=== PATIENT | female | born 1945 | race American Indian/Alaskan Native ===

== ENCOUNTER 2017-01-02 08:51 | Outpatient (CLI) | payer MEDICARE ==
[2017-01-02 09:24] LABS: Blood Urea Nitrogen 14 mg/dL (7-17)
[2017-01-02] MEDS ORDERED: NACL ONE (11:49)
--- NOTE | 2017-01-02 15:59 | Cat Scan Report ---
CT abdomen and pelvis without contrast: Hematuria. Transverse images are obtained from lower chest to the ischium with coronal and sagittal 2-D reformatted images. Comparison made to the prior examination in August 2015. There are bilateral mammary cyst in the implants. The visualized lungs are unremarkable. Surgical clips are noted in the right upper quadrant. The gallbladder however is present and unremarkable as are the other abdominal organs. In the superior right kidney there is a hypodensity consistent with cyst measuring 17 mm. In the central lower pole there is a 9 mm calculus. In the superior right kidney there is a 3.3 cm hypodensity in in the lower pole is a 4.6 cm hypodensity. In the central kidney is 11 mm calculus. These findings are all unchanged from prior examination. No hydronephrosis noted. In the left kidney adjacent to the calculus however there is a 2 mm calculus which is new. Imaging of the urinary bladder is unremarkable. There is heavy calcification throughout the abdominal aortic wall. Bilateral iliac artery stents are present which were not seen on prior exam. L5-S1 fusion with interspace cage. Impression: 1. Interval development of tiny left calculus with stable bilateral single large calculi. 2. Stable bilateral renal cysts. 3. Interval placement of bilateral iliac artery stents.
== END 2017-01-02 08:52 | disposition home or self-care (01) ==
LOC: CT 08:51
PROVIDERS: ATTEND Urology
DX: N20.0 Calculus of kidney (principal); N28.1 Cyst of kidney, acquired; I70.0 Atherosclerosis of aorta; N60.01 Solitary cyst of right breast; N60.02 Solitary cyst of left breast; Z98.82 Breast implant status
CPT/HCPCS: 36415; 74178; 82565; 84520; Q9967

== ENCOUNTER 2017-05-09 06:53 | Day surgery (SDC) | payer MEDICARE ==
[2017-05-09] MEDS ORDERED: NACL 0.9% 1000 ML 1,000 ML IV SCH (08:00)
[2017-05-09] MEDS ORDERED: PEPCID PO NR (08:00)
[2017-05-09] MEDS ORDERED: NACL BACTERIOSTATIC INFILTRATI ONE (08:11)
--- NOTE | 2017-05-09 08:39 | Anesthesia Consultation ---
Anesthesia Consult and Med Hx Date of service: 05/09/17 - Airway Anesthetic Teeth Evaluation: Dentures ROM Head & Neck: Adequate Mental/Hyoid Distance: Adequate Mallampati Class: Class III Intubation Access Assessment: Probably Good - Pulmonary Exam CTA: Yes - Cardiac Exam Cardiac Exam: RRR - Pre-Operative Health Status ASA Pre-Surgery Classification: ASA4 Proposed Anesthetic Plan: General - Pulmonary Hx Smoking: No Hx Asthma: Yes (INHALERS / NEBULZER PRN) COPD: Yes Hx Pneumonia: Yes (FIRST OF MAR 2017) Hx Sleep Apnea: No (XIOMY PRE SCREEN LOW RISK.) - Cardiovascular System Hx Hypertension: Yes (2006) Hx Valvular Heart Disease: Yes (HX LEAKING VALVE- "STABLE") Hx Peripheral Vascular Disease: Yes (FEM-POP BYPASS WITH STENTS) - Central Nervous System Hx Seizures: No CVA: No - Gastrointestinal Hx Ulcer: Yes (removed in 03/25/1979) Hx Gastroesophageal Reflux Disease: Yes - Endocrine Hx Renal Disease: Yes (CKD) Hx End Stage Renal Disease: No Hx Non-Insulin Dependent Diabetes: No Hx Thyroid Disease: No Hx Hypothyroidism: Yes (ON MEDS) - Hematic Hx Anemia: Yes - Other Systems Hx Cancer: Yes (left Breast Cancer, Chemo and Radiation 2012) - Additional Comments Anesthesia Medical History Comments: h/o DVT,PE IN 2013. stopped anticoag 1 week ago. HLD, migraines, neuropathy, lupus- last does of prednisone 10 days ago. left arm precautions
[2017-05-09 08:40] LABS: Basophils % (Auto) 0.6 % (0.0-1.8); Eosinophils # (Auto) 0.2 K/mm3 (0.0-0.4); Eosinophils % (Auto) 3.3 % (0.0-4.3); Hematocrit 28.6 % (30.3-42.9); Hemoglobin 9.4 gm/dl (10.1-14.3); Lymphocytes # (Auto) 1.1 K/mm3 (1.2-5.4); Lymphocytes % (Auto) 18.8 % (13.4-35.0); Mean Corpuscular HGB Conc 33 % (30-34); Mean Corpuscular Hemoglobin 29 pg (28-32); Mean Corpuscular Volume 87 fl (79-97); Monocytes # (Auto) 0.6 K/mm3 (0.0-0.8); Monocytes % (Auto) 9.6 % (0.0-7.3); Platelet Count 142 K/mm3 (140-440); Red Cell Distribution Width 15.4 % (13.2-15.2)
[2017-05-09] MEDS ORDERED: DILAUDID IV PRN (08:45)
[2017-05-09] MEDS ORDERED: PERCOCET 5/325 PO PRN (08:45)
--- NOTE | 2017-05-09 08:45 | Anesthesia Day of Surgery ---
Anesthesia Day of Surgery - Day of Surgery Patient Examined: Yes Patient H&P Reviewed: Yes (medical clearance appreciated- mild/mod risk) Patient is NPO: Yes
[2017-05-09 08:53] LABS: INR 1.03 (0.87-1.13); Partial Thromboplastin Time 24.7 Sec. (24.2-36.6)
[2017-05-09 08:57] LABS: BUN/Creatinine Ratio 16; Blood Urea Nitrogen 14 mg/dL (7-17); Calcium 9.5 mg/dL (8.4-10.2); Hemolysis Index 21
[2017-05-09] MEDS ORDERED: FLAGYL 500 MG/100 ML 500 MG/100 ML BAG IV NR (09:00)
[2017-05-09] MEDS ORDERED: DIPRIVAN 10 MG/ML IV ONE (09:01)
--- NOTE | 2017-05-09 10:04 | Short Stay Summary ---
Short Stay Documentation Date of service: 05/09/17 - History H&P: obtained from office - Allergies and Medications Current Medications: Allergies chocolate flavor Allergy (Severe, Verified 07/01/13 17:15) Rash corn [[place]] Allergy (Severe, Verified 07/01/13 17:15) Rash egg Allergy (Severe, Verified 07/01/13 17:15) Rash Penicillins Allergy (Severe, Verified 07/01/13 17:15) SWELLING,HIVES shellfish derived Allergy (Severe, Verified 07/01/13 17:15) Rash wheat Allergy (Severe, Verified 07/01/13 17:15) Rash BUTTER BEANS Allergy (Severe, Uncoded 07/01/13 17:15) Rash CHEESE Allergy (Severe, Uncoded 07/01/13 17:15) Rash POND BEANS Allergy (Severe, Uncoded 07/01/13 17:15) Rash Home Medications Medication Instructions Recorded Confirmed Last Taken Type Atorvastatin [Lipitor] 80 mg PO QHS 07/01/13 04/22/17 05/08/17 History Hydroxychloroquine [Plaquenil] 200 mg PO BID 07/01/13 04/22/17 05/08/17 History Lisinopril [Zestril TAB] 10 mg PO DAILY 07/01/13 04/22/17 05/08/17 History Loratadine [Claritin] 10 mg PO DAILY 07/01/13 04/22/17 05/08/17 History Pantoprazole [Protonix TAB] 40 mg PO DAILY tablet 04/10/16 04/22/17 05/08/17 Rx ALBUTEROL Inhaler [Proair] 2 puff IH QID PRN 04/22/17 05/09/17 2 Weeks Ago History ~04/25/17 ALBUTEROL NEB's [Proventil] 2.5 mg IH TID PRN 04/22/17 05/09/17 2 Weeks Ago History ~04/25/17 Apixaban [Eliquis] 5 mg PO BID 04/22/17 05/09/17 05/02/17 History Gabapentin [Neurontin] 300 mg PO TID 04/22/17 04/22/17 05/08/17 History Hydroxyzine HCl [hydrOXYzine] 50 mg PO QHS 04/22/17 04/22/17 05/08/17 History Levothyroxine Sodium [Tirosint] 100 mcg PO QAM 04/22/17 04/22/17 05/08/17 History predniSONE [Deltasone] 5 mg PO PRN PRN 04/22/17 05/09/17 05/07/17 History traMADol [Ultram] 50 mg PO Q6HR PRN 04/22/17 05/09/17 1 Month Ago History ~04/08/17 Active Medications Famotidine (Pepcid) 20 mg PO PREOP NR Stop: 05/09/17 12:00 Last Admin: 05/09/17 08:57 Dose: 20 mg Hydromorphone HCl (Dilaudid) 0.5 mg IV Q10MIN PRN PRN Reason: Pain , Severe (7-10) Stop: 05/09/17 13:00 Sodium Chloride (Nacl 0.9% 1000 Ml) 1,000 mls @ 75 mls/hr IV DIRECT ADELE Last Admin: 05/09/17 08:15 Dose: 75 mls/hr Metronidazole (Flagyl 500 Mg/100 Ml) 500 mg in 100 mls @ 200 mls/hr IV PREOP NR Stop: 05/09/17 12:00 Oxycodone/Acetaminophen (Percocet 5/325) 1 tab PO ONCE PRN PRN Reason: Pain, Moderate (4-6) Stop: 05/09/17 11:00 - Brief post op/procedure progress note Date of procedure: 05/09/17 Pre-op diagnosis: left renal stone Post-op diagnosis: same Procedure: eswl left Anesthesia: GETA Surgeon: ZARA JUÁREZ Estimated blood loss: none Pathology: none Condition: stable - Hospital course Hospital course: norco & post op info on chart - Disposition Condition at discharge: Stable Disposition: [id number]/[place]-[id number] HOME UNDER HOME HL Short Stay Discharge Plan Follow up with: BRITTANY MATTSON MD [Primary Care Provider] - 7 Days
[2017-05-09] MEDS ORDERED: ZOFRAN ONE (10:06)
[2017-05-09] MEDS ORDERED: XYLOCAINE MPF 2% ONE (10:06)
--- NOTE | 2017-05-09 11:05 | Operative Report ---
PREOPERATIVE DIAGNOSIS: Left renal stone. POSTOPERATIVE DIAGNOSES: Left renal stone. PROCEDURE: Left extracorporal shock wave lithotripsy. SURGEON: Maged Garcia MD. ANESTHESIA: General. ESTIMATED BLOOD LOSS: Minimal. FLUIDS: Crystalloid. COMPLICATIONS: None. INDICATIONS: This patient is a 71-year-old female seen by Dr. Alvarez in the office, who was found to have a 12-mm left renal stone. She also has a right-sided stone as well. She presents today for left extracorporal shock wave lithotripsy. DESCRIPTION OF PROCEDURE: The patient was taken to the operative suite, placed in a supine position. After adequate general anesthesia, her left stone was localized in 2 planes using fluoroscopy. Extracorporal shock wave lithotripsy was administered with a maximum kV of 5 and 2500 shocks. There was some fragmentation that could be appreciated. The patient tolerated the procedure well. She may require a staged procedure. She was taken to recovery room in stable condition. She will go home on [place] and strain her urine for fragments. JOB# [id number] MICHAEL/NTS
--- NOTE | 2017-05-09 13:32 | Post Anesthesia Evaluation ---
- Post Anesthesia Evaluation Patient Participated: Yes Airway Patent: Yes Stable Respiratory Function: Yes Nausea/Vomiting: No Temp > 96.8F: Yes Pain Manageable: Yes Adequeate Hydration: Yes Anesthesia Complications: No Block Receding Appropriately: Not Applicable Patient on Ventilator: No
[2017-05-09 16:19] VITALS: BP 136/71
== END 2017-05-09 12:05 | disposition home health service (06) ==
LOC: OR 06:53
PROVIDERS: ATTEND Urology
DX: N20.0 Calculus of kidney (principal); I73.9 Peripheral vascular disease, unspecified; I12.9 Hypertensive chronic kidney disease with stage 1 through stage 4 chronic kidney disease, or unspecified chronic kidney disease; N18.3 Chronic kidney disease, stage 3 (moderate); J44.9 Chronic obstructive pulmonary disease, unspecified; K21.9 Gastro-esophageal reflux disease without esophagitis; E78.5 Hyperlipidemia, unspecified; G43.909 Migraine, unspecified, not intractable, without status migrainosus; G62.9 Polyneuropathy, unspecified; M32.9 Systemic lupus erythematosus, unspecified; Z88.0 Allergy status to penicillin; Z85.3 Personal history of malignant neoplasm of breast; Z92.21 Personal history of antineoplastic chemotherapy; Z92.3 Personal history of irradiation; Z86.711 Personal history of pulmonary embolism; Z86.718 Personal history of other venous thrombosis and embolism; Z79.01 Long term (current) use of anticoagulants; Z91.012 Allergy to eggs; Z91.013 Allergy to seafood; Z91.018 Allergy to other foods
CPT/HCPCS: 36415; 50590; 80048; 85025; 85610; 85730; J2405; J2704; J7030

== ENCOUNTER 2017-05-31 10:02 | Outpatient (CLI) | payer MEDICARE ==
--- NOTE | 2017-05-31 11:11 | XRay Report ---
ABDOMEN RADIOGRAPHS INDICATION: Calculus of kidney. COMPARISON: 06/20/2013 abdomen radiographs and 01/02/2017 CT findings. FINDINGS: Frontal abdominal radiographs demonstrate bilateral iliac stents, new since 2013. Stable lumbosacral fusion hardware and few scattered surgical clips overlying the mid abdomen. At least 2 right renal calculi also suspected at the upper and lower poles, the larger approximately 1 cm. Multiple left renal calculi, in aggregate estimated at 2.2 x 0.7 cm. A 0.7 cm right upper quadrant calcific density projecting just below the 10th rib represents calcified granuloma. Possible osteopenia. CONCLUSION: Bilateral iliac stents and other stable postsurgical changes in this patient with bilateral nephrolithiasis, as described. Thank you for the opportunity to participate in this patient's care.
== END 2017-05-31 10:03 | disposition home or self-care (01) ==
LOC: XRAY 10:02
PROVIDERS: ATTEND Urology
DX: N20.0 Calculus of kidney (principal); M43.27 Fusion of spine, lumbosacral region
CPT/HCPCS: 74018

== ENCOUNTER 2017-07-04 07:42 | Day surgery (SDC) | payer MEDICARE ==
[2017-07-04] MEDS ORDERED: DILAUDID IV PRN (11:01)
[2017-07-04] MEDS ORDERED: ZOFRAN IV PRN (11:01)
[2017-07-04] MEDS ORDERED: NARCAN 0.4 MG/1 ML IV PRN (11:01)
--- NOTE | 2017-07-04 11:01 | Anesthesia Day of Surgery ---
Anesthesia Day of Surgery - Day of Surgery Patient Examined: Yes Patient H&P Reviewed: Yes Patient is NPO: Yes
--- NOTE | 2017-07-04 11:01 | Anesthesia Consultation ---
Anesthesia Consult and Med Hx Date of service: 07/04/17 - Airway Anesthetic Teeth Evaluation: Edentulous ROM Head & Neck: Adequate Mental/Hyoid Distance: Adequate Mallampati Class: Class III Intubation Access Assessment: Good - Pulmonary Exam CTA: Yes - Pre-Operative Health Status ASA Pre-Surgery Classification: ASA3 Proposed Anesthetic Plan: General - Pulmonary Hx Smoking: No Hx Asthma: Yes (INHALERS / NEBULZER PRN) COPD: Yes Hx Pneumonia: Yes (FIRST OF MAR 2017- RESOLVED) Hx Sleep Apnea: No (XIOMY PRE SCREEN LOW RISK.) - Cardiovascular System Hx Hypertension: Yes (2006) Hx Heart Attack/AMI: No Hx Valvular Heart Disease: Yes (HX LEAKING VALVE- "STABLE") Hx Peripheral Vascular Disease: Yes (FEM-POP BYPASS WITH STENTS) - Central Nervous System Hx Back Pain: Yes - Gastrointestinal Hx Ulcer: Yes (removed in 03/25/1979 ( PARTIAL GASTECTOMY)) Hx Gastroesophageal Reflux Disease: Yes - Endocrine Hx Renal Disease: Yes (CKD) Hx Non-Insulin Dependent Diabetes: No Hx Thyroid Disease: No Hx Hypothyroidism: Yes (ON MEDS) - Hematic Hx Anemia: Yes - Other Systems Hx Cancer: Yes (left Breast Cancer, Chemo and Radiation 2012)
[2017-07-04 11:34] LABS: INR 1.04 (0.87-1.13)
[2017-07-04 11:35] LABS: Partial Thromboplastin Time 28.1 Sec. (24.2-36.6)
[2017-07-04] MEDS ORDERED: NACL 0.9% 1000 ML 1,000 ML IV SCH (12:00)
[2017-07-04] MEDS ORDERED: ZOFRAN IV NR (12:00)
[2017-07-04] MEDS ORDERED: DIPRIVAN 10 MG/ML IV ONE (12:25)
[2017-07-04] MEDS ORDERED: SUBLIMAZE ONE (12:26)
[2017-07-04] MEDS ORDERED: LEVAQUIN 500MG/100ML 500 MG/100 ML BAG IV ONE (12:57)
[2017-07-04] MEDS: DILAUDID IV PRN ×2 (13:53→14:15)
[2017-07-04] MEDS ORDERED: XYLOCAINE MPF 2% ONE (14:30)
[2017-07-04] MEDS ORDERED: NORCO 7.5/325 ONE (14:47)
--- NOTE | 2017-07-04 14:48 | Short Stay Summary ---
Short Stay Documentation Date of service: 07/04/17 - Allergies and Medications Current Medications: Allergies chocolate flavor Allergy (Severe, Verified 07/01/13 17:15) Rash corn [[place]] Allergy (Severe, Verified 07/01/13 17:15) Rash egg Allergy (Severe, Verified 07/01/13 17:15) Rash Penicillins Allergy (Severe, Verified 07/01/13 17:15) SWELLING,HIVES shellfish derived Allergy (Severe, Verified 07/01/13 17:15) Rash wheat Allergy (Severe, Verified 07/01/13 17:15) Rash BUTTER BEANS Allergy (Severe, Uncoded 07/01/13 17:15) Rash CHEESE Allergy (Severe, Uncoded 07/01/13 17:15) Rash POND BEANS Allergy (Severe, Uncoded 07/01/13 17:15) Rash Home Medications Medication Instructions Recorded Confirmed Last Taken Type Atorvastatin [Lipitor] 80 mg PO QHS 07/01/13 07/04/17 07/03/17 History Hydroxychloroquine [Plaquenil] 200 mg PO BID 07/01/13 07/04/17 07/03/17 History Lisinopril [Zestril TAB] 10 mg PO DAILY 07/01/13 07/04/17 07/04/17 History Loratadine [Claritin] 10 mg PO DAILY 07/01/13 07/04/17 07/03/17 History Pantoprazole [Protonix TAB] 40 mg PO DAILY tablet 04/10/16 07/04/17 07/03/17 Rx ALBUTEROL Inhaler [Proair] 2 puff IH QID PRN 04/22/17 06/26/17 2 Weeks Ago History ~04/25/17 ALBUTEROL NEB's [Proventil] 2.5 mg IH TID PRN 04/22/17 06/26/17 2 Weeks Ago History ~04/25/17 Apixaban [Eliquis] 5 mg PO BID 04/22/17 07/04/17 06/26/17 History Gabapentin [Neurontin] 300 mg PO TID 04/22/17 07/04/17 07/03/17 History Hydroxyzine HCl [hydrOXYzine] 50 mg PO QHS 04/22/17 07/04/17 07/03/17 History Levothyroxine Sodium [Tirosint] 100 mcg PO QAM 04/22/17 07/04/17 07/03/17 History predniSONE [Deltasone] 5 mg PO PRN PRN 04/22/17 07/04/17 07/03/17 History traMADol [Ultram] 50 mg PO Q6HR PRN 04/22/17 07/04/17 07/03/17 History Active Medications Hydromorphone HCl (Dilaudid) 0.25 mg IV Q10MIN PRN PRN Reason: Pain, Moderate (4-6) Hydromorphone HCl (Dilaudid) 0.5 mg IV Q10MIN PRN PRN Reason: Pain , Severe (7-10) Stop: 07/04/17 23:59 Last Admin: 07/04/17 14:15 Dose: 0.5 mg Sodium Chloride (Nacl 0.9% 1000 Ml) 1,000 mls @ 75 mls/hr IV DIRECT ADELE Last Admin: 07/04/17 11:31 Dose: 75 mls/hr Naloxone HCl (Narcan 0.4 Mg/1 Ml) 0.1 mg IV Q2MIN PRN PRN Reason: Res Rate </= 8 or 02 SAT < 92% Ondansetron HCl (Zofran) 4 mg IV PREOP NR Stop: 07/04/17 23:59 Last Admin: 07/04/17 11:31 Dose: 4 mg Ondansetron HCl (Zofran) 4 mg IV ONCE PRN PRN Reason: Nausea And Vomiting - Brief post op/procedure progress note Date of procedure: 07/04/17 Pre-op diagnosis: right renal eswl Post-op diagnosis: same Procedure: right renal eswl Anesthesia: GETA Findings: 2 stone tx lp good vis Surgeon: DEJON MCINTOSH Estimated blood loss: none Condition: stable - Hospital course Hospital course: or pacu home Short Stay Discharge Plan Activity: advance as tolerated Diet: advance as tolerated Follow up with: DEJON MCINTOSH MD [Staff Physician] - 7 Days
[2017-07-04] MEDS ORDERED: NORCO 7.5/325 PO PRN (14:50)
[2017-07-04 17:29] VITALS: BP 158/83
--- NOTE | 2017-08-07 21:13 | Operative Report ---
PREOPERATIVE DIAGNOSES: Right renal stone x 2 each 11-12 mm and the left renal stone x 1 12 mm. POSTOPERATIVE DIAGNOSIS: Right renal stone. PROCEDURE: Right renal ESWL. ANESTHESIA: General. FINDINGS: Two stones treated in the lower pole with good visualization. SURGEON: Nasir Alvarez M.D. ESTIMATED BLOOD LOSS: Minimal. CONDITION: Stable. CLINICAL INDICATION: The patient was counseled RCBA, antibiotics, SCDs. DESCRIPTION OF PROCEDURE: The patient was transferred to OR suite in supine position, anesthesia, in supine position, prepped and draped in standard fashion. Biplanar fluoroscopy was used to target the right stone with an F2. We targeted the more central stone that was more likely to cause the problem. A total of 2500 shocks were delivered with intermittent repositioning done as necessary, maximum of 5.0 kilovolts. At the end of procedure, there was decreased density of the stone. The patient was awakened and transferred to PACU in good and stable condition. JOB# [id number] ATS/NTS
== END 2017-07-04 15:55 | disposition home or self-care (01) ==
LOC: OR 07:42
PROVIDERS: ATTEND Urology
DX: N20.0 Calculus of kidney (principal); J44.9 Chronic obstructive pulmonary disease, unspecified; K21.9 Gastro-esophageal reflux disease without esophagitis; I12.9 Hypertensive chronic kidney disease with stage 1 through stage 4 chronic kidney disease, or unspecified chronic kidney disease; N18.3 Chronic kidney disease, stage 3 (moderate); E03.9 Hypothyroidism, unspecified; I73.9 Peripheral vascular disease, unspecified; Z85.3 Personal history of malignant neoplasm of breast; Z92.21 Personal history of antineoplastic chemotherapy; Z92.3 Personal history of irradiation; Z88.0 Allergy status to penicillin; Z91.012 Allergy to eggs; Z91.018 Allergy to other foods; Z79.899 Other long term (current) drug therapy; N32.81 Overactive bladder
CPT/HCPCS: 36415; 50590; 85610; 85730; J1170; J1956; J2405; J2704; J3010; J7030

== ENCOUNTER 2017-07-18 11:38 | Outpatient (CLI) | payer MEDICARE ==
--- NOTE | 2017-07-18 23:56 | XRay Report ---
FINAL REPORT EXAM: XR ABDOMEN 1V AP HISTORY: Calculus of the kidney TECHNIQUE: Two frontal views of the abdomen and pelvis were obtained. PRIORS: None FINDINGS: Surgical clips are noted scattered throughout the abdomen. 9 millimeter calculus projects over the superior/midpole of the right kidney. Aortoiliac stent grafts and postsurgical changes overlie the sacrum. Multilevel degenerative changes. Nonobstructive bowel gas pattern. Catheter projects over the mid/distal superior vena cava. Mild enlarged of the cardiac silhouette. No subdiaphragmatic free air. IMPRESSION: Nonobstructive bowel gas pattern. 9 mm calculus projects over the right kidney. Postsurgical changes as above. No pneumoperitoneum.
== END 2017-07-18 11:39 | disposition home or self-care (01) ==
LOC: XRAY 11:38
PROVIDERS: ATTEND Urology
DX: N20.0 Calculus of kidney (principal); I51.7 Cardiomegaly; M47.899 Other spondylosis, site unspecified
CPT/HCPCS: 74018

== ENCOUNTER 2017-08-30 10:44 | Outpatient (CLI) | payer MEDICARE ==
--- NOTE | 2017-08-31 09:17 | Mammography Report ---
BONE DEXA:08/30/17 10:00:00 CLINICAL: Postmenopausal and history of breast cancer. COMPARISON: 08/27/14 and 12/06/10 TECHNIQUE: Two site bone DEXA performed on an Hologic scanner. FINDINGS: The average BMD of the lumbar spine L1-L4 is 0.953g/cm squared with a T-score =-0.7 and a Z score of +0.8. This compares to 0.75 g/cm squared on the last exam and represents a +21.5% change in BMD from the previous exam and a +7.6% change from baseline. The average BMD of the left hip is 0.806g/cm squared with a T-score =-1.1 and a Z score of -0.2.This compares to 0.869g/cm squared on the last exam and represents a -7.3% change in BMD from the previous exam and a -1.0% change from baseline. IMPRESSION: WHO classification: Normal with average fracture risk based on lumbar spine measurements. A marked improvement in spine BMD compared to previous exams. WHO classification: Osteopenia with increased fracture risk based on left hip measurements. % A moderate decline in left hip BMD compared to the previous exam. The FRAX 10 year fracture probability for a major osteoporotic fracture is 4.6%. The FRAX 10 year fracture probability for hip fracture is 0.7%. Note: FRAX version 3.01. Fracture probability calculated for an untreated patient. Fracture probability may be lower if the patient has received treatment. RECOMMENDATION: Clinical correlation and routine screening. DEFINITIONS: BMD = Bone Mineral Density T-score = BMD related to mean peak bone mass of young adult (mean expressed in Standard Deviation) Z-score = Age matched BMD expressed in SD World Health Organization (WHO) Diagnostic Criteria Normal T-score > -1 SD Osteopenia T-score between -1 and -2.4 SD Osteoporosis T-score -2.5 SD or below NOTE: BMD is not the only risk factor for fracture; also consider factors such as the patient's age, risk of falling, previous osteoporotic fracture, family history of osteoporotic fractures, current smoker, and low body weight. All treatment decisions require clinical judgment and consideration of individual patient factors, including patient preferences, comorbidities, previous drug use and wrist factors not captured in the FRAX model (e.g. frailty, falls, vitamin D deficiency, increased bone turnover, interval significant decline in BMD). Z-scores are not calculated if >80 years of age.
== END 2017-08-30 10:45 | disposition home or self-care (01) ==
LOC: MAMMO 10:44
DX: Z13.820 Encounter for screening for osteoporosis (principal); C50.919 Malignant neoplasm of unspecified site of unspecified female breast; F17.210 Nicotine dependence, cigarettes, uncomplicated; E78.00 Pure hypercholesterolemia, unspecified; I10 Essential (primary) hypertension; J44.9 Chronic obstructive pulmonary disease, unspecified; G47.30 Sleep apnea, unspecified; K21.9 Gastro-esophageal reflux disease without esophagitis; Z78.0 Asymptomatic menopausal state
CPT/HCPCS: 77080

== ENCOUNTER 2017-09-12 06:35 | Outpatient (CLI) | payer MEDICARE ==
--- NOTE | 2017-09-12 12:21 | Ultrasound Report ---
ULTRASOUND RENAL BILATERAL HISTORY: Calculus of kidney. TECHNIQUE: transabdominal ultrasound with color Doppler interrogation. FINDINGS: The right kidney measures 10 cm in length. There are 2 cysts near the superior pole of the right kidney measuring 1.2 cm and 1.6 cm. There is an approximate 1 cm calculus near the superior pole of the right kidney. No associated hydronephrosis. No obvious renal mass. The left kidney measures 11.5 cm in length. A 4.3 cm cyst is noted in the superior left kidney. A 3.9 cm cyst is noted in the inferior left kidney. There also appears to be an approximate 1 cm calculus near mid pole of left kidney. No associated hydronephrosis. No obvious mass. The renal parenchyma is slightly echogenic bilaterally consistent with nonspecific renal parenchymal disease. Images through the bladder are unremarkable. IMPRESSION: Nonspecific renal parenchymal disease. Bilateral renal cysts. Bilateral renal stones measuring up to 1 cm. No hydronephrosis.
== END 2017-09-12 06:36 | disposition home or self-care (01) ==
LOC: US 06:35
PROVIDERS: ATTEND Urology
DX: N20.0 Calculus of kidney (principal); N28.1 Cyst of kidney, acquired; I10 Essential (primary) hypertension; E78.00 Pure hypercholesterolemia, unspecified; J44.9 Chronic obstructive pulmonary disease, unspecified; G47.30 Sleep apnea, unspecified; K21.9 Gastro-esophageal reflux disease without esophagitis; D64.9 Anemia, unspecified; Z82.49 Family history of ischemic heart disease and other diseases of the circulatory system
CPT/HCPCS: 76770

== ENCOUNTER 2017-10-31 09:56 | Outpatient (CLI) | payer MEDICARE ==
--- NOTE | 2017-10-31 10:48 | XRay Report ---
AP ABDOMEN: HISTORY: Calculus of kidney. The abdominal gas pattern is unremarkable. No masses or organomegaly is identified and there is no gross evidence of free air or fluid. An approximate 1.3 cm stone overlies the mid right kidney. There are 2 smaller stones overlying the inferior pole of the right kidney measuring approximately 5 mm. Bilateral common iliac vein stents are noted. IMPRESSION: Right nephrolithiasis.
== END 2017-10-31 09:57 | disposition home or self-care (01) ==
LOC: XRAY 09:56
PROVIDERS: ATTEND Urology
DX: N20.0 Calculus of kidney (principal); I73.9 Peripheral vascular disease, unspecified; E78.00 Pure hypercholesterolemia, unspecified; J44.9 Chronic obstructive pulmonary disease, unspecified; K21.9 Gastro-esophageal reflux disease without esophagitis; I10 Essential (primary) hypertension; E03.9 Hypothyroidism, unspecified; M19.90 Unspecified osteoarthritis, unspecified site; Z86.711 Personal history of pulmonary embolism; Z91.018 Allergy to other foods; Z88.0 Allergy status to penicillin; Z91.012 Allergy to eggs; Z91.013 Allergy to seafood
CPT/HCPCS: 74018

== ENCOUNTER 2017-12-24 09:45 | Outpatient (CLI) | payer MEDICARE ==
[2017-12-24] MEDS ORDERED: XYLOCAINE TOPICAL 4% TP ONE ×2 (10:16→14:19)
[2017-12-24] MEDS ORDERED: AD OINTMENT TP ONE (10:22)
[2017-12-24] MEDS ORDERED: AD OINTMENT TP PRN (14:19)
== END 2017-12-24 09:46 | disposition home or self-care (01) ==
LOC: WOUND 09:45
PROVIDERS: ATTEND Surgery
DX: S81.802D Unspecified open wound, left lower leg, subsequent encounter (principal); I89.0 Lymphedema, not elsewhere classified; I10 Essential (primary) hypertension; Z85.3 Personal history of malignant neoplasm of breast; X58.XXXD Exposure to other specified factors, subsequent encounter
CPT/HCPCS: 99205; A6250; G0463

== ENCOUNTER 2017-12-31 07:56 | Outpatient (CLI) | payer MEDICARE ==
[2017-12-31] MEDS ORDERED: XYLOCAINE TOPICAL 4% TP ONE ×2 (08:16→08:19)
== END 2017-12-31 07:57 | disposition home or self-care (01) ==
LOC: WOUND 07:56
PROVIDERS: ATTEND Surgery
DX: S81.802D Unspecified open wound, left lower leg, subsequent encounter (principal); I89.0 Lymphedema, not elsewhere classified; I10 Essential (primary) hypertension; Z85.3 Personal history of malignant neoplasm of breast; X58.XXXD Exposure to other specified factors, subsequent encounter
CPT/HCPCS: 97597; G0463; 99214

== ENCOUNTER 2018-05-14 08:00 | Outpatient (CLI) | payer MEDICARE ==
[2018-05-14] MEDS ORDERED: SILVER NITRATE TP ONE (08:13)
[2018-05-14] MEDS ORDERED: XYLOCAINE TOPICAL 4% TP ONE (08:13)
[2018-05-14] MEDS ORDERED: AD OINTMENT TP SCH (10:00)
== END 2018-05-14 08:01 | disposition home or self-care (01) ==
LOC: WOUND 08:00
PROVIDERS: ATTEND Surgery
DX: I70.248 Atherosclerosis of native arteries of left leg with ulceration of other part of lower leg (principal); I70.238 Atherosclerosis of native arteries of right leg with ulceration of other part of lower leg; L97.822 Non-pressure chronic ulcer of other part of left lower leg with fat layer exposed; L97.812 Non-pressure chronic ulcer of other part of right lower leg with fat layer exposed; I89.0 Lymphedema, not elsewhere classified; L84 Corns and callosities; I10 Essential (primary) hypertension; Z85.3 Personal history of malignant neoplasm of breast; M32.9 Systemic lupus erythematosus, unspecified
CPT/HCPCS: 11042; 11045; G0463; 99215; A6250

== ENCOUNTER 2018-05-21 07:58 | Outpatient (CLI) | payer MEDICARE ==
[2018-05-21] MEDS ORDERED: XYLOCAINE TOPICAL 4% TP ONE (08:01)
[2018-05-21] MEDS ORDERED: AD OINTMENT TP PRN (08:13)
== END 2018-05-21 07:59 | disposition home or self-care (01) ==
LOC: WOUND 07:58
PROVIDERS: ATTEND Surgery
DX: I70.248 Atherosclerosis of native arteries of left leg with ulceration of other part of lower leg (principal); I70.238 Atherosclerosis of native arteries of right leg with ulceration of other part of lower leg; L97.822 Non-pressure chronic ulcer of other part of left lower leg with fat layer exposed; L97.812 Non-pressure chronic ulcer of other part of right lower leg with fat layer exposed; I89.0 Lymphedema, not elsewhere classified; L84 Corns and callosities; I10 Essential (primary) hypertension; M32.9 Systemic lupus erythematosus, unspecified; Z85.3 Personal history of malignant neoplasm of breast
CPT/HCPCS: A6250

== ENCOUNTER 2018-05-28 07:57 | Outpatient (CLI) | payer MEDICARE ==
[2018-05-28] MEDS ORDERED: AD OINTMENT TP SCH (09:00)
[2018-05-28] MEDS ORDERED: XYLOCAINE TOPICAL 4% TP ONE (09:00)
== END 2018-05-28 07:58 | disposition home or self-care (01) ==
LOC: WOUND 07:57
PROVIDERS: ATTEND Surgery
DX: I70.238 Atherosclerosis of native arteries of right leg with ulceration of other part of lower leg (principal); L97.818 Non-pressure chronic ulcer of other part of right lower leg with other specified severity; I89.0 Lymphedema, not elsewhere classified; I10 Essential (primary) hypertension; M32.9 Systemic lupus erythematosus, unspecified; Z85.3 Personal history of malignant neoplasm of breast
CPT/HCPCS: 99214; A6250; G0463

== ENCOUNTER 2018-08-15 06:25 | Outpatient (CLI) | payer MEDICARE ==
--- NOTE | 2018-08-15 07:36 | XRay Report ---
AP ABDOMEN: HISTORY: Calculus of kidney. The renal shadows are partially obscured by bowel gas. There appear to be at least 2 stones overlying the superior and inferior pole of the right kidney measuring up to 1 cm. Slightly larger but solitary calcification overlies the inferior left kidney bilateral common iliac stents and surgical changes of L5-S1 are noted. The bowel gas pattern is unremarkable. IMPRESSION: Nephrolithiasis as described.
--- NOTE | 2018-08-15 11:26 | Ultrasound Report ---
ULTRASOUND RENAL BILATERAL HISTORY: Calculus of kidney, renal cysts. TECHNIQUE: transabdominal ultrasound with color Doppler interrogation. FINDINGS: The right kidney measures 8.9 x 4.3 x 4.7cm. Right renal cortex: 1.4cm. The left kidney measures 11.1 x 5.6 x 5.8cm. Left renal cortex: 1.6cm. Scans of the kidneys show normal renal contours. 1 cm cyst in the right kidney and 2 cysts in the left kidney at measuring 4.0 cm and 4.1 cm appear stable in size and characteristics. Scattered renal stones in the left kidney appear unchanged. The calcification at the inferior pole of the right kidney is not clearly identified on today's exam. No obvious right nephrolithiasis. No evidence for hydronephrosis or perinephric fluid. The bladder is empty. IMPRESSION: Bilateral renal cysts. Stable. Left nephrolithiasis. No obvious right nephrolithiasis on today's exam.
== END 2018-08-15 06:26 | disposition home or self-care (01) ==
LOC: US 06:25
PROVIDERS: ATTEND Urology
DX: N20.0 Calculus of kidney (principal); N28.1 Cyst of kidney, acquired; E78.00 Pure hypercholesterolemia, unspecified; I10 Essential (primary) hypertension; J44.9 Chronic obstructive pulmonary disease, unspecified; K21.9 Gastro-esophageal reflux disease without esophagitis; E03.9 Hypothyroidism, unspecified
CPT/HCPCS: 74018; 76770

== ENCOUNTER 2018-09-01 14:25 | Inpatient (IN) | payer MEDICARE ==
[2018-09-01] MEDS ORDERED: D5/0.45NS 1,000 ML IV SCH (15:00)
[2018-09-01 16:20] LABS: Basophils % (Auto) 0.5 % (0.0-1.8); Eosinophils # (Auto) 0.3 K/mm3 (0.0-0.4); Eosinophils % (Auto) 5.3 % (0.0-4.3); Hematocrit 31.8 % (30.3-42.9); Hemoglobin 10.3 gm/dl (10.1-14.3); Lymphocytes # (Auto) 1.6 K/mm3 (1.2-5.4); Lymphocytes % (Auto) 31.6 % (13.4-35.0); Mean Corpuscular HGB Conc 32 % (30-34); Mean Corpuscular Volume 87 fl (79-97); Monocytes # (Auto) 0.5 K/mm3 (0.0-0.8); Monocytes % (Auto) 9.3 % (0.0-7.3); Platelet Count 132 K/mm3 (140-440); Red Blood Count 3.66 M/mm3 (3.65-5.03); Red Cell Distribution Width 14.9 % (13.2-15.2)
[2018-09-01 16:37] LABS: INR 1.38 (0.87-1.13)
[2018-09-01 16:38] LABS: Partial Thromboplastin Time 27.5 Sec. (24.2-36.6)
[2018-09-01 16:51] LABS: Albumin 3.6 g/dL (3.9-5)
[2018-09-01] MEDS: PEPCID IV SCH (16:54)
[2018-09-01] MEDS: ZOFRAN IV PRN (16:54)
[2018-09-01] MEDS ORDERED: LOVENOX SUB-Q SCH (18:00)
[2018-09-01] MEDS ORDERED: PROVENTIL IH PRN (21:07)
--- NOTE | 2018-09-01 21:19 | History and Physical Report ---
History of Present Illness Date of examination: 09/01/18 Date of admission: 09/01/18 14:56 Chief complaint: Constant Headache, Nausea and vomiting - 10 days in a pt with breast cancer s/p mastectomy. 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 These are associated with constant headache for the past 10 days as well as nausea and vomiting. Vomitus was predominantly gastric contents. No blood. Denies any melena. Denies any fever or chest pain. Had an iliac and left femoral artery stents placed about a month ago. Headache is generalized, 7/10 in severity. Denies any blood vision, photophobia or phonophobia. Has no syncopy however unable to ambulate without assistance because of weakness and dizziness. A direct admission to the hospital was therefore ordered for further evaluation and management. Initial biochemistry showed BUN of 32 and creatinine of 2.7. BUN as at 01/2018 was 15 with creatinine of 1.0. Platelet was 132. CT abdomen and pelvis that were ordered with contrast prior to lab results was therefore pending awaiting improvement in the renal function. Past History Past Medical History: cancer (breast), DVT, GERD, hypothyroidism, pulmonary embolism, renal failure Past Surgical History: mastectomy, Other (gastric surgery) Social history: denies: smoking, alcohol abuse, prescription drug abuse Family history: no significant family history Medications and Allergies Allergies Allergy/AdvReac Type Severity Reaction Status Date / Time chocolate flavor Allergy Severe Rash Verified 07/01/13 17:15 corn [[place]] Allergy Severe Rash Verified 07/01/13 17:15 egg Allergy Severe Rash Verified 07/01/13 17:15 Penicillins Allergy Severe SWELLING,[place] Verified 07/01/13 17:15 VES shellfish derived Allergy Severe Rash Verified 07/01/13 17:15 wheat Allergy Severe Rash Verified 07/01/13 17:15 BUTTER BEANS Allergy Severe Rash Uncoded 07/01/13 17:15 CHEESE Allergy Severe Rash Uncoded 07/01/13 17:15 POND BEANS Allergy Severe Rash Uncoded 04/09/14 17:15 Home Medications Medication Instructions Recorded Confirmed Last Taken Type Atorvastatin [Lipitor] 80 mg PO QHS 07/01/13 02/19/18 02/18/18 History 80mg Hydroxychloroquine [Plaquenil] 200 mg PO BID 07/01/13 02/19/18 02/18/18 History 200mg Lisinopril [Zestril TAB] 10 mg PO DAILY 07/01/13 02/19/18 02/19/18 History 10mg Loratadine [Claritin] 10 mg PO DAILY 07/01/13 02/19/18 02/18/18 History 10mg Pantoprazole [Protonix TAB] 40 mg PO DAILY tablet 04/10/16 02/19/18 02/18/18 Rx 40mg ALBUTEROL Inhaler (OR & NICU) 2 puff IH QID PRN 04/22/17 02/19/18 02/18/18 History [Proair] 2 ALBUTEROL NEB's [Proventil] 2.5 mg IH TID PRN 04/22/17 02/19/18 02/18/18 History 2.5mg Apixaban [Eliquis] 5 mg PO BID 04/22/17 02/19/18 02/18/18 History 5mg Gabapentin [Neurontin] 300 mg PO TID 04/22/17 02/19/18 02/18/18 History 300mg Hydroxyzine HCl [hydrOXYzine] 50 mg PO QHS 04/22/17 02/19/18 02/18/18 History 50mg Levothyroxine Sodium [Tirosint] 100 mcg PO QAM 04/22/17 02/19/18 02/18/18 History 100mcg predniSONE [Deltasone] 5 mg PO PRN PRN 04/22/17 02/19/18 02/18/18 History 5mg traMADol [Ultram] 50 mg PO Q6HR PRN 04/22/17 02/19/18 02/18/18 History 50mg Active Meds: Active Medications Albuterol (Proventil) 2.5 mg IH TID PRN PRN Reason: Wheezing Apixaban (Eliquis) 5 mg PO BID [facility]; Protocol Famotidine (Pepcid) 40 mg IV QDAY [facility] Last Admin: 09/01/18 16:54 Dose: 40 mg Documented by: Gabapentin (Neurontin) 300 mg PO TID [facility] Hydroxychloroquine Sulfate (Plaquenil) 200 mg PO BID [place] Dextrose/Sodium Chloride (D5/0.45ns) 1,000 mls @ 75 mls/hr IV DIRECT [facility] Last Admin: 09/01/18 16:52 Dose: 75 mls/hr Documented by: Dextrose/Sodium Chloride (D5ns) 1,000 mls @ 100 mls/hr IV DIRECT [facility] Miscellaneous Medication (Hydroxyzine Hcl [Hydroxyzine]) 50 mg PO QHS [facility] Miscellaneous Medication (Levothyroxine Sodium [Tirosint]) 100 mcg PO QAM [facility] Miscellaneous Medication (Atorvastatin [Lipitor]) 80 mg PO QHS [facility] Morphine Sulfate (Morphine) 2 mg IV Q6H PRN PRN Reason: Pain, Moderate (4-6) Ondansetron HCl (Zofran) 4 mg IV Q8H PRN PRN Reason: Nausea And Vomiting Last Admin: 09/01/18 16:54 Dose: 4 mg Documented by: Sodium Chloride (Sodium Chloride Flush Syringe 10 Ml) 10 ml IV BID [facility] Sodium Chloride (Sodium Chloride Flush Syringe 10 Ml) 10 ml IV PRN PRN PRN Reason: LINE FLUSH Tramadol HCl (Ultram) 50 mg PO Q6HR PRN PRN Reason: Pain Review of systems Constitutional: Well Nourished and Well developed. Head: NC/ AT Eyes: Denies any visual impairments. No discharge from the eyes Nose: Denies any rhinorrhea or epistaxis Throats: Denies any post nasal drainage. Ears: Denies any hearing deficits Cardiovascular system: Denies any chest pain, shortness of breath, orthopnea, paroxysmal nocturnal dyspnea, or palpitation. Respiratory system: Denies any cough, difficulty breathing, wheezing, pleuritic chest pain, Gastrointestinal system: Has nausea vomiting. No hematemesis or melena. Neurological system: Denies any headache, slurred speech, facial droop, lateralizing weakness Genitalia system: Denies any dysuria, urinary frequency or urgency, urethral discharge Skin: No rashes, hyperpigmented spots. Hematological: Denies any cervical tenderness hemorrhages or petechia. Immunological: Denies any multiple septic spots, Lymphatic: Denies any generalized lymphadenopathy. Endocrine: Denies any polyuria, polydipsia, polyphagia. No heat or cold intolerance. Musculoskeletal system: No joint pain or swelling. Psych: No visual, tactile, auditory or hallucination Exam - Physical Exam Narrative exam: Constitutional: Well-nourished well-developed. In no distress Head: Normocephalic atraumatic Eyes: Pupils are equal round and reactive to light Nose: No enlarged turbinates, no septal deviation. Mouth: Moist mucous membranes. Neck: Supple no thyromegaly. No bruit. No JVD Heart: Regular rate and rhythm, S1-S2 normal. No rubs murmurs or gallop Lungs: Clear to auscultation bilaterally. no rales or rhonchi Abdomen: Soft, nontender. Bowel sound are present. Extremities: Has edema, with hypoxic pigmentation of both lower extremities and healed weepy ulcers. Neuro: Alert oriented Oriented x3. No focal sensory or motor deficit. Skin: No rashes or hyperpigmented spots Musculoskeletal system: No joint pain or swelling Hematological: No petechia or subcutanous hemorrhages. Immunological: No multiple septic spots on the skin Lymphatic: No generalized lymphadenopathy Psychiatry: Euthymic. Calm. - Constitutional Vitals: Temp Pulse Resp BP Pulse Ox 97.9 F 79 18 97/55 96 09/01/18 19:49 09/01/18 21:01 09/01/18 19:49 09/01/18 19:49 09/01/18 19:49 Results - Labs CBC & Chem 7: 09/01/18 15:50 09/01/18 15:50 Labs: Abnormal lab results 09/01/18 09/01/18 09/01/18 Range/Units 15:50 15:50 15:50 Plt Count 132 L (140-440) K/mm3 [place] % (Auto) 9.3 H (0.0-7.3) % Eos % (Auto) 5.3 H (0.0-4.3) % PT 17.9 H (12.2-14.9) Sec. INR 1.38 H (0.87-1.13) Carbon Dioxide 20 L (22-30) mmol/L BUN 32 H (7-17) mg/dL Creatinine 2.7 H (0.7-1.2) mg/dL Albumin 3.6 L (3.9-5) g/dL Assessment and Plan - Acute renal failure BNP was 15 and creatinine was 1.0 as of 02/18/2018 Comments patient on IV hydration The markedly high BUN level may be suggestive of a GI bleed however H&H remains stable We'll obtain stool for Hemoccult - Nausea with vomiting Nothing by mouth, IV hydration, IV Zofran - Headache obtain Ct head Commence morphin - H/o Breast cancer stable s/p mastectomy and chemotx - Hypotension iv hydration - History of DVT/PE Continue Eliquis -History of asthma Continue bronchodilators - Venous stasis dermatitis both LEs elevation of feet -DVT ppx:On Eliquis Pt is full code Time spent : 40 mins in direct pt care, review of past medical records, as well as laboratory data
[2018-09-01] MEDS ORDERED: NON-FORMULARY (Atorvastatin [Lipitor] 80 MG) PO SCH (22:00)
[2018-09-01] MEDS ORDERED: NON-FORMULARY (Hydroxyzine Hcl [Hydroxyzine] 50 MG) PO SCH (22:00)
[2018-09-01] MEDS: ELIQUIS PO SCH (22:01)
[2018-09-01] MEDS: PLAQUENIL PO SCH (22:01)
[2018-09-01] MEDS: ATARAX PO SCH (22:01)
[2018-09-01] MEDS: SODIUM CHLORIDE FLUSH SYRINGE 10 ML IV SCH (22:02)
[2018-09-01] MEDS: D5NS 1,000 ML IV SCH (22:08)
--- NOTE | 2018-09-02 02:36 | XRay Report ---
PROCEDURE: XR CHEST 1V AP TECHNIQUE: Chest radiograph single view. HISTORY: asthma COMPARISONS: None . FINDINGS: Heart: Normal. Mediastinum/Vessels: Normal. Lungs/Pleural space: The lungs are expanded. There is left perihilar opacity which is most likely at tenuation of x-ray from overlying soft tissues. Infiltrate not excluded. Follow-up PA and lateral girish st x-ray with good inspiration and arms overhead suggested. There is no pleural effusion or pneumotho rax.. Bony thorax: No acute osseous abnormality. Life support devices: The Port-A-Cath is in proper position.. IMPRESSION: Heart size is normal.. There is left perihilar opacity which is most likely attenuation of x-ray from overlying soft tissues . Infiltrate not excluded. Follow-up PA and lateral chest x-ray with good inspiration and arms overhe ad suggested. There is no pleural effusion or pneumothorax.. This document is electronically signed by Bud Springer MD., September 02 2018 02:34:59 AM ET
[2018-09-02] MEDS: SYNTHROID PO SCH (05:34)
[2018-09-02 05:51] LABS: Basophils # (Auto) 0.1 K/mm3 (0.0-0.1); Basophils % (Auto) 0.9 % (0.0-1.8); Eosinophils # (Auto) 0.3 K/mm3 (0.0-0.4); Eosinophils % (Auto) 5.5 % (0.0-4.3); Hematocrit 33.3 % (30.3-42.9); Hemoglobin 10.6 gm/dl (10.1-14.3); Lymphocytes # (Auto) 1.2 K/mm3 (1.2-5.4); Lymphocytes % (Auto) 20.4 % (13.4-35.0); Mean Corpuscular HGB Conc 32 % (30-34); Mean Corpuscular Volume 89 fl (79-97); Monocytes # (Auto) 0.6 K/mm3 (0.0-0.8); Monocytes % (Auto) 10.4 % (0.0-7.3); Platelet Count 114 K/mm3 (140-440); Red Blood Count 3.75 M/mm3 (3.65-5.03); Red Cell Distribution Width 15.1 % (13.2-15.2)
[2018-09-02] MEDS: ZOFRAN IV PRN ×2 (05:57→13:19)
[2018-09-02 06:02] LABS: INR 1.32 (0.87-1.13)
--- NOTE | 2018-09-02 08:48 | Consultation ---
History of Present Illness - History of Present Illness Thank you for the consultation ! Patient was evaluated today My assessment and plan are as follows Acute kidney injury in a patient who has some risk factors for underlying chron ic kidney disease however patient mostly appeared to be prerenal upon admission there is no indication to suggest acute tubular necrosis at this point patient needs hydration follow-up on renal function Patient is currently being followed in the office Metabolic acidosis: Bicarbonate was around 20 upon arrival we'll continue to monitor gentle hydration follow-up on renal function Hypotension dizziness mostly resulting from volume depletion ongoing use of anti-hypertensive medication which should be placed on hold for now continue to monitor renal function avoid any form of BRYAN inhibitor or angiotensin receptor isra Will order workup for renal failure including renal ultrasonogram and routine laboratory studies Patient was made aware about the degree and severity of the renal failure, she was also advised to make appointment office upon discharge Renal diet plan was also discussed with patient lifestyle changes were also discussed Nausea vomiting headache, being followed by primary team history of DVT pulmonary embolism currently on anticoagulation, chronic changes of stasis in both lower extremity with prior history of DVT Had a detailed discussion with patient about the plan of care from renal standpoint. All questions were answered labs and pertinent imaging findings were explained to the patient and simple [place]. Prognosis: Guarded, to follow We'll continue to follow and make recommendation from renal standpoint Thank you for the consultation. History of presenting illness; Patient is a 72-year-old the female who has been admitted here with nausea vomiting and headache of last 10 days duration. According to the patient she has not been able to keep anything down for last several days she also has been having issues with headache measuring 7/10 in severity. Patient's current creatinine is around 2.7 during this admission and in January 2018 her creatin ine was 1.0 In the outpatient setting patient was taking lisinopril in addition to several other medications that was reviewed Patient is currently not taking any form of non-steroidal drugs patient is currently established in our clinic, and was seen yesterday blood pressure was around 104 systolic She does have known history of chronic kidney disease Patient says that she has been having headache off and on for last several days, she does have history of migraine and was also having poor appetite but did not mention that in the office. I did discuss with Dr. Valentin about evaluat She does not have any history of lupus hepatitis paraproteinemia HIV Past medical history significant for Normal renal function Breast cancer DVT Gastrins failure reflux disorder Hypothyroidism Pulmonary embolism Current allergies: Chocolate corn bag penicillin sulfa rash and others reviewed Social history: Reviewed from the chart Family history: Reviewed from the chart Review of system positive for headache nausea vomiting poor appetite and generalized weakness dizziness lightheadedness and almost passing out spells All other review of system negative Physical examination Vitals: Reviewed from this admission Gen.: No acute distress HEENT: Normocephalic/atraumatic skull oral mucosa very dry minimal pallor no icterus or uremic order Neck: Supple without any thyromegaly nodular mass or JVD Chest: Clear to auscultation anteriorly few faint basilar crackles otherwise unremarkable Heart: Regular rate and rhythm S1 and S2 heard no S3-S4 no pericardial rub Abdomen: Soft nontender no guarding rigidity rebound organomegaly no suprapubic masses, no CVA tenderness no renal bruit Back: No CVA tenderness Derm: No petechial rashes dry skin Extremity: Pulses palpable no peripheral cyanosis, 1+ edema dry skin Neurological: Alert awake follows commands Psychiatric: No agitation and aggression Labs and x-rays: Were reviewed from this admission Past History Past Medical History: cancer (breast), DVT, GERD, hypothyroidism, pulmonary embolism, renal failure Past Surgical History: mastectomy, Other (gastric surgery) Social history: denies: smoking, alcohol abuse, prescription drug abuse Family history: no significant family history Medications and Allergies Allergies Allergy/AdvReac Type Severity Reaction Status Date / Time chocolate flavor Allergy Severe Rash Verified 07/01/13 17:15 corn [[place]] Allergy Severe Rash Verified 07/01/13 17:15 egg Allergy Severe Rash Verified 07/01/13 17:15 Penicillins Allergy Severe SWELLING,[place] Verified 07/01/13 17:15 VES shellfish derived Allergy Severe Rash Verified 07/01/13 17:15 wheat Allergy Severe Rash Verified 07/01/13 17:15 BUTTER BEANS Allergy Severe Rash Uncoded 07/01/13 17:15 CHEESE Allergy Severe Rash Uncoded 07/01/13 17:15 POND BEANS Allergy Severe Rash Uncoded 07/01/13 17:15 Home Medications Medication Instructions Recorded Confirmed Last Taken Type Atorvastatin [Lipitor] 80 mg PO QHS 07/01/13 09/02/18 09/01/18 22:00 History 80mg Hydroxychloroquine [Plaquenil] 200 mg PO BID 07/01/13 09/02/18 09/01/18 22:00 History 200mg Lisinopril [Zestril TAB] 10 mg PO DAILY 07/01/13 09/02/18 09/01/18 10:00 History 10mg Loratadine [Claritin] 10 mg PO DAILY 07/01/13 09/02/18 09/01/18 10:00 History 10mg Pantoprazole [Protonix TAB] 40 mg PO DAILY tablet 04/10/16 09/02/18 09/01/18 10:00 Rx 40mg ALBUTEROL Inhaler (OR & NICU) 2 puff IH QID PRN 04/22/17 09/02/18 09/01/18 10:00 History [Proair] 2 puff ALBUTEROL NEB's [Proventil] 2.5 mg IH TID PRN 04/22/17 09/02/18 08/01/18 10:00 History 2.5mg Apixaban [Eliquis] 5 mg PO BID 04/22/17 09/02/18 09/01/18 22:00 History 5mg Gabapentin [Neurontin] 300 mg PO TID 04/22/17 09/02/18 09/01/18 10:00 History 300mg Hydroxyzine HCl [hydrOXYzine] 50 mg PO QHS 04/22/17 09/02/18 08/25/18 22:00 History 200mg Levothyroxine Sodium [Tirosint] 100 mcg PO QAM 04/22/17 09/02/18 09/01/18 10:00 History 100mcg predniSONE [Deltasone] 5 mg PO PRN PRN 04/22/17 09/02/18 09/01/18 10:00 History 5mg traMADol [Ultram] 50 mg PO DAILY PRN 04/22/17 09/02/18 09/01/18 10:00 History 50mg Active Meds: Active Medications Albuterol (Proventil) 2.5 mg IH TIDRT PRN PRN Reason: Wheezing Apixaban (Eliquis) 5 mg PO BID [facility]; Protocol Last Admin: 09/01/18 22:01 Dose: 5 mg Documented by: Atorvastatin Calcium (Lipitor) 80 mg PO QHS [facility] Last Admin: 09/01/18 22:01 Dose: 80 mg Documented by: Famotidine (Pepcid) 40 mg IV QDAY [facility] Last Admin: 09/01/18 16:54 Dose: 40 mg Documented by: Gabapentin (Neurontin) 300 mg PO TID [facility] Hydroxychloroquine Sulfate (Plaquenil) 200 mg PO BID [facility] Last Admin: 09/01/18 22:01 Dose: 200 mg Documented by: Hydroxyzine HCl (Atarax) 50 mg PO QHS [facility] Last Admin: 09/01/18 22:01 Dose: 50 mg Documented by: Dextrose/Sodium Chloride (D5/0.45ns) 1,000 mls @ 75 mls/hr IV DIRECT [facility] Last Admin: 09/01/18 16:52 Dose: 75 mls/hr Documented by: Dextrose/Sodium Chloride (D5ns) 1,000 mls @ 100 mls/hr IV DIRECT [facility] Last Admin: 09/01/18 22:08 Dose: 100 mls/hr Documented by: Levothyroxine Sodium (Synthroid) 100 mcg PO DAILY@0600 [facility] Last Admin: 09/02/18 05:34 Dose: 100 mcg Documented by: Morphine Sulfate (Morphine) 2 mg IV Q6H PRN PRN Reason: Pain, Moderate (4-6) Ondansetron HCl (Zofran) 4 mg IV Q8H PRN PRN Reason: Nausea And Vomiting Last Admin: 09/02/18 05:57 Dose: 4 mg Documented by: Sodium Chloride (Sodium Chloride Flush Syringe 10 Ml) 10 ml IV BID [facility] Last Admin: 09/01/18 22:02 Dose: 10 ml Documented by: Sodium Chloride (Sodium Chloride Flush Syringe 10 Ml) 10 ml IV PRN PRN PRN Reason: LINE FLUSH Tramadol HCl (Ultram) 50 mg PO Q6HR PRN PRN Reason: Pain Exam - Vital Signs Vital signs: Vital Signs Temp Pulse Resp BP Pulse Ox 97.8 F 75 18 106/57 98 09/01/18 15:37 09/01/18 15:37 09/01/18 15:37 09/01/18 15:37 09/01/18 15:37 Results - Lab Results 09/03/18 11:03 09/03/18 11:03 Most recent lab results Calcium 10.0 mg/dL (8.4-10.2) 09/01/18 15:50 Phosphorus 3.30 mg/dL (2.5-4.5) 09/02/18 04:57 Magnesium 1.90 mg/dL (1.7-2.3) 09/02/18 04:57
--- NOTE | 2018-09-02 09:12 | Progress Note ---
Assessment and Plan - Acute renal failure BNP was 15 and creatinine was 1.0 as of 02/18/2018 Commence patient on IV hydration AM lab result pending - Nausea with vomiting Abdomninal US IV hydration, oral feeding IV Zofran - Headache obtain Ct head Commence morphine - H/o Breast cancer stable s/p mastectomy and chemotx - Hypotension- improved iv hydration - History of DVT/PE Continue Eliquis -History of asthma Continue bronchodilators - Venous stasis dermatitis both LEs elevation of feet -DVT ppx:On Eliquis Pt is full code Time spent : 40 mins in direct pt care, review of past medical records, as well as laboratory data Subjective Date of service: 09/02/18 Principal diagnosis: Acute renal failure, BURGER nausea and vomiting, Interval history: Still nauseated but no vomiting as she is no eating anything she said Objective - Exam Narrative Exam: Constitutional:Well-nourished well-developed. In no distress Head: Normocephalic atraumatic Eyes: Pupils are equal round and reactive to light Nose: No enlarged turbinates, no septal deviation. Mouth: Moist mucous membranes. Neck: Supple no thyromegaly. No bruit. No JVD Heart: Regular rate and rhythm, S1-S2 normal. No rubs murmurs or gallop Lungs: Clear to auscultation bilaterally. no rales or rhonchi Abdomen: Soft, nontender. Bowel sound are present. Extremities: Has edema, with hypoxic pigmentation of both lower extremities and healed weepy ulcers. Neuro: Alert oriented Oriented x3. No focal sensory or motor deficit. Skin: No rashes or hyperpigmented spots Musculoskeletal system: No joint pain or swelling Hematological: No petechia or subcutanous hemorrhages. Immunological: No multiple septic spots on the skin Lymphatic: No generalized lymphadenopathy Psychiatry: Euthymic. Calm. - Constitutional Vitals: Vital Signs - 12hr 09/01/18 09/02/18 09/02/18 23:00 02:46 07:49 Temperature 98.0 F 98.8 F Pulse Rate 70 80 Pulse Rate [ 79 Apical] Respiratory 18 18 20 Rate Blood Pressure 123/61 126/56 O2 Sat by Pulse 96 91 97 Oximetry 09/02/18 07:58 Temperature Pulse Rate Pulse Rate [ 80 Apical] Respiratory 16 Rate Blood Pressure O2 Sat by Pulse 95 Oximetry - Labs CBC & Chem 7: 09/02/18 04:57 09/01/18 15:50 Labs: Abnormal lab results 09/01/18 09/01/18 09/01/18 Range/Units 15:50 15:50 15:50 Plt Count 132 L (140-440) K/mm3 [place] % (Auto) 9.3 H (0.0-7.3) % Eos % (Auto) 5.3 H (0.0-4.3) % PT 17.9 H (12.2-14.9) Sec. INR 1.38 H (0.87-1.13) Carbon Dioxide 20 L (22-30) mmol/L BUN 32 H (7-17) mg/dL Creatinine 2.7 H (0.7-1.2) mg/dL Albumin 3.6 L (3.9-5) g/dL 09/02/18 09/02/18 Range/Units 04:57 04:57 Plt Count 114 L (140-440) K/mm3 [place] % (Auto) 10.4 H (0.0-7.3) % Eos % (Auto) 5.5 H (0.0-4.3) % PT 17.2 H (12.2-14.9) Sec. INR 1.32 H (0.87-1.13) Carbon Dioxide (22-30) mmol/L BUN (7-17) mg/dL Creatinine (0.7-1.2) mg/dL Albumin (3.9-5) g/dL
[2018-09-02] MEDS ORDERED: LEVOTHYROXINE SODIUM 100 MCG PO SCH (10:00)
[2018-09-02 10:34] LABS: Calcium 9.9 mg/dL (8.4-10.2); Uric Acid 8.6 mg/dL (3.5-7.6)
--- NOTE | 2018-09-02 11:24 | Cat Scan Report ---
CT HEAD WITHOUT CONTRAST: HISTORY: Persistent headache, vomiting. TECHNIQUE: Sequential CT images without contrast. FINDINGS: Images obtained show bilateral prominence of the sulci and ventricles. There are no abnormal intra- or extra-axial blood or fluid collections. There are no focal masses or evidence of mass effect. The tamez white matter differentiation appears within normal limits. Regions of periventricular decreased attenuation are consistent with microangiopathic ischemic disease. The posterior fossa structures including the fourth ventricle, cerebellum, and brainstem appear normal. IMPRESSION: Evidence of atrophy and microangiopathic ischemic disease. No acute intracranial process noted.
[2018-09-02] MEDS: PEPCID IV SCH (11:26)
[2018-09-02] MEDS: ELIQUIS PO SCH ×2 (11:29→22:00)
[2018-09-02] MEDS: NEURONTIN PO SCH ×3 (11:29→22:00)
[2018-09-02] MEDS: PLAQUENIL PO SCH ×2 (11:29→22:00)
[2018-09-02] MEDS: SODIUM CHLORIDE FLUSH SYRINGE 10 ML IV SCH ×2 (11:30→22:00)
--- NOTE | 2018-09-02 11:40 | Cat Scan Report ---
CT ABDOMEN PELVIS WITHOUT CONTRAST: HISTORY: Abdominal pain, nausea and vomiting. COMPARISON: none. TECHNIQUE: Helical CT in 1.25mm intervals without IV contrast. Sagittal and coronal reconstructions. FINDINGS: Lung bases: Normal. Liver: Normal. Biliary system: Normal. Pancreas: Normal. Spleen: Normal. Kidneys/ureters/bladder: The kidneys are normal size and position. Bilateral simple appearing renal cysts are identified. There are 2 cysts in the right kidney measuring up to 2 cm. There are 2 cysts in the left kidney measuring up to 4.5 cm. Bilateral renal calyceal stones are identified. There are 3 stones near the inferior pole of the right kidney measuring 1 mm, 1 mm and 9 mm. There are 4 stones in the inferior left kidney measuring 3 mm, 7 mm, 10 mm and 4 mm. There is mild left hydronephrosis. A 5.8 mm calculus is identified in the distal ureter at the UVJ. There appears to be a second stone in the distal left ureter measuring 4 mm. No right ureteral stones. The bladder is decompressed. There appears to be a 5 mm calculus in the left side of the bladder is well. Adrenal glands: Normal. Aorta: Mild distal calcifications. No aneurysm. Bilateral common iliac vein stents are in place. Intestines: Within normal limits given no oral contrast was administered. Appendix: Normal. Pelvic viscera: Normal. Ascites: None. Adenopathy: None. Musculoskeletal: Intact. Mild thoracolumbar spondylosis. Disc spacer device at L5-S1. IMPRESSION: Bilateral nephrolithiasis as described above. 5.8 mm calculus at the left UVJ, mildly obstructing. There may be a second stone in the distal left ureter measuring 4 mm. 5 mm bladder stone. Simple appearing bilateral renal cysts.
[2018-09-02] MEDS: ULTRAM PO PRN (18:23)
[2018-09-02 19:04] LABS: Creatinine,Urine 83.3 mg/dL (0.1-20.0)
[2018-09-02 19:11] LABS: Bilirubin,Urine NEG (Negative); Blood,Urine LG (Negative); Color,Urine Yellow (Yellow); Hyaline Casts,Urine 1 /LPF; Mucus,Urine FEW /HPF; Protein,Urine <15 mg/dL mg/dL (Negative); Urobilinogen,Urine < 2.0 mg/dL (<2.0)
[2018-09-02] MEDS: MORPHINE IV PRN (22:00)
[2018-09-02] MEDS: ATARAX PO SCH (22:00)
[2018-09-02] MEDS: D5NS 1,000 ML IV SCH (22:00)
--- NOTE | 2018-09-03 00:19 | Consultation ---
LOCATION: Room #249. HISTORY OF PRESENT ILLNESS: This is a 72-year-old -[place] female who is now admitted to the hospital with complaints of weakness and dizziness and a near syncopal episode for further evaluation and management. Consultation is requested by Dr. Mcfarlane, the primary physician. The patient is known to me and is being followed in our office for hypertension and hyperlipidemia. The patient also has history of pulmonary embolism in the past. According to the patient, she has been doing reasonably well except about a week ago, she started experiencing abdominal pain and discomfort followed by nausea and vomiting. She has not been able to retain anything, so she was not eating or drinking properly according to the family. The patient was refusing to eat. Every time she eats she ends up vomiting. Then, she noticed extreme weakness and near syncopal episode and so went to see the primary and the patient was noted to be very dizzy and lightheaded and blood pressure was low and so the patient was then advised admission. REVIEW OF SYSTEMS: At this time, the patient denies any chest pain or unusual shortness of breath. No orthopnea or PND. She does complain of increasing edema of both lower extremities. No palpitations, claudication. Dizziness noted. Near syncope noted. RESPIRATORY: The patient denied any history of wheezing or asthma, but does complain of dyspnea with any type of exertion. GASTROINTESTINAL: She does have abdominal pain, nausea and vomiting. GENITOURINARY: Unremarkable. NEUROLOGIC: Unremarkable. PAST MEDICAL HISTORY: Includes hypertension. History of deep venous thrombosis and pulmonary embolism. History of hypothyroidism. Gastroesophageal reflux disease. Chronic renal disease. Status post mastectomy for breast cancer. FAMILY HISTORY: Unremarkable. SOCIAL HISTORY: As noted. She is a nonsmoker and nonalcoholic. ALLERGIES: SHE IS ALLERGIC TO PENICILLIN AND SHE ALSO STATES THAT SHE IS ALLERGIC TO CHEESE, BUTTER BEANS, EGGS, CHOCOLATES. MEDICATIONS: At the time of admission, the patient was on atorvastatin 80 mg at bedtime, hydroxychloroquine 200 mg p.o. b.i.d., lisinopril 10 mg daily, pantoprazole 40 mg daily, Eliquis 5 mg p.o. b.i.d., albuterol inhaler p.r.n., gabapentin 300 mg p.o. t.i.d., levothyroxine 100 mcg daily, tramadol 50 mg q.6 hours p.r.n. PHYSICAL EXAMINATION: GENERAL: This is a 72-year-old -[place] female, well built and obese and in no acute distress at the present time. The patient is conscious, alert, oriented, afebrile. VITAL SIGNS: Normal and stable. SKIN: Warm and dry. HEENT: Pupils are reactive. NECK: Supple. Both carotids well palpable without any bruit. No JVD. CHEST: Lungs are clear except for a few rales at the bases on deep breathing. No rhonchi. HEART: S1, S2 heard well. Grade 1-2/6 systolic murmur noted. No diastolic murmur, no gallop present. ABDOMEN: Soft, obese and nontender. Bowel sounds were present. EXTREMITIES: She does have chronic edema of both lower extremities at least 2 to 3+. Pedal pulses are difficult to palpate. NEUROLOGICAL: Evaluation was grossly within normal limits. RECTAL AND PELVIC: Not done at this time. EKG done showed no acute process. LABORATORY DATA: The patient's BUN was 32, creatinine 2.7 and glucose was 77. Hemoglobin 10.3 and hematocrit 31.8. ASSESSMENT AND PLAN: This is a 72-year-old female who is now seen in consultation for cardiac evaluation. The patient is known to have hypertension. She presented with complaints of feeling weak and dizzy, etc. The patient has not been eating or drinking well for the past one week. She has had nausea and vomiting at each meal. The patient continues to take her medications, which included lisinopril 10 mg in addition to her other medications. The patient's creatinine also went up to 2.7, which is abnormal for her compared to the previous creatinine levels. At this time, the patient's examination is unremarkable from a cardiac point of view. Her symptoms are most likely noncardiac in etiology. Probably secondary to dehydration from not eating and drinking well for the past one week and then continuing to take medications, which included antihypertensive medication causing her to feel dizzy, lightheaded, etc. I do agree with the present management of holding off on her blood pressure medications and hydrating the patient. The patient may need GI workup for her abdominal pain and nausea and vomiting of 1 week duration. Continue other medications. We will follow the patient along with you. I discussed all this in detail with the patient. I answered her questions. Rest of the plan as per orders. Thank you very much for this consultation. We will follow the patient along with you. JOB# [id number] MARIA DE JESUS/CAMERON
[2018-09-03] MEDS: ULTRAM PO PRN (06:17)
[2018-09-03] MEDS: SYNTHROID PO SCH (06:17)
--- NOTE | 2018-09-03 07:52 | Ultrasound Report ---
ULTRASOUND ABDOMEN COMPLETE: ULTRASOUND RENAL BILATERAL: TECHNIQUE: Transabdominal ultrasound with color Doppler interrogation. HISTORY: Renal failure, nausea and vomiting with abdominal pain. COMPARISON: CT abdomen pelvis without contrast dated 09/02/18. FINDINGS: LIVER: Normal. BILIARY SYSTEM: No evidence for cholelithiasis or biliary dilatation. A small polyp is identified in the gallbladder neck measuring 4-5 mm. The CBD measures 3 mm. PANCREAS: Normal. SPLEEN: Normal. 6.9 cm in length. KIDNEYS: The right kidney measures 9.5 cm. The left kidney measures 11.4 cm. There are a few scattered simple cysts in both kidneys as noted on the previous CT. Bilateral calyceal stones are also identified, left greater than right. Mild left hydronephrosis is again noted. Recent CT demonstrated distal left ureteral stones. No right hydronephrosis. The bladder is partially empty but unremarkable. AORTA/IVC: Normal. ASCITES: None. IMPRESSION: Bilateral renal cysts and bilateral renal stones. Mild left hydronephrosis. Small polyp in the gallbladder.
[2018-09-03] MEDS: NEURONTIN PO SCH ×2 (08:29→14:57)
[2018-09-03] MEDS: PEPCID PO SCH (09:48)
[2018-09-03] MEDS: SODIUM CHLORIDE FLUSH SYRINGE 10 ML IV SCH (09:48)
[2018-09-03] MEDS: ELIQUIS PO SCH (09:48)
[2018-09-03] MEDS: PLAQUENIL PO SCH ×2 (09:48→22:00)
--- NOTE | 2018-09-03 09:49 | Progress Note ---
Assessment and Plan - Acute renal failure BNP was 15 and creatinine was 1.0 as of 02/18/2018 Commence patient on IV hydration AM lab result pending - Nausea with vomiting Abdomninal US IV hydration, oral feeding IV Zofran - Headache obtain Ct head Commence morphine - H/o Breast cancer stable s/p mastectomy and chemotx -Hypokalemia supplement - History of DVT/PE Continue Eliquis -History of asthma Continue bronchodilators - Venous stasis dermatitis both LEs elevation of feet -DVT ppx:On Eliquis Pt is full code Time spent : 40 mins in direct pt care, review of past medical records, as well as laboratory data Subjective Date of service: 09/03/18 Principal diagnosis: Acute renal failure, BURGER nausea and vomiting, Interval history: Still nauseated but no vomiting Objective - Exam Narrative Exam: Constitutional:Well-nourished well-developed. In no distress Head: Normocephalic atraumatic Eyes: Pupils are equal round and reactive to light Nose: No enlarged turbinates, no septal deviation. Mouth: Moist mucous membranes. Neck: Supple no thyromegaly. No bruit. No JVD Heart: Regular rate and rhythm, S1-S2 normal. No rubs murmurs or gallop Lungs: Clear to auscultation bilaterally. no rales or rhonchi Abdomen: Soft, nontender. Bowel sound are present. Extremities: Has edema, with hypoxic pigmentation of both lower extremities and healed weepy ulcers. Neuro: Alert oriented Oriented x3. No focal sensory or motor deficit. Skin: No rashes or hyperpigmented spots Musculoskeletal system: No joint pain or swelling Hematological: No petechia or subcutanous hemorrhages. Immunological: No multiple septic spots on the skin Lymphatic: No generalized lymphadenopathy Psychiatry: Euthymic. Calm. - Constitutional Vitals: Vital Signs - 12hr 09/02/18 09/02/18 09/03/18 22:00 22:30 02:40 Temperature 98.0 F Pulse Rate 82 Respiratory 20 20 18 Rate Respiratory Rate [Head] Blood Pressure 120/54 Blood Pressure [Right] O2 Sat by Pulse 95 90 Oximetry 09/03/18 09/03/18 09/03/18 06:15 06:17 07:00 Temperature 98.1 F Pulse Rate 82 Respiratory 20 16 Rate Respiratory 20 Rate [Head] Blood Pressure Blood Pressure 128/57 [Right] O2 Sat by Pulse Oximetry - Labs CBC & Chem 7: 09/02/18 04:57 09/02/18 09:48 Labs: Abnormal lab results 09/02/18 09/02/18 Range/Units 09:48 18:30 Potassium 5.1 H (3.6-5.0) mmol/L Chloride 108.9 H (98-107) mmol/L Carbon Dioxide 21 L (22-30) mmol/L BUN 26 H (7-17) mg/dL Creatinine 2.3 H (0.7-1.2) mg/dL Uric Acid 8.6 H (3.5-7.6) mg/dL Total Creatine Kinase 238 H (30-135) units/L Urine Creatinine 83.3 H (0.1-20.0) mg/dL
--- NOTE | 2018-09-03 10:24 | Progress Note ---
Assessment and Plan Cont present cardiac management. Await echo. The patient has been seen in conjunction with Dr. Medeiros who agrees with the assessment and plan of care. - Patient Problems (1) Nausea and vomiting Current Visit: Yes Status: Acute (2) Abdominal pain Current Visit: Yes Status: Acute (3) Near syncope Current Visit: Yes Status: Acute (4) Acute kidney injury superimposed on CKD Current Visit: Yes Status: Acute (5) HTN (hypertension) Current Visit: Yes Status: Chronic (6) Hyperlipidemia Current Visit: Yes Status: Chronic (7) Diabetes Current Visit: Yes Status: Chronic (8) History of breast cancer Current Visit: Yes Status: Chronic (9) History of pulmonary embolism Current Visit: Yes Status: Chronic Subjective Date of service: 09/03/18 Principal diagnosis: Acute renal failure, BURGER nausea and vomiting, Interval history: pt resting in bed, no current cardiac complaints. ate some breakfast this AM and thus far no n/v. Objective Last Vital Signs Temp 98.1 F 09/03/18 07:00 Pulse 82 09/03/18 07:00 Resp 16 09/03/18 07:00 BP 128/57 09/03/18 07:00 Pulse Ox 90 09/03/18 02:40 - Physical Examination General: No Apparent Distress HEENT: Positive: PERRL, Normocephaly, Mucus Membranes Moist Neck: Positive: neck supple, trachea midline Cardiac: Positive: Reg Rate and Rhythm, S1/S2 Lungs: Positive: Decreased Breath Sounds Skin: Negative: Rash Musculoskeletal: No Pain - Labs and Meds Comprehensive Metabolic Panel 09/02/18 Range/Units 09:48 Sodium 140 (137-145) mmol/L Potassium 5.1 H (3.6-5.0) mmol/L Chloride 108.9 H (98-107) mmol/L Carbon Dioxide 21 L (22-30) mmol/L BUN 26 H (7-17) mg/dL Creatinine 2.3 H (0.7-1.2) mg/dL Glucose 97 (65-100) mg/dL Calcium 9.9 (8.4-10.2) mg/dL
[2018-09-03 11:46] LABS: Basophils % (Auto) 0.3 % (0.0-1.8); Eosinophils # (Auto) 0.3 K/mm3 (0.0-0.4); Eosinophils % (Auto) 4.7 % (0.0-4.3); Hematocrit 28.4 % (30.3-42.9); Hemoglobin 9.6 gm/dl (10.1-14.3); Lymphocytes # (Auto) 1.3 K/mm3 (1.2-5.4); Lymphocytes % (Auto) 23.8 % (13.4-35.0); Mean Corpuscular HGB Conc 34 % (30-34); Mean Corpuscular Volume 85 fl (79-97); Monocytes # (Auto) 0.3 K/mm3 (0.0-0.8); Monocytes % (Auto) 6.1 % (0.0-7.3); Platelet Count 128 K/mm3 (140-440); Red Blood Count 3.34 M/mm3 (3.65-5.03)
[2018-09-03 11:52] LABS: Calcium 9.5 mg/dL (8.4-10.2)
[2018-09-03] MEDS: D5NS 1,000 ML IV SCH ×2 (12:17→23:06)
--- NOTE | 2018-09-03 13:02 | Progress Note ---
Subjective Principal diagnosis: Acute renal failure, BURGER nausea and vomiting, Interval history: Patient was seen today for follow-up of multiple renal related issues No complaints of any chest pain pressure or shortness of breath Interdisciplinary notes that also reviewed In general patient is feeling much better She does suffer from chronic migraine for several decades She is currently being followed by her primary care physician Tolerating IV hydration appetite is improving status post cardiology evaluation Events of 24 hours vitals labs intake output medications were reviewed Past medical history: Reviewed Family history: Reviewed Social history: Reviewed Allergies: Reviewed Physical examination: Vitals: Reviewed HEENT: No pallor or icterus oral mucosa moist Neck: Supple no JVD no thyromegaly Chest: Bilateral clear to auscultation anteriorly Heart: Regular rate and rhythm S1-S2 heard no S3-S4 Abdomen: Soft nontender no voluntary guarding rigidity rebound Extremity: Dry skin less than 1+ peripheral edema Psychiatric: No evidence of agitation and aggression noted Dermatology: No petechial rashes Labs and x-rays: Reviewed from today Assessment and plan acute kidney injury: Mostly resulting from volume depletion Renal function appears to be improving Chronic migraine with nausea vomiting and poor appetite, knees to see her neurologist as well as primary care physician Avoid nonsteroidal drugs altogether Temporarily consider holding off lisinopril Borderline blood pressure in the outpatient setting around 104 systolic mild left hydronephrosis: She will need to see urology please arrange for consultation Upon discharge will need a follow-up appointment in the office Patient was adequately counseled and educated regarding all the renal related issues Laboratory studies, pertinent for discussed with patient All questions were answered and simple [place]ian We'll continue to follow and make recommendation for renal standpoint Objective - Vital Signs Vital signs: Vital Signs - 12hr 09/03/18 09/03/18 09/03/18 02:40 06:15 06:17 Temperature 98.0 F Pulse Rate 82 Respiratory 18 20 Rate Respiratory 20 Rate [Head] Blood Pressure 120/54 Blood Pressure [Right] O2 Sat by Pulse 90 Oximetry 09/03/18 09/03/18 07:00 11:00 Temperature 98.1 F Pulse Rate 82 Respiratory 16 Rate Respiratory Rate [Head] Blood Pressure Blood Pressure 128/57 [Right] O2 Sat by Pulse 96 Oximetry - Lab 09/03/18 11:03 09/03/18 11:03 Most recent lab results Calcium 9.5 mg/dL (8.4-10.2) 09/03/18 11:03 Phosphorus 3.30 mg/dL (2.5-4.5) 09/02/18 04:57 Magnesium 1.50 mg/dL (1.7-2.3) L 09/03/18 11:03 83.3 mg/dL (0.1-20.0) H 09/02/18 18:30 110 mmol/L 09/02/18 18:30 Medications & Allergies - Medications Allergies/Adverse Reactions: Allergies chocolate flavor Allergy (Severe, Verified 07/01/13 17:15) Rash corn [[place]] Allergy (Severe, Verified 07/01/13 17:15) Rash egg Allergy (Severe, Verified 07/01/13 17:15) Rash Penicillins Allergy (Severe, Verified 07/01/13 17:15) SWELLING,HIVES shellfish derived Allergy (Severe, Verified 07/01/13 17:15) Rash wheat Allergy (Severe, Verified 07/01/13 17:15) Rash BUTTER BEANS Allergy (Severe, Uncoded 07/01/13 17:15) Rash CHEESE Allergy (Severe, Uncoded 07/01/13 17:15) Rash POND BEANS Allergy (Severe, Uncoded 07/01/13 17:15) Rash Home Medications: Home Medications Medication Instructions Recorded Confirmed Last Taken Type Atorvastatin [Lipitor] 80 mg PO QHS 07/01/13 09/02/18 09/01/18 22:00 History 80mg Hydroxychloroquine [Plaquenil] 200 mg PO BID 07/01/13 09/02/18 09/01/18 22:00 History 200mg Lisinopril [Zestril TAB] 10 mg PO DAILY 07/01/13 09/02/18 09/01/18 10:00 History 10mg Loratadine [Claritin] 10 mg PO DAILY 07/01/13 09/02/18 09/01/18 10:00 History 10mg Pantoprazole [Protonix TAB] 40 mg PO DAILY tablet 04/10/16 09/02/18 09/01/18 10:00 Rx 40mg ALBUTEROL Inhaler (OR & NICU) 2 puff IH QID PRN 04/22/17 09/02/18 09/01/18 10:00 History [Proair] 2 puff ALBUTEROL NEB's [Proventil] 2.5 mg IH TID PRN 04/22/17 09/02/18 08/01/18 10:00 History 2.5mg Apixaban [Eliquis] 5 mg PO BID 04/22/17 09/02/18 09/01/18 22:00 History 5mg Gabapentin [Neurontin] 300 mg PO TID 04/22/17 09/02/18 09/01/18 10:00 History 300mg Hydroxyzine HCl [hydrOXYzine] 50 mg PO QHS 04/22/17 09/02/18 08/25/18 22:00 History 200mg Levothyroxine Sodium [Tirosint] 100 mcg PO QAM 04/22/17 09/02/18 09/01/18 10:00 History 100mcg predniSONE [Deltasone] 5 mg PO PRN PRN 04/22/17 09/02/18 09/01/18 10:00 History 5mg traMADol [Ultram] 50 mg PO DAILY PRN 04/22/17 09/02/18 09/01/18 10:00 History 50mg Active Medications: Generic Name Dose Route Start Last Admin Trade Name Freq PRN Reason Stop Dose Admin Albuterol 2.5 mg 09/01/18 21:07 Proventil IH TIDRT PRN Wheezing Apixaban 5 mg 09/01/18 22:00 09/03/18 09:48 Eliquis PO 5 mg BID ADELE Administration Protocol Atorvastatin Calcium 80 mg 09/01/18 22:00 09/02/18 22:00 Lipitor PO 80 mg QHS ADELE Administration Famotidine 40 mg 09/03/18 10:00 09/03/18 09:48 Pepcid PO 40 mg DAILY ADELE Administration Gabapentin 300 mg 09/02/18 08:00 09/03/18 08:29 Neurontin PO 300 mg TID ADELE Administration Hydroxychloroquine Sulfate 200 mg 09/01/18 22:00 09/03/18 09:48 Plaquenil PO 200 mg BID ADELE Administration Hydroxyzine HCl 50 mg 09/01/18 22:00 09/02/18 22:00 Atarax PO 50 mg QHS ADELE Administration Dextrose/Sodium Chloride 1,000 mls @ 100 mls/hr 09/01/18 22:00 09/03/18 12:17 D5ns IV 100 mls/hr DIRECT ADELE Administration Levothyroxine Sodium 100 mcg 09/02/18 06:00 09/03/18 06:17 Synthroid PO 100 mcg DAILY@0600 ADELE Administration Morphine Sulfate 2 mg 09/01/18 19:48 09/02/18 22:00 Morphine IV 2 mg Q6H PRN Administration Pain, Moderate (4-6) Ondansetron HCl 4 mg 09/01/18 14:36 09/02/18 13:19 Zofran IV 4 mg Q8H PRN Administration Nausea And Vomiting Sodium Chloride 10 ml 09/01/18 22:00 09/03/18 09:48 Sodium Chloride Flush Syringe 10 Ml IV 10 ml BID ADELE Administration Sodium Chloride 10 ml 09/01/18 14:36 Sodium Chloride Flush Syringe 10 Ml IV PRN PRN LINE FLUSH Tramadol HCl 50 mg 09/01/18 21:07 09/03/18 06:17 Ultram PO 50 mg Q6HR PRN Administration Pain
[2018-09-03] MEDS: ATARAX PO SCH (22:00)
[2018-09-03] MEDS: ZOFRAN IV PRN (23:11)
[2018-09-04] MEDS: ELIQUIS PO SCH ×3 (00:51→23:13)
[2018-09-04 07:13] LABS: Albumin 2.8 g/dL (3.9-5); Calcium 9.1 mg/dL (8.4-10.2)
[2018-09-04 07:43] LABS: Hemoglobin 10.2 gm/dl (10.1-14.3); Mean Corpuscular HGB Conc 32 % (30-34); Mean Corpuscular Volume 91 fl (79-97); Platelet Count 136 K/mm3 (140-440); Red Blood Count 3.51 M/mm3 (3.65-5.03); Red Cell Distribution Width 15.4 % (13.2-15.2)
[2018-09-04 07:47] LABS: Lymphocytes % (Auto) 28.3 % (13.4-35.0)
[2018-09-04 07:48] LABS: Basophils % (Auto) 0.4 % (0.0-1.8); Eosinophils # (Auto) 0.3 K/mm3 (0.0-0.4); Eosinophils % (Auto) 5.5 % (0.0-4.3); Lymphocytes # (Auto) 1.3 K/mm3 (1.2-5.4); Monocytes # (Auto) 0.4 K/mm3 (0.0-0.8); Monocytes % (Auto) 8.5 % (0.0-7.3)
[2018-09-04] MEDS: NEURONTIN PO SCH ×4 (08:41→23:12)
--- NOTE | 2018-09-04 08:53 | Progress Note ---
Subjective Principal diagnosis: Acute renal failure, BURGER nausea and vomiting, Interval history: Patient was seen today for follow-up of multiple renal related issues Currently pending echocardiogram and cardiology evaluation report Renal function is improving she is feeling much better Past medical history: Reviewed Family history: Reviewed Social history: Reviewed Allergies: Reviewed Physical examination: Vitals: Reviewed HEENT: No pallor or icterus oral mucosa moist Neck: Supple no JVD no thyromegaly Chest: Bilateral clear to auscultation anteriorly Heart: Regular rate and rhythm S1-S2 heard no S3-S4 Abdomen: Soft nontender no voluntary guarding rigidity rebound Extremity: Dry skin less than 1+ peripheral edema Psychiatric: No evidence of agitation and aggression noted Dermatology: No petechial rashes Labs and x-rays: Reviewed from today Assessment and plan Acute kidney injury in a patient who is 72-year-old she is currently established and being followed in our clinic, most of her renal failure appears to be resulting from, volume depletion dehydration patient was also taking BRYAN inhibitor in the outpatient setting,Renal function appears to be improving with IV hydration only at this point would like to continue to monitor and follow recommend avoiding BRYAN inhibitor for now and follow-up in the office in a week or 2. Hypertension: continue to hold BRYAN inhibitor CAT scan shows evidence of obstructive uropathy with a calculus, patient will later be seen and followed by urology ultrasonogram was also showing evidence of hydronephrosis confirmed with CAT scan She does complain of some back pain now and then She has been seen and followed by [facility] , and has had procedures done before All questions were answered and simple Kinyarwanda We'll continue to follow and make recommendation for renal standpoint Objective - Vital Signs Vital signs: Vital Signs - 12hr 09/04/18 09/04/18 02:43 08:05 Temperature 97.6 F 98.4 F Pulse Rate 80 79 Respiratory 20 20 Rate Blood Pressure 127/64 142/64 O2 Sat by Pulse 92 95 Oximetry - Lab 09/04/18 05:17 09/04/18 13:42 Most recent lab results Calcium 9.1 mg/dL (8.4-10.2) 09/04/18 05:17 Phosphorus 3.30 mg/dL (2.5-4.5) 09/02/18 04:57 Magnesium 1.50 mg/dL (1.7-2.3) L 09/03/18 11:03 83.3 mg/dL (0.1-20.0) H 09/02/18 18:30 110 mmol/L 09/02/18 18:30 Medications & Allergies - Medications Allergies/Adverse Reactions: Allergies chocolate flavor Allergy (Severe, Verified 07/01/13 17:15) Rash corn [[place]] Allergy (Severe, Verified 07/01/13 17:15) Rash egg Allergy (Severe, Verified 07/01/13 17:15) Rash Penicillins Allergy (Severe, Verified 07/01/13 17:15) SWELLING,HIVES shellfish derived Allergy (Severe, Verified 07/01/13 17:15) Rash wheat Allergy (Severe, Verified 07/01/13 17:15) Rash BUTTER BEANS Allergy (Severe, Uncoded 07/01/13 17:15) Rash CHEESE Allergy (Severe, Uncoded 07/01/13 17:15) Rash POND BEANS Allergy (Severe, Uncoded 07/01/13 17:15) Rash Home Medications: Home Medications Medication Instructions Recorded Confirmed Last Taken Type Atorvastatin [Lipitor] 80 mg PO QHS 07/01/13 09/02/18 09/01/18 22:00 History 80mg Hydroxychloroquine [Plaquenil] 200 mg PO BID 07/01/13 09/02/18 09/01/18 22:00 History 200mg Lisinopril [Zestril TAB] 10 mg PO DAILY 07/01/13 09/02/18 09/01/18 10:00 History 10mg Loratadine [Claritin] 10 mg PO DAILY 07/01/13 09/02/18 09/01/18 10:00 History 10mg Pantoprazole [Protonix TAB] 40 mg PO DAILY tablet 04/10/16 09/02/18 09/01/18 10:00 Rx 40mg ALBUTEROL Inhaler (OR & NICU) 2 puff IH QID PRN 04/22/17 09/02/18 09/01/18 10:00 History [Proair] 2 puff ALBUTEROL NEB's [Proventil] 2.5 mg IH TID PRN 04/22/17 09/02/18 08/01/18 10:00 History 2.5mg Apixaban [Eliquis] 5 mg PO BID 04/22/17 09/02/18 09/01/18 22:00 History 5mg Gabapentin [Neurontin] 300 mg PO TID 04/22/17 09/02/18 09/01/18 10:00 History 300mg Hydroxyzine HCl [hydrOXYzine] 50 mg PO QHS 04/22/17 09/02/18 08/25/18 22:00 History 200mg Levothyroxine Sodium [Tirosint] 100 mcg PO QAM 04/22/17 09/02/18 09/01/18 10:00 History 100mcg predniSONE [Deltasone] 5 mg PO PRN PRN 04/22/17 09/02/18 09/01/18 10:00 History 5mg traMADol [Ultram] 50 mg PO DAILY PRN 04/22/17 09/02/18 09/01/18 10:00 History 50mg Active Medications: Generic Name Dose Route Start Last Admin Trade Name Freq PRN Reason Stop Dose Admin Albuterol 2.5 mg 09/01/18 21:07 Proventil IH TIDRT PRN Wheezing Apixaban 5 mg 09/01/18 22:00 09/04/18 00:51 Eliquis PO 5 mg BID ADELE Administration Protocol Atorvastatin Calcium 80 mg 09/01/18 22:00 09/03/18 22:00 Lipitor PO 80 mg QHS ADELE Administration Famotidine 40 mg 09/03/18 10:00 09/03/18 09:48 Pepcid PO 40 mg DAILY ADELE Administration Gabapentin 300 mg 09/02/18 08:00 09/04/18 08:41 Neurontin PO 300 mg TID ADELE Administration Hydroxychloroquine Sulfate 200 mg 09/01/18 22:00 09/03/18 22:00 Plaquenil PO 200 mg BID ADELE Administration Hydroxyzine HCl 50 mg 09/01/18 22:00 09/03/18 22:00 Atarax PO 50 mg QHS ADELE Administration Dextrose/Sodium Chloride 1,000 mls @ 100 mls/hr 09/01/18 22:00 09/03/18 23:06 D5ns IV 100 mls/hr DIRECT ADELE Administration Levothyroxine Sodium 100 mcg 09/02/18 06:00 09/03/18 06:17 Synthroid PO 100 mcg DAILY@0600 ADELE Administration Morphine Sulfate 2 mg 09/01/18 19:48 09/02/18 22:00 Morphine IV 2 mg Q6H PRN Administration Pain, Moderate (4-6) Ondansetron HCl 4 mg 09/01/18 14:36 09/03/18 23:11 Zofran IV 4 mg Q8H PRN Administration Nausea And Vomiting Sodium Chloride 10 ml 09/01/18 22:00 09/03/18 09:48 Sodium Chloride Flush Syringe 10 Ml IV 10 ml BID ADELE Administration Sodium Chloride 10 ml 09/01/18 14:36 Sodium Chloride Flush Syringe 10 Ml IV PRN PRN LINE FLUSH Tramadol HCl 50 mg 09/01/18 21:07 09/03/18 06:17 Ultram PO 50 mg Q6HR PRN Administration Pain
--- NOTE | 2018-09-04 09:16 | Progress Note ---
Assessment and Plan - Acute renal failure BNP was 15 and creatinine was 1.0 as of 02/18/2018 continue with IV hydration -mild left ureteric hydronephrosis with ureteric alculi CT abdomen and pelvis showed left UVJ 5.8mm and 4mm distal ureteric calculi Urology consulted. Discussed with Dr. Arvizu. for stent placement today - Nausea with vomiting improving IV hydration, graded oral feeding IV Zofran - Headache CT head was unremarkable iv morphine - H/o Breast cancer stable s/p mastectomy and chemotx -Hyperkalemia Kayxalate - History of DVT/PE Continue Eliquis -History of asthma Continue bronchodilators - Venous stasis dermatitis both LEs elevation of feet -DVT ppx:On Eliquis Pt is full code Time spent : 35 mins in direct pt care, review of past medical records, as well as laboratory data Subjective Date of service: 09/04/18 Principal diagnosis: Acute renal failure, BURGER nausea and vomiting, left ureteric stone Interval history: Nauseated but no vomiting improved. Objective - Exam Narrative Exam: Constitutional: Well-nourished well-developed. In no distress Head: Normocephalic atraumatic Eyes: Pupils are equal round and reactive to light Nose: No enlarged turbinates, no septal deviation. Mouth: Moist mucous membranes. Neck: Supple no thyromegaly. No bruit. No JVD Heart: Regular rate and rhythm, S1-S2 normal. No rubs murmurs or gallop Lungs: Clear to auscultation bilaterally. no rales or rhonchi Abdomen: Soft, nontender. Bowel sound are present. Extremities: Has edema, with hypoxic pigmentation of both lower extremities and healed weepy ulcers. Neuro: Alert oriented Oriented x3. No focal sensory or motor deficit. Skin: No rashes or hyperpigmented spots Musculoskeletal system: No joint pain or swelling Hematological: No petechia or subcutanous hemorrhages. Immunological: No multiple septic spots on the skin Lymphatic: No generalized lymphadenopathy Psychiatry: Euthymic. Calm. - Constitutional Vitals: Vital Signs - 12hr 09/04/18 09/04/18 09/04/18 02:43 08:05 08:54 Temperature 97.6 F 98.4 F Pulse Rate 80 79 Respiratory 20 20 Rate Blood Pressure 127/64 142/64 O2 Sat by Pulse 92 95 96 Oximetry - Labs CBC & Chem 7: 09/04/18 05:17 09/04/18 13:42 Labs: Abnormal lab results 09/03/18 09/03/18 09/04/18 Range/Units 11:03 11:03 05:17 RBC 3.34 L 3.51 L (3.65-5.03) M/mm3 Hgb 9.6 L (10.1-14.3) gm/dl Hct 28.4 L (30.3-42.9) % RDW 15.4 H (13.2-15.2) % Plt Count 128 L 136 L (140-440) K/mm3 [place] % (Auto) 8.5 H (0.0-7.3) % Eos % (Auto) 4.7 H 5.5 H (0.0-4.3) % Potassium (3.6-5.0) mmol/L Chloride 107.9 H (98-107) mmol/L Carbon Dioxide 21 L (22-30) mmol/L BUN 20 H (7-17) mg/dL Creatinine 1.8 H (0.7-1.2) mg/dL Glucose 134 H (65-100) mg/dL Magnesium 1.50 L (1.7-2.3) mg/dL Albumin (3.9-5) g/dL 09/04/18 Range/Units 05:17 RBC (3.65-5.03) M/mm3 Hgb (10.1-14.3) gm/dl Hct (30.3-42.9) % RDW (13.2-15.2) % Plt Count (140-440) K/mm3 [place] % (Auto) (0.0-7.3) % Eos % (Auto) (0.0-4.3) % Potassium 5.4 H D (3.6-5.0) mmol/L Chloride 107.6 H (98-107) mmol/L Carbon Dioxide 18 L (22-30) mmol/L BUN (7-17) mg/dL Creatinine 1.5 H (0.7-1.2) mg/dL Glucose (65-100) mg/dL Magnesium (1.7-2.3) mg/dL Albumin 2.8 L (3.9-5) g/dL
--- NOTE | 2018-09-04 10:54 | Progress Note ---
Assessment and Plan Cont present cardiac management. Await echo. The patient has been seen in conjunction with Dr. Medeiros who agrees with the assessment and plan of care. - Patient Problems (1) Nausea and vomiting Current Visit: Yes Status: Acute (2) Abdominal pain Current Visit: Yes Status: Acute (3) Near syncope Current Visit: Yes Status: Acute (4) Acute kidney injury superimposed on CKD Current Visit: Yes Status: Acute (5) HTN (hypertension) Current Visit: Yes Status: Chronic (6) Hyperlipidemia Current Visit: Yes Status: Chronic (7) Diabetes Current Visit: Yes Status: Chronic (8) History of breast cancer Current Visit: Yes Status: Chronic (9) History of pulmonary embolism Current Visit: Yes Status: Chronic Subjective Date of service: 09/04/18 Principal diagnosis: Acute renal failure, BURGER nausea and vomiting, left ureteric stone Interval history: pt resting in bed, no current cardiac complaints. Objective Last Vital Signs Temp 98.4 F 09/04/18 08:05 Pulse 79 09/04/18 08:05 Resp 20 09/04/18 08:05 BP 142/64 09/04/18 08:05 Pulse Ox 96 09/04/18 08:54 - Physical Examination General: No Apparent Distress HEENT: Positive: PERRL, Normocephaly, Mucus Membranes Moist Neck: Positive: neck supple, trachea midline Cardiac: Positive: Reg Rate and Rhythm, S1/S2 Lungs: Positive: Decreased Breath Sounds Skin: Negative: Rash Musculoskeletal: No Pain - Labs and Meds Cardiac Enzymes 09/04/18 Range/Units 05:17 AST 37 (5-40) units/L CBC 09/03/18 09/04/18 Range/Units 11:03 05:17 WBC 5.4 4.7 (4.5-11.0) K/mm3 RBC 3.34 L 3.51 L (3.65-5.03) M/mm3 Hgb 9.6 L 10.2 (10.1-14.3) gm/dl Hct 28.4 L 32.0 (30.3-42.9) % Plt Count 128 L 136 L (140-440) K/mm3 Lymph # 1.3 1.3 (1.2-5.4) K/mm3 [place] # 0.3 0.4 (0.0-0.8) K/mm3 Eos # 0.3 0.3 (0.0-0.4) K/mm3 Baso # 0.0 0.0 (0.0-0.1) K/mm3 Comprehensive Metabolic Panel 09/03/18 09/04/18 Range/Units 11:03 05:17 Sodium 140 138 (137-145) mmol/L Potassium 4.4 5.4 H D (3.6-5.0) mmol/L Chloride 107.9 H 107.6 H (98-107) mmol/L Carbon Dioxide 21 L 18 L (22-30) mmol/L BUN 20 H 15 (7-17) mg/dL Creatinine 1.8 H 1.5 H (0.7-1.2) mg/dL Glucose 134 H 84 (65-100) mg/dL Calcium 9.5 9.1 (8.4-10.2) mg/dL AST 37 (5-40) units/L ALT 17 (7-56) units/L Alkaline Phosphatase 69 (35-129) units/L Total Protein 6.3 (6.3-8.2) g/dL Albumin 2.8 L (3.9-5) g/dL
[2018-09-04] MEDS ORDERED: KIONEX PR ONE (11:00)
--- NOTE | 2018-09-04 11:32 | Progress Note ---
Assessment and Plan informedconsemnt obtained all options sig n/v and pain for cysto stent ureteroscopy need to wait since had eaten 730 am Subjective Date of service: 09/04/18 Principal diagnosis: Acute renal failure, BURGER nausea and vomiting, left ureteric stone Objective - Constitutional Vitals: Vital Signs - 12hr 09/04/18 09/04/18 09/04/18 02:43 08:05 08:54 Temperature 97.6 F 98.4 F Pulse Rate 80 79 Respiratory 20 20 Rate Blood Pressure 127/64 142/64 O2 Sat by Pulse 92 95 96 Oximetry General appearance: Present: mild distress - Neck Neck: supple - Respiratory Respiratory effort: normal - Gastrointestinal General gastrointestinal: Present: soft, non-tender - Labs CBC & Chem 7: 09/04/18 05:17 09/04/18 05:17 Labs: Abnormal lab results 09/03/18 09/03/18 09/04/18 Range/Units 11:03 11:03 05:17 RBC 3.34 L 3.51 L (3.65-5.03) M/mm3 Hgb 9.6 L (10.1-14.3) gm/dl Hct 28.4 L (30.3-42.9) % RDW 15.4 H (13.2-15.2) % Plt Count 128 L 136 L (140-440) K/mm3 [place] % (Auto) 8.5 H (0.0-7.3) % Eos % (Auto) 4.7 H 5.5 H (0.0-4.3) % Potassium (3.6-5.0) mmol/L Chloride 107.9 H (98-107) mmol/L Carbon Dioxide 21 L (22-30) mmol/L BUN 20 H (7-17) mg/dL Creatinine 1.8 H (0.7-1.2) mg/dL Glucose 134 H (65-100) mg/dL Magnesium 1.50 L (1.7-2.3) mg/dL Albumin (3.9-5) g/dL 09/04/18 Range/Units 05:17 RBC (3.65-5.03) M/mm3 Hgb (10.1-14.3) gm/dl Hct (30.3-42.9) % RDW (13.2-15.2) % Plt Count (140-440) K/mm3 [place] % (Auto) (0.0-7.3) % Eos % (Auto) (0.0-4.3) % Potassium 5.4 H D (3.6-5.0) mmol/L Chloride 107.6 H (98-107) mmol/L Carbon Dioxide 18 L (22-30) mmol/L BUN (7-17) mg/dL Creatinine 1.5 H (0.7-1.2) mg/dL Glucose (65-100) mg/dL Magnesium (1.7-2.3) mg/dL Albumin 2.8 L (3.9-5) g/dL Medications & Allergies - Medications Allergies/Adverse Reactions: Allergies chocolate flavor Allergy (Severe, Verified 07/01/13 17:15) Rash corn [[place]] Allergy (Severe, Verified 07/01/13 17:15) Rash egg Allergy (Severe, Verified 07/01/13 17:15) Rash Penicillins Allergy (Severe, Verified 07/01/13 17:15) SWELLING,HIVES shellfish derived Allergy (Severe, Verified 07/01/13 17:15) Rash wheat Allergy (Severe, Verified 07/01/13 17:15) Rash BUTTER BEANS Allergy (Severe, Uncoded 07/01/13 17:15) Rash CHEESE Allergy (Severe, Uncoded 07/01/13 17:15) Rash POND BEANS Allergy (Severe, Uncoded 07/01/13 17:15) Rash Home Medications: Home Medications Medication Instructions Recorded Confirmed Last Taken Type Atorvastatin [Lipitor] 80 mg PO QHS 07/01/13 09/02/18 09/01/18 22:00 History 80mg Hydroxychloroquine [Plaquenil] 200 mg PO BID 07/01/13 09/02/18 09/01/18 22:00 History 200mg Lisinopril [Zestril TAB] 10 mg PO DAILY 07/01/13 09/02/18 09/01/18 10:00 History 10mg Loratadine [Claritin] 10 mg PO DAILY 07/01/13 09/02/18 09/01/18 10:00 History 10mg Pantoprazole [Protonix TAB] 40 mg PO DAILY tablet 04/10/16 09/02/18 09/01/18 10:00 Rx 40mg ALBUTEROL Inhaler (OR & NICU) 2 puff IH QID PRN 04/22/17 09/02/18 09/01/18 10:00 History [Proair] 2 puff ALBUTEROL NEB's [Proventil] 2.5 mg IH TID PRN 04/22/17 09/02/18 08/01/18 10:00 History 2.5mg Apixaban [Eliquis] 5 mg PO BID 04/22/17 09/02/18 09/01/18 22:00 History 5mg Gabapentin [Neurontin] 300 mg PO TID 04/22/17 09/02/18 09/01/18 10:00 History 300mg Hydroxyzine HCl [hydrOXYzine] 50 mg PO QHS 04/22/17 09/02/18 08/25/18 22:00 History 200mg Levothyroxine Sodium [Tirosint] 100 mcg PO QAM 04/22/17 09/02/18 09/01/18 10:00 History 100mcg predniSONE [Deltasone] 5 mg PO PRN PRN 04/22/17 09/02/18 09/01/18 10:00 History 5mg traMADol [Ultram] 50 mg PO DAILY PRN 04/22/17 09/02/18 09/01/18 10:00 History 50mg Active Medications: Generic Name Dose Route Start Last Admin Trade Name Freq PRN Reason Stop Dose Admin Albuterol 2.5 mg 09/01/18 21:07 Proventil IH TIDRT PRN Wheezing Apixaban 5 mg 09/01/18 22:00 09/04/18 00:51 Eliquis PO 5 mg BID ADELE Administration Protocol Atorvastatin Calcium 80 mg 09/01/18 22:00 09/03/18 22:00 Lipitor PO 80 mg QHS ADELE Administration Famotidine 40 mg 09/03/18 10:00 09/03/18 09:48 Pepcid PO 40 mg DAILY ADELE Administration Gabapentin 300 mg 09/02/18 08:00 09/04/18 08:41 Neurontin PO 300 mg TID ADELE Administration Hydroxychloroquine Sulfate 200 mg 09/01/18 22:00 09/03/18 22:00 Plaquenil PO 200 mg BID ADELE Administration Hydroxyzine HCl 50 mg 09/01/18 22:00 09/03/18 22:00 Atarax PO 50 mg QHS ADELE Administration Dextrose/Sodium Chloride 1,000 mls @ 100 mls/hr 09/01/18 22:00 09/03/18 23:06 D5ns IV 100 mls/hr DIRECT ADELE Administration Levothyroxine Sodium 100 mcg 09/02/18 06:00 09/03/18 06:17 Synthroid PO 100 mcg DAILY@0600 ADELE Administration Morphine Sulfate 2 mg 09/01/18 19:48 09/02/18 22:00 Morphine IV 2 mg Q6H PRN Administration Pain, Moderate (4-6) Ondansetron HCl 4 mg 09/01/18 14:36 09/03/18 23:11 Zofran IV 4 mg Q8H PRN Administration Nausea And Vomiting Sodium Chloride 10 ml 09/01/18 22:00 09/03/18 09:48 Sodium Chloride Flush Syringe 10 Ml IV 10 ml BID ADELE Administration Sodium Chloride 10 ml 09/01/18 14:36 Sodium Chloride Flush Syringe 10 Ml IV PRN PRN LINE FLUSH Tramadol HCl 50 mg 09/01/18 21:07 09/03/18 06:17 Ultram PO 50 mg Q6HR PRN Administration Pain
[2018-09-04] MEDS: SODIUM CHLORIDE FLUSH SYRINGE 10 ML IV SCH (15:06)
[2018-09-04] MEDS: PLAQUENIL PO SCH (15:06)
[2018-09-04] MEDS: PEPCID PO SCH (15:06)
--- NOTE | 2018-09-04 15:21 | Anesthesia Day of Surgery ---
Anesthesia Day of Surgery - Day of Surgery Patient Examined: Yes Patient H&P Reviewed: Yes Patient is NPO: Yes
--- NOTE | 2018-09-04 15:21 | Anesthesia Consultation ---
Anesthesia Consult and Med Hx Date of service: 09/04/18 - Airway Anesthetic Teeth Evaluation: Dentures ROM Head & Neck: Adequate Mental/Hyoid Distance: Adequate Mallampati Class: Class II Intubation Access Assessment: Good - Pulmonary Exam CTA: Yes - Cardiac Exam Cardiac Exam: RRR - Pre-Operative Health Status ASA Pre-Surgery Classification: ASA3 Proposed Anesthetic Plan: General (Hx of Breast Ca, GABRIELLE - resolved , HTN , Hypothyroidism, GERD for GA) - Pulmonary Hx Smoking: No Hx Asthma: Yes (INHALERS / NEBULZER PRN) COPD: Yes Hx Pneumonia: Yes (FIRST OF MAR 2017- RESOLVED) Hx Sleep Apnea: No (XIOMY PRE SCREEN LOW RISK.) - Cardiovascular System Hx Hypertension: Yes (2006) Hx Heart Attack/AMI: No Hx Valvular Heart Disease: Yes (HX LEAKING VALVE- "STABLE") Hx Peripheral Vascular Disease: Yes (FEM-POP BYPASS WITH STENTS) - Central Nervous System Hx Back Pain: Yes - Gastrointestinal Hx Ulcer: Yes (removed in 03/25/1979 ( PARTIAL GASTECTOMY)) Hx Gastroesophageal Reflux Disease: Yes - Endocrine Hx Renal Disease: Yes (CKD) Hx Non-Insulin Dependent Diabetes: No Hx Thyroid Disease: No Hx Hypothyroidism: Yes (ON MEDS) - Hematic Hx Anemia: Yes - Other Systems Hx Cancer: Yes (left Breast Cancer, Chemo and Radiation 2012)
[2018-09-04] MEDS ORDERED: SUBLIMAZE IV SCH ×3 (16:14→17:00)
[2018-09-04] MEDS ORDERED: LEVAQUIN 500MG/100ML 500 MG/100 ML BAG IV NR (16:16)
[2018-09-04] MEDS: NACL 0.9% 1000 ML 1,000 ML IV SCH (16:45)
--- NOTE | 2018-09-04 16:47 | Post Operative Note ---
Date of procedure: 09/04/18 Pre-op diagnosis: left ureteral stones Post-op diagnosis: same Findings: as above Procedure: cyto rpg ureteroscopy stent Anesthesia: GETA Surgeon: SAMEER SAWYER Estimated blood loss: none Pathology: list (pt) Condition: stable Disposition: PACU
[2018-09-04] MEDS ORDERED: DIPRIVAN 10 MG/ML IV ONE (17:01)
[2018-09-04] MEDS ORDERED: SUBLIMAZE ONE (17:01)
[2018-09-04] MEDS ORDERED: XYLOCAINE MPF 2% ONE (17:01)
[2018-09-04] MEDS ORDERED: OMNIPAQUE 300 MG/50 ML (CATH LAB) IV ONE (17:30)
[2018-09-04] MEDS ORDERED: ZOFRAN ONE (18:01)
--- NOTE | 2018-09-04 20:29 | Operative Report ---
PREOPERATIVE DIAGNOSES: 1. Multiple left ureteral stone. 2. Severe pain. 3. Nausea and vomiting. POSTOPERATIVE DIAGNOSES: 1. Multiple left ureteral stone. 2. Severe pain. 3. Nausea and vomiting. PROCEDURE: Cystoscopy, left ureteral balloon dilatation, retrograde, left stone extraction, ureteroscopy, J stent. SURGEON: Nathan Ro MD ANESTHESIA: General. FINDINGS: This is a woman with severe pain, nausea and vomiting. She now presents for treatment. All risks and implications discussed. DESCRIPTION OF PROCEDURE: The patient was brought to the operating room and placed on the operating table. Following induction of anesthesia, placed in lithotomy position, prepped and draped in usual sterile fashion. Cystourethroscopy showed small stones in the bladder, which were evacuated out. The retrograde showed narrowing with a filling defect in the distal ureter. Balloon dilatation was carried out after wire coiled in the kidney. Four stones were seen in the distal ureter. Each were extracted. The patient tolerated the procedure well. A double J coiled in the kidney and bladder, we left the string. The patient tolerated the procedure well. She needs followup. She was given prescriptions. We let Dr. Guzman know. She was brought to recovery. She will go home in the morning. JOB# [id number] MIGUELANGEL/CAMERON
[2018-09-04] MEDS: ZOFRAN IV PRN (23:07)
[2018-09-04] MEDS: ATARAX PO SCH (23:10)
--- NOTE | 2018-09-04 23:25 | Consultation ---
HISTORY OF PRESENT ILLNESS: The patient is a woman who has a left ureteral stone. She has had nausea and vomiting. She has a history of breast cancer and back surgery as well. She has mild left hydronephrosis with bilateral cysts, bilateral stones. She has what appears to be a 5.8 distal ureteral stone, left UVJ with a second 4 mm stone. No right ureteral stones. There is also possible bladder stone. She now presents for cystoscopy. All risks and implications discussed. PAST MEDICAL HISTORY: Breast cancer, back surgery, previous DVT. PAST SURGICAL HISTORY: Mastectomy, gastric surgery. SOCIAL HISTORY: Negative. FAMILY HISTORY: Noncontributory. MEDICATIONS: Plaquenil, Claritin, Neurontin, Synthroid, prednisone, Eliquis, Zestril, and Proventil. ALLERGIES: PENICILLIN. REVIEW OF SYSTEMS: Left flank pain, nausea, and vomiting. PHYSICAL EXAMINATION: GENERAL: She is awake. She is in mild discomfort. ABDOMEN: Soft, nondistended, mild left CVA tenderness. IMPRESSION: Left distal ureteral stones for ureteroscopy, laser stenting. All discussed. Informed consent obtained. JOB# [id number] MIGUELANGEL/CAMERON
[2018-09-05] MEDS: NEURONTIN PO SCH ×3 (08:15→22:32)
[2018-09-05] MEDS: D5NS 1,000 ML IV SCH (08:19)
--- NOTE | 2018-09-05 08:29 | Progress Note ---
Assessment and Plan - Acute renal failure - resolved BNP was 15 and creatinine was 1.0 as of 02/18/2018 but 32 and 2.7 on admission 09/01/18 continue with IV hydration -Mild left ureteric hydronephrosis with ureteric alculi CT abdomen and pelvis showed left UVJ 5.8mm and 4mm distal ureteric calculi Urology consulted. Discussed with Dr. Arvizu. for stent placement today - Nausea with vomiting improving IV hydration, graded oral feeding IV Zofran - Headache CT head was unremarkable iv morphine - H/o Breast cancer stable s/p mastectomy and chemotx -Hyperkalemia Kayxalate - History of DVT/PE Continue Eliquis -History of asthma Continue bronchodilators - Venous stasis dermatitis both LEs elevation of feet -DVT ppx:On Eliquis Pt is full code Time spent : 35 mins in direct pt care, review of past medical records, as well as laboratory data Subjective Date of service: 09/05/18 Principal diagnosis: Acute renal failure, BURGER nausea and vomiting, left ureteric stone Interval history: Nauseated but no vomiting improved. Had stent placement in left ureter for ureteric stone Objective - Exam Narrative Exam: Constitutional: Well-nourished well-developed. In no distress Head: Normocephalic atraumatic Eyes: Pupils are equal round and reactive to light Nose: No enlarged turbinates, no septal deviation. Mouth: Moist mucous membranes. Neck: Supple no thyromegaly. No bruit. No JVD Heart: Regular rate and rhythm, S1-S2 normal. No rubs murmurs or gallop Lungs: Clear to auscultation bilaterally. no rales or rhonchi Abdomen: Soft, nontender. Bowel sound are present. Extremities: Has edema, with hypoxic pigmentation of both lower extremities and healed weepy ulcers. Neuro: Alert oriented Oriented x3. No focal sensory or motor deficit. Skin: No rashes or hyperpigmented spots Musculoskeletal system: No joint pain or swelling Hematological: No petechia or subcutanous hemorrhages. Immunological: No multiple septic spots on the skin Lymphatic: No generalized lymphadenopathy Psychiatry: Euthymic. Calm. - Constitutional Vitals: Vital Signs - 12hr 09/04/18 09/05/18 09/05/18 20:37 01:51 03:00 Temperature 97.8 F 98.3 F Pulse Rate 98 H Respiratory 20 20 Rate Blood Pressure 134/64 O2 Sat by Pulse 92 Oximetry - Labs CBC & Chem 7: 09/04/18 05:17 09/04/18 13:42 Labs: Abnormal lab results 09/04/18 Range/Units 13:42 Creatinine 1.5 H (0.7-1.2) mg/dL
--- NOTE | 2018-09-05 08:41 | Progress Note ---
Subjective Principal diagnosis: Acute renal failure, BURGER nausea and vomiting, left ureteric stone Interval history: Patient was seen today for follow-up of multiple renal related issues Currently pending echocardiogram and cardiology evaluation report Renal function is improving she is feeling much better She is currently status post stent placement for hydronephrosis she is feeling much better wants to go home Past medical history: Reviewed Family history: Reviewed Social history: Reviewed Allergies: Reviewed Physical examination: Vitals: Reviewed HEENT: No pallor or icterus oral mucosa moist Neck: Supple no JVD no thyromegaly Chest: Bilateral clear to auscultation anteriorly Heart: Regular rate and rhythm S1-S2 heard no S3-S4 Abdomen: Soft nontender no voluntary guarding rigidity rebound Extremity: Dry skin less than 1+ peripheral edema Psychiatric: No evidence of agitation and aggression noted Dermatology: No petechial rashes Labs and x-rays: Reviewed from today Assessment and plan Acute renal failure in a patient with the chronic kidney disease current creatinine is around 1.5 stable Metabolic acidosis currently improved Most of her renal failure appeared to be resulting from volume depletion dehydration Left-sided hydronephrosis status post stent placement will need to follow-up with urology in outpatient setting Hypokalemia: Continue to monitor and follow avoid BRYAN inhibitor or angiotensin receptor isra Blood pressure is currently much better controlled 134/64 patient was relatively hypotensive in the office, she is being followed by the cardiology,ejection fraction 55-60% range Patient is stable from renal standpoint We'll continue to follow and make recommendation for renal standpoint Objective - Vital Signs Vital signs: Vital Signs - 12hr 09/05/18 09/05/18 01:51 03:00 Temperature 98.3 F Pulse Rate 98 H Respiratory 20 Rate Blood Pressure 134/64 O2 Sat by Pulse 92 Oximetry - Lab 09/04/18 05:17 09/04/18 13:42 Most recent lab results Calcium 9.0 mg/dL (8.4-10.2) 09/04/18 13:42 Phosphorus 3.30 mg/dL (2.5-4.5) 09/02/18 04:57 Magnesium 1.50 mg/dL (1.7-2.3) L 09/03/18 11:03 83.3 mg/dL (0.1-20.0) H 09/02/18 18:30 110 mmol/L 09/02/18 18:30 Medications & Allergies - Medications Allergies/Adverse Reactions: Allergies chocolate flavor Allergy (Severe, Verified 07/01/13 17:15) Rash corn [[place]] Allergy (Severe, Verified 07/01/13 17:15) Rash egg Allergy (Severe, Verified 07/01/13 17:15) Rash Penicillins Allergy (Severe, Verified 07/01/13 17:15) SWELLING,HIVES shellfish derived Allergy (Severe, Verified 07/01/13 17:15) Rash wheat Allergy (Severe, Verified 07/01/13 17:15) Rash milk Allergy (Verified 09/04/18 17:55) Rash peanut Allergy (Verified 09/04/18 17:54) Rash PT STATES HER MOUTH SWELLS WITH PEANUTS AND BEANS BUTTER BEANS Allergy (Severe, Uncoded 07/01/13 17:15) Rash CHEESE Allergy (Severe, Uncoded 07/01/13 17:15) Rash POND BEANS Allergy (Severe, Uncoded 07/01/13 17:15) Rash Home Medications: Home Medications Medication Instructions Recorded Confirmed Last Taken Type Atorvastatin [Lipitor] 80 mg PO QHS 07/01/13 09/02/18 09/01/18 22:00 History 80mg Hydroxychloroquine [Plaquenil] 200 mg PO BID 07/01/13 09/02/18 09/01/18 22:00 History 200mg Lisinopril [Zestril TAB] 10 mg PO DAILY 07/01/13 09/02/18 09/01/18 10:00 History 10mg Loratadine [Claritin] 10 mg PO DAILY 07/01/13 09/02/18 09/01/18 10:00 History 10mg Pantoprazole [Protonix TAB] 40 mg PO DAILY tablet 04/10/16 09/02/18 09/01/18 10:00 Rx 40mg ALBUTEROL Inhaler (OR & NICU) 2 puff IH QID PRN 04/22/17 09/02/18 09/01/18 10:00 History [Proair] 2 puff ALBUTEROL NEB's [Proventil] 2.5 mg IH TID PRN 04/22/17 09/02/18 08/01/18 10:00 History 2.5mg Apixaban [Eliquis] 5 mg PO BID 0109/02/18 09/01/18 22:00 History 5mg Gabapentin [Neurontin] 300 mg PO TID 04/22/17 09/02/18 09/01/18 10:00 History 300mg Hydroxyzine HCl [hydrOXYzine] 50 mg PO QHS 04/22/17 09/02/18 08/25/18 22:00 History 200mg Levothyroxine Sodium [Tirosint] 100 mcg PO QAM 04/22/17 09/02/18 09/01/18 10:00 History 100mcg predniSONE [Deltasone] 5 mg PO PRN PRN 04/22/17 09/02/18 09/01/18 10:00 History 5mg traMADol [Ultram] 50 mg PO DAILY PRN 04/22/17 09/02/18 09/01/18 10:00 History 50mg Active Medications: Generic Name Dose Route Start Last Admin Trade Name Freq PRN Reason Stop Dose Admin Albuterol 2.5 mg 09/01/18 21:07 Proventil IH TIDRT PRN Wheezing Apixaban 5 mg 09/01/18 22:00 09/04/18 23:13 Eliquis PO 5 mg BID ADELE Administration Protocol Atorvastatin Calcium 80 mg 09/01/18 22:00 09/04/18 23:15 Lipitor PO 80 mg QHS ADELE Administration Famotidine 40 mg 09/03/18 10:00 09/04/18 15:06 Pepcid PO Not Given DAILY ADELE Gabapentin 300 mg 09/02/18 08:00 09/05/18 08:15 Neurontin PO 300 mg TID ADELE Administration Hydroxychloroquine Sulfate 200 mg 09/01/18 22:00 09/04/18 15:06 Plaquenil PO Not Given BID ADELE Hydroxyzine HCl 50 mg 09/01/18 22:00 09/04/18 23:10 Atarax PO 50 mg QHS ADELE Administration Dextrose/Sodium Chloride 1,000 mls @ 100 mls/hr 09/01/18 22:00 09/05/18 08:19 D5ns IV 100 mls/hr DIRECT ADELE Administration Sodium Chloride 1,000 mls @ 42 mls/hr 09/04/18 17:00 09/04/18 16:45 Nacl 0.9% 1000 Ml IV 42 mls/hr DIRECT ADELE Administration Levofloxacin 250 mg 09/05/18 10:00 Levaquin PO Q24HR ADELE Levothyroxine Sodium 100 mcg 09/02/18 06:00 09/03/18 06:17 Synthroid PO 100 mcg DAILY@0600 ADELE Administration Morphine Sulfate 2 mg 09/01/18 19:48 09/02/18 22:00 Morphine IV 2 mg Q6H PRN Administration Pain, Moderate (4-6) Ondansetron HCl 4 mg 09/01/18 14:36 09/04/18 23:07 Zofran IV 4 mg Q8H PRN Administration Nausea And Vomiting Sodium Chloride 10 ml 09/01/18 22:00 09/04/18 15:06 Sodium Chloride Flush Syringe 10 Ml IV Not Given BID ADELE Sodium Chloride 10 ml 09/01/18 14:36 Sodium Chloride Flush Syringe 10 Ml IV PRN PRN LINE FLUSH Tramadol HCl 50 mg 09/01/18 21:07 09/03/18 06:17 Ultram PO 50 mg Q6HR PRN Administration Pain
[2018-09-05] MEDS: PEPCID PO SCH (09:29)
[2018-09-05] MEDS: ELIQUIS PO SCH ×2 (09:29→22:32)
[2018-09-05] MEDS: LEVAQUIN PO SCH (09:29)
[2018-09-05] MEDS: PLAQUENIL PO SCH ×2 (09:29→22:31)
[2018-09-05] MEDS: SODIUM CHLORIDE FLUSH SYRINGE 10 ML IV SCH ×2 (09:30→22:29)
--- NOTE | 2018-09-05 13:13 | Fluoroscopy Report ---
FLUORO RETROGRADE UROGRAPHY FLUORO URETER/NEPHROSTOMY DILATATION LEFT INDICATION: Left ureteral stone. COMPARISON: None similar. IMAGES/CINE CLIPS: 6+1 FINDINGS: Total of 7 submitted fluoroscopic images. Procedure performed by Dr. Ro. 5 ml Omnipaque 300 utilized. Initial furniture arranger radiographs obtained at 5:20 PM, 09/04/2018 demonstrate bilateral iliac stents, lumbosacral region fusion hardware and few upper abdominal surgical clips. Nonobstructive bowel gas pattern. Subsequently, left retrograde pyelogram, uteroscopy and balloon dilatation performed. Visualized left ureteral stones extracted with grasper. Final images demonstrate a well-positioned left double-J ureteral stent. CONCLUSION: Intraoperative fluoroscopic assistance provided, as described. Thank you for the opportunity to participate in this patient's care.
--- NOTE | 2018-09-05 13:13 | Fluoroscopy Report ---
FLUORO RETROGRADE UROGRAPHY FLUORO URETER/NEPHROSTOMY DILATATION LEFT INDICATION: Left ureteral stone. COMPARISON: None similar. IMAGES/CINE CLIPS: 6+1 FINDINGS: Total of 7 submitted fluoroscopic images. Procedure performed by Dr. Ro. 5 ml Omnipaque 300 utilized. Initial turnaround engineer radiographs obtained at 5:20 PM, 09/04/2018 demonstrate bilateral iliac stents, lumbosacral region fusion hardware and few upper abdominal surgical clips. Nonobstructive bowel gas pattern. Subsequently, left retrograde pyelogram, uteroscopy and balloon dilatation performed. Visualized left ureteral stones extracted with grasper. Final images demonstrate a well-positioned left double-J ureteral stent. CONCLUSION: Intraoperative fluoroscopic assistance provided, as described. Thank you for the opportunity to participate in this patient's care.
[2018-09-05] MEDS: NACL 0.9% 1000 ML 1,000 ML IV SCH (13:49)
--- NOTE | 2018-09-05 14:01 | Progress Note ---
Assessment and Plan S/p ureteroscopy with stent placement yesterday. Currently stable cardiac status, pt states she is feeling better. Pt may discharge from cardiology standpoint on home cardiac regimen. Recommend pt follow up in our office with Dr. Medeiros within 1-2 weeks of hospital discharge ([phone]). The patient has been seen in conjunction with Dr. Medeiros who agrees with the assessment and plan of care. - Patient Problems (1) Nausea and vomiting Current Visit: Yes Status: Acute (2) Abdominal pain Current Visit: Yes Status: Acute (3) Near syncope Current Visit: Yes Status: Acute (4) Acute kidney injury superimposed on CKD Current Visit: Yes Status: Acute (5) HTN (hypertension) Current Visit: Yes Status: Chronic (6) Hyperlipidemia Current Visit: Yes Status: Chronic (7) Diabetes Current Visit: Yes Status: Chronic (8) History of breast cancer Current Visit: Yes Status: Chronic (9) History of pulmonary embolism Current Visit: Yes Status: Chronic (10) Hydronephrosis Current Visit: Yes Status: Acute Subjective Date of service: 09/05/18 Principal diagnosis: Acute renal failure, BURGER nausea and vomiting, left ureteric stone Interval history: pt resting in bed, no current cardiac complaints. Objective Last Vital Signs Temp 98.3 F 09/05/18 01:51 Pulse 98 H 09/05/18 03:00 Resp 20 09/05/18 01:51 BP 134/64 09/05/18 01:51 Pulse Ox 98 09/05/18 08:00 - Physical Examination General: No Apparent Distress HEENT: Positive: PERRL, Normocephaly, Mucus Membranes Moist Neck: Positive: neck supple, trachea midline Cardiac: Positive: Reg Rate and Rhythm, S1/S2 Lungs: Positive: Decreased Breath Sounds Skin: Negative: Rash Musculoskeletal: No Pain - Labs and Meds Comprehensive Metabolic Panel 09/04/18 Range/Units 13:42 Sodium 140 (137-145) mmol/L Potassium 4.4 (3.6-5.0) mmol/L Chloride 105.7 (98-107) mmol/L Carbon Dioxide 24 (22-30) mmol/L BUN 12 (7-17) mg/dL Creatinine 1.5 H (0.7-1.2) mg/dL Glucose 77 (65-100) mg/dL Calcium 9.0 (8.4-10.2) mg/dL
[2018-09-05] MEDS: ATARAX PO SCH (22:31)
[2018-09-06 07:47] LABS: Albumin 2.7 g/dL (3.9-5); Calcium 9.2 mg/dL (8.4-10.2)
--- NOTE | 2018-09-06 08:44 | Progress Note ---
Assessment and Plan - Patient Problems (1) LARRY (acute kidney injury) Current Visit: Yes Status: Acute Plan to address problem: Gradually improving with hydration will continue to monitor. Status (2) Hydronephrosis Current Visit: Yes Status: Acute Plan to address problem: Resolved status post removal of kidney stone continue to monitor renal function (3) Nausea and vomiting Current Visit: Yes Status: Acute Plan to address problem: I discussed current medication for anti-emesis, may need to add appetite stimulant (4) Diabetes Current Visit: Yes Status: Chronic Qualifiers: Diabetes mellitus complication status: with kidney complications Diabetes mellitus complication detail: with chronic kidney disease Chronic kidney disease stage: stage 3 (moderate) Plan to address problem: Continue to monitor blood sugar sliding scale coverage as ordered patient with poor oral intake will continue to monitor for hypoglycemia (5) HTN (hypertension) Current Visit: Yes Status: Chronic Qualifiers: Hypertension type: essential hypertension Qualified Code(s): I10 - Essential (primary) hypertension Plan to address problem: Continue current management in blood pressure noted to be fairly stable Subjective Date of service: 09/06/18 Principal diagnosis: Acute renal failure, BURGER nausea and vomiting, left ureteric stone Interval history: Covering for will be according Patient seen and examined chart reviewed, patient's daughter in the room with patient patient complains of ongoing nausea and poor appetite stated that she has not been able to keep any food down over the last few days, denied any chest pain or shortness of breath and no fever reported by nursing staff. Has pain in the left lower abdominal quadrant. Denied diarrhea and has not had any bowel movement since admission Objective - Exam Narrative Exam: GENERAL: Patient is not in acute distress lying comfortably in bed HEENT: Patient is not pale, not jaundiced, not cyanosed. NECK: No JVD, no thyroid enlargement and no lymphadenopathy. CHEST/LUNGS: Good air exchange bilaterally, no wheeze, no rales and no rhonchi. No chest wall tenderness, percussion is normal, symmetrical chest wall. HEART/CARDIOVASCULAR: Regular rate and rhythm, S1 and S2 only, no murmur. ABDOMEN: Abdomen is soft, nondistended, no guarding, tenderness in the left lower quadrant of the abdomen, no masses palpable per abdomen, active bowel sounds. SKIN: Warm and dry, no rash. NEURO: Awake, alert, oriented x3, speech normal. Power 5/5 in all the extremities. EXTREMITIES: No pedal edema, good peripheral pulses, no finger or toe clubbing. - Constitutional Vitals: Vital Signs - 12hr 09/06/18 09/06/18 03:20 07:36 Temperature 98.4 F 99.3 F Pulse Rate 97 H 87 Respiratory 18 20 Rate Blood Pressure 129/64 114/55 O2 Sat by Pulse 96 98 Oximetry - Labs CBC & Chem 7: 09/04/18 05:17 09/06/18 06:45 Labs: Abnormal lab results 09/06/18 Range/Units 06:45 Chloride 109.4 H (98-107) mmol/L Carbon Dioxide 21 L (22-30) mmol/L Creatinine 1.5 H (0.7-1.2) mg/dL Total Protein 5.0 L D (6.3-8.2) g/dL Albumin 2.7 L (3.9-5) g/dL
[2018-09-06] MEDS: NEURONTIN PO SCH ×3 (08:58→21:00)
[2018-09-06] MEDS: ZOFRAN IV PRN ×3 (09:02→22:02)
[2018-09-06] MEDS: SODIUM CHLORIDE FLUSH SYRINGE 10 ML IV SCH ×3 (09:06→22:03)
[2018-09-06] MEDS: LEVAQUIN PO SCH (09:07)
[2018-09-06] MEDS: ELIQUIS PO SCH ×2 (09:07→22:02)
[2018-09-06] MEDS: PEPCID PO SCH (09:08)
[2018-09-06] MEDS: PLAQUENIL PO SCH ×2 (09:09→22:02)
--- NOTE | 2018-09-06 11:32 | Progress Note ---
Assessment and Plan Impression * Acute on chronic renal failure * Left-sided hydronephrosis * Hypokalemia * Hypertension Recommendations * Patient's renal function is improved. * Serum creatinine is down to baseline which is approximately 1.5 * She is status post cystoscopy with bilateral retrograde pyelogram * Blood pressure is adequately controlled. * Patient continues to have nausea and vomiting. Continue gentle hydration * Her electrolytes are acceptable Subjective Date of service: 09/06/18 Principal diagnosis: Acute renal failure, BURGER nausea and vomiting, left ureteric stone Interval history: Patient still complains of some nausea and vomiting. No diarrhea. No abdominal pain. Objective - Vital Signs Vital signs: Vital Signs - 12hr 09/06/18 09/06/18 03:20 07:36 Temperature 98.4 F 99.3 F Pulse Rate 97 H 87 Respiratory 18 20 Rate Blood Pressure 129/64 114/55 O2 Sat by Pulse 96 98 Oximetry - General Appearance General appearance: well-developed, well-nourished, appears stated age EENT: PERRL, mucous membranes moist Neck: no JVD, no thyromegaly, no carotid bruit, supple Respiratory: Present: Clear to Ascultation, Normal Exam Cardiology: regular, normal heart rate Gastrointestinal: normal, normoactive bowel sounds Integumentary: no rash, other (no edema) - Lab 09/04/18 05:17 09/06/18 06:45 Most recent lab results Calcium 9.2 mg/dL (8.4-10.2) 09/06/18 06:45 Phosphorus 3.30 mg/dL (2.5-4.5) 09/02/18 04:57 Magnesium 1.50 mg/dL (1.7-2.3) L 09/03/18 11:03 83.3 mg/dL (0.1-20.0) H 09/02/18 18:30 110 mmol/L 09/02/18 18:30 Medications & Allergies - Medications Allergies/Adverse Reactions: Allergies chocolate flavor Allergy (Severe, Verified 07/01/13 17:15) Rash corn [[place]] Allergy (Severe, Verified 07/01/13 17:15) Rash egg Allergy (Severe, Verified 07/01/13 17:15) Rash Penicillins Allergy (Severe, Verified 07/01/13 17:15) SWELLING,HIVES shellfish derived Allergy (Severe, Verified 07/01/13 17:15) Rash wheat Allergy (Severe, Verified 07/01/13 17:15) Rash milk Allergy (Verified 09/04/18 17:55) Rash peanut Allergy (Verified 09/04/18 17:54) Rash PT STATES HER MOUTH SWELLS WITH PEANUTS AND BEANS BUTTER BEANS Allergy (Severe, Uncoded 07/01/13 17:15) Rash CHEESE Allergy (Severe, Uncoded 07/01/13 17:15) Rash POND BEANS Allergy (Severe, Uncoded 07/01/13 17:15) Rash Home Medications: Home Medications Medication Instructions Recorded Confirmed Last Taken Type Atorvastatin [Lipitor] 80 mg PO QHS 07/01/13 09/02/18 09/01/18 22:00 History 80mg Hydroxychloroquine [Plaquenil] 200 mg PO BID 07/01/13 09/02/18 09/01/18 22:00 History 200mg Lisinopril [Zestril TAB] 10 mg PO DAILY 07/01/13 09/02/18 09/01/18 10:00 History 10mg Loratadine [Claritin] 10 mg PO DAILY 07/01/13 09/02/18 09/01/18 10:00 History 10mg Pantoprazole [Protonix TAB] 40 mg PO DAILY tablet 04/10/16 09/02/18 09/01/18 10:00 Rx 40mg ALBUTEROL Inhaler (OR & NICU) 2 puff IH QID PRN 04/22/17 09/02/18 09/01/18 10:00 History [Proair] 2 puff ALBUTEROL NEB's [Proventil] 2.5 mg IH TID PRN 04/22/17 09/02/18 08/01/18 10:00 History 2.5mg Apixaban [Eliquis] 5 mg PO BID 04/22/17 09/02/18 09/01/18 22:00 History 5mg Gabapentin [Neurontin] 300 mg PO TID 04/22/17 09/02/18 09/01/18 10:00 History 300mg Hydroxyzine HCl [hydrOXYzine] 50 mg PO QHS 04/22/17 09/02/18 08/25/18 22:00 History 200mg Levothyroxine Sodium [Tirosint] 100 mcg PO QAM 04/22/17 09/02/18 09/01/18 10:00 History 100mcg predniSONE [Deltasone] 5 mg PO PRN PRN 04/22/17 09/02/18 09/01/18 10:00 History 5mg traMADol [Ultram] 50 mg PO DAILY PRN 04/22/17 09/02/18 09/01/18 10:00 History 50mg Active Medications: Generic Name Dose Route Start Last Admin Trade Name Mayte PRN Reason Stop Dose Admin Albuterol 2.5 mg 09/01/18 21:07 Proventil IH TIDRT PRN Wheezing Apixaban 5 mg 09/01/18 22:00 09/06/18 09:07 Eliquis PO 5 mg BID ADELE Administration Protocol Atorvastatin Calcium 80 mg 09/01/18 22:00 09/05/18 22:32 Lipitor PO 80 mg QHS ADELE Administration Famotidine 40 mg 09/03/18 10:00 09/06/18 09:08 Pepcid PO 40 mg DAILY ADELE Administration Gabapentin 300 mg 09/02/18 08:00 09/06/18 08:58 Neurontin PO 300 mg TID ADELE Administration Hydroxychloroquine Sulfate 200 mg 09/01/18 22:00 09/06/18 09:09 Plaquenil PO 200 mg BID ADELE Administration Hydroxyzine HCl 50 mg 09/01/18 22:00 09/05/18 22:31 Atarax PO 50 mg QHS ADELE Administration Dextrose/Sodium Chloride 1,000 mls @ 100 mls/hr 09/01/18 22:00 09/05/18 08:19 D5ns IV 100 mls/hr DIRECT ADELE Administration Sodium Chloride 1,000 mls @ 42 mls/hr 09/04/18 17:00 09/05/18 13:49 Nacl 0.9% 1000 Ml IV 42 mls/hr DIRECT ADELE Administration Levofloxacin 250 mg 09/05/18 10:00 09/06/18 09:07 Levaquin PO 250 mg Q24HR ADELE Administration Levothyroxine Sodium 100 mcg 09/02/18 06:00 09/03/18 06:17 Synthroid PO 100 mcg DAILY@0600 ADELE Administration Morphine Sulfate 2 mg 09/01/18 19:48 09/02/18 22:00 Morphine IV 2 mg Q6H PRN Administration Pain, Moderate (4-6) Ondansetron HCl 4 mg 09/01/18 14:36 09/06/18 09:02 Zofran IV 4 mg Q8H PRN Administration Nausea And Vomiting Sodium Chloride 10 ml 09/01/18 22:00 09/06/18 09:06 Sodium Chloride Flush Syringe 10 Ml IV 10 ml BID ADELE Administration Sodium Chloride 10 ml 09/01/18 14:36 Sodium Chloride Flush Syringe 10 Ml IV PRN PRN LINE FLUSH Tramadol HCl 50 mg 09/01/18 21:07 09/03/18 06:17 Ultram PO 50 mg Q6HR PRN Administration Pain
[2018-09-06] MEDS: ULTRAM PO PRN (18:29)
[2018-09-06] MEDS: SYNTHROID PO SCH ×2 (20:39→20:40)
[2018-09-06] MEDS: D5NS 1,000 ML IV SCH (22:01)
[2018-09-06] MEDS: ATARAX PO SCH (22:02)
[2018-09-06] MEDS: NACL 0.9% 1000 ML 1,000 ML IV SCH (22:14)
[2018-09-07 04:02] LABS: BUN/Creatinine Ratio 10; Blood Urea Nitrogen 9 mg/dL (7-17); Hemolysis Index 4
[2018-09-07 04:22] LABS: Calcium 6.2 mg/dL (8.4-10.2)
[2018-09-07] MEDS: SYNTHROID PO SCH (05:19)
[2018-09-07] MEDS ORDERED: K-DUR PO SCH (09:00)
[2018-09-07] MEDS: ZOFRAN IV PRN ×3 (09:17→21:47)
[2018-09-07] MEDS: K-DUR PO SCH ×2 (09:42→13:07)
[2018-09-07] MEDS: NEURONTIN PO SCH ×3 (09:46→21:00)
[2018-09-07] MEDS: PEPCID PO SCH (09:46)
[2018-09-07] MEDS: LEVAQUIN PO SCH (09:46)
[2018-09-07] MEDS: PLAQUENIL PO SCH ×2 (09:46→21:46)
[2018-09-07] MEDS: ELIQUIS PO SCH ×2 (09:46→21:46)
[2018-09-07] MEDS: SODIUM CHLORIDE FLUSH SYRINGE 10 ML IV SCH ×2 (09:47→21:48)
--- NOTE | 2018-09-07 11:15 | Progress Note ---
Assessment and Plan Impression * Acute on chronic renal failure * Left-sided hydronephrosis * Hypokalemia * Hypertension * Metabolic acidosis * Hypernatremia * Hypocalcemia Recommendations * Patient's renal function is much improved. * Serum creatinine is down to baseline which is approximately 1.5 * She is status post cystoscopy with bilateral retrograde pyelogram * Blood pressure is adequately controlled. * Patient continues to have nausea and vomiting. Continue gentle hydration * Today's labs showing patient is getting acidotic and also hypernatremic. Add bicarbonate to the IV fluid and use a hypotonic agent. However big drop in serum calcium noted. Could be lab error. Repeat a BMP today Subjective Date of service: 09/07/18 Principal diagnosis: Acute renal failure, BURGER nausea and vomiting, left ureteric stone Interval history: Patient still complains of some nausea . Vomited twice yesterday. No diarrhea. No abdominal pain. Objective - Vital Signs Vital signs: Vital Signs - 12hr 09/07/18 09/07/18 02:47 07:19 Temperature 98.5 F 98.8 F Pulse Rate 72 81 Respiratory 18 20 Rate Blood Pressure 99/48 112/55 O2 Sat by Pulse 99 99 Oximetry - General Appearance General appearance: well-developed, well-nourished, appears stated age EENT: PERRL, mucous membranes moist Neck: no JVD, no thyromegaly, no carotid bruit, supple Respiratory: Present: Clear to Ascultation Cardiology: regular, normal heart rate, S1S2, no murmurs Gastrointestinal: normal, normoactive bowel sounds, tenderness (mild epigastric discomfort) Integumentary: other (1+ edema) - Lab 09/04/18 05:17 09/07/18 03:27 Most recent lab results Calcium 6.2 mg/dL (8.4-10.2) L D 09/07/18 03:27 Phosphorus 3.30 mg/dL (2.5-4.5) 09/02/18 04:57 Magnesium 1.50 mg/dL (1.7-2.3) L 09/03/18 11:03 83.3 mg/dL (0.1-20.0) H 09/02/18 18:30 110 mmol/L 09/02/18 18:30 Medications & Allergies - Medications Allergies/Adverse Reactions: Allergies chocolate flavor Allergy (Severe, Verified 07/01/13 17:15) Rash corn [[place]] Allergy (Severe, Verified 07/01/13 17:15) Rash egg Allergy (Severe, Verified 07/01/13 17:15) Rash Penicillins Allergy (Severe, Verified 07/01/13 17:15) SWELLING,HIVES shellfish derived Allergy (Severe, Verified 07/01/13 17:15) Rash wheat Allergy (Severe, Verified 07/01/13 17:15) Rash milk Allergy (Verified 09/04/18 17:55) Rash peanut Allergy (Verified 09/04/18 17:54) Rash PT STATES HER MOUTH SWELLS WITH PEANUTS AND BEANS BUTTER BEANS Allergy (Severe, Uncoded 07/01/13 17:15) Rash CHEESE Allergy (Severe, Uncoded 07/01/13 17:15) Rash POND BEANS Allergy (Severe, Uncoded 07/01/13 17:15) Rash Home Medications: Home Medications Medication Instructions Recorded Confirmed Last Taken Type Atorvastatin [Lipitor] 80 mg PO QHS 07/01/13 09/02/18 09/01/18 22:00 History 80mg Hydroxychloroquine [Plaquenil] 200 mg PO BID 07/01/13 09/02/18 09/01/18 22:00 History 200mg Lisinopril [Zestril TAB] 10 mg PO DAILY 07/01/13 09/02/18 09/01/18 10:00 History 10mg Loratadine [Claritin] 10 mg PO DAILY 07/01/13 09/02/18 09/01/18 10:00 History 10mg Pantoprazole [Protonix TAB] 40 mg PO DAILY tablet 04/10/16 09/02/18 09/01/18 10:00 Rx 40mg ALBUTEROL Inhaler (OR & NICU) 2 puff IH QID PRN 04/22/17 09/02/18 09/01/18 10:00 History [Proair] 2 puff ALBUTEROL NEB's [Proventil] 2.5 mg IH TID PRN 04/22/17 09/02/18 08/01/18 10:00 History 2.5mg Apixaban [Eliquis] 5 mg PO BID 04/22/17 09/02/18 09/01/18 22:00 History 5mg Gabapentin [Neurontin] 300 mg PO TID 04/22/17 09/02/18 09/01/18 10:00 History 300mg Hydroxyzine HCl [hydrOXYzine] 50 mg PO QHS 04/22/17 09/02/18 08/25/18 22:00 History 200mg Levothyroxine Sodium [Tirosint] 100 mcg PO QAM 04/22/17 09/02/18 09/01/18 10:00 History 100mcg predniSONE [Deltasone] 5 mg PO PRN PRN 04/22/17 09/02/18 09/01/18 10:00 History 5mg traMADol [Ultram] 50 mg PO DAILY PRN 04/22/17 09/02/18 09/01/18 10:00 History 50mg Active Medications: Generic Name Dose Route Start Last Admin Trade Name Freq PRN Reason Stop Dose Admin Albuterol 2.5 mg 09/01/18 21:07 Proventil IH TIDRT PRN Wheezing Apixaban 5 mg 09/01/18 22:00 09/07/18 09:46 Eliquis PO 5 mg BID ADELE Administration Protocol Atorvastatin Calcium 80 mg 09/01/18 22:00 09/06/18 22:01 Lipitor PO 80 mg QHS ADELE Administration Famotidine 40 mg 09/03/18 10:00 09/07/18 09:46 Pepcid PO 40 mg DAILY ADELE Administration Gabapentin 300 mg 09/02/18 08:00 09/07/18 09:46 Neurontin PO 300 mg TID ADELE Administration Hydroxychloroquine Sulfate 200 mg 09/01/18 22:00 09/07/18 09:46 Plaquenil PO 200 mg BID ADELE Administration Hydroxyzine HCl 50 mg 09/01/18 22:00 09/06/18 22:02 Atarax PO 50 mg QHS ADELE Administration Dextrose/Sodium Chloride 1,000 mls @ 100 mls/hr 09/01/18 22:00 09/06/18 22:01 D5ns IV 100 mls/hr DIRECT ADELE Administration Sodium Chloride 1,000 mls @ 42 mls/hr 09/04/18 17:00 09/06/18 22:14 Nacl 0.9% 1000 Ml IV 42 mls/hr DIRECT ADELE Administration Levofloxacin 250 mg 09/05/18 10:00 06/16/19 09:46 Levaquin PO 250 mg Q24HR ADELE Administration Levothyroxine Sodium 100 mcg 09/02/18 06:00 09/07/18 05:19 Synthroid PO 100 mcg DAILY@0600 ADELE Administration Morphine Sulfate 2 mg 09/01/18 19:48 09/02/18 22:00 Morphine IV 2 mg Q6H PRN Administration Pain, Moderate (4-6) Ondansetron HCl 4 mg 09/01/18 14:36 09/07/18 09:17 Zofran IV 4 mg Q8H PRN Administration Nausea And Vomiting Potassium Chloride 40 meq 09/07/18 08:35 09/07/18 09:42 K-Dur PO 09/07/18 12:36 40 meq Q4H ADELE Administration Sodium Chloride 10 ml 09/01/18 22:00 09/07/18 09:47 Sodium Chloride Flush Syringe 10 Ml IV 10 ml BID ADELE Administration Sodium Chloride 10 ml 09/01/18 14:36 Sodium Chloride Flush Syringe 10 Ml IV PRN PRN LINE FLUSH Tramadol HCl 50 mg 09/01/18 21:07 09/06/18 18:29 Ultram PO 50 mg Q6HR PRN Administration Pain
[2018-09-07 11:44] LABS: Bilirubin,Urine NEG (Negative); Blood,Urine LG (Negative); Color,Urine Yellow (Yellow); Mucus,Urine FEW /HPF; RBC,Urine > 182.0 /HPF (0.0-6.0)
[2018-09-07] MEDS ORDERED: SODIUM BICARBONATE IV SCH (12:00)
[2018-09-07] MEDS ORDERED: KCL IV SCH (12:00)
[2018-09-07] MEDS ORDERED: D5W IV SCH (12:00)
[2018-09-07] MEDS: ULTRAM PO PRN (13:07)
[2018-09-07 13:31] LABS: BUN/Creatinine Ratio 11; Blood Urea Nitrogen 10 mg/dL (7-17); Hemolysis Index 35
--- NOTE | 2018-09-07 14:25 | Progress Note ---
Assessment and Plan - Patient Problems (1) LARRY (acute kidney injury) Current Visit: Yes Status: Acute Plan to address problem: Gradual improvement in renal function noted which creatinine level down to 1.5 however patient is acidotic intravenous fluid is being adjusted (2) Hydronephrosis Current Visit: Yes Status: Acute Plan to address problem: Resolved status post removal of kidney stone continue to monitor renal function (3) Nausea and vomiting Current Visit: Yes Status: Acute Plan to address problem: Continue IV Zofran (4) Diabetes Current Visit: Yes Status: Chronic Qualifiers: Diabetes mellitus complication status: with kidney complications Diabetes mellitus complication detail: with chronic kidney disease Chronic kidney disease stage: stage 3 (moderate) Plan to address problem: Continue to monitor blood sugar sliding scale coverage as ordered patient with poor oral intake will continue to monitor for hypoglycemia (5) HTN (hypertension) Current Visit: Yes Status: Chronic Qualifiers: Hypertension type: essential hypertension Qualified Code(s): I10 - Essential (primary) hypertension Plan to address problem: Continue current management in blood pressure noted to be fairly stable Subjective Date of service: 09/07/18 Principal diagnosis: Acute renal failure, BURGER nausea and vomiting, left ureteric stone Interval history: Patient seen and examined and chart reviewed salesforce consultant notes reviewed. Patient complains of ongoing nausea vomiting has had 2 episodes of emesis so far today, abdomen or pain in the left lower quadrant . No diarrhea reported denies shortness of breath Objective - Exam Narrative Exam: GENERAL: Patient is not in acute distress lying comfortably in bed HEENT: Patient is not pale, not jaundiced, not cyanosed. NECK: No JVD, no thyroid enlargement and no lymphadenopathy. CHEST/LUNGS: Good air exchange bilaterally, no wheeze, no rales and no rhonchi. No chest wall tenderness, percussion is normal, symmetrical chest wall. HEART/CARDIOVASCULAR: Regular rate and rhythm, S1 and S2 only, no murmur. ABDOMEN: Abdomen is soft, nondistended, no guarding, tenderness in the left lower quadrant of the abdomen, no masses palpable per abdomen, active bowel sounds. SKIN: Warm and dry, no rash. NEURO: Awake, alert, oriented x3, speech normal. Power 5/5 in all the extremities. EXTREMITIES: No pedal edema, good peripheral pulses, no finger or toe clubbing. - Constitutional Vitals: Vital Signs - 12hr 09/07/18 09/07/18 02:47 07:19 Temperature 98.5 F 98.8 F Pulse Rate 72 81 Respiratory 18 20 Rate Blood Pressure 99/48 112/55 O2 Sat by Pulse 99 99 Oximetry - Labs CBC & Chem 7: 09/04/18 05:17 09/07/18 12:44 Labs: Abnormal lab results 09/07/18 09/07/18 09/07/18 Range/Units 03:27 09:45 12:44 Potassium 3.0 L D 2.9 L* (3.6-5.0) mmol/L Chloride 120.1 H 117.0 H (98-107) mmol/L Carbon Dioxide 16 L 16 L (22-30) mmol/L Calcium 6.2 L D 7.0 L (8.4-10.2) mg/dL Urine WBC (Auto) 36.0 H (0.0-6.0) /HPF
[2018-09-07] MEDS: KCL 10MEQ/100ML 10 MEQ/100 ML BAG IV SCH ×2 (15:25→16:28)
[2018-09-07] MEDS: ATARAX PO SCH (21:47)
[2018-09-08] MEDS: SYNTHROID PO SCH (05:17)
[2018-09-08 06:52] LABS: Calcium 9.7 mg/dL (8.4-10.2)
--- NOTE | 2018-09-08 08:12 | Discharge Summary ---
Providers - Providers Date of Admission: 09/01/18 14:56 Date of discharge: 09/08/18 Attending physician: BRITTANY MATTSON 09/01/18 21:43 Consult to Physician [CONS] Routine Comment: JAMEEL Consulting Provider: ILA MYERS Physician Instructions: LUCIA GARRISON WAS NOTIFIED Reason For Exam: acute renal failure 09/02/18 14:35 Physical Therapy Evaluation and Treat [CONS] Routine Comment: Reason For Exam: Weakness 09/04/18 09:02 Consult to Physician [CONS] Routine Comment: called office/deisi Consulting Provider: SAMEER SAWYER Physician Instructions: Reason For Exam: left ureteric stone and ARF with mild left hydro Primary care physician: BRITTANY MATTSON Hospitalization Reason for admission: ARF form ATN, nausea and vomiting, left ureteric stone with hydro Pertinent studies: CT abdomen and pelvis without contrast showed left ureteric stone and left mild hydronephrosis, Abdominal ultrasound bilateral renal stone and cycts CT head for headache with N/v was unremarkable Procedures: none Disposition: DC-01 TO HOME OR SELFCARE Time spent for discharge: 40 mins - Discharge Diagnoses (1) Left ureteral calculus Status: Acute (2) LARRY (acute kidney injury) Status: Acute (3) Abdominal pain Status: Acute (4) Hydronephrosis Status: Acute (5) Nausea and vomiting Status: Acute Core Measure Documentation - Palliative Care Palliative Care/ Comfort Measures: Not Applicable - Core Measures Any of the following diagnoses?: none Exam - Physical Exam Narrative exam: Constitutional: Well-nourished well-developed. In no distress Head: Normocephalic atraumatic Eyes: Pupils are equal round and reactive to light Nose: No enlarged turbinates, no septal deviation. Mouth: Moist mucous membranes. Neck: Supple no thyromegaly. No bruit. No JVD Heart: Regular rate and rhythm, S1-S2 normal. No rubs murmurs or gallop Lungs: Clear to auscultation bilaterally. no rales or rhonchi Abdomen: Soft, nontender. Bowel sound are present. Extremities: Has edema, with hypoxic pigmentation of both lower extremities stasis dermatitis Neuro: Alert oriented Oriented x3. No focal sensory or motor deficit. Skin: No rashes or hyperpigmented spots Musculoskeletal system: No joint pain or swelling Hematological: No petechia or subcutanous hemorrhages. Immunological: No multiple septic spots on the skin Lymphatic: No generalized lymphadenopathy Psychiatry: Euthymic. Calm. - Constitutional Vitals: Temp Pulse Resp BP Pulse Ox 99.2 F 72 18 130/66 92 09/08/18 02:43 09/08/18 02:43 09/08/18 02:43 09/08/18 02:43 09/08/18 02:43 Plan Activity: fall precautions Weight Bearing Status: Non-Weight Bearing Diet: regular Follow up with: BRITTANY MATTSON MD [Primary Care Provider] - 7 Days Prescriptions: levoFLOXacin [Levaquin TAB] 250 mg PO Q24HR #3 tablet Promethazine [Phenergan SUPPOS] 12.5 mg [place] Q6H PRN #30 supp.rect PRN Reason: Nausea And Vomiting Pantoprazole [Protonix TAB] 40 mg PO DAILY #30 tablet Sodium Bicarbonate 75 meq IV DIRECT #5 vial Levothyroxine [Synthroid] 100 mcg PO DAILY@0600 #30 tablet traMADol [Ultram 50 MG tab] 50 mg PO DAILY PRN #20 tablet PRN Reason: Pain Lisinopril [Zestril TAB] 10 mg PO DAILY #30 tablet Ondansetron (Nf) [Zofran TAB] 8 mg PO Q8HR PRN #30 tablet PRN Reason: Vomiting
[2018-09-08] MEDS: ZOFRAN IV PRN ×2 (08:25→21:35)
[2018-09-08] MEDS: NEURONTIN PO SCH ×3 (08:25→21:35)
[2018-09-08] MEDS: ULTRAM PO PRN (08:25)
[2018-09-08] MEDS: PLAQUENIL PO SCH ×2 (10:54→21:36)
[2018-09-08] MEDS: LEVAQUIN PO SCH (10:54)
[2018-09-08] MEDS: PEPCID PO SCH (10:54)
[2018-09-08] MEDS: ELIQUIS PO SCH ×2 (10:54→21:36)
--- NOTE | 2018-09-08 10:55 | Progress Note ---
Assessment and Plan Impression * Acute on chronic renal failure * Left-sided hydronephrosis * Hypokalemia * Hypertension * Metabolic acidosis * Hypernatremia * Hypocalcemia Recommendations * Patient's renal function is much improved. * Serum creatinine is down to baseline which is approximately 1.5 * She is status post cystoscopy with bilateral retrograde pyelogram * Blood pressure is adequately controlled. * cr stable, ok to dc home follow up office in 2 weeks Subjective Date of service: 09/08/18 Principal diagnosis: Acute renal failure, BURGER nausea and vomiting, left ureteric stone Interval history: resting in bed Objective - Exam Narrative Exam: General appearance: well-developed, well-nourished, appears stated age EENT: PERRL, mucous membranes moist Neck: no JVD, no thyromegaly, no carotid bruit, supple Respiratory: Present: Clear to Ascultation Cardiology: regular, normal heart rate, S1S2, no murmurs Gastrointestinal: normal, normoactive bowel sounds, tenderness (mild epigastric discomfort) Integumentary: other (1+ edema) - Vital Signs Vital signs: Vital Signs - 12hr 09/08/18 09/08/18 09/08/18 02:43 07:32 08:00 Temperature 99.2 F 98.9 F Pulse Rate 72 81 Respiratory 18 20 19 Rate Blood Pressure 130/66 119/46 O2 Sat by Pulse 92 97 Oximetry 09/08/18 08:25 Temperature Pulse Rate Respiratory 20 Rate Blood Pressure O2 Sat by Pulse Oximetry - Lab 09/04/18 05:17 09/08/18 05:32 Most recent lab results Calcium 9.7 mg/dL (8.4-10.2) D 09/08/18 05:32 Phosphorus 3.30 mg/dL (2.5-4.5) 09/02/18 04:57 Magnesium 1.50 mg/dL (1.7-2.3) L 09/03/18 11:03 83.3 mg/dL (0.1-20.0) H 09/02/18 18:30 110 mmol/L 09/02/18 18:30 Medications & Allergies - Medications Allergies/Adverse Reactions: Allergies chocolate flavor Allergy (Severe, Verified 07/01/13 17:15) Rash corn [[place]] Allergy (Severe, Verified 07/01/13 17:15) Rash egg Allergy (Severe, Verified 07/01/13 17:15) Rash Penicillins Allergy (Severe, Verified 07/01/13 17:15) SWELLING,HIVES shellfish derived Allergy (Severe, Verified 07/01/13 17:15) Rash wheat Allergy (Severe, Verified 07/01/13 17:15) Rash milk Allergy (Verified 09/04/18 17:55) Rash peanut Allergy (Verified 09/04/18 17:54) Rash PT STATES HER MOUTH SWELLS WITH PEANUTS AND BEANS BUTTER BEANS Allergy (Severe, Uncoded 07/01/13 17:15) Rash CHEESE Allergy (Severe, Uncoded 07/01/13 17:15) Rash POND BEANS Allergy (Severe, Uncoded 07/01/13 17:15) Rash Home Medications: Home Medications Medication Instructions Recorded Confirmed Last Taken Type Atorvastatin [Lipitor] 80 mg PO QHS 07/01/13 09/02/18 09/01/18 22:00 History 80mg Hydroxychloroquine [Plaquenil] 200 mg PO BID 07/01/13 09/02/18 09/01/18 22:00 History 200mg ALBUTEROL NEB's [Proventil 0.083% 2.5 mg IH TID PRN 04/22/17 09/02/18 08/01/18 10:00 History NEBS] 2.5mg Apixaban [Eliquis] 5 mg PO BID 04/22/17 09/02/18 09/01/18 22:00 History 5mg Gabapentin [Neurontin] 300 mg PO TID 04/22/17 09/02/18 09/01/18 10:00 History 300mg Hydroxyzine HCl [hydrOXYzine] 50 mg PO QHS 04/22/17 09/02/18 08/25/18 22:00 Hi story 200mg predniSONE [Deltasone] 5 mg PO PRN PRN 04/22/17 09/02/18 09/01/18 10:00 History 5mg Levothyroxine [Synthroid] 100 mcg PO DAILY@0600 #30 tablet 09/08/18 Unknown Rx Lisinopril [Zestril TAB] 10 mg PO DAILY #30 tablet 09/08/18 Unknown Rx Ondansetron (Nf) [Zofran TAB] 8 mg PO Q8HR PRN #30 tablet 09/08/18 Unknown Rx Pantoprazole [Protonix TAB] 40 mg PO DAILY #30 tablet 09/08/18 Unknown Rx Promethazine [Phenergan SUPPOS] 12.5 mg [place] Q6H PRN #30 supp.rect 09/08/18 Unknown Rx Sodium Bicarbonate 75 meq IV DIRECT #5 vial 09/08/18 Unknown Rx levoFLOXacin [Levaquin TAB] 250 mg PO Q24HR #3 tablet 09/08/18 Unknown Rx traMADol [Ultram 50 MG tab] 50 mg PO DAILY PRN #20 tablet 09/08/18 Unknown Rx Active Medications: Generic Name Dose Route Start Last Admin Trade Name Freq PRN Reason Stop Dose Admin Albuterol 2.5 mg 09/01/18 21:07 Proventil IH TIDRT PRN Wheezing Apixaban 5 mg 09/01/18 22:00 09/07/18 21:46 Eliquis PO 5 mg BID ADELE Administration Protocol Atorvastatin Calcium 80 mg 09/01/18 22:00 09/07/18 21:47 Lipitor PO 80 mg QHS ADELE Administration Famotidine 40 mg 09/03/18 10:00 09/07/18 09:46 Pepcid PO 40 mg DAILY ADELE Administration Gabapentin 300 mg 09/02/18 08:00 09/08/18 08:25 Neurontin PO 300 mg TID ADELE Administration Hydroxychloroquine Sulfate 200 mg 09/01/18 22:00 09/07/18 21:46 Plaquenil PO 200 mg BID ADELE Administration Hydroxyzine HCl 50 mg 09/01/18 22:00 09/07/18 21:47 Atarax PO 50 mg QHS ADELE Administration Sodium Bicarbonate 75 meq/ 1,085 mls @ 75 mls/hr 09/08/18 06:00 Potassium Chloride 20 meq/ IV Dextrose DIRECT ADELE Levofloxacin 250 mg 09/05/18 10:00 09/07/18 09:46 Levaquin PO 250 mg Q24HR ADELE Administration Levothyroxine Sodium 100 mcg 09/02/18 06:00 09/08/18 05:17 Synthroid PO 100 mcg DAILY@0600 ADELE Administration Morphine Sulfate 2 mg 09/01/18 19:48 09/02/18 22:00 Morphine IV 2 mg Q6H PRN Administration Pain, Moderate (4-6) Ondansetron HCl 4 mg 09/07/18 14:35 06/17/19 08:25 Zofran IV 4 mg Q6H PRN Administration Nausea And Vomiting Promethazine HCl 12.5 mg 09/07/18 14:28 Phenergan [place] Q6H PRN Nausea And Vomiting Sodium Chloride 10 ml 09/01/18 22:00 09/07/18 21:48 Sodium Chloride Flush Syringe 10 Ml IV 10 ml BID ADELE Administration Sodium Chloride 10 ml 09/01/18 14:36 Sodium Chloride Flush Syringe 10 Ml IV PRN PRN LINE FLUSH Tramadol HCl 50 mg 09/01/18 21:07 09/08/18 08:25 Ultram PO 50 mg Q6HR PRN Administration Pain
[2018-09-08] MEDS: SODIUM CHLORIDE FLUSH SYRINGE 10 ML IV SCH ×2 (10:58→21:36)
[2018-09-08] MEDS: SODIUM BICARBONATE IV SCH (12:35)
[2018-09-08] MEDS: D5W IV SCH (12:35)
[2018-09-08] MEDS: KCL IV SCH (12:35)
[2018-09-08] MEDS: PHENERGAN PR PRN (15:14)
--- NOTE | 2018-09-08 17:48 | Progress Note ---
Assessment and Plan no more pain needs f/u as out pt re stent Subjective Date of service: 09/08/18 Principal diagnosis: Acute renal failure, BURGER nausea and vomiting, left ureteric stone Objective - Constitutional Vitals: Vital Signs - 12hr 09/08/18 09/08/18 09/08/18 07:32 08:00 08:25 Temperature 98.9 F Pulse Rate 81 Respiratory 20 19 20 Rate Blood Pressure 119/46 O2 Sat by Pulse 97 Oximetry 09/08/18 09/08/18 09:25 13:52 Temperature 98.0 F Pulse Rate 86 Respiratory 20 20 Rate Blood Pressure 142/55 O2 Sat by Pulse 99 Oximetry - Labs CBC & Chem 7: 09/04/18 05:17 09/08/18 05:32 Labs: Abnormal lab results 09/08/18 Range/Units 05:32 Chloride 107.1 H (98-107) mmol/L Creatinine 1.3 H (0.7-1.2) mg/dL Glucose 111 H (65-100) mg/dL Medications & Allergies - Medications Allergies/Adverse Reactions: Allergies chocolate flavor Allergy (Severe, Verified 07/01/13 17:15) Rash corn [[place]] Allergy (Severe, Verified 07/01/13 17:15) Rash egg Allergy (Severe, Verified 07/01/13 17:15) Rash Penicillins Allergy (Severe, Verified 07/01/13 17:15) SWELLING,HIVES shellfish derived Allergy (Severe, Verified 07/01/13 17:15) Rash wheat Allergy (Severe, Verified 07/01/13 17:15) Rash milk Allergy (Verified 09/04/18 17:55) Rash peanut Allergy (Verified 09/04/18 17:54) Rash PT STATES HER MOUTH SWELLS WITH PEANUTS AND BEANS BUTTER BEANS Allergy (Severe, Uncoded 07/01/13 17:15) Rash CHEESE Allergy (Severe, Uncoded 07/01/13 17:15) Rash POND BEANS Allergy (Severe, Uncoded 07/01/13 17:15) Rash Home Medications: Home Medications Medication Instructions Recorded Confirmed Last Taken Type Atorvastatin [Lipitor] 80 mg PO QHS 07/01/13 09/02/18 09/01/18 22:00 History 80mg Hydroxychloroquine [Plaquenil] 200 mg PO BID 07/01/13 09/02/18 09/01/18 22:00 History 200mg ALBUTEROL NEB's [Proventil 0.083% 2.5 mg IH TID PRN 04/22/17 09/02/18 08/01/18 10:00 History NEBS] 2.5mg Apixaban [Eliquis] 5 mg PO BID 04/22/17 09/02/18 09/01/18 22:00 History 5mg Gabapentin [Neurontin] 300 mg PO TID 04/22/17 09/02/18 09/01/18 10:00 History 300mg Hydroxyzine HCl [hydrOXYzine] 50 mg PO QHS 04/22/17 09/02/18 08/25/18 22:00 History 200mg predniSONE [Deltasone] 5 mg PO PRN PRN 04/22/17 09/02/18 09/01/18 10:00 History 5mg Levothyroxine [Synthroid] 100 mcg PO DAILY@0600 #30 tablet 09/08/18 Unknown Rx Lisinopril [Zestril TAB] 10 mg PO DAILY #30 tablet 09/08/18 Unknown Rx Ondansetron (Nf) [Zofran TAB] 8 mg PO Q8HR PRN #30 tablet 09/08/18 Unknown Rx Pantoprazole [Protonix TAB] 40 mg PO DAILY #30 tablet 09/08/18 Unknown Rx Promethazine [Phenergan SUPPOS] 12.5 mg [place] Q6H PRN #30 supp.rect 09/08/18 Unknown Rx Sodium Bicarbonate 75 meq IV DIRECT #5 vial 09/08/18 Unknown Rx levoFLOXacin [Levaquin TAB] 250 mg PO Q24HR #3 tablet 09/08/18 Unknown Rx traMADol [Ultram 50 MG tab] 50 mg PO DAILY PRN #20 tablet 09/08/18 Unknown Rx Active Medications: Generic Name Dose Route Start Last Admin Trade Name Freq PRN Reason Stop Dose Admin Albuterol 2.5 mg 09/01/18 21:07 Proventil IH TIDRT PRN Wheezing Apixaban 5 mg 09/01/18 22:00 09/08/18 10:54 Eliquis PO 5 mg BID ADELE Administration Protocol Atorvastatin Calcium 80 mg 09/01/18 22:00 09/07/18 21:47 Lipitor PO 80 mg QHS ADELE Administration Famotidine 40 mg 09/03/18 10:00 09/08/18 10:54 Pepcid PO 40 mg DAILY ADELE Administration Gabapentin 300 mg 09/02/18 08:00 09/08/18 14:54 Neurontin PO 300 mg TID ADELE Administration Hydroxychloroquine Sulfate 200 mg 09/01/18 22:00 09/08/18 10:54 Plaquenil PO 200 mg BID DAELE Administration Hydroxyzine HCl 50 mg 09/01/18 22:00 09/07/18 21:47 Atarax PO 50 mg QHS ADELE Administration Sodium Bicarbonate 75 meq/ 1,085 mls @ 75 mls/hr 09/08/18 06:00 09/08/18 12:35 Potassium Chloride 20 meq/ IV 75 mls/hr Dextrose DIRECT ADELE Administration Levofloxacin 250 mg 09/05/18 10:00 09/08/18 10:54 Levaquin PO 250 mg Q24HR ADELE Administration Levothyroxine Sodium 100 mcg 09/02/18 06:00 09/08/18 05:17 Synthroid PO 100 mcg DAILY@0600 ADELE Administration Morphine Sulfate 2 mg 09/01/18 19:48 09/02/18 22:00 Morphine IV 2 mg Q6H PRN Administration Pain, Moderate (4-6) Ondansetron HCl 8 mg 09/08/18 14:48 Zofran IV Q6H PRN Nausea And Vomiting Promethazine HCl 12.5 mg 09/07/18 14:28 09/08/18 15:14 Phenergan [place] 12.5 mg Q6H PRN Administration Nausea And Vomiting Sodium Chloride 10 ml 09/01/18 22:00 09/08/18 10:58 Sodium Chloride Flush Syringe 10 Ml IV 10 ml BID ADELE Administration Sodium Chloride 10 ml 09/01/18 14:36 Sodium Chloride Flush Syringe 10 Ml IV PRN PRN LINE FLUSH Tramadol HCl 50 mg 09/01/18 21:07 09/08/18 08:25 Ultram PO 50 mg Q6HR PRN Administration Pain
[2018-09-08] MEDS: ATARAX PO SCH (21:00)
[2018-09-09] MEDS: D5W IV SCH ×2 (04:21→23:44)
[2018-09-09] MEDS: KCL IV SCH ×2 (04:21→23:44)
[2018-09-09] MEDS: SODIUM BICARBONATE IV SCH ×2 (04:21→23:44)
[2018-09-09] MEDS: SYNTHROID PO SCH (05:42)
[2018-09-09] MEDS: NEURONTIN PO SCH ×3 (09:20→22:32)
[2018-09-09] MEDS: ZOFRAN IV PRN (09:20)
[2018-09-09] MEDS: SODIUM CHLORIDE FLUSH SYRINGE 10 ML IV SCH ×2 (09:20→22:33)
[2018-09-09] MEDS: ELIQUIS PO SCH ×2 (09:21→22:32)
[2018-09-09] MEDS: LEVAQUIN PO SCH (09:21)
[2018-09-09] MEDS: PLAQUENIL PO SCH ×2 (09:21→22:32)
[2018-09-09] MEDS: PEPCID PO SCH (09:21)
[2018-09-09] MEDS: ATARAX PO SCH (22:32)
[2018-09-10] MEDS: ZOFRAN IV PRN ×2 (03:03→09:27)
[2018-09-10] MEDS: SYNTHROID PO SCH (05:36)
--- NOTE | 2018-09-10 09:01 | Progress Note ---
Assessment and Plan - Nause and vomiting Continue with zofran 8 mg and phernegan - Acute renal failure - resolved BNP was 15 and creatinine was 1.0 as of 02/18/2018 but 32 and 2.7 on admission 09/01/18 continue with IV hydration -Mild left ureteric hydronephrosis with ureteric alculi CT abdomen and pelvis showed left UVJ 5.8mm and 4mm distal ureteric calculi Urology consulted. Discussed with Dr. Arvizu. for stent placement today - Headache CT head was unremarkable iv morphine - H/o Breast cancer stable s/p mastectomy and chemotx -Hyperkalemia Kayxalate - History of DVT/PE Continue Eliquis -History of asthma Continue bronchodilators - Venous stasis dermatitis both LEs elevation of feet -DVT ppx:On Eliquis Pt is full code Time spent : 35 mins in direct pt care, review of past medical records, as well as laboratory data - Patient Problems (1) Left ureteral calculus Current Visit: Yes Status: Acute (2) LARRY (acute kidney injury) Current Visit: Yes Status: Acute (3) Abdominal pain Current Visit: Yes Status: Acute (4) Hydronephrosis Current Visit: Yes Status: Acute (5) Nausea and vomiting Current Visit: Yes Status: Acute Subjective Date of service: 09/10/18 Principal diagnosis: Acute renal failure, BURGER nausea and vomiting, left ureteric stone Interval history: Still having Nausea and vomiting. Had stent placement in left ureter for ureteric stone Objective - Exam Narrative Exam: Constitutional: Well-nourished well-developed. In no distress Head: Normocephalic atraumatic Eyes: Pupils are equal round and reactive to light Nose: No enlarged turbinates, no septal deviation. Mouth: Moist mucous membranes. Neck: Supple no thyromegaly. No bruit. No JVD Heart: Regular rate and rhythm, S1-S2 normal. No rubs murmurs or gallop Lungs: Clear to auscultation bilaterally. no rales or rhonchi Abdomen: Soft, nontender. Bowel sound are present. Extremities: Has edema, with hypoxic pigmentation of both lower extremities stasis dermatitis Neuro: Alert oriented Oriented x3. No focal sensory or motor deficit. Skin: No rashes or hyperpigmented spots Musculoskeletal system: No joint pain or swelling Hematological: No petechia or subcutanous hemorrhages. Immunological: No multiple septic spots on the skin Lymphatic: No generalized lymphadenopathy Psychiatry: Euthymic. Calm. - Constitutional Vitals: Vital Signs - 12hr 09/10/18 09/10/18 03:20 07:31 Temperature 98.3 F 98.8 F Pulse Rate 85 79 Respiratory 20 18 Rate Blood Pressure 109/54 106/43 O2 Sat by Pulse 98 91 Oximetry - Labs CBC & Chem 7: 09/04/18 05:17 09/08/18 05:32
[2018-09-10] MEDS: PLAQUENIL PO SCH ×2 (09:27→21:27)
[2018-09-10] MEDS: NEURONTIN PO SCH ×3 (09:27→21:26)
[2018-09-10] MEDS: LEVAQUIN PO SCH (09:27)
[2018-09-10] MEDS: PEPCID PO SCH (09:27)
[2018-09-10] MEDS: ELIQUIS PO SCH ×2 (09:28→21:26)
[2018-09-10] MEDS: SODIUM CHLORIDE FLUSH SYRINGE 10 ML IV SCH ×2 (09:28→21:33)
[2018-09-10] MEDS: PHENERGAN PR PRN (09:37)
--- NOTE | 2018-09-10 13:35 | Progress Note ---
Assessment and Plan stent hanging out removed Subjective Date of service: 09/10/18 Principal diagnosis: Acute renal failure, BURGER nausea and vomiting, left ureteric stone Objective - Constitutional Vitals: Vital Signs - 12hr 09/10/18 09/10/18 03:20 07:31 Temperature 98.3 F 98.8 F Pulse Rate 85 79 Respiratory 20 18 Rate Blood Pressure 109/54 106/43 O2 Sat by Pulse 98 91 Oximetry - Labs CBC & Chem 7: 09/04/18 05:17 09/08/18 05:32 Medications & Allergies - Medications Allergies/Adverse Reactions: Allergies chocolate flavor Allergy (Severe, Verified 07/01/13 17:15) Rash corn [[place]] Allergy (Severe, Verified 07/01/13 17:15) Rash egg Allergy (Severe, Verified 07/01/13 17:15) Rash Penicillins Allergy (Severe, Verified 07/01/13 17:15) SWELLING,HIVES shellfish derived Allergy (Severe, Verified 07/01/13 17:15) Rash wheat Allergy (Severe, Verified 07/01/13 17:15) Rash milk Allergy (Verified 09/04/18 17:55) Rash peanut Allergy (Verified 09/04/18 17:54) Rash PT STATES HER MOUTH SWELLS WITH PEANUTS AND BEANS BUTTER BEANS Allergy (Severe, Uncoded 07/01/13 17:15) Rash CHEESE Allergy (Severe, Uncoded 07/01/13 17:15) Rash POND BEANS Allergy (Severe, Uncoded 07/01/13 17:15) Rash Home Medications: Home Medications Medication Instructions Recorded Confirmed Last Taken Type Atorvastatin [Lipitor] 80 mg PO QHS 07/01/13 09/02/18 09/01/18 22:00 History 80mg Hydroxychloroquine [Plaquenil] 200 mg PO BID 07/01/13 09/02/18 09/01/18 22:00 History 200mg ALBUTEROL NEB's [Proventil 0.083% 2.5 mg IH TID PRN 04/22/17 09/02/18 08/01/18 10:00 History NEBS] 2.5mg Apixaban [Eliquis] 5 mg PO BID 04/22/17 09/02/18 09/01/18 22:00 History 5mg Gabapentin [Neurontin] 300 mg PO TID 04/22/17 09/02/18 09/01/18 10:00 History 300mg Hydroxyzine HCl [hydrOXYzine] 50 mg PO QHS 04/22/17 09/02/18 08/25/18 22:00 Hist ory 200mg predniSONE [Deltasone] 5 mg PO PRN PRN 04/22/17 09/02/18 09/01/18 10:00 History 5mg Levothyroxine [Synthroid] 100 mcg PO DAILY@0600 #30 tablet 09/08/18 Unknown Rx Lisinopril [Zestril TAB] 10 mg PO DAILY #30 tablet 09/08/18 Unknown Rx Ondansetron (Nf) [Zofran TAB] 8 mg PO Q8HR PRN #30 tablet 09/08/18 Unknown Rx Pantoprazole [Protonix TAB] 40 mg PO DAILY #30 tablet 09/08/18 Unknown Rx Promethazine [Phenergan SUPPOS] 12.5 mg [place] Q6H PRN #30 supp.rect 09/08/18 U nknown Rx Sodium Bicarbonate 75 meq IV DIRECT #5 vial 09/08/18 Unknown Rx levoFLOXacin [Levaquin TAB] 250 mg PO Q24HR #3 tablet 09/08/18 Unknown Rx traMADol [Ultram 50 MG tab] 50 mg PO DAILY PRN #20 tablet 09/08/18 Unknown Rx Active Medications: Generic Name Dose Route Start Last Admin Trade Name Freq PRN Reason Stop Dose Admin Albuterol 2.5 mg 09/01/18 21:07 Proventil IH TIDRT PRN Wheezing Apixaban 5 mg 09/01/18 22:00 09/10/18 09:28 Eliquis PO 5 mg BID ADELE Administration Protocol Atorvastatin Calcium 80 mg 09/01/18 22:00 09/09/18 22:32 Lipitor PO 80 mg QHS ADELE Administration Famotidine 40 mg 09/03/18 10:00 09/10/18 09:27 Pepcid PO 40 mg DAILY ADELE Administration Gabapentin 300 mg 09/02/18 08:00 09/10/18 09:27 Neurontin PO 300 mg TID ADELE Administration Hydroxychloroquine Sulfate 200 mg 09/01/18 22:00 09/10/18 09:27 Plaquenil PO 200 mg BID ADELE Administration Hydroxyzine HCl 50 mg 09/01/18 22:00 09/09/18 22:32 Atarax PO 50 mg QHS ADELE Administration Sodium Bicarbonate 75 meq/ 1,085 mls @ 75 mls/hr 09/08/18 06:00 09/09/18 23:44 Potassium Chloride 20 meq/ IV 75 mls/hr Dextrose DIRECT ADELE Administration Levofloxacin 250 mg 09/05/18 10:00 09/10/18 09:27 Levaquin PO 250 mg Q24HR ADELE Administration Levothyroxine Sodium 100 mcg 09/02/18 06:00 09/10/18 05:36 Synthroid PO 100 mcg DAILY@0600 ADELE Administration Morphine Sulfate 2 mg 09/01/18 19:48 09/02/18 22:00 Morphine IV 2 mg Q6H PRN Administration Pain, Moderate (4-6) Ondansetron HCl 8 mg 09/08/18 14:48 09/10/18 09:27 Zofran IV 8 mg Q6H PRN Administration Nausea And Vomiting Promethazine HCl 12.5 mg 09/07/18 14:28 09/10/18 09:37 Phenergan [place] 12.5 mg Q6H PRN Administration Nausea And Vomiting Sodium Chloride 10 ml 09/01/18 22:00 09/10/18 09:28 Sodium Chloride Flush Syringe 10 Ml IV 10 ml BID ADELE Administration Sodium Chloride 10 ml 09/01/18 14:36 Sodium Chloride Flush Syringe 10 Ml IV PRN PRN LINE FLUSH Tramadol HCl 50 mg 09/01/18 21:07 09/08/18 08:25 Ultram PO 50 mg Q6HR PRN Administration Pain
[2018-09-10] MEDS: ATARAX PO SCH (21:26)
[2018-09-10] MEDS: SODIUM BICARBONATE IV SCH (21:28)
[2018-09-10] MEDS: ZOFRAN IV SCH (21:28)
[2018-09-10] MEDS: KCL IV SCH (21:28)
[2018-09-10] MEDS: PHENERGAN PR SCH (21:28)
[2018-09-10] MEDS: D5W IV SCH (21:28)
[2018-09-11] MEDS: ZOFRAN IV SCH ×3 (05:00→21:33)
[2018-09-11] MEDS: SYNTHROID PO SCH (05:02)
[2018-09-11] MEDS: PHENERGAN PR SCH ×3 (05:02→21:34)
[2018-09-11 06:28] LABS: Calcium 9.5 mg/dL (8.4-10.2)
[2018-09-11] MEDS: NEURONTIN PO SCH ×3 (09:36→21:34)
[2018-09-11] MEDS: PLAQUENIL PO SCH ×2 (09:36→21:34)
[2018-09-11] MEDS: ELIQUIS PO SCH ×2 (09:36→21:18)
[2018-09-11] MEDS: PEPCID PO SCH (09:36)
--- NOTE | 2018-09-11 10:19 | Progress Note ---
Assessment and Plan - Intractible nause and vomiting To monitor med as cause of N/V Continue with zofran 8 mg and Phernegan Gi consulted - Acute renal failure - resolved BNP was 15 and creatinine was 1.0 as of 02/18/2018 but 32 and 2.7 on admission 09/01/18 continue with IV hydration - UTI Urine Cx grew E. faecalis resistant to Levaquim but sensitive to Nitriofuradantion. Commence Microbid -Mild left ureteric hydronephrosis with ureteric alculi CT abdomen and pelvis showed left UVJ 5.8mm and 4mm distal ureteric calculi Urology consulted. Discussed with Dr. Arvizu. for stent placement today - Headache CT head was unremarkable iv morphine - H/o Breast cancer stable s/p mastectomy and chemotx -Hyperkalemia Kayxalate - History of DVT/PE Continue Eliquis -History of asthma Continue bronchodilators - Venous stasis dermatitis both LEs elevation of feet -DVT ppx:On Eliquis Pt is full code Time spent : 35 mins in direct pt care, review of past medical records, as well as laboratory data - Patient Problems (1) Left ureteral calculus Current Visit: Yes Status: Acute (2) LARRY (acute kidney injury) Current Visit: Yes Status: Acute (3) Abdominal pain Current Visit: Yes Status: Acute (4) Hydronephrosis Current Visit: Yes Status: Acute (5) Nausea and vomiting Current Visit: Yes Status: Acute Subjective Date of service: 09/11/18 Principal diagnosis: Acute renal failure, BURGER nausea and vomiting, left ureteric stone Interval history: Still having Nausea and vomiting. Unable to keep any food down. Had left ureteric stent place stone for left ureteric stent found hanging out, 09/10/18, and removed by urology Objective - Exam Narrative Exam: Constitutional: Well-nourished well-developed. In no distress Head: Normocephalic atraumatic Eyes: Pupils are equal round and reactive to light Nose: No enlarged turbinates, no septal deviation. Mouth: Moist mucous membranes. Neck: Supple no thyromegaly. No bruit. No JVD Heart: Regular rate and rhythm, S1-S2 normal. No rubs murmurs or gallop Lungs: Clear to auscultation bilaterally. no rales or rhonchi Abdomen: Soft, nontender. Bowel sound are present. Extremities: Has edema, with hypoxic pigmentation of both lower extremities stasis dermatitis Neuro: Alert oriented Oriented x3. No focal sensory or motor deficit. Skin: No rashes or hyperpigmented spots Musculoskeletal system: No joint pain or swelling Hematological: No petechia or subcutanous hemorrhages. Immunological: No multiple septic spots on the skin Lymphatic: No generalized lymphadenopathy Psychiatry: Euthymic. Calm. - Constitutional Vitals: Vital Signs - 12hr 09/10/18 09/11/18 09/11/18 23:33 01:57 07:18 Temperature 99.0 F 98.0 F Pulse Rate 78 83 76 Respiratory 20 18 Rate Blood Pressure 135/54 108/49 O2 Sat by Pulse 94 94 94 Oximetry 09/11/18 07:19 Temperature Pulse Rate 77 Respiratory Rate Blood Pressure O2 Sat by Pulse 93 Oximetry - Labs CBC & Chem 7: 09/04/18 05:17 09/11/18 05:14 Labs: Abnormal lab results 09/11/18 Range/Units 05:14 Creatinine 1.5 H (0.7-1.2) mg/dL Glucose 109 H (65-100) mg/dL
--- NOTE | 2018-09-11 11:07 | Progress Note ---
Assessment and Plan - Patient Problems (1) LARRY (acute kidney injury) Current Visit: Yes Status: Acute Plan to address problem: Acute kidney injury: worsening current creatinine : 1.5mg/dl baseline creatinine : 0.9mg/dl recent hydronephrosis with left ureteral stone s/p stent placement , stent removed as was hanging out yesterday obtain urine studies increase IVF to 150cc/hr obtain renal US today. (2) Left ureteral calculus Current Visit: Yes Status: Acute Plan to address problem: Left ureteral calculus s/p stone removal , stent placement now removed repeat ultrasound today given worsening renal function urology follow up. (3) Nausea and vomiting Current Visit: Yes Status: Acute Plan to address problem: Nausea /vomitting -increase fluid hydration - continue antiemetics. (4) HTN (hypertension) Current Visit: Yes Status: Chronic Qualifiers: Hypertension type: essential hypertension Qualified Code(s): I10 - Ess ential (primary) hypertension Plan to address problem: HTN:controlled. continue current medications. Subjective Principal diagnosis: Acute renal failure, BURGER nausea and vomiting, left ureteric stone Interval history: 72 year old with medical history signficant for left sided hydronephrosis with acute kidney injury presenting with nausea and vomitting. She was seen today denies orthopnea or PND still has nausea reports good urine output stent was removed yesterday as it was hanging out. Objective - Vital Signs Vital signs: Vital Signs - 12hr 09/10/18 09/11/18 09/11/18 23:33 01:57 07:18 Temperature 99.0 F 98.0 F Pulse Rate 78 83 76 Respiratory 20 18 Rate Blood Pressure 135/54 108/49 O2 Sat by Pulse 94 94 94 Oximetry 09/11/18 07:19 Temperature Pulse Rate 77 Respiratory Rate Blood Pressure O2 Sat by Pulse 93 Oximetry - General Appearance General appearance: well-developed, well-nourished EENT: ATNC, PERRL, mucous membranes moist Neck: no JVD, JVD Respiratory: Present: Clear to Ascultation Cardiology: regular, S1S2 Gastrointestinal: normal, normoactive bowel sounds Integumentary: no rash Neurologic: alert and oriented x3, CN 3-12 intact Psychiatric: mood/affect appropriate - Lab 09/04/18 05:17 09/11/18 05:14 Most recent lab results Calcium 9.5 mg/dL (8.4-10.2) 09/11/18 05:14 Phosphorus 3.30 mg/dL (2.5-4.5) 09/02/18 04:57 Magnesium 1.50 mg/dL (1.7-2.3) L 09/03/18 11:03 83.3 mg/dL (0.1-20.0) H 09/02/18 18:30 110 mmol/L 09/02/18 18:30 - Imaging Chest x-ray: image reviewed Medications & Allergies - Medications Allergies/Adverse Reactions: Allergies chocolate flavor Allergy (Severe, Verified 07/01/13 17:15) Rash corn [[place]] Allergy (Severe, Verified 07/01/13 17:15) Rash egg Allergy (Severe, Verified 07/01/13 17:15) Rash Penicillins Allergy (Severe, Verified 07/01/13 17:15) SWELLING,HIVES shellfish derived Allergy (Severe, Verified 07/01/13 17:15) Rash wheat Allergy (Severe, Verified 07/01/13 17:15) Rash milk Allergy (Verified 09/04/18 17:55) Rash peanut Allergy (Verified 09/04/18 17:54) Rash PT STATES HER MOUTH SWELLS WITH PEANUTS AND BEANS BUTTER BEANS Allergy (Severe, Uncoded 07/01/13 17:15) Rash CHEESE Allergy (Severe, Uncoded 07/01/13 17:15) Rash POND BEANS Allergy (Severe, Uncoded 07/01/13 17:15) Rash Home Medications: Home Medications Medication Instructions Recorded Confirmed Last Taken Type Atorvastatin [Lipitor] 80 mg PO QHS 07/01/13 09/02/18 09/01/18 22:00 History 80mg Hydroxychloroquine [Plaquenil] 200 mg PO BID 07/01/13 09/02/18 09/01/18 22:00 History 200mg ALBUTEROL NEB's [Proventil 0.083% 2.5 mg IH TID PRN 04/22/17 09/02/18 08/01/18 10:00 History NEBS] 2.5mg Apixaban [Eliquis] 5 mg PO BID 04/22/17 09/02/18 09/01/18 22:00 History 5mg Gabapentin [Neurontin] 300 mg PO TID 04/22/17 09/02/18 09/01/18 10:00 History 300mg Hydroxyzine HCl [hydrOXYzine] 50 mg PO QHS 04/22/17 09/02/18 08/25/18 22:00 History 200mg predniSONE [Deltasone] 5 mg PO PRN PRN 04/22/17 09/02/18 09/01/18 10:00 History 5mg Levothyroxine [Synthroid] 100 mcg PO DAILY@0600 #30 tablet 09/08/18 Unknown Rx Lisinopril [Zestril TAB] 10 mg PO DAILY #30 tablet 09/08/18 Unknown Rx Ondansetron (Nf) [Zofran TAB] 8 mg PO Q8HR PRN #30 tablet 09/08/18 Unknown Rx Pantoprazole [Protonix TAB] 40 mg PO DAILY #30 tablet 09/08/18 Unknown Rx Promethazine [Phenergan SUPPOS] 12.5 mg [place] Q6H PRN #30 supp.rect 09/08/18 Unknown Rx Sodium Bicarbonate 75 meq IV DIRECT #5 vial 09/08/18 Unknown Rx levoFLOXacin [Levaquin TAB] 250 mg PO Q24HR #3 tablet 09/08/18 Unknown Rx traMADol [Ultram 50 MG tab] 50 mg PO DAILY PRN #20 tablet 09/08/18 Unknown Rx Active Medications: Generic Name Dose Route Start Last Admin Trade Name Freq PRN Reason Stop Dose Admin Albuterol 2.5 mg 09/01/18 21:07 Proventil IH TIDRT PRN Wheezing Apixaban 5 mg 09/01/18 22:00 09/11/18 09:36 Eliquis PO 5 mg BID ADELE Administration Protocol Atorvastatin Calcium 80 mg 09/01/18 22:00 09/10/18 21:25 Lipitor PO 80 mg QHS ADELE Administration Famotidine 40 mg 09/03/18 10:00 09/11/18 09:36 Pepcid PO 40 mg DAILY ADELE Administration Gabapentin 300 mg 09/02/18 08:00 09/11/18 09:36 Neurontin PO 300 mg TID ADELE Administration Hydroxychloroquine Sulfate 200 mg 09/01/18 22:00 09/11/18 09:36 Plaquenil PO 200 mg BID ADELE Administration Hydroxyzine HCl 50 mg 09/01/18 22:00 09/10/18 21:26 Atarax PO 50 mg QHS A[facility]LE Administration Sodium Bicarbonate 75 meq/ 1,085 mls @ 75 mls/hr 09/08/18 06:00 09/10/18 21:28 Potassium Chloride 20 meq/ IV 75 mls/hr Dextrose DIRECT ADELE Administration Levothyroxine Sodium 100 mcg 09/02/18 06:00 09/11/18 05:02 Synthroid PO 100 mcg DAILY@0600 ADELE Administration Morphine Sulfate 2 mg 09/01/18 19:48 09/02/18 22:00 Morphine IV 2 mg Q6H PRN Administration Pain, Moderate (4-6) Nitrofurantoin Macrocrystals 100 mg 09/11/18 10:00 Macrobid PO 09/17/18 22:01 Q12HR A[facility]LE Ondansetron HCl 8 mg 09/10/18 20:00 09/11/18 05:00 Zofran IV 8 mg Q8H ADELE Administration Promethazine HCl 12.5 mg 09/10/18 21:00 09/11/18 05:02 Phenergan [place] 12.5 mg Q8H ADELE Administration Sodium Chloride 10 ml 09/01/18 22:00 09/10/18 21:33 Sodium Chloride Flush Syringe 10 Ml IV 10 ml BID ADELE Administration Sodium Chloride 10 ml 09/01/18 14:36 Sodium Chloride Flush Syringe 10 Ml IV PRN PRN LINE FLUSH Tramadol HCl 50 mg 09/01/18 21:07 09/08/18 08:25 Ultram PO 50 mg Q6HR PRN Administration Pain
--- NOTE | 2018-09-11 11:40 | Gastroenterology Consultation ---
<LORRAINE JEFF - Last Filed: 09/11/18 11:55> History of Present Illness - Reason for Consult Consult date: 09/11/18 intractable N/V Requesting physician: BRITTANY MATTSON - History of Present Illness Patient is a 72 y/o female with PMH of venous HTN s/p stent placement in the abhijit iliac veins, DVT with PE (on Eliquis), GI bleeding, PUD (s/p partial gastrectomy), breast cancer (x 2; s/p mastectomy), and hypothyroidism who was admitted with and currently being treated for acute renal failure, UTI, mild left ureteric hydronephrosis with ureteric alculi (S/p ureteroscopy with stent placement), and venous stasis dermatitis both LEs. GI has been consulted for intractable N/V. This morning patient was sitting on the side of the bed in mild distress 2/2 continued N/V x ~10 days per pt report. Admits to some abdominal discomfort. Denies CP, SOB, hematemesis, melena, or LGI symptoms such as diarrhea, constipation, or hematochezia. Patient is previously know to our service with last hospital consult in 2017 for anemia with dark stools. She underwent an EGD/colonoscopy at that time that showed internal hemorrhoids, s/p partial gastrectomy with Billroth II anatomy with a small amount of oozing but no ulcer. Past History Past Medical History: cancer (breast), DVT, GERD, hypothyroidism, pulmonary embolism, renal failure Past Surgical History: mastectomy, Other (gastric surgery) Social history: denies: smoking, alcohol abuse, prescription drug abuse Family history: no significant family history Medications and Allergies Allergies Allergy/AdvReac Type Severity Reaction Status Date / Time chocolate flavor Allergy Severe Rash Verified 07/01/13 17:15 corn [[place]] Allergy Severe Rash Verified 07/01/13 17:15 egg Allergy Severe Rash Verified 07/01/13 17:15 Penicillins Allergy Severe SWELLING,HI Verified 07/01/13 17:15 VES shellfish derived Allergy Severe Rash Verified 07/01/13 17:15 wheat Allergy Severe Rash Verified 07/01/13 17:15 milk Allergy Rash Verified 09/04/18 17:55 peanut Allergy Rash Verified 09/04/18 17:54 BUTTER BEANS Allergy Severe Rash Uncoded 07/01/13 17:15 CHEESE Allergy Severe Rash Uncoded 07/01/13 17:15 POND BEANS Allergy Severe Rash Uncoded 07/01/13 17:15 Home Medications Medication Instructions Recorded Confirmed Last Taken Type Atorvastatin [Lipitor] 80 mg PO QHS 07/01/13 09/02/18 09/01/18 22:00 History 80mg Hydroxychloroquine [Plaquenil] 200 mg PO BID 07/01/13 09/02/18 09/01/18 22:00 History 200mg ALBUTEROL NEB's [Proventil 0.083% 2.5 mg IH TID PRN 04/22/17 09/02/18 08/01/18 10:00 History NEBS] 2.5mg Apixaban [Eliquis] 5 mg PO BID 04/22/17 09/02/18 09/01/18 22:00 History 5mg Gabapentin [Neurontin] 300 mg PO TID 04/22/17 09/02/18 09/01/18 10:00 History 300mg Hydroxyzine HCl [hydrOXYzine] 50 mg PO QHS 04/22/17 09/02/18 08/25/18 22:00 History 200mg predniSONE [Deltasone] 5 mg PO PRN PRN 04/22/17 09/02/18 09/01/18 10:00 History 5mg Levothyroxine [Synthroid] 100 mcg PO DAILY@0600 #30 tablet 09/08/18 Unknown Rx Lisinopril [Zestril TAB] 10 mg PO DAILY #30 tablet 09/08/18 Unknown Rx Ondansetron (Nf) [Zofran TAB] 8 mg PO Q8HR PRN #30 tablet 09/08/18 Unknown Rx Pantoprazole [Protonix TAB] 40 mg PO DAILY #30 tablet 09/08/18 Unknown Rx Promethazine [Phenergan SUPPOS] 12.5 mg [place] Q6H PRN #30 supp.rect 09/08/18 Unknown Rx Sodium Bicarbonate 75 meq IV DIRECT #5 vial 09/08/18 Unknown Rx levoFLOXacin [Levaquin TAB] 250 mg PO Q24HR #3 tablet 09/08/18 Unknown Rx traMADol [Ultram 50 MG tab] 50 mg PO DAILY PRN #20 tablet 09/08/18 Unknown Rx Active Meds: Active Medications Albuterol (Proventil) 2.5 mg IH TIDRT PRN PRN Reason: Wheezing Apixaban (Eliquis) 5 mg PO BID [facility]; Protocol Last Admin: 09/11/18 09:36 Dose: 5 mg Documented by: Atorvastatin Calcium (Lipitor) 80 mg PO QHS [facility] Last Admin: 09/10/18 21:25 Dose: 80 mg Documented by: Famotidine (Pepcid) 40 mg PO DAILY [facility] Last Admin: 09/11/18 09:36 Dose: 40 mg Documented by: Gabapentin (Neurontin) 300 mg PO TID [facility] Last Admin: 09/11/18 09:36 Dose: 300 mg Documented by: Hydroxychloroquine Sulfate (Plaquenil) 200 mg PO BID [facility] Last Admin: 09/11/18 09:36 Dose: 200 mg Documented by: Hydroxyzine HCl (Atarax) 50 mg PO QHS [facility] Last Admin: 09/10/18 21:26 Dose: 50 mg Documented by: Sodium Chloride (Nacl 0.9% 1000 Ml) 1,000 mls @ 125 mls/hr IV DIRECT [facility] Levothyroxine Sodium (Synthroid) 100 mcg PO DAILY@0600 [facility] Last Admin: 09/11/18 05:02 Dose: 100 mcg Documented by: Morphine Sulfate (Morphine) 2 mg IV Q6H PRN PRN Reason: Pain, Moderate (4-6) Last Admin: 09/02/18 22:00 Dose: 2 mg Documented by: Nitrofurantoin Macrocrystals (Macrobid) 100 mg PO Q12HR [facility] Stop: 09/17/18 22:01 Ondansetron HCl (Zofran) 8 mg IV Q8H [facility] Last Admin: 09/11/18 05:00 Dose: 8 mg Documented by: Promethazine HCl (Phenergan) 12.5 mg [place] Q8H [facility] Last Admin: 09/11/18 05:02 Dose: 12.5 mg Documented by: Sodium Chloride (Sodium Chloride Flush Syringe 10 Ml) 10 ml IV BID [facility] Last Admin: 09/10/18 21:33 Dose: 10 ml Documented by: Sodium Chloride (Sodium Chloride Flush Syringe 10 Ml) 10 ml IV PRN PRN PRN Reason: LINE FLUSH Tramadol HCl (Ultram) 50 mg PO Q6HR PRN PRN Reason: Pain Last Admin: 09/08/18 08:25 Dose: 50 mg Documented by: medications reviewed/updated as required Review of Systems - Review of Systems All systems: negative Gastrointestinal: nausea, vomiting Exam - Constitutional Vital Signs: Temp Pulse Resp BP Pulse Ox 98.0 F 77 18 108/49 93 09/11/18 07:18 09/11/18 07:19 09/11/18 07:18 09/11/18 07:18 09/11/18 07:19 General appearance: mild distress - Respiratory Respiratory effort: normal - Cardiovascular Rhythm: regular - Gastrointestinal General gastrointestinal: Present: soft, non-distended, normal bowel sounds, other (+scar from previous surgery) - Neurologic Neurological: alert and oriented x3 - Labs CBC & Chem 7: 09/04/18 05:17 09/11/18 05:14 Lab Results: Laboratory Results - last 24 hr 09/11/18 05:14 Sodium 140 Potassium 4.2 Chloride 101.7 Carbon Dioxide 28 Anion Gap 15 BUN 8 Creatinine 1.5 H Estimated GFR 41 BUN/Creatinine Ratio 5 Glucose 109 H Calcium 9.5 Assessment and Plan 1.intractable N/V 2.H/o PUD (s/p partial gastrectomy) -afebrile -H/H WNL -LFTs WNL -abd U/S 09/02 showed small GB polyp but no cholelithiasis or biliary dilatation -clinically, patient reports continued N/V this am with associated mild abd discomfort. No signs of bleeding -will schedule for EGD tomorrow for further evaluation -decrease diet to clear liquids then NPO after MN -hold am dose of Eliquis for procedure -continue PPI and supportive care -will follow <CARLITA BONILLA - Last Filed: 09/11/18 23:05> History of Present Illness - History of Present Illness Patient seen and examined. I agree with the advanced practitioner's assessment and plan with the following additions: Patient with refractory symptoms, uncomfortable on exam, therefore EGD next step in eval to r/o severe gastritis, PUD, Gastric outlet obstruction etc. Holding Blood thinner for procedure tomorrow Medications and Allergies Active Meds: Active Medications Albuterol (Proventil) 2.5 mg IH TIDRT PRN PRN Reason: Wheezing Apixaban (Eliquis) 5 mg PO BID A[facility]LE; Protocol Last Admin: 09/11/18 21:18 Dose: Not Given Documented by: Atorvastatin Calcium (Lipitor) 80 mg PO QHS [facility] Last Admin: 09/11/18 21:33 Dose: 80 mg Documented by: Famotidine (Pepcid) 40 mg PO DAILY [facility] Last Admin: 09/11/18 09:36 Dose: 40 mg Documented by: Gabapentin (Neurontin) 300 mg PO TID [facility] Last Admin: 09/11/18 21:34 Dose: 300 mg Documented by: Hydroxychloroquine Sulfate (Plaquenil) 200 mg PO BID [facility] Last Admin: 09/11/18 21:34 Dose: 200 mg Documented by: Hydroxyzine HCl (Atarax) 50 mg PO QHS [facility] Last Admin: 09/11/18 21:34 Dose: 50 mg Documented by: Sodium Chloride (Nacl 0.9% 1000 Ml) 1,000 mls @ 125 mls/hr IV DIRECT [facility] Last Admin: 09/11/18 16:55 Dose: 125 mls/hr Documented by: Levothyroxine Sodium (Synthroid) 100 mcg PO DAILY@0600 [facility] Last Admin: 09/11/18 05:02 Dose: 100 mcg Documented by: Morphine Sulfate (Morphine) 2 mg IV Q6H PRN PRN Reason: Pain, Moderate (4-6) Last Admin: 09/02/18 22:00 Dose: 2 mg Documented by: Nitrofurantoin Macrocrystals (Macrobid) 100 mg PO Q12HR [facility] Stop: 09/17/18 22:01 Last Admin: 09/11/18 21:34 Dose: 100 mg Documented by: Ondansetron HCl (Zofran) 8 mg IV Q8H [facility] Last Admin: 09/11/18 21:33 Dose: 8 mg Documented by: Pantoprazole Sodium (Protonix) 40 mg IV QDAY [facility] Last Admin: 09/11/18 13:19 Dose: 40 mg Documented by: Promethazine HCl (Phenergan) 12.5 mg [place] Q8H [facility] Last Admin: 09/11/18 21:34 Dose: 12.5 mg Documented by: Sodium Chloride (Sodium Chloride Flush Syringe 10 Ml) 10 ml IV BID [facility] Last Admin: 09/11/18 21:35 Dose: 10 ml Documented by: Sodium Chloride (Sodium Chloride Flush Syringe 10 Ml) 10 ml IV PRN PRN PRN Reason: LINE FLUSH Tramadol HCl (Ultram) 50 mg PO Q6HR PRN PRN Reason: Pain Last Admin: 09/08/18 08:25 Dose: 50 mg Documented by: Exam - Constitutional Vital Signs: Temp Pulse Resp BP Pulse Ox 98.6 F 74 20 111/59 98 09/11/18 19:41 09/11/18 19:41 09/11/18 19:41 09/11/18 19:41 09/11/18 19:41 - Labs CBC & Chem 7: 09/04/18 05:17 09/11/18 05:14 Lab Results: Laboratory Results - last 24 hr 09/11/18 05:14 Sodium 140 Potassium 4.2 Chloride 101.7 Carbon Dioxide 28 Anion Gap 15 BUN 8 Creatinine 1.5 H Estimated GFR 41 BUN/Creatinine Ratio 5 Glucose 109 H Calcium 9.5
[2018-09-11] MEDS: MACROBID PO SCH ×2 (13:03→21:34)
[2018-09-11] MEDS: PROTONIX IV SCH (13:19)
--- NOTE | 2018-09-11 15:23 | Ultrasound Report ---
ULTRASOUND RENAL BILATERAL HISTORY: Acute kidney injury. TECHNIQUE: transabdominal ultrasound with color Doppler interrogation. FINDINGS: The right kidney measures 9.5 x 4.6 x 4.7cm. Right renal cortex: 1.4cm. The left kidney measures 10.3 x 5.2 x 6.1cm. Left renal cortex: 1.8cm. Scans of the kidneys show normal renal contours. There is normal central calyceal clustering and good preservation of the cortical thickness. A 1.7 cm cyst is identified in the mid right kidney. There are 2 cysts in the superior and inferior right kidney measuring 3.6 cm and 4.6 cm respectively. There is no evidence of mass or hydronephrosis. The bladder is partially empty but unremarkable. IMPRESSION: Bilateral renal cysts as described. Otherwise, unremarkable exam.
[2018-09-11] MEDS: NACL 0.9% 1000 ML 1,000 ML IV SCH (16:55)
[2018-09-11] MEDS: ATARAX PO SCH (21:34)
[2018-09-11] MEDS: SODIUM CHLORIDE FLUSH SYRINGE 10 ML IV SCH (21:35)
[2018-09-12] MEDS: NACL 0.9% 1000 ML 1,000 ML IV SCH ×4 (00:39→20:34)
[2018-09-12] MEDS: ZOFRAN IV SCH ×3 (04:12→20:35)
[2018-09-12] MEDS: PHENERGAN PR SCH ×4 (04:12→22:14)
[2018-09-12] MEDS: NEURONTIN PO SCH ×3 (08:37→20:35)
[2018-09-12] MEDS: SODIUM CHLORIDE FLUSH SYRINGE 10 ML IV SCH ×3 (09:40→22:07)
[2018-09-12] MEDS: PROTONIX IV SCH (09:40)
[2018-09-12] MEDS: ELIQUIS PO SCH ×2 (10:09→22:05)
[2018-09-12] MEDS: PEPCID PO SCH (10:10)
[2018-09-12] MEDS: MACROBID PO SCH ×2 (10:10→22:06)
[2018-09-12] MEDS: PLAQUENIL PO SCH ×2 (10:10→22:06)
[2018-09-12] MEDS: SODIUM CHLORIDE FLUSH SYRINGE 10 ML IV PRN ×2 (12:05→13:44)
[2018-09-12 12:08] LABS: Basophils % (Auto) 0.4 % (0.0-1.8); Eosinophils # (Auto) 0.3 K/mm3 (0.0-0.4); Eosinophils % (Auto) 6.1 % (0.0-4.3); Hematocrit 28.5 % (30.3-42.9); Hemoglobin 9.6 gm/dl (10.1-14.3); Lymphocytes # (Auto) 1.1 K/mm3 (1.2-5.4); Mean Corpuscular HGB Conc 34 % (30-34); Mean Corpuscular Volume 85 fl (79-97); Monocytes # (Auto) 0.4 K/mm3 (0.0-0.8); Monocytes % (Auto) 7.2 % (0.0-7.3); Platelet Count 174 K/mm3 (140-440); Red Blood Count 3.36 M/mm3 (3.65-5.03); Red Cell Distribution Width 14.6 % (13.2-15.2)
--- NOTE | 2018-09-12 12:32 | Progress Note ---
Subjective Principal diagnosis: Acute renal failure, BURGER nausea and vomiting, left ureteric stone Interval history: Patient was seen today for follow-up on multiple renal related issues Events of this hospitalization noted Creatinine was elevated Intermittent nausea vomiting poor appetite being seen by GI Patient denies having any chest pain pressure or shortness of breath Vitals labs intake output medications were reviewed Social history: Reviewed Allergies: Reviewed Family history: Reviewed Physical examination HEENT: Oral mucosa moist no pallor or icterus Neck: Supple no JVD Chest: Clear to auscultation anteriorly CVS: Regular rate and rhythm S1 and S2 heard Abdomen: Soft nontender no suprapubic masses no organomegaly appreciable Extremity: Dry skin less than 1+ peripheral edema Musculoskeletal: No joint effusion noted in knees and ankle Neurological: Alert awake Dermatology: No petechial rashes Psychiatry: No evidence of any agitation and aggression noted Assessment and plan; Worsening renal function current creatinine is around 1.5 which was 0.9 on September 07 she does need a follow-up basic metabolic profile today If creatinine continues to worsen may need a renal ultrasonogram Nausea vomiting patient was also having intermittent nausea vomiting in the outpatient setting She does have history of partial gastrectomy with Billroth II surgery She is currently in IV fluid normal saline at 1 25 mL an hour She has also been placed on Macrobid Hypokalemia had improved last potassium was 4.2 Obstructive uropathy kidney stone status post intervention needs follow-up with urology Multiple underlying comorbidities including DVT, pulmonary embolism, GI bleed, history of peptic ulcer disease, breast cancer, hypothyroidism, obstructive uropathy status post ureteroscopy and stent placement Patient was adequately counseled and educated regarding multiple renal related issues Pertinent lab findings were discussed with patient and patient does exhibit good understanding of renal issues. We'll continue to follow and make recommendation from renal standpoint Objective - Vital Signs Vital signs: Vital Signs - 12hr 09/12/18 09/12/18 09/12/18 02:41 07:31 10:00 Temperature 98.7 F 98.8 F Pulse Rate 84 80 Pulse Rate [ 80 Radial] Respiratory 19 20 20 Rate Respiratory 18 Rate [Abdomen] Blood Pressure 128/55 156/81 O2 Sat by Pulse 95 98 98 Oximetry - Lab 09/12/18 11:39 09/11/18 05:14 Most recent lab results Calcium 9.5 mg/dL (8.4-10.2) 09/11/18 05:14 Phosphorus 3.30 mg/dL (2.5-4.5) 09/02/18 04:57 Magnesium 1.50 mg/dL (1.7-2.3) L 09/03/18 11:03 83.3 mg/dL (0.1-20.0) H 09/02/18 18:30 110 mmol/L 09/02/18 18:30 Medications & Allergies - Medications Allergies/Adverse Reactions: Allergies chocolate flavor Allergy (Severe, Verified 07/01/13 17:15) Rash corn [[place]] Allergy (Severe, Verified 07/01/13 17:15) Rash egg Allergy (Severe, Verified 07/01/13 17:15) Rash Penicillins Allergy (Severe, Verified 07/01/13 17:15) SWELLING,HIVES shellfish derived Allergy (Severe, Verified 07/01/13 17:15) Rash wheat Allergy (Severe, Verified 07/01/13 17:15) Rash milk Allergy (Verified 09/04/18 17:55) Rash peanut Allergy (Verified 09/04/18 17:54) Rash PT STATES HER MOUTH SWELLS WITH PEANUTS AND BEANS BUTTER BEANS Allergy (Severe, Uncoded 07/01/13 17:15) Rash CHEESE Allergy (Severe, Uncoded 07/01/13 17:15) Rash POND BEANS Allergy (Severe, Uncoded 07/01/13 17:15) Rash Home Medications: Home Medications Medication Instructions Recorded Confirmed Last Taken Type Atorvastatin [Lipitor] 80 mg PO QHS 07/01/13 09/02/18 09/01/18 22:00 History 80mg Hydroxychloroquine [Plaquenil] 200 mg PO BID 07/01/13 09/02/18 09/01/18 22:00 History 200mg ALBUTEROL NEB's [Proventil 0.083% 2.5 mg IH TID PRN 04/22/17 09/02/18 08/01/18 10:00 History NEBS] 2.5mg Apixaban [Eliquis] 5 mg PO BID 04/22/17 09/02/18 09/01/18 22:00 History 5mg Gabapentin [Neurontin] 300 mg PO TID 04/22/17 09/02/18 09/01/18 10:00 History 300mg Hydroxyzine HCl [hydrOXYzine] 50 mg PO QHS 04/22/17 09/02/18 08/25/18 22:00 History 200mg predniSONE [Deltasone] 5 mg PO PRN PRN 04/22/17 09/02/18 09/01/18 10:00 History 5mg Levothyroxine [Synthroid] 100 mcg PO DAILY@0600 #30 tablet 09/08/18 Unknown Rx Lisinopril [Zestril TAB] 10 mg PO DAILY #30 tablet 09/08/18 Unknown Rx Ondansetron (Nf) [Zofran TAB] 8 mg PO Q8HR PRN #30 tablet 09/08/18 Unknown Rx Pantoprazole [Protonix TAB] 40 mg PO DAILY #30 tablet 09/08/18 Unknown Rx Promethazine [Phenergan SUPPOS] 12.5 mg [place] Q6H PRN #30 supp.rect 09/08/18 Unknown Rx Sodium Bicarbonate 75 meq IV DIRECT #5 vial 09/08/18 Unknown Rx levoFLOXacin [Levaquin TAB] 250 mg PO Q24HR #3 tablet 09/08/18 Unknown Rx traMADol [Ultram 50 MG tab] 50 mg PO DAILY PRN #20 tablet 09/08/18 Unknown Rx Active Medications: Generic Name Dose Route Start Last Admin Trade Name Freq PRN Reason Stop Dose Admin Albuterol 2.5 mg 09/01/18 21:07 Proventil IH TIDRT PRN Wheezing Apixaban 5 mg 09/01/18 22:00 09/12/18 10:09 Eliquis PO Not Given BID [facility] Protocol Atorvastatin Calcium 80 mg 09/01/18 22:00 09/11/18 21:33 Lipitor PO 80 mg QHS [facility] Administration Famotidine 40 mg 09/03/18 10:00 09/12/18 10:10 Pepcid PO Not Given DAILY [facility] Gabapentin 300 mg 09/02/18 08:00 09/12/18 08:37 Neurontin PO Not Given TID [facility] Hydroxychloroquine Sulfate 200 mg 09/01/18 22:00 09/12/18 10:10 Plaquenil PO Not Given BID [facility] Hydroxyzine HCl 50 mg 09/01/18 22:00 09/11/18 21:34 Atarax PO 50 mg QHS [facility] Administration Sodium Chloride 1,000 mls @ 125 mls/hr 09/11/18 12:00 09/12/18 09:46 Nacl 0.9% 1000 Ml IV 125 mls/hr DIRECT [facility] Administration Sodium Chloride 1,000 mls @ 50 mls/hr 09/12/18 13:00 Nacl 0.9% 1000 Ml IV DIRECT [facility] Levothyroxine Sodium 100 mcg 09/02/18 06:00 09/11/18 05:02 Synthroid PO 100 mcg DAILY@0600 [facility] Administration Morphine Sulfate 2 mg 09/01/18 19:48 09/02/18 22:00 Morphine IV 2 mg Q6H PRN Administration Pain, Moderate (4-6) Nitrofurantoin Macrocrystals 100 mg 09/11/18 10:00 09/12/18 10:10 Macrobid PO 09/17/18 22:01 Not Given Q12HR [facility] Ondansetron HCl 8 mg 09/10/18 20:00 09/12/18 12:05 Zofran IV 8 mg Q8H [facility] Administration Pantoprazole Sodium 40 mg 09/11/18 12:00 09/12/18 09:40 Protonix IV 40 mg QDAY [facility] Administration Promethazine HCl 12.5 mg 09/10/18 21:00 09/12/18 04:12 Phenergan [place] 12.5 mg Q8H [facility] Administration Sodium Chloride 10 ml 09/01/18 22:00 09/12/18 09:40 Sodium Chloride Flush Syringe 10 Ml IV 10 ml BID [facility] Administration Sodium Chloride 10 ml 09/01/18 14:36 09/12/18 12:05 Sodium Chloride Flush Syringe 10 Ml IV 10 ml PRN PRN Administration LINE FLUSH Tramadol HCl 50 mg 09/01/18 21:07 09/08/18 08:25 Ultram PO 50 mg Q6HR PRN Administration Pain
[2018-09-12 12:45] LABS: Calcium 9.3 mg/dL (8.4-10.2)
[2018-09-12] MEDS ORDERED: NACL 0.9% 1000 ML 1,000 ML IV SCH (13:00)
[2018-09-12] MEDS: MORPHINE IV PRN (13:44)
[2018-09-12] MEDS ORDERED: DIPRIVAN 10 MG/ML IV ONE (16:12)
--- NOTE | 2018-09-12 16:31 | Anesthesia Day of Surgery ---
Anesthesia Day of Surgery - Day of Surgery Patient Examined: Yes Patient H&P Reviewed: Yes Patient is NPO: Yes
--- NOTE | 2018-09-12 16:33 | Anesthesia Consultation ---
Anesthesia Consult and Med Hx Date of service: 09/12/18 - Airway Anesthetic Teeth Evaluation: Edentulous ROM Head & Neck: Adequate Mental/Hyoid Distance: Adequate Mallampati Class: Class II Intubation Access Assessment: Probably Good - Pre-Operative Health Status ASA Pre-Surgery Classification: ASA3 Proposed Anesthetic Plan: MAC - Pulmonary Hx Smoking: No Hx Asthma: Yes (INHALERS / NEBULZER PRN) COPD: Yes Hx Pneumonia: Yes (FIRST OF MAR 2017- RESOLVED) Hx Sleep Apnea: No (XIOMY PRE SCREEN LOW RISK.) - Cardiovascular System Hx Hypertension: Yes (2006) Hx Heart Attack/AMI: No Hx Valvular Heart Disease: Yes (HX LEAKING VALVE- "STABLE") Hx Peripheral Vascular Disease: Yes (FEM-POP BYPASS WITH STENTS) - Central Nervous System Hx Back Pain: Yes - Gastrointestinal Hx Ulcer: Yes (removed in 03/25/1979 ( PARTIAL GASTECTOMY)) Hx Gastroesophageal Reflux Disease: Yes - Endocrine Hx Renal Disease: Yes (CKD) Hx Non-Insulin Dependent Diabetes: No Hx Thyroid Disease: No Hx Hypothyroidism: Yes (ON MEDS) - Hematic Hx Anemia: Yes - Other Systems Hx Cancer: Yes (left Breast Cancer, Chemo and Radiation 2012)
--- NOTE | 2018-09-12 16:46 | Operative Report ---
Operative Report Operative Report: DOS 09/12/2018 SURGEON: Cipriano Brenner MD EGD with biopsy REPORT PREOPERATIVE DIAGNOSIS and POSTOPERATIVE DIAGNOSIS: intractable N/V ESTIMATED BLOOD LOSS: minimal DESCRIPTION OF PROCEDURE: A high-resolution EGD scope was passed through the oropharynx, esophagus, stomach, and to the small bowel (s/p billroth surgery). The scope was carefully withdrawn. Retroflexion was performed in the stomach. At the end of the procedure, the scope was cleaned using normal technique. Vital signs monitored continuously throughout. SEDATION: Provided by Anesthesiology Services. COMPLICATIONS: None. FINDINGS: * Normal post-surgical anatomy consistent with a Billroth-II * Healthy appearing anastomosis with no ulcer no bleeding no stricture * Few areas of nodularity with white discoloration in the distal stomach, cold forceps biopsies obtained * Polyp in the fundus of the stomach, 8mm in diamater, semi-sessile. Cold forceps biopsies obtained to ensure benign * GE junction at 35cm from the incisors * 3cm hiatal hernia * Remainder of the exam was normal RECOMMENDATIONS: * No pathology on exam to explain patient's symptoms. Will proceed with HIDA with CCK for further evaluation.
[2018-09-12] MEDS: SYNTHROID PO SCH (19:34)
[2018-09-12] MEDS: ATARAX PO SCH (22:05)
--- NOTE | 2018-09-12 23:21 | Progress Note ---
Assessment and Plan - Intractible nausea and vomiting To monitor med as cause of N/V Continue with zofran 8 mg and Phernegan Gi consulted fr EGD today - Acute renal failure - resolved BNP was 15 and creatinine was 1.0 as of 02/18/2018 but 32 and 2.7 on admission 09/01/18 continue with IV hydration - UTI Urine Cx grew E. faecalis resistant to Levaquim but sensitive to Nitriofuradantion. Commence Microbid -Mild left ureteric hydronephrosis with ureteric alculi - Falling off felicity urethra. removed 09/11/18 CT abdomen and pelvis showed left UVJ 5.8mm and 4mm distal ureteric calculi Urology consulted. Discussed with Dr. Arvizu. for stent placement today - Headache CT head was unremarkable iv morphine - H/o Breast cancer stable s/p mastectomy and chemotx -Hypokalemia Corrected - History of DVT/PE Continue Eliquis -History of asthma Continue bronchodilators - Venous stasis dermatitis both LEs elevation of feet -DVT ppx:On Eliquis Pt is full code Time spent : 35 mins in direct pt care, review of past medical records, as well as laboratory data - Patient Problems (1) Left ureteral calculus Current Visit: Yes Status: Acute (2) LARRY (acute kidney injury) Current Visit: Yes Status: Acute (3) Abdominal pain Current Visit: Yes Status: Acute (4) Hydronephrosis Current Visit: Yes Status: Acute (5) Nausea and vomiting Current Visit: Yes Status: Acute Subjective Date of service: 09/12/18 Principal diagnosis: Acute renal failure, BURGER nausea and vomiting, left ureteric stone Interval history: Still having Nausea and vomiting. Unable to keep any food down. Had left ureteric stent place stone for left ureteric stent found hanging out 09/10/18, and removed by urology Objective - Exam Narrative Exam: Constitutional: Well-nourished well-developed. In no distress Head: Normocephalic atraumatic Eyes: Pupils are equal round and reactive to light Nose: No enlarged turbinates, no septal deviation. Mouth: Moist mucous membranes. Neck: Supple no thyromegaly. No bruit. No JVD Heart: Regular rate and rhythm, S1-S2 normal. No rubs murmurs or gallop Lungs: Clear to auscultation bilaterally. no rales or rhonchi Abdomen: Soft, nontender. Bowel sound are present. Extremities: Has edema, with hypoxic pigmentation of both lower extremities stasis dermatitis Neuro: Alert oriented Oriented x3. No focal sensory or motor deficit. Skin: No rashes or hyperpigmented spots Musculoskeletal system: No joint pain or swelling Hematological: No petechia or subcutanous hemorrhages. Immunological: No multiple septic spots on the skin Lymphatic: No generalized lymphadenopathy Psychiatry: Euthymic. Calm. - Constitutional Vitals: Vital Signs - 12hr 09/12/18 09/12/18 09/12/18 13:27 13:44 15:27 Temperature 99.9 F H 98.1 F Pulse Rate 76 84 Respiratory 20 20 20 Rate Blood Pressure 147/61 157/91 O2 Sat by Pulse 100 99 Oximetry 09/12/18 09/12/18 09/12/18 15:31 16:21 16:36 Temperature 98.1 F 98.9 F Pulse Rate 84 90 79 Respiratory 20 20 15 Rate Blood Pressure 157/91 141/66 148/68 O2 Sat by Pulse 99 98 100 Oximetry 09/12/18 09/12/18 09/12/18 16:51 17:27 19:35 Temperature 97.9 F 98.6 F Pulse Rate 84 78 80 Respiratory 14 20 18 Rate Blood Pressure 133/67 136/65 149/68 O2 Sat by Pulse 98 97 95 Oximetry - Labs CBC & Chem 7: 09/12/18 11:39 09/12/18 11:39 Labs: Abnormal lab results 09/12/18 09/12/18 Range/Units 11:39 11:39 RBC 3.36 L (3.65-5.03) M/mm3 Hgb 9.6 L (10.1-14.3) gm/dl Hct 28.5 L (30.3-42.9) % Eos % (Auto) 6.1 H (0.0-4.3) % Lymph # 1.1 L (1.2-5.4) K/mm3 Creatinine 1.4 H (0.7-1.2) mg/dL
[2018-09-13] MEDS: NACL 0.9% 1000 ML 1,000 ML IV SCH ×2 (04:50→17:13)
[2018-09-13] MEDS: ZOFRAN IV SCH ×3 (05:15→23:05)
[2018-09-13] MEDS: PHENERGAN PR SCH ×3 (05:19→23:01)
[2018-09-13] MEDS: SYNTHROID PO SCH (05:28)
[2018-09-13 07:50] LABS: Basophils % (Auto) 0.5 % (0.0-1.8); Eosinophils # (Auto) 0.3 K/mm3 (0.0-0.4); Hematocrit 28.4 % (30.3-42.9); Hemoglobin 9.5 gm/dl (10.1-14.3); Lymphocytes # (Auto) 0.9 K/mm3 (1.2-5.4); Lymphocytes % (Auto) 17.2 % (13.4-35.0); Mean Corpuscular HGB Conc 33 % (30-34); Mean Corpuscular Volume 86 fl (79-97); Monocytes # (Auto) 0.3 K/mm3 (0.0-0.8); Monocytes % (Auto) 6.2 % (0.0-7.3); Platelet Count 165 K/mm3 (140-440); Red Blood Count 3.32 M/mm3 (3.65-5.03); Red Cell Distribution Width 14.8 % (13.2-15.2)
[2018-09-13] MEDS: NEURONTIN PO SCH ×3 (08:07→23:01)
[2018-09-13 08:22] LABS: Hemolysis Index 5
[2018-09-13 08:51] LABS: BUN/Creatinine Ratio 5; Blood Urea Nitrogen 7 mg/dL (7-17); Calcium 9.9 mg/dL (8.4-10.2)
--- NOTE | 2018-09-13 11:02 | Progress Note ---
Subjective Principal diagnosis: Acute renal failure, BURGER nausea and vomiting, left ureteric stone Interval history: Patient was seen today for follow-up on multiple renal related issues Events of this hospitalization noted Status post upper endoscopy Ultrasonogram shows no evidence of obstructive uropathy anymore Patient denies having any chest pain pressure or shortness of breath Vitals labs intake output medications were reviewed Social history: Reviewed Allergies: Reviewed Family history: Reviewed Physical examination HEENT: Oral mucosa moist no pallor or icterus Neck: Supple no JVD Chest: Clear to auscultation anteriorly CVS: Regular rate and rhythm S1 and S2 heard Abdomen: Soft nontender no suprapubic masses no organomegaly appreciable Extremity: Dry skin less than 1+ peripheral edema Musculoskeletal: No joint effusion noted in knees and ankle Neurological: Alert awake Dermatology: No petechial rashes Psychiatry: No evidence of any agitation and aggression noted Assessment and plan; Renal function currently stable creatinine is around 1.4 Chloride is 60 that needs to be repeated likely error September 11 patient's ultrasound does not show any evidence of obstructive uropathy Status post upper endoscopy due to nausea and vomiting patient needs to follow- up with gastroenterology services She does have history of partial gastrectomy with Billroth II surgery She has also been placed on Macrobid Hypokalemia had improved last potassium was 4.2 Obstructive uropathy kidney stone status post intervention needs follow-up with urology Multiple underlying comorbidities including DVT, pulmonary embolism, GI bleed, history of peptic ulcer disease, breast cancer, hypothyroidism, obstructive uropathy status post ureteroscopy and stent placement Patient was adequately counseled and educated regarding multiple renal related issues Pertinent lab findings were discussed with patient and patient does exhibit good understanding of renal issues. We'll continue to follow and make recommendation from renal standpoint Objective - Vital Signs Vital signs: Vital Signs - 12hr 09/13/18 09/13/18 09/13/18 03:05 07:43 08:41 Temperature 98.0 F 98.7 F Pulse Rate 85 83 Pulse Rate [ 83 Radial] Respiratory 18 20 20 Rate Blood Pressure 155/75 142/66 O2 Sat by Pulse 94 96 96 Oximetry - Lab 09/13/18 07:00 09/13/18 07:00 Most recent lab results Calcium 9.9 mg/dL (8.4-10.2) 09/13/18 07:00 Phosphorus 3.30 mg/dL (2.5-4.5) 09/02/18 04:57 Magnesium 1.50 mg/dL (1.7-2.3) L 09/03/18 11:03 83.3 mg/dL (0.1-20.0) H 09/02/18 18:30 110 mmol/L 09/02/18 18:30 Medications & Allergies - Medications Allergies/Adverse Reactions: Allergies chocolate flavor Allergy (Severe, Verified 07/01/13 17:15) Rash corn [[place]] Allergy (Severe, Verified 07/01/13 17:15) Rash egg Allergy (Severe, Verified 07/01/13 17:15) Rash Penicillins Allergy (Severe, Verified 07/01/13 17:15) SWELLING,HIVES shellfish derived Allergy (Severe, Verified 07/01/13 17:15) Rash wheat Allergy (Severe, Verified 07/01/13 17:15) Rash milk Allergy (Verified 09/04/18 17:55) Rash peanut Allergy (Verified 09/04/18 17:54) Rash PT STATES HER MOUTH SWELLS WITH PEANUTS AND BEANS BUTTER BEANS Allergy (Severe, Uncoded 07/01/13 17:15) Rash CHEESE Allergy (Severe, Uncoded 07/01/13 17:15) Rash POND BEANS Allergy (Severe, Uncoded 07/01/13 17:15) Rash Home Medications: Home Medications Medication Instructions Recorded Confirmed Last Taken Type Atorvastatin [Lipitor] 80 mg PO QHS 07/01/13 09/02/18 09/01/18 22:00 History 80mg Hydroxychloroquine [Plaquenil] 200 mg PO BID 07/01/13 09/02/18 09/01/18 22:00 History 200mg ALBUTEROL NEB's [Proventil 0.083% 2.5 mg IH TID PRN 04/22/17 09/02/18 08/01/18 10:00 History NEBS] 2.5mg Apixaban [Eliquis] 5 mg PO BID 04/22/17 09/02/18 09/01/18 22:00 History 5mg Gabapentin [Neurontin] 300 mg PO TID 04/22/17 09/02/18 09/01/18 10:00 History 300mg Hydroxyzine HCl [hydrOXYzine] 50 mg PO QHS 01/2909/02/18 08/25/18 22:00 History 200mg predniSONE [Deltasone] 5 mg PO PRN PRN 04/22/17 09/02/18 09/01/18 10:00 History 5mg Levothyroxine [Synthroid] 100 mcg PO DAILY@0600 #30 tablet 09/08/18 Unknown Rx Lisinopril [Zestril TAB] 10 mg PO DAILY #30 tablet 09/08/18 Unknown Rx Ondansetron (Nf) [Zofran TAB] 8 mg PO Q8HR PRN #30 tablet 09/08/18 Unknown Rx Pantoprazole [Protonix TAB] 40 mg PO DAILY #30 tablet 09/08/18 Unknown Rx Promethazine [Phenergan SUPPOS] 12.5 mg MI Q6H PRN #30 supp.rect 09/08/18 Unknown Rx Sodium Bicarbonate 75 meq IV DIRECT #5 vial 09/08/18 Unknown Rx levoFLOXacin [Levaquin TAB] 250 mg PO Q24HR #3 tablet 09/08/18 Unknown Rx traMADol [Ultram 50 MG tab] 50 mg PO DAILY PRN #20 tablet 09/08/18 Unknown Rx Active Medications: Generic Name Dose Route Start Last Admin Trade Name Freq PRN Reason Stop Dose Admin Albuterol 2.5 mg 09/01/18 21:07 Proventil IH TIDRT PRN Wheezing Apixaban 5 mg 09/01/18 22:00 09/12/18 22:05 Eliquis PO 5 mg BID ADELE Administration Protocol Atorvastatin Calcium 80 mg 09/01/18 22:00 09/12/18 22:05 Lipitor PO 80 mg QHS ADELE Administration Famotidine 40 mg 09/03/18 10:00 09/12/18 10:10 Pepcid PO Not Given DAILY ADELE Gabapentin 300 mg 09/02/18 08:00 09/12/18 20:35 Neurontin PO 300 mg TID ADELE Administration Hydroxychloroquine Sulfate 200 mg 09/01/18 22:00 09/12/18 22:06 Plaquenil PO 200 mg BID ADELE Administration Hydroxyzine HCl 50 mg 09/01/18 22:00 09/12/18 22:05 Atarax PO 50 mg QHS ADELE Administration Sodium Chloride 1,000 mls @ 125 mls/hr 09/11/18 12:00 09/13/18 04:50 Nacl 0.9% 1000 Ml IV 125 mls/hr DIRECT ADELE Administration Sodium Chloride 1,000 mls @ 50 mls/hr 09/12/18 16:00 09/12/18 15:43 Nacl 0.9% 1000 Ml IV 50 mls/hr DIRECT ADELE Administration Levothyroxine Sodium 100 mcg 09/02/18 06:00 09/13/18 05:28 Synthroid PO 100 mcg DAILY@0600 ADELE Administration Morphine Sulfate 2 mg 09/01/18 19:48 09/12/18 13:44 Morphine IV 2 mg Q6H PRN Administration Pain, Moderate (4-6) Nitrofurantoin Macrocrystals 100 mg 09/11/18 10:00 09/12/18 22:06 Macrobid PO 09/17/18 22:01 100 mg Q12HR ADELE Administration Ondansetron HCl 8 mg 09/10/18 20:00 09/13/18 05:15 Zofran IV 8 mg Q8H ADELE Administration Pantoprazole Sodium 40 mg 09/11/18 12:00 09/12/18 09:40 Protonix IV 40 mg QDAY ADELE Administration Promethazine HCl 12.5 mg 09/10/18 21:00 09/13/18 05:19 Phenergan MI Not Given Q8H ADELE Sodium Chloride 10 ml 09/01/18 22:00 09/12/18 22:07 Sodium Chloride Flush Syringe 10 Ml IV 10 ml BID ADELE Administration Sodium Chloride 10 ml 09/01/18 14:36 09/12/18 13:44 Sodium Chloride Flush Syringe 10 Ml IV 10 ml PRN PRN Administration LINE FLUSH Tramadol HCl 50 mg 09/01/18 21:07 09/08/18 08:25 Ultram PO 50 mg Q6HR PRN Administration Pain
--- NOTE | 2018-09-13 12:08 | Progress Note ---
Assessment and Plan - Intractible nausea and vomiting EGD done 09/12/2021 was unremarkable for any stenosis at iloe-gastric anastomosis site following Billroth 11 surgery Schedule for HID scan today Continue with scheduled Zofran 8 mg and Phernegan GI input appreciated - Acute renal failure - resolved BNP was 15 and creatinine was 1.0 as of 02/18/2018 but 32 and 2.7 on admission 09/01/18 continue with IV hydration - UTI Urine Cx grew E. faecalis resistant to Levaquim but sensitive to Nitriofuradantion. Commence Microbid -Mild left Ureteric hydronephrosis with ureteric alculi - Falling off the Urethra. Removed 09/11/18 CT abdomen and pelvis showed left UVJ 5.8mm and 4mm distal ureteric calculi Urology consulted. Discussed with Dr. Arvizu. for stent placement today - Headache CT head was unremarkable iv morphine - H/o Breast cancer stable s/p mastectomy and chemotx -Hypokalemia Corrected - History of DVT/PE Continue Eliquis -History of asthma Continue bronchodilators - Venous stasis dermatitis both LEs elevation of feet -DVT ppx:On Eliquis Pt is full code Time spent : 35 mins in direct pt care, review of past medical records, as well as laboratory data - Patient Problems (1) Left ureteral calculus Current Visit: Yes Status: Acute (2) LARRY (acute kidney injury) Current Visit: Yes Status: Acute (3) Abdominal pain Current Visit: Yes Status: Acute (4) Hydronephrosis Current Visit: Yes Status: Acute (5) Nausea and vomiting Current Visit: Yes Status: Acute Subjective Date of service: 09/13/18 Principal diagnosis: intractable N/V, Acute renal failure, BURGER, left ureteric stone Interval history: Still having Nausea and vomiting. Unable to keep any food down. An EGD 09/12/2018 was unremarkable. Objective - Exam Narrative Exam: Constitutional: Well-nourished well-developed. In no distress Head: Normocephalic atraumatic Eyes: Pupils are equal round and reactive to light Nose: No enlarged turbinates, no septal deviation. Mouth: Moist mucous membranes. Neck: Supple no thyromegaly. No bruit. No JVD Heart: Regular rate and rhythm, S1-S2 normal. No rubs murmurs or gallop Lungs: Clear to auscultation bilaterally. no rales or rhonchi Abdomen: Soft, nontender. Bowel sound are present. Extremities: Has edema, with hypoxic pigmentation of both lower extremities stasis dermatitis Neuro: Alert oriented Oriented x3. No focal sensory or motor deficit. Skin: No rashes or hyperpigmented spots Musculoskeletal system: No joint pain or swelling Hematological: No petechia or subcutanous hemorrhages. Immunological: No multiple septic spots on the skin Lymphatic: No generalized lymphadenopathy Psychiatry: Euthymic. Calm. - Constitutional Vitals: Vital Signs - 12hr 09/13/18 09/13/18 09/13/18 03:05 07:43 08:41 Temperature 98.0 F 98.7 F Pulse Rate 85 83 Pulse Rate [ 83 Radial] Respiratory 18 20 20 Rate Blood Pressure 155/75 142/66 O2 Sat by Pulse 94 96 96 Oximetry - Labs CBC & Chem 7: 09/13/18 07:00 09/13/18 07:00 Labs: Abnormal lab results 09/12/18 09/12/18 09/13/18 Range/Units 11:39 11:39 07:00 RBC 3.36 L (3.65-5.03) M/mm3 Hgb 9.6 L (10.1-14.3) gm/dl Hct 28.5 L (30.3-42.9) % Eos % (Auto) 6.1 H (0.0-4.3) % Lymph # 1.1 L (1.2-5.4) K/mm3 Seg Neutrophils % (40.0-70.0) % Chloride 60.0 L (98-107) mmol/L Creatinine 1.4 H 1.4 H (0.7-1.2) mg/dL 09/13/18 Range/Units 07:00 RBC 3.32 L (3.65-5.03) M/mm3 Hgb 9.5 L (10.1-14.3) gm/dl Hct 28.4 L (30.3-42.9) % Eos % (Auto) 6.0 H (0.0-4.3) % Lymph # 0.9 L (1.2-5.4) K/mm3 Seg Neutrophils % 70.1 H (40.0-70.0) % Chloride (98-107) mmol/L Creatinine (0.7-1.2) mg/dL
[2018-09-13] MEDS: MACROBID PO SCH ×2 (12:53→23:15)
[2018-09-13] MEDS: PROTONIX IV SCH (12:53)
[2018-09-13] MEDS: PEPCID PO SCH (12:54)
[2018-09-13] MEDS: PLAQUENIL PO SCH ×2 (12:54→22:45)
[2018-09-13] MEDS: ELIQUIS PO SCH ×2 (12:54→22:48)
[2018-09-13] MEDS: SODIUM CHLORIDE FLUSH SYRINGE 10 ML IV SCH ×2 (12:55→22:52)
--- NOTE | 2018-09-13 19:25 | Gastroenterology Progress Note ---
Assessment and Plan - Patient Problems (1) Intractable nausea and vomiting Current Visit: Yes Status: Acute Plan to address problem: - No response to PPI, and EGD negative (colon/EGD negative [address] (- ) bowel obstruction, and HIDA negative. - Will send troponin; consider head CT given head CT if no better by tomorrow. - Continue current medical therapy. Subjective Date of service: 09/13/18 Principal diagnosis: N/V Interval history: The patient is back from HIDA scan (prelim is normal). She is attempting a liquid diet. Denies severe pain, just Nausea. No blood in stools. Objective - Constitutional Vitals: Temp Pulse Resp BP Pulse Ox 98.7 F 79 20 157/78 95 09/13/18 07:43 09/13/18 13:13 09/13/18 10:00 09/13/18 13:13 09/13/18 13:13 General appearance: no acute distress - Respiratory Respiratory effort: normal Respiratory: bilateral: CTA - Cardiovascular Rhythm: regular Heart Sounds: Present: S1 & S2 - Gastrointestinal General gastrointestinal: Present: soft, non-tender, non-distended - Labs CBC & Chem 7: 09/13/18 07:00 09/13/18 07:00 Labs: Laboratory Results - last 24 hr 09/12/18 09/12/18 09/13/18 21:25 21:26 07:00 WBC RBC Hgb Hct MCV MCH MCHC RDW Plt Count Lymph % (Auto) [place] % (Auto) Eos % (Auto) Baso % (Auto) Lymph # [place] # Eos # Baso # Seg Neutrophils % Seg Neutrophils # Sodium 140 Potassium 4.3 Chloride 60.0 L Carbon Dioxide 22 Anion Gap 16 BUN 7 Creatinine 1.4 H Estimated GFR > 60 BUN/Creatinine Ratio 5 Glucose 68 Osmolality 283 Uric Acid 4.3 Calcium 9.9 09/13/18 07:00 WBC 5.2 RBC 3.32 L Hgb 9.5 L Hct 28.4 L MCV 86 MCH 29 MCHC 33 RDW 14.8 Plt Count 165 Lymph % (Auto) 17.2 [place] % (Auto) 6.2 Eos % (Auto) 6.0 H Baso % (Auto) 0.5 Lymph # 0.9 L [place] # 0.3 Eos # 0.3 Baso # 0.0 Seg Neutrophils % 70.1 H Seg Neutrophils # 3.6 Sodium Potassium Chloride Carbon Dioxide Anion Gap BUN Creatinine Estimated GFR BUN/Creatinine Ratio Glucose Osmolality Uric Acid Calcium
[2018-09-13] MEDS: ATARAX PO SCH (22:46)
--- NOTE | 2018-09-14 01:43 | Nuclear Medicine Report ---
PROCEDURE: NM HEPATOBILIARY WO CCK TECHNIQUE: Gamma camera images of the upper abdomen, including the hepatobiliary ductal system and g allbladder, were obtained after the IV injection of 5.4 mCi Tc-99m Choletec. Quantitative measurement of gallbladder function was obtained after the 120 minute scan, 8 ounce medial was ingested and the ejection fraction was measured. Injection site: RIGHT antecubital fossa. HISTORY: intractable N/V COMPARISONS: No relevant imaging study of the anatomical region(s) in question is available, or known to exist, for comparison . FINDINGS: Hepatic extraction: Normal . Liver size/shape: Normal . Gallbladder visualization: Gallbladder was visualized on the 2 hour scan. Biliary to bowel transit: Prompt excretion into the small bowel Gallbladder Ejection Fraction after meal ingestion: 48% percent. (Normal range is greater than or eq ual to 38 ) IMPRESSION: There is slightly delayed visualization of the gallbladder on the two-hour scan. The gallbladder ejection fraction of 48% is normal . This document is electronically signed by Vicenta Zurita DO., September 14 2018 01:41:28 AM ET
[2018-09-14] MEDS: SYNTHROID PO SCH (07:34)
[2018-09-14] MEDS: NACL 0.9% 1000 ML 1,000 ML IV SCH ×2 (07:35→18:09)
[2018-09-14] MEDS: NEURONTIN PO SCH ×3 (07:35→22:34)
[2018-09-14 08:15] LABS: Eosinophils # (Auto) 0.2 K/mm3 (0.0-0.4); Eosinophils % (Auto) 5.6 % (0.0-4.3); Monocytes # (Auto) 0.2 K/mm3 (0.0-0.8); Monocytes % (Auto) 6.4 % (0.0-7.3)
[2018-09-14 08:33] LABS: Calcium 10.4 mg/dL (8.4-10.2)
[2018-09-14 09:05] LABS: Basophils % (Auto) 1.8 % (0.0-1.8); Hematocrit 31.4 % (30.3-42.9); Hemoglobin 10.6 gm/dl (10.1-14.3); Lymphocytes # (Auto) 1.1 K/mm3 (1.2-5.4); Lymphocytes % (Auto) 21.2 % (13.4-35.0); Mean Corpuscular HGB Conc 34 % (30-34); Mean Corpuscular Volume 85 fl (79-97); Red Blood Count 3.71 M/mm3 (3.65-5.03); Red Cell Distribution Width 14.5 % (13.2-15.2)
--- NOTE | 2018-09-14 09:29 | Progress Note ---
Assessment and Plan - Intractible nausea and vomiting EGD done 09/12/2021 was unremarkable for any stenosis at iloe-gastric anastomosis site following Billroth 11 surgery HIDA scan 09/13/[address] headd on admission was normal Continue with scheduled Zofran 8 mg and Phernegan scheduled GI input appreciated - UTI Urine Cx grew E. faecalis resistant to Levaquim but sensitive to Nitriofuradantion. Commence Microbid -Mild left Ureteric hydronephrosis with ureteric alculi - Falling off the Urethra. Removed 09/11/18 CT abdomen and pelvis showed left UVJ 5.8mm and 4mm distal ureteric calculi Urology consulted. Discussed with Dr. Arvizu. for stent placement today - Headache CT head was unremarkable iv morphine - H/o Breast cancer stable s/p mastectomy and chemotx -Hypokalemia Corrected - History of DVT/PE Continue Eliquis -History of asthma Continue bronchodilators - Venous stasis dermatitis both LEs elevation of feet -DVT ppx:On Eliquis Pt is full code Time spent : 35 mins in direct pt care, review of past medical records, as well as laboratory data - Patient Problems (1) Left ureteral calculus Current Visit: Yes Status: Acute (2) LARRY (acute kidney injury) Current Visit: Yes Status: Acute (3) Abdominal pain Current Visit: Yes Status: Acute (4) Hydronephrosis Current Visit: Yes Status: Acute (5) Nausea and vomiting Current Visit: Yes Status: Acute Subjective Date of service: 09/14/18 Principal diagnosis: N/V Interval history: Still having Nausea and vomiting. Unable to keep any food down. An EGD 09/12/2018. HIDA scan normal. Objective - Exam Narrative Exam: Constitutional: Well-nourished well-developed. In no distress Head: Normocephalic atraumatic Eyes: Pupils are equal round and reactive to light Nose: No enlarged turbinates, no septal deviation. Mouth: Moist mucous membranes. Neck: Supple no thyromegaly. No bruit. No JVD Heart: Regular rate and rhythm, S1-S2 normal. No rubs murmurs or gallop Lungs: Clear to auscultation bilaterally. no rales or rhonchi Abdomen: Soft, nontender. Bowel sound are present. Extremities: Has edema, with hypoxic pigmentation of both lower extremities stasis dermatitis Neuro: Alert oriented Oriented x3. No focal sensory or motor deficit. Skin: No rashes or hyperpigmented spots Musculoskeletal system: No joint pain or swelling Hematological: No petechia or subcutanous hemorrhages. Immunological: No multiple septic spots on the skin Lymphatic: No generalized lymphadenopathy Psychiatry: Euthymic. Calm. - Constitutional Vitals: Vital Signs - 12hr 09/14/18 09/14/18 09/14/18 02:20 02:45 08:21 Temperature 98.6 F 98.6 F Pulse Rate 80 77 Pulse Rate [ Radial] Respiratory 20 18 Rate Blood Pressure 140/66 154/81 O2 Sat by Pulse 95 93 Oximetry 09/14/18 09/14/18 08:22 08:58 Temperature Pulse Rate 76 Pulse Rate [ 77 Radial] Respiratory 18 Rate Blood Pressure O2 Sat by Pulse 94 93 Oximetry - Labs CBC & Chem 7: 09/14/18 07:20 09/14/18 07:20 Labs: Abnormal lab results 09/14/18 09/14/18 Range/Units 07:20 07:20 Eos % (Auto) 5.6 H (0.0-4.3) % Lymph # 1.1 L (1.2-5.4) K/mm3 Chloride 108.3 H (98-107) mmol/L Carbon Dioxide 20 L (22-30) mmol/L Creatinine 1.4 H (0.7-1.2) mg/dL Calcium 10.4 H (8.4-10.2) mg/dL
[2018-09-14] MEDS: MACROBID PO SCH ×2 (09:32→22:40)
[2018-09-14] MEDS: PROTONIX IV SCH (09:32)
[2018-09-14] MEDS: PLAQUENIL PO SCH ×2 (09:32→22:40)
[2018-09-14] MEDS: ELIQUIS PO SCH ×2 (09:32→22:40)
[2018-09-14] MEDS: SODIUM CHLORIDE FLUSH SYRINGE 10 ML IV SCH ×2 (09:33→22:41)
[2018-09-14 09:56] LABS: Mean Platelet Volume 9.7 fl (6-12); Platelet Count 148 K/mm3 (140-440)
--- NOTE | 2018-09-14 10:21 | Gastroenterology Progress Note ---
Assessment and Plan - Patient Problems (1) Intractable nausea and vomiting Current Visit: Yes Status: Acute Plan to address problem: - No response to PPI, and EGD negative (colon/EGD negative [address] (- ) bowel obstruction, and HIDA mildly abnormal (US, small polyp in GB). - Head CT negative; will order brain MRI to r/o small basal ganglia CVA. - Given the suprapubic pain, will repeat the CT of the abd/pelvis. - Will d/c rectal phenergan, and use zofran PRN only. - If above imaging negative, will consult surgery for possible cholecystectomy. Subjective Date of service: 09/14/18 Principal diagnosis: N/V Interval history: The patient is tolerating some clears today, but still feels nauseated. However, she has no RUQ pain, only pain in the suprapubic area where her kidney stone was. She has had no fevers or chills, and denies CP or SOB. No blood in the stools. Objective - Constitutional Vitals: Temp Pulse Resp BP Pulse Ox 98.6 F 77 18 154/81 93 09/14/18 08:21 09/14/18 08:58 09/14/18 08:58 09/14/18 08:21 09/14/18 08:58 General appearance: no acute distress - Respiratory Respiratory effort: normal Respiratory: bilateral: CTA - Cardiovascular Rhythm: regular Heart Sounds: Present: S1 & S2 - Gastrointestinal General gastrointestinal: Present: soft, tender (Suprapubic with some mild guarding; no RUQ pain), non-distended - Labs CBC & Chem 7: 09/14/18 07:20 09/14/18 07:20 Labs: Laboratory Results - last 24 hr 09/14/18 09/14/18 09/14/18 07:20 07:20 07:20 WBC 5.4 RBC 3.71 Hgb 10.6 Hct 31.4 MCV 85 MCH 29 MCHC 34 RDW 14.5 Plt Count 148 Lymph % (Auto) 21.2 [place] % (Auto) 6.4 Eos % (Auto) 5.6 H Baso % (Auto) 1.8 Lymph # 1.1 L [place] # 0.2 Eos # 0.2 Baso # 0.0 Seg Neutrophils % 67.3 Seg Neutrophils # 2.0 Sodium 141 Potassium 3.9 Chloride 108.3 H Carbon Dioxide 20 L Anion Gap 17 BUN 7 Creatinine 1.4 H Estimated GFR 45 BUN/Creatinine Ratio 5 Glucose 80 Calcium 10.4 H Troponin T < 0.010
--- NOTE | 2018-09-14 10:59 | Progress Note ---
Subjective Principal diagnosis: N/V Interval history: Patient was seen today for follow-up on multiple renal related issues Events of this hospitalization noted Status post upper endoscopy Ultrasonogram shows no evidence of obstructive uropathy anymore Patient denies having any chest pain pressure or shortness of breath Vitals labs intake output medications were reviewed Social history: Reviewed Allergies: Reviewed Family history: Reviewed Physical examination HEENT: Oral mucosa moist no pallor or icterus Neck: Supple no JVD Chest: Clear to auscultation anteriorly CVS: Regular rate and rhythm S1 and S2 heard Abdomen: Soft nontender no suprapubic masses no organomegaly appreciable Extremity: Dry skin less than 1+ peripheral edema Musculoskeletal: No joint effusion noted in knees and ankle Neurological: Alert awake Dermatology: No petechial rashes Psychiatry: No evidence of any agitation and aggression noted Assessment and plan; Renal function currently stable creatinine is around 1.4, continue to monitor avoid any form of nephrotoxic medications September 11 patient's ultrasound does not show any evidence of obstructive uropathy Status post upper endoscopy due to nausea and vomiting patient needs to follow- up with gastroenterology services She does have history of partial gastrectomy with Billroth II surgery She has also been placed on Macrobid Hypokalemia had improved last potassium was 4.2 Obstructive uropathy kidney stone status post intervention needs follow-up with urology Multiple underlying comorbidities including DVT, pulmonary embolism, GI bleed, history of peptic ulcer disease, breast cancer, hypothyroidism, obstructive uropathy status post ureteroscopy and stent placement Patient was adequately counseled and educated regarding multiple renal related issues Pertinent lab findings were discussed with patient and patient does exhibit good understanding of renal issues. We'll continue to follow and make recommendation from renal standpoint Objective - Vital Signs Vital signs: Vital Signs - 12hr 09/14/18 09/14/18 09/14/18 02:20 02:45 08:21 Temperature 98.6 F 98.6 F Pulse Rate 80 77 Pulse Rate [ Radial] Respiratory 20 18 Rate Blood Pressure 140/66 154/81 O2 Sat by Pulse 95 93 Oximetry 09/14/18 09/14/18 08:22 08:58 Temperature Pulse Rate 76 Pulse Rate [ 77 Radial] Respiratory 18 Rate Blood Pressure O2 Sat by Pulse 94 93 Oximetry - Lab 09/14/18 07:20 09/14/18 07:20 Most recent lab results Calcium 10.4 mg/dL (8.4-10.2) H 09/14/18 07:20 Phosphorus 3.30 mg/dL (2.5-4.5) 09/02/18 04:57 Magnesium 1.50 mg/dL (1.7-2.3) L 09/03/18 11:03 83.3 mg/dL (0.1-20.0) H 09/02/18 18:30 110 mmol/L 09/02/18 18:30 Medications & Allergies - Medications Allergies/Adverse Reactions: Allergies chocolate flavor Allergy (Severe, Verified 07/01/13 17:15) Rash corn [[place]] Allergy (Severe, Verified 07/01/13 17:15) Rash egg Allergy (Severe, Verified 07/01/13 17:15) Rash Penicillins Allergy (Severe, Verified 07/01/13 17:15) SWELLING,HIVES shellfish derived Allergy (Severe, Verified 07/01/13 17:15) Rash wheat Allergy (Severe, Verified 07/01/13 17:15) Rash milk Allergy (Verified 09/04/18 17:55) Rash peanut Allergy (Verified 09/04/18 17:54) Rash PT STATES HER MOUTH SWELLS WITH PEANUTS AND BEANS BUTTER BEANS Allergy (Severe, Uncoded 07/01/13 17:15) Rash CHEESE Allergy (Severe, Uncoded 07/01/13 17:15) Rash POND BEANS Allergy (Severe, Uncoded 07/01/13 17:15) Rash Home Medications: Home Medications Medication Instructions Recorded Confirmed Last Taken Type Atorvastatin [Lipitor] 80 mg PO QHS 07/01/13 09/02/18 09/01/18 22:00 History 80mg Hydroxychloroquine [Plaquenil] 200 mg PO BID 07/01/13 09/02/18 09/01/18 22:00 History 200mg ALBUTEROL NEB's [Proventil 0.083% 2.5 mg IH TID PRN 04/22/17 09/02/18 08/01/18 10:00 History NEBS] 2.5mg Apixaban [Eliquis] 5 mg PO BID 04/22/17 09/02/18 09/01/18 22:00 History 5mg Gabapentin [Neurontin] 300 mg PO TID 04/22/17 09/02/18 09/01/18 10:00 History 300mg Hydroxyzine HCl [hydrOXYzine] 50 mg PO QHS 04/22/17 09/02/18 08/25/18 22:00 History 200mg predniSONE [Deltasone] 5 mg PO PRN PRN 04/22/17 09/02/18 09/01/18 10:00 History 5mg Levothyroxine [Synthroid] 100 mcg PO DAILY@0600 #30 tablet 09/08/18 Unknown Rx Lisinopril [Zestril TAB] 10 mg PO DAILY #30 tablet 09/08/18 Unknown Rx Ondansetron (Nf) [Zofran TAB] 8 mg PO Q8HR PRN #30 tablet 09/08/18 Unknown Rx Pantoprazole [Protonix TAB] 40 mg PO DAILY #30 tablet 09/08/18 Unknown Rx Promethazine [Phenergan SUPPOS] 12.5 mg MN Q6H PRN #30 supp.rect 09/08/18 Unknown Rx Sodium Bicarbonate 75 meq IV DIRECT #5 vial 09/08/18 Unknown Rx levoFLOXacin [Levaquin TAB] 250 mg PO Q24HR #3 tablet 09/08/18 Unknown Rx traMADol [Ultram 50 MG tab] 50 mg PO DAILY PRN #20 tablet 09/08/18 Unknown Rx Active Medications: Generic Name Dose Route Start Last Admin Trade Name Freq PRN Reason Stop Dose Admin Albuterol 2.5 mg 09/01/18 21:07 Proventil IH TIDRT PRN Wheezing Apixaban 5 mg 09/01/18 22:00 09/14/18 09:32 Eliquis PO 5 mg BID ADELE Administration Protocol Atorvastatin Calcium 80 mg 09/01/18 22:00 09/13/18 22:46 Lipitor PO 40 mg QHS ADELE Administration Gabapentin 300 mg 09/02/18 08:00 09/14/18 07:35 Neurontin PO 300 mg TID ADELE Administration Hydroxychloroquine Sulfate 200 mg 09/01/18 22:00 09/14/18 09:32 Plaquenil PO 200 mg BID ADELE Administration Hydroxyzine HCl 50 mg 09/01/18 22:00 09/13/18 22:46 Atarax PO 50 mg QHS ADELE Administration Sodium Chloride 1,000 mls @ 100 mls/hr 09/12/18 16:00 09/12/18 15:43 Nacl 0.9% 1000 Ml IV 50 mls/hr DIRECT ADELE Administration Levothyroxine Sodium 100 mcg 09/02/18 06:00 09/14/18 07:34 Synthroid PO 100 mcg DAILY@0600 ADELE Administration Morphine Sulfate 2 mg 09/01/18 19:48 09/12/18 13:44 Morphine IV 2 mg Q6H PRN Administration Pain, Moderate (4-6) Nitrofurantoin Macrocrystals 100 mg 09/11/18 10:00 09/14/18 09:32 Macrobid PO 09/17/18 22:01 100 mg Q12HR ADELE Administration Ondansetron HCl 8 mg 09/10/18 20:00 09/13/18 23:05 Zofran IV 8 mg Q8H ADELE Administration Pantoprazole Sodium 40 mg 09/11/18 12:00 09/14/18 09:32 Protonix IV 40 mg QDAY ADELE Administration Sodium Chloride 10 ml 09/01/18 22:00 09/14/18 09:33 Sodium Chloride Flush Syringe 10 Ml IV 10 ml BID ADELE Administration Sodium Chloride 10 ml 09/01/18 14:36 09/12/18 13:44 Sodium Chloride Flush Syringe 10 Ml IV 10 ml PRN PRN Administration LINE FLUSH Tramadol HCl 50 mg 09/01/18 21:07 09/08/18 08:25 Ultram PO 50 mg Q6HR PRN Administration Pain
[2018-09-14] MEDS: ZOFRAN IV SCH ×3 (12:36→22:29)
--- NOTE | 2018-09-14 16:48 | Cat Scan Report ---
PROCEDURE: CT ABDOMEN W CON TECHNIQUE: Computerized axial tomography of the abdomen was performed following the IV injection of iodinated nonionic contrast. CT DOSE LENGTH PRODUCT: 2165.6 MGycm HISTORY: abdominal pain COMPARISONS: 01/02/2017 . FINDINGS: Bilateral breast implants are present. Visualized lower thorax: Bilateral lung base bronchiectasis. Small layering right pleural effusion. Liver: Calcified granuloma is seen near the gallbladder fossa. Spleen: Normal size and attenuation. Gallbladder and biliary system: Gallbladder is present. Pancreas: Normal. Adrenals: Normal. Kidneys: Bilateral renal cysts. Largest is in the left kidney, measuring up to 4.6 cm. No hydronephro sis bilaterally. Bilateral nonobstructing renal calculi. Largest right renal calculus is in the right kidney lower pole, measuring up to 1 cm. 14 mm calculus is seen in the left kidney lower pole. GI tract: No bowel obstruction or inflammation . Small hiatal hernia. Lymph nodes and mesentery: Normal. Vasculature: Bilateral common iliac vein stents are present. Peritoneum: No free fluid. Musculoskeletal structures: Postsurgical changes in the lower lumbar spine. Other: None. IMPRESSION: Bilateral nonobstructing renal calculi. No hydronephrosis or ureteral calculi. No acute inflammatory process is seen Small hiatal hernia This document is electronically signed by Mima Molina MD., September 14 2018 04:46:21 PM ET
[2018-09-14] MEDS: MORPHINE IV PRN (22:38)
[2018-09-14] MEDS: ATARAX PO SCH (22:40)
[2018-09-14] MEDS: PHENERGAN PR SCH (22:49)
[2018-09-15] MEDS: ZOFRAN IV SCH ×3 (04:59→22:30)
[2018-09-15] MEDS: SYNTHROID PO SCH (05:20)
--- NOTE | 2018-09-15 07:39 | Progress Note ---
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 These are associated with constant headache for the past 10 days as well as nausea and vomiting. Vomitus was predominantly gastric contents. No blood. Denies any melena. Denies any fever or chest pain. Had an iliac and left femoral artery stents placed about a month ago. Headache is generalized, 7/10 in severity. Denies any blood vision, photophobia or phonophobia. Has no syncopy however unable to ambulate without assistance because of weakness and dizziness. A direct admission to the hospital was therefore ordered for further evaluation and management. Initial biochemistry showed BUN of 32 and creatinine of 2.7. BUN as at 01/2018 was 15 with creatinine of 1.0. Platelet was 132. CT scan of abdomen and pelvis showed left hydroureter with a 5.8 mm stone in UVPof the the left ureter. And 4 mm stone at the distal left ureter. Urology consult was obtained. Since his cystoscopy was done. Stone was removed. Ureteric stent placed. He was then fell out 4 days after down to the urethral opening. This was removed. Patient still having intractable nausea vomiting. GI consult obtained. EGD was done. Findings were unremarkable. HIDA scan was done. Mildly dysfunctional gallbladder identified weeks, polyps. Surgical consult obtained. - Intractible nausea and vomiting EGD done 09/12/2021 was unremarkable for any stenosis at iloe-gastric anastomosis site following Billroth 11 surgery HIDA scan 09/13/18 showed mildly abnormal gallbladder with a positive. CT headd on admission was normal Continue with scheduled Zofran 8 mg and Phernegan scheduled GI input appreciated - Gallbladder dyskinesia- minute HIDA scan. Also gallbladder polyp identified Surgical consult - UTI Urine Cx grew E. faecalis resistant to Levaquim but sensitive to Nitriofuradantion. Commence Microbid -Mild left Ureteric hydronephrosis with ureteric alculi - Falling off the Uret hra. Removed 09/11/18 CT abdomen and pelvis showed left UVJ 5.8mm and 4mm distal ureteric calculi Urology consulted. Discussed with Dr. Arvizu. for stent placement today - Headache CT head was unremarkable iv morphine - H/o Breast cancer stable s/p mastectomy and chemotx -Hypokalemia Corrected - History of DVT/PE Continue Eliquis -History of asthma Continue bronchodilators - Venous stasis dermatitis both LEs elevation of feet -DVT ppx:On Eliquis Pt is full code Time spent : 35 mins in direct pt care, review of past medical records, as well as laboratory data - Patient Problems (1) Left ureteral calculus Current Visit: Yes Status: Acute (2) LARRY (acute kidney injury) Current Visit: Yes Status: Acute (3) Abdominal pain Current Visit: Yes Status: Acute (4) Hydronephrosis Current Visit: Yes Status: Acute (5) Nausea and vomiting Current Visit: Yes Status: Acute Subjective Date of service: 09/15/18 Principal diagnosis: intractable N/V, acute renal failure, left hydroureter with stone Interval history: Still having Nausea and vomiting. Unable to keep any food down. An EGD 09/12/2018. HIDA scan Objective - Exam Narrative Exam: Constitutional: Well-nourished well-developed. In no distress Head: Normocephalic atraumatic Eyes: Pupils are equal round and reactive to light Nose: No enlarged turbinates, no septal deviation. Mouth: Moist mucous membranes. Neck: Supple no thyromegaly. No bruit. No JVD Heart: Regular rate and rhythm, S1-S2 normal. No rubs murmurs or gallop Lungs: Clear to auscultation bilaterally. no rales or rhonchi Abdomen: Soft, nontender. Bowel sound are present. Extremities: Has edema, with hypoxic pigmentation of both lower extremities stasis dermatitis Neuro: Alert oriented Oriented x3. No focal sensory or motor deficit. Skin: No rashes or hyperpigmented spots Musculoskeletal system: No joint pain or swelling Hematological: No petechia or subcutanous hemorrhages. Immunological: No multiple septic spots on the skin Lymphatic: No generalized lymphadenopathy Psychiatry: Euthymic. Calm. - Constitutional Vitals: Vital Signs - 12hr 09/14/18 09/14/18 09/14/18 20:07 22:30 22:35 Temperature 97.9 F Pulse Rate 69 Respiratory 18 20 Rate Respiratory 20 Rate [Head] Blood Pressure 145/64 O2 Sat by Pulse 96 96 Oximetry 06/23/19 06/23/19 06/24/19 22:38 23:08 01:50 Temperature 98.3 F Pulse Rate 69 Respiratory 20 16 16 Rate Respiratory Rate [Head] Blood Pressure 132/57 O2 Sat by Pulse 96 Oximetry - Labs CBC & Chem 7: 09/14/18 07:20 09/14/18 07:20 Labs: Abnormal lab results 09/14/18 09/14/18 Range/Units 07:20 07:20 Eos % (Auto) 5.6 H (0.0-4.3) % Lymph # 1.1 L (1.2-5.4) K/mm3 Chloride 108.3 H (98-107) mmol/L Carbon Dioxide 20 L (22-30) mmol/L Creatinine 1.4 H (0.7-1.2) mg/dL Calcium 10.4 H (8.4-10.2) mg/dL
[2018-09-15 08:51] LABS: Basophils % (Auto) 0.6 % (0.0-1.8); Eosinophils # (Auto) 0.3 K/mm3 (0.0-0.4); Eosinophils % (Auto) 7.2 % (0.0-4.3); Hematocrit 27.7 % (30.3-42.9); Hemoglobin 9.3 gm/dl (10.1-14.3); Lymphocytes # (Auto) 0.9 K/mm3 (1.2-5.4); Mean Corpuscular HGB Conc 34 % (30-34); Mean Corpuscular Volume 84 fl (79-97); Monocytes # (Auto) 0.3 K/mm3 (0.0-0.8); Monocytes % (Auto) 6.9 % (0.0-7.3); Platelet Count 170 K/mm3 (140-440); Red Blood Count 3.28 M/mm3 (3.65-5.03); Red Cell Distribution Width 14.5 % (13.2-15.2)
[2018-09-15 09:07] LABS: Albumin 2.7 g/dL (3.9-5); Calcium 9.1 mg/dL (8.4-10.2)
[2018-09-15 10:13] LABS: Calcium 9.5 mg/dL (8.4-10.2)
[2018-09-15] MEDS: SODIUM CHLORIDE FLUSH SYRINGE 10 ML IV SCH ×2 (10:15→22:30)
[2018-09-15] MEDS: NEURONTIN PO SCH ×3 (10:15→22:29)
[2018-09-15] MEDS: PROTONIX IV SCH (10:15)
[2018-09-15] MEDS: ELIQUIS PO SCH ×2 (10:15→22:29)
[2018-09-15] MEDS: PLAQUENIL PO SCH ×2 (10:15→22:29)
[2018-09-15] MEDS: MACROBID PO SCH ×2 (10:16→22:29)
--- NOTE | 2018-09-15 10:41 | Gastroenterology Progress Note ---
Assessment and Plan 1.intractable N/V 2.H/o PUD (s/p partial gastrectomy) -afebrile -H/H stable- no active signs of bleeding -LFTs WNL -abd U/S 09/02 showed small GB polyp but no cholelithiasis or biliary dilatation -abd CT x 2 negative for bowel obstruction -HIDA mildly abnormal -Head CT negative -EGD 09/12 with normal post-surgical anatomy (no ulcer or GOO; colon/EGD negative 2016 as well) -clinically, patient reports N/V slightly improved this am with no episodes of vomiting so far. Tolerated clears for breakfast. -MRI brain pending to r/o small basal ganglia CVA -recommend surgery consult for possible CCY -continue supportive care -will follow Subjective Date of service: 09/15/18 Principal diagnosis: intractable N/V Interval history: Patient sitting on the side of the bed this am w/o acute distress. Reports N/V and abd pain slightly improved with no episodes of vomiting so far today. Tolerated clears for breakfast. Objective - Constitutional Vitals: Temp Pulse Resp BP Pulse Ox 98.0 F 78 18 117/60 94 09/15/18 07:59 09/15/18 07:59 09/15/18 07:59 09/15/18 07:59 09/15/18 07:59 General appearance: no acute distress - Respiratory Respiratory effort: normal - Cardiovascular Rhythm: regular - Gastrointestinal General gastrointestinal: Present: soft, tender (slight TTP), non-distended, normal bowel sounds - Neurologic Neurological: alert and oriented x3 - Labs CBC & Chem 7: 09/15/18 08:31 09/15/18 09:30 Labs: Laboratory Results - last 24 hr 09/15/18 09/15/18 09/15/18 08:31 08:31 09:30 WBC 4.7 RBC 3.28 L Hgb 9.3 L Hct 27.7 L MCV 84 MCH 28 MCHC 34 RDW 14.5 Plt Count 170 Lymph % (Auto) 19.0 [place] % (Auto) 6.9 Eos % (Auto) 7.2 H Baso % (Auto) 0.6 Lymph # 0.9 L [place] # 0.3 Eos # 0.3 Baso # 0.0 Seg Neutrophils % 66.3 Seg Neutrophils # 3.1 Sodium 141 142 Potassium 4.2 3.9 Chloride 108.9 H 107.4 H Carbon Dioxide 21 L 23 Anion Gap 15 16 BUN 4 L 4 L Creatinine 1.5 H 1.5 H Estimated GFR 41 41 BUN/Creatinine Ratio 3 3 Glucose 81 82 Calcium 9.1 9.5 Total Bilirubin 0.40 AST 26 ALT 8 Alkaline Phosphatase 63 Total Protein 6.1 L Albumin 2.7 L Albumin/Globulin Ratio 0.8 Lipase 29
--- NOTE | 2018-09-15 12:26 | Magnetic Resonance Report ---
MRI BRAIN WITH/WITHOUT CONTRAST: History: Persistent nausea, history of small vessel disease Technique: Multiple T1 and T2 weighted images were obtained in multiple planes. Axial diffusion and gradient imaging was performed. Post contrast T1 images in two planes were obtained following IV gadolinium. Findings: Compared to the CT head dated 09/02/18. MRI also demonstrates mild diffuse cortical volume loss and mild nonspecific chronic white matter changes most consistent with chronic small vessel disease. The remaining brain parenchyma is within normal limits. No diffusion restriction, hemorrhage, mass effect or extra-axial fluid collection. Ventricular size is normal and symmetric. The basal cisterns are clear. The brainstem and cerebellar hemispheres are within normal limits. The fourth ventricle is midline. The paranasal sinuses and mastoid air cells are well aerated. Normal flow voids are identified in the appropriate vessels at the [place]. No abnormal enhancement is identified following IV gadolinium. Impression: Mild volume loss and nonspecific chronic white matter changes. No acute process or abnormal enhancement is identified.
[2018-09-15] MEDS: SODIUM CHLORIDE FLUSH SYRINGE 10 ML IV PRN (14:26)
[2018-09-15] MEDS: NACL 0.9% 1000 ML 1,000 ML IV SCH (17:22)
--- NOTE | 2018-09-15 18:27 | Progress Note ---
Assessment and Plan - Patient Problems (1) LARRY (acute kidney injury) Current Visit: Yes Status: Acute Plan to address problem: Acute kidney injury: Stable current creatinine : 1.5mg/dl baseline creatinine : 0.9mg/dl recent hydronephrosis with left ureteral stone s/p stent placement , stent removed as was hanging out yesterday Renal ultrasound did not show any new hydronephrosis . Renal function is remaining about the same s/p CT with iv contrast continue IVF today. (2) Left ureteral calculus Current Visit: Yes Status: Acute Plan to address problem: Left ureteral calculus s/p stone removal , stent placement now removed repeat ultrasound without worsening hydronephrosis. urology follow up. (3) Nausea and vomiting Current Visit: Yes Status: Acute Plan to address problem: Nausea /vomitting - continue antiemetics. (4) HTN (hypertension) Current Visit: Yes Status: Chronic Qualifiers: Hypertension type: essential hypertension Qualified Code(s): I10 - Essential (primary) hypertension Plan to address problem: HTN:controlled. continue current medications. Subjective Principal diagnosis: intractable N/V Interval history: 72 year old with medical history signficant for left sided hydronephrosis with acute kidney injury presenting with nausea and vomitting. She was seen today denies orthopnea or PND still has nausea reports good urine output Status post abdominal CT with IV contrast few days ago Objective - Vital Signs Vital signs: Vital Signs - 12hr 09/15/18 09/15/18 07:59 10:00 Temperature 98.0 F Pulse Rate 78 Respiratory 18 Rate Blood Pressure 117/60 O2 Sat by Pulse 94 95 Oximetry - General Appearance General appearance: well-developed, well-nourished EENT: ATNC, PERRL Neck: no JVD Respiratory: Present: Clear to Ascultation Cardiology: regular, S1S2 Gastrointestinal: normal, normoactive bowel sounds Integumentary: no rash Neurologic: alert and oriented x3, CN 3-12 intact Psychiatric: mood/affect appropriate - Lab 09/15/18 08:31 09/15/18 09:30 Most recent lab results Calcium 9.5 mg/dL (8.4-10.2) 09/15/18 09:30 Phosphorus 3.30 mg/dL (2.5-4.5) 09/02/18 04:57 Magnesium 1.50 mg/dL (1.7-2.3) L 09/03/18 11:03 83.3 mg/dL (0.1-20.0) H 09/02/18 18:30 110 mmol/L 09/02/18 18:30 Medications & Allergies - Medications Allergies/Adverse Reactions: Allergies chocolate flavor Allergy (Severe, Verified 07/01/13 17:15) Rash corn [[place]] Allergy (Severe, Verified 07/01/13 17:15) Rash egg Allergy (Severe, Verified 07/01/13 17:15) Rash Penicillins Allergy (Severe, Verified 07/01/13 17:15) SWELLING,HIVES shellfish derived Allergy (Severe, Verified 07/01/13 17:15) Rash wheat Allergy (Severe, Verified 07/01/13 17:15) Rash milk Allergy (Verified 09/04/18 17:55) Rash peanut Allergy (Verified 09/04/18 17:54) Rash PT STATES HER MOUTH SWELLS WITH PEANUTS AND BEANS BUTTER BEANS Allergy (Severe, Uncoded 07/01/13 17:15) Rash CHEESE Allergy (Severe, Uncoded 07/01/13 17:15) Rash POND BEANS Allergy (Severe, Uncoded 07/01/13 17:15) Rash Home Medications: Home Medications Medication Instructions Recorded Confirmed Last Taken Type Atorvastatin [Lipitor] 80 mg PO QHS 07/01/13 09/02/18 09/01/18 22:00 History 80mg Hydroxychloroquine [Plaquenil] 200 mg PO BID 07/01/13 09/02/18 09/01/18 22:00 History 200mg ALBUTEROL NEB's [Proventil 0.083% 2.5 mg IH TID PRN 04/22/17 09/02/18 08/01/18 10:00 History NEBS] 2.5mg Apixaban [Eliquis] 5 mg PO BID 04/22/17 09/02/18 09/01/18 22:00 History 5mg Gabapentin [Neurontin] 300 mg PO TID 04/22/17 09/02/18 09/01/18 10:00 History 300mg Hydroxyzine HCl [hydrOXYzine] 50 mg PO QHS 04/22/17 09/02/18 08/25/18 22:00 History 200mg predniSONE [Deltasone] 5 mg PO PRN PRN 04/22/17 09/02/18 09/01/18 10:00 History 5mg Levothyroxine [Synthroid] 100 mcg PO DAILY@0600 #30 tablet 09/08/18 Unknown Rx Lisinopril [Zestril TAB] 10 mg PO DAILY #30 tablet 09/08/18 Unknown Rx Ondansetron (Nf) [Zofran TAB] 8 mg PO Q8HR PRN #30 tablet 09/08/18 Unknown Rx Pantoprazole [Protonix TAB] 40 mg PO DAILY #30 tablet 09/08/18 Unknown Rx Promethazine [Phenergan SUPPOS] 12.5 mg [place] Q6H PRN #30 supp.rect 09/08/18 Unknown Rx Sodium Bicarbonate 75 meq IV DIRECT #5 vial 09/08/18 Unknown Rx levoFLOXacin [Levaquin TAB] 250 mg PO Q24HR #3 tablet 09/08/18 Unknown Rx traMADol [Ultram 50 MG tab] 50 mg PO DAILY PRN #20 tablet 09/08/18 Unknown Rx Active Medications: Generic Name Dose Route Start Last Admin Trade Name Freq PRN Reason Stop Dose Admin Albuterol 2.5 mg 09/01/18 21:07 Proventil IH TIDRT PRN Wheezing Apixaban 5 mg 09/01/18 22:00 09/15/18 10:15 Eliquis PO 5 mg BID ADELE Administration Protocol Atorvastatin Calcium 80 mg 09/01/18 22:00 09/14/18 22:40 Lipitor PO 80 mg QHS ADELE Administration Gabapentin 300 mg 09/02/18 08:00 09/15/18 14:26 Neurontin PO 300 mg TID ADELE Administration Hydroxychloroquine Sulfate 200 mg 09/01/18 22:00 09/15/18 10:15 Plaquenil PO 200 mg BID ADELE Administration Hydroxyzine HCl 50 mg 09/01/18 22:00 09/14/18 22:40 Atarax PO 50 mg QHS ADELE Administration Sodium Chloride 1,000 mls @ 100 mls/hr 09/12/18 16:00 09/15/18 17:22 Nacl 0.9% 1000 Ml IV 50 mls/hr DIRECT ADELE Administration Levothyroxine Sodium 100 mcg 09/02/18 06:00 09/15/18 05:20 Synthroid PO 100 mcg DAILY@0600 ADELE Administration Morphine Sulfate 2 mg 09/01/18 19:48 09/14/18 22:38 Morphine IV 2 mg Q6H PRN Administration Pain, Moderate (4-6) Nitrofurantoin Macrocrystals 100 mg 09/11/18 10:00 09/15/18 10:16 Macrobid PO 09/17/18 22:01 100 mg Q12HR ADELE Administration Ondansetron HCl 8 mg 09/10/18 20:00 09/15/18 14:26 Zofran IV 8 mg Q8H ADELE Administration Pantoprazole Sodium 40 mg 09/11/18 12:00 09/15/18 10:15 Protonix IV 40 mg QDAY ADELE Administration Sodium Chloride 10 ml 09/01/18 22:00 09/15/18 10:15 Sodium Chloride Flush Syringe 10 Ml IV 10 ml BID ADELE Administration Sodium Chloride 10 ml 09/01/18 14:36 09/15/18 14:26 Sodium Chloride Flush Syringe 10 Ml IV 10 ml PRN PRN Administration LINE FLUSH Tramadol HCl 50 mg 09/01/18 21:07 09/08/18 08:25 Ultram PO 50 mg Q6HR PRN Administration Pain
[2018-09-15] MEDS: ATARAX PO SCH (22:29)
[2018-09-15] MEDS: MORPHINE IV PRN (22:51)
[2018-09-16] MEDS: SYNTHROID PO SCH (05:10)
[2018-09-16] MEDS: ZOFRAN IV SCH ×3 (05:10→22:41)
[2018-09-16] MEDS: NACL 0.9% 1000 ML 1,000 ML IV SCH ×2 (05:11→13:41)
[2018-09-16 06:41] LABS: Calcium 8.9 mg/dL (8.4-10.2)
--- NOTE | 2018-09-16 09:41 | Progress Note ---
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 These are associated with constant headache for the past 10 days as well as nausea and vomiting. Vomitus was predominantly gastric contents. No blood. Denies any melena. Denies any fever or chest pain. Had an iliac and left femoral artery stents placed about a month ago. Headache is generalized, 7/10 in severity. Denies any blood vision, photophobia or phonophobia. Has no syncopy however unable to ambulate without assistance because of weakness and dizziness. A direct admission to the hospital was therefore ordered for further evaluation and management. Initial biochemistry showed BUN of 32 and creatinine of 2.7. BUN as at 01/2018 was 15 with creatinine of 1.0. Platelet was 132. CT scan of abdomen and pelvis showed left hydroureter with a 5.8 mm stone in UVPof the the left ureter. And 4 mm stone at the distal left ureter. Urology consult was obtained. Since his cystoscopy was done. Stone was removed. Ureteric stent placed. He was then fell out 4 days after down to the urethral opening. This was removed. Patient still having intractable nausea vomiting. GI consult obtained. EGD was done. Findings were unremarkable. HIDA scan was done. Mildly dysfunctional gallbladder identified weeks and a , polyp. Surgical consult obtained. - Intractible nausea and vomiting - improved. Nausaed only but no vomiting EGD done 09/12/2021 was unremarkable for any stenosis at ileo-gastric anastomosis site following [facility] 11 surgery HIDA scan 09/13/18 showed mildly abnormal gallbladder with a polyp. CT head on admission was normal MRI of the brain was unremarkable for any acute event Continue with scheduled Zofran 8 mg scheduled. Phernegan d/pedro per Gi re commendation GI input appreciated - Mild Gallbladder dyskinesia- on HIDA scan. Also gallbladder polyp identified Surgical consult - UTI Urine Cx grew E. faecalis resistant to Levaquim but sensitive to Nitriofuradantion. Commence Microbid - LARRY Continue with iv hydration especially following -Mild left Ureteric hydronephrosis with ureteric alculi - Falling off the Urethra. Removed 09/11/18 CT abdomen and pelvis showed left UVJ 5.8mm and 4mm distal ureteric calculi Urology consulted. Discussed with Dr. Arvizu. for stent placement today - Headache CT head was unremarkable iv morphine - H/o Breast cancer stable s/p mastectomy and chemotx -Hypokalemia Corrected - History of DVT/PE Continue Eliquis -History of asthma Continue bronchodilators - Venous stasis dermatitis both LEs elevation of feet -DVT ppx:On Eliquis Pt is full code Time spent : 30 mins in direct pt care, review of past medical records, as well as laboratory data - Discussed with pt and her daughter in the room. Care plan explained. All question answered - Patient Problems (1) Left ureteral calculus Current Visit: Yes Status: Acute (2) LARRY (acute kidney injury) Current Visit: Yes Status: Acute (3) Abdominal pain Current Visit: Yes Status: Acute (4) Hydronephrosis Current Visit: Yes Status: Acute (5) Nausea and vomiting Current Visit: Yes Status: Acute Subjective Date of service: 09/16/18 Principal diagnosis: intractable N/V Interval history: Nauseated but no vomiting. Pt's daughter in the room Objective - Exam Narrative Exam: Constitutional: Well-nourished well-developed. In no distress Head: Normocephalic atraumatic Eyes: Pupils are equal round and reactive to light Nose: No enlarged turbinates, no septal deviation. Mouth: Moist mucous membranes. Neck: Supple no thyromegaly. No bruit. No JVD Heart: Regular rate and rhythm, S1-S2 normal. No rubs murmurs or gallop Lungs: Clear to auscultation bilaterally. no rales or rhonchi Abdomen: Soft, nontender. Bowel sound are present. Extremities: Has edema, with hypoxic pigmentation of both lower extremities stasis dermatitis Neuro: Alert oriented Oriented x3. No focal sensory or motor deficit. Skin: No rashes or hyperpigmented spots Musculoskeletal system: No joint pain or swelling Hematological: No petechia or subcutanous hemorrhages. Immunological: No multiple septic spots on the skin Lymphatic: No generalized lymphadenopathy Psychiatry: Euthymic. Calm. - Constitutional Vitals: Vital Signs - 12hr 09/15/18 09/15/18 09/15/18 22:50 22:51 23:21 Temperature Pulse Rate Respiratory 20 20 20 Rate Respiratory 20 Rate [Head] Blood Pressure Blood Pressure [Right] O2 Sat by Pulse Oximetry 09/16/18 09/16/18 02:00 07:47 Temperature 98 F 99.2 F Pulse Rate 84 90 Respiratory 20 18 Rate Respiratory Rate [Head] Blood Pressure 125/56 Blood Pressure 121/68 [Right] O2 Sat by Pulse 96 96 Oximetry - Labs CBC & Chem 7: 09/15/18 08:31 09/16/18 05:19 Labs: Abnormal lab results 09/15/18 09/16/18 Range/Units 09:30 05:19 Chloride 107.4 H 112.4 H (98-107) mmol/L Carbon Dioxide 21 L (22-30) mmol/L BUN 4 L 5 L (7-17) mg/dL Creatinine 1.5 H 1.6 H (0.7-1.2) mg/dL
[2018-09-16] MEDS: PLAQUENIL PO SCH ×2 (10:19→22:48)
[2018-09-16] MEDS: SODIUM CHLORIDE FLUSH SYRINGE 10 ML IV SCH ×2 (10:20→22:48)
[2018-09-16] MEDS: MACROBID PO SCH ×2 (10:20→22:47)
[2018-09-16] MEDS: NEURONTIN PO SCH ×3 (10:20→22:42)
[2018-09-16] MEDS: ELIQUIS PO SCH ×2 (10:20→22:47)
[2018-09-16] MEDS: PROTONIX PO SCH (10:23)
--- NOTE | 2018-09-16 10:42 | Progress Note ---
Assessment and Plan - Patient Problems (1) LARRY (acute kidney injury) Current Visit: Yes Status: Acute Plan to address problem: Acute kidney injury: current creatinine : 1.6mg/dl baseline creatinine : 0.9mg/dl recent hydronephrosis with left ureteral stone s/p stent placement , stent removed as was hanging out yesterday Renal ultrasound did not show any new hydronephrosis . Renal function is remaining about the same s/p CT with iv contrast Will increase IVF normal saline to 100cc/hr. (2) Left ureteral calculus Current Visit: Yes Status: Acute Plan to address problem: Left ureteral calculus s/p stone removal , stent placement now removed repeat ultrasound without worsening hydronephrosis. urology follow up. (3) Nausea and vomiting Current Visit: Yes Status: Acute Plan to address problem: Nausea /vomitting - continue antiemetics. (4) HTN (hypertension) Current Visit: Yes Status: Chronic Qualifiers: Hypertension type: essential hypertension Qualified Code(s): I10 - Essential (primary) hypertension Plan to address problem: HTN:controlled. continue current medications. Subjective Principal diagnosis: intractable N/V, acute renal failure, left hydroureter with stone Interval history: 72 year old with medical history signficant for left sided hydronephrosis with acute kidney injury presenting with nausea and vomitting. She was seen today denies orthopnea or PND still has nausea reports good urine output Status post abdominal CT with IV contrast few days ago currently on IVF. Objective - Vital Signs Vital signs: Vital Signs - 12hr 09/15/18 09/15/18 09/15/18 22:50 22:51 23:21 Temperature Pulse Rate Respiratory 20 20 20 Rate Respiratory 20 Rate [Head] Blood Pressure Blood Pressure [Right] O2 Sat by Pulse Oximetry 09/16/18 09/16/18 02:00 07:47 Temperature 98 F 99.2 F Pulse Rate 84 90 Respiratory 20 18 Rate Respiratory Rate [Head] Blood Pressure 125/56 Blood Pressure 121/68 [Right] O2 Sat by Pulse 96 96 Oximetry - General Appearance General appearance: well-developed, well-nourished EENT: ATNC, PERRL, mucous membranes moist Neck: no JVD Respiratory: Present: Clear to Ascultation Cardiology: regular, S1S2 Gastrointestinal: normal, normoactive bowel sounds Integumentary: no rash Neurologic: no focal deficit, alert and oriented x3, CN 3-12 intact Psychiatric: mood/affect appropriate - Lab 09/15/18 08:31 09/16/18 05:19 Most recent lab results Calcium 8.9 mg/dL (8.4-10.2) 09/16/18 05:19 Phosphorus 3.30 mg/dL (2.5-4.5) 09/02/18 04:57 Magnesium 1.50 mg/dL (1.7-2.3) L 09/03/18 11:03 83.3 mg/dL (0.1-20.0) H 09/02/18 18:30 110 mmol/L 09/02/18 18:30 - Imaging CT scan - abdomen: other (CT with bilateral non obstructing calculi. ) Medications & Allergies - Medications Allergies/Adverse Reactions: Allergies chocolate flavor Allergy (Severe, Verified 07/01/13 17:15) Rash corn [[place]] Allergy (Severe, Verified 07/01/13 17:15) Rash egg Allergy (Severe, Verified 07/01/13 17:15) Rash Penicillins Allergy (Severe, Verified 07/01/13 17:15) SWELLING,HIVES shellfish derived Allergy (Severe, Verified 07/01/13 17:15) Rash wheat Allergy (Severe, Verified 07/01/13 17:15) Rash milk Allergy (Verified 09/04/18 17:55) Rash peanut Allergy (Verified 09/04/18 17:54) Rash PT STATES HER MOUTH SWELLS WITH PEANUTS AND BEANS BUTTER BEANS Allergy (Severe, Uncoded 07/01/13 17:15) Rash CHEESE Allergy (Severe, Uncoded 07/01/13 17:15) Rash POND BEANS Allergy (Severe, Uncoded 07/01/13 17:15) Rash Home Medications: Home Medications Medication Instructions Recorded Confirmed Last Taken Type Atorvastatin [Lipitor] 80 mg PO QHS 07/01/13 09/02/18 09/01/18 22:00 History 80mg Hydroxychloroquine [Plaquenil] 200 mg PO BID 07/01/13 09/02/18 09/01/18 22:00 Hi story 200mg ALBUTEROL NEB's [Proventil 0.083% 2.5 mg IH TID PRN 04/22/17 09/02/18 08/01/18 1 0:00 History NEBS] 2.5mg Apixaban [Eliquis] 5 mg PO BID 04/22/17 09/02/18 09/01/18 22:00 History 5mg Gabapentin [Neurontin] 300 mg PO TID 04/22/17 09/02/18 09/01/18 10:00 History 300mg Hydroxyzine HCl [hydrOXYzine] 50 mg PO QHS 04/22/17 09/02/18 08/25/18 22:00 History 200mg predniSONE [Deltasone] 5 mg PO PRN PRN 04/22/17 09/02/18 09/01/18 10:00 History 5mg Levothyroxine [Synthroid] 100 mcg PO DAILY@0600 #30 tablet 09/08/18 Unknown Rx Lisinopril [Zestril TAB] 10 mg PO DAILY #30 tablet 09/08/18 Unknown Rx Ondansetron (Nf) [Zofran TAB] 8 mg PO Q8HR PRN #30 tablet 09/08/18 Unknown Rx Pantoprazole [Protonix TAB] 40 mg PO DAILY #30 tablet 09/08/18 Unknown Rx Promethazine [Phenergan SUPPOS] 12.5 mg [place] Q6H PRN #30 supp.rect 09/08/18 Unknown Rx Sodium Bicarbonate 75 meq IV DIRECT #5 vial 09/08/18 Unknown Rx levoFLOXacin [Levaquin TAB] 250 mg PO Q24HR #3 tablet 09/08/18 Unknown Rx traMADol [Ultram 50 MG tab] 50 mg PO DAILY PRN #20 tablet 09/08/18 Unknown Rx Active Medications: Generic Name Dose Route Start Last Admin Trade Name Freq PRN Reason Stop Dose Admin Albuterol 2.5 mg 09/01/18 21:07 Proventil IH TIDRT PRN Wheezing Apixaban 5 mg 09/01/18 22:00 09/16/18 10:20 Eliquis PO 5 mg BID ADELE Administration Protocol Atorvastatin Calcium 80 mg 09/01/18 22:00 09/15/18 22:29 Lipitor PO 80 mg QHS ADELE Administration Gabapentin 300 mg 09/02/18 08:00 09/16/18 10:20 Neurontin PO 300 mg TID ADELE Administration Hydroxychloroquine Sulfate 200 mg 09/01/18 22:00 09/16/18 10:19 Plaquenil PO 200 mg BID ADELE Administration Hydroxyzine HCl 50 mg 09/01/18 22:00 09/15/18 22:29 Atarax PO 50 mg QHS ADELE Administration Sodium Chloride 1,000 mls @ 125 mls/hr 09/12/18 16:00 09/16/18 05:11 Nacl 0.9% 1000 Ml IV 50 mls/hr DIRECT ADELE Administration Levothyroxine Sodium 100 mcg 09/02/18 06:00 09/16/18 05:10 Synthroid PO 100 mcg DAILY@0600 ADELE Administration Morphine Sulfate 2 mg 09/01/18 19:48 09/15/18 22:51 Morphine IV 2 mg Q6H PRN Administration Pain, Moderate (4-6) Nitrofurantoin Macrocrystals 100 mg 09/11/18 10:00 09/16/18 10:20 Macrobid PO 09/17/18 22:01 100 mg Q12HR ADELE Administration Ondansetron HCl 8 mg 09/10/18 20:00 09/16/18 05:10 Zofran IV 8 mg Q8H ADELE Administration Pantoprazole Sodium 40 mg 09/16/18 10:00 09/16/18 10:23 Protonix PO 40 mg DAILY ADELE Administration Sodium Chloride 10 ml 09/01/18 22:00 09/16/18 10:20 Sodium Chloride Flush Syringe 10 Ml IV 10 ml BID ADELE Administration Sodium Chloride 10 ml 09/01/18 14:36 09/15/18 14:26 Sodium Chloride Flush Syringe 10 Ml IV 10 ml PRN PRN Administration LINE FLUSH Tramadol HCl 50 mg 09/01/18 21:07 09/08/18 08:25 Ultram PO 50 mg Q6HR PRN Administration Pain
--- NOTE | 2018-09-16 11:21 | Gastroenterology Progress Note ---
Assessment and Plan - Patient Problems (1) Intractable nausea and vomiting Current Visit: Yes Status: Acute Plan to address problem: 2.H/o PUD (s/p partial gastrectomy) 3. Kidney stone (s/p stent, now out) -workup including head evaluation, EGD, US, HIDA, CT x 2 all negative except for mild delayed uptake in the gallbladder -patient tolerating slow advancement of diet -OK to d/c home if continues to take regular diet, on PO antiemetics - If patient regresses, will have surgery evaluate for elective cholecystectomy Subjective Date of service: 09/16/18 Principal diagnosis: Nausea Interval history: The patient has been advanced to a regular diet and is tolerating this (though still has weakness and chronic nausea). She no blood in the stools (BM x 2) and her abdominal pain (pubic/bladder) has not changed or worsened. Today she is up walking in the [place] with PT. Objective - Constitutional Vitals: Temp Pulse Resp BP Pulse Ox 99.2 F 90 18 125/56 96 09/16/18 07:47 09/16/18 07:47 09/16/18 07:47 09/16/18 07:47 09/16/18 07:47 General appearance: no acute distress - Respiratory Respiratory effort: normal Respiratory: bilateral: CTA - Cardiovascular Rhythm: regular Heart Sounds: Present: S1 & S2 - Gastrointestinal General gastrointestinal: Present: soft, non-tender, non-distended - Labs CBC & Chem 7: 09/15/18 08:31 09/16/18 05:19 Labs: Laboratory Results - last 24 hr 09/16/18 05:19 Sodium 144 Potassium 3.8 Chloride 112.4 H Carbon Dioxide 21 L Anion Gap 14 BUN 5 L Creatinine 1.6 H Estimated GFR 38 BUN/Creatinine Ratio 3 Glucose 80 Calcium 8.9
[2018-09-16] MEDS: SODIUM CHLORIDE FLUSH SYRINGE 10 ML IV PRN (13:43)
[2018-09-16] MEDS: ATARAX PO SCH (22:47)
[2018-09-17] MEDS: SYNTHROID PO SCH (05:09)
[2018-09-17] MEDS: ZOFRAN IV SCH ×2 (05:09→12:01)
[2018-09-17 08:15] VITALS: BP 145/60
[2018-09-17] MEDS: NEURONTIN PO SCH ×2 (08:15→14:50)
[2018-09-17 08:39] LABS: Calcium 9.1 mg/dL (8.4-10.2)
--- NOTE | 2018-09-17 09:26 | Discharge Summary ---
Providers - Providers Date of Admission: 09/01/18 14:56 Date of discharge: 09/17/18 Attending physician: BRITTANY MATTSON 09/01/18 21:43 Consult to Physician [CONS] Routine Comment: JAMEEL Consulting Provider: ILA MYERS Physician Instructions: LUCIA GARRISON WAS NOTIFIED Reason For Exam: acute renal failure 09/02/18 14:35 Physical Therapy Evaluation and Treat [CONS] Routine Comment: Reason For Exam: Weakness 09/04/18 09:02 Consult to Physician [CONS] Routine Comment: called office/deisi Consulting Provider: SAMEER SAWYER Physician Instructions: Reason For Exam: left ureteric stone and ARF with mild left hydro 09/11/18 10:13 Consult to Physician [CONS] Routine Comment: Consulting Provider: CARLITA BONILLA Physician Instructions: Reason For Exam: intractitble Nause and vomiting Primary care physician: BRITTANY MATTSON Hospitalization Reason for admission: intractible Nause & vomiting, ARF, left ureteric stone with hydronephrosis Pertinent studies: CT scan of abdomen and pelvis that showed evidence of left ureteric stone left hydronephrosis, CT of the head was unremarkable, MRI of the brain showed no evidence of cerebral ischemia Abdominal ultrasound showed evidence of a left ureteric stone, HIDA scan that showed mildly delayed gallbladder emptying Procedures: EGD that showed no stenosis of the [place] jejunal anastomosis from previous [place] 11 surgery Fluoroscopy cystoscopy and dilatation of the left ureter with obstruction of the stone and stent placement Hospital course: Patient is a 72-year-old lady who has a history of venous hypertension status post stent placement in the iliac veins, 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 These are associated with constant headache for the past 10 days as well as nausea and vomiting. Vomitus was predominantly gastric contents. No blood. Denies any melena. Denies any fever or chest pain. Had an iliac and left femoral artery stents placed about a month ago. Headache is generalized, 7/10 in severity. Denies any blood vision, photophobia or phonophobia. Has no syncopy however unable to ambulate without assistance because of weakness and dizziness. A direct admission to the hospital was therefore ordered for further evaluation and management. Initial biochemistry showed BUN of 32 and creatinine of 2.7. BUN as at 01/2018 was 15 with creatinine of 1.0. Platelet was 132. CT scan of abdomen and pelvis showed left hydroureter with a 5.8 mm stone in UVPof the the left ureter. And 4 mm stone at the distal left ureter. Urology consult was obtained. Since his cystoscopy was done. Stone was removed. Ureteric stent placed. He was then fell out 4 days after down to the urethral opening. This was removed. BUN and creatinine improved to normal limits. Patient still having intractable nausea vomiting. GI consult obtained. EGD was done. Findings were unremarkable. HIDA scan was done. Mildly dysfunctional gallbladder identified weeks and a polyp identified. MRI of the brain was done after a repeat CT scan and MRI showed no ischemic changes. Vomiting resolved however patient is to have a nausea. GI recommended the patient and the discharge since she is now tolerating soft diet. However if there vomiting continues then cholecystectomy will be considered. This was explained to the patient and her daughter expressed understanding. She's never been discharged today she's been tolerating food for the past 2 days nauseated but no vomiting. She is to follow with me in 3 days. Disposition: - TO HOME OR SELFCARE - Discharge Diagnoses (1) Left ureteral calculus Status: Acute (2) LARRY (acute kidney injury) Status: Acute (3) Abdominal pain Status: Acute (4) Hydronephrosis Status: Acute (5) Nausea and vomiting Status: Acute Core Measure Documentation - Palliative Care Palliative Care/ Comfort Measures: Not Applicable - Core Measures Any of the following diagnoses?: none Exam - Physical Exam Narrative exam: Constitutional: Well-nourished well-developed. In no distress Head: Normocephalic atraumatic Eyes: Pupils are equal round and reactive to light Nose: No enlarged turbinates, no septal deviation. Mouth: Moist mucous membranes. Neck: Supple no thyromegaly. No bruit. No JVD Heart: Regular rate and rhythm, S1-S2 normal. No rubs murmurs or gallop Lungs: Clear to auscultation bilaterally. no rales or rhonchi Abdomen: Soft, nontender. Bowel sound are present. Extremities: Has edema, with hypoxic pigmentation of both lower extremities stasis dermatitis Neuro: Alert oriented Oriented x3. No focal sensory or motor deficit. Skin: No rashes or hyperpigmented spots Musculoskeletal system: No joint pain or swelling Hematological: No petechia or subcutanous hemorrhages. Immunological: No multiple septic spots on the skin Lymphatic: No generalized lymphadenopathy Psychiatry: Euthymic. Calm. - Constitutional Vitals: Temp Pulse Resp BP Pulse Ox 98.0 F 72 20 145/60 97 09/17/18 07:52 09/17/18 07:52 09/17/18 07:52 09/17/18 07:52 09/17/18 07:52 General appearance: Present: no acute distress, well-nourished - EENT Eyes: Present: PERRL ENT: hearing intact, clear oral mucosa - Neck Neck: Present: supple, normal ROM - Respiratory Respiratory effort: normal Respiratory: bilateral: CTA - Cardiovascular Heart Sounds: Present: S1 & S2. Absent: rub, click - Extremities Extremities: pulses symmetrical, No edema Peripheral Pulses: within normal limits - Abdominal General gastrointestinal: Present: soft, non-tender, non-distended, normal bowel sounds Female genitourinary: Present: normal - Integumentary Integumentary: Present: clear, warm, dry - Musculoskeletal Musculoskeletal: gait normal, strength equal bilaterally - Psychiatric Psychiatric: appropriate mood/affect, intact judgment & insight - Neurologic Neurologic: CNII-XII intact, moves all extremities Plan Activity: fall precautions Weight Bearing Status: Non-Weight Bearing Diet: regular Follow up with: BRITTANY MATTSON MD [Primary Care Provider] - 7 Days Prescriptions: levoFLOXacin [Levaquin TAB] 250 mg PO Q24HR #3 tablet Nitrofurantoin [place]/M-Cryst [Macrobid CAP] 100 mg PO Q12HR #6 capsule Promethazine [Phenergan SUPPOS] 12.[address] Q6H PRN #30 supp.rect PRN Reason: Nausea And Vomiting Pantoprazole [Protonix TAB] 40 mg PO DAILY #30 tablet Pantoprazole [Protonix TAB] 40 mg PO DAILY #30 tablet Sodium Bicarbonate 75 meq IV DIRECT #5 vial Levothyroxine [Synthroid] 100 mcg PO DAILY@0600 #30 tablet traMADol [Ultram 50 MG tab] 50 mg PO DAILY PRN #20 tablet PRN Reason: Pain Lisinopril [Zestril TAB] 10 mg PO DAILY #30 tablet Ondansetron [Zofran ODT TAB] 8 mg PO Q8HR #60 tab.rapdis Ondansetron (Nf) [Zofran TAB] 8 mg PO Q8HR PRN #30 tablet PRN Reason: Vomiting
[2018-09-17] MEDS: MACROBID PO SCH (10:05)
[2018-09-17] MEDS: PLAQUENIL PO SCH (10:05)
[2018-09-17] MEDS: PROTONIX PO SCH (10:05)
[2018-09-17] MEDS: ELIQUIS PO SCH (10:05)
[2018-09-17] MEDS: SODIUM CHLORIDE FLUSH SYRINGE 10 ML IV SCH (10:06)
--- NOTE | 2018-09-17 11:39 | Progress Note ---
Assessment and Plan - Patient Problems (1) LARRY (acute kidney injury) Current Visit: Yes Status: Acute Plan to address problem: Acute kidney injury: current creatinine : 1.3mg/dl improved from 1.6mg/dl baseline creatinine : 0.9mg/dl recent hydronephrosis with left ureteral stone s/p stent placement , stent removed as was hanging out yesterday Renal ultrasound did not show any new hydronephrosis . Renal function is remaining about the same s/p CT with iv contrast received IVF for 48hrs , renal function has improved Nephrology will sign off. Needs follow up with nephrology and Urology on discharge. Thanks. (2) Left ureteral calculus Current Visit: Yes Status: Acute Plan to address problem: Left ureteral calculus s/p stone removal , stent placement now removed repeat ultrasound without worsening hydronephrosis. urology follow up. (3) Nausea and vomiting Current Visit: Yes Status: Acute Plan to address problem: Nausea /vomitting - continue antiemetics. (4) HTN (hypertension) Current Visit: Yes Status: Chronic Qualifiers: Hypertension type: essential hypertension Qualified Code(s): I10 - Ess ential (primary) hypertension Plan to address problem: HTN:controlled. continue current medications. Subjective Principal diagnosis: intractable N/V Interval history: 72 year old with medical history signficant for left sided hydronephrosis with acute kidney injury presenting with nausea and vomitting. She was seen today denies orthopnea or PND still has nausea reports good urine output Status post abdominal CT with IV contrast few days ago currently on IVF. Objective - Vital Signs Vital signs: Vital Signs - 12hr 09/17/18 09/17/18 09/17/18 02:31 07:52 10:00 Temperature 98.0 F 98.0 F Pulse Rate 79 72 Respiratory 18 20 20 Rate Respiratory 20 Rate [Abdomen] Respiratory 20 Rate [Head] Blood Pressure 140/67 145/60 O2 Sat by Pulse 95 97 97 Oximetry - General Appearance General appearance: well-developed, well-nourished EENT: ATNC, PERRL Neck: no JVD Respiratory: Present: Clear to Ascultation Cardiology: regular, S1S2 Gastrointestinal: normal, normoactive bowel sounds Integumentary: no rash Neurologic: alert and oriented x3, CN 3-12 intact Psychiatric: mood/affect appropriate - Lab 09/15/18 08:31 09/17/18 08:05 Most recent lab results Calcium 9.1 mg/dL (8.4-10.2) 09/17/18 08:05 Phosphorus 3.30 mg/dL (2.5-4.5) 09/02/18 04:57 Magnesium 1.50 mg/dL (1.7-2.3) L 09/03/18 11:03 83.3 mg/dL (0.1-20.0) H 09/02/18 18:30 110 mmol/L 09/02/18 18:30 - Imaging CT scan - abdomen: image reviewed (I reviewed CT without worsening hydronephrosis. ) Medications & Allergies - Medications Allergies/Adverse Reactions: Allergies chocolate flavor Allergy (Severe, Verified 07/01/13 17:15) Rash corn [[place]] Allergy (Severe, Verified 07/01/13 17:15) Rash egg Allergy (Severe, Verified 07/01/13 17:15) Rash Penicillins Allergy (Severe, Verified 07/01/13 17:15) SWELLING,HIVES shellfish derived Allergy (Severe, Verified 07/01/13 17:15) Rash wheat Allergy (Severe, Verified 07/01/13 17:15) Rash milk Allergy (Verified 09/04/18 17:55) Rash peanut Allergy (Verified 09/04/18 17:54) Rash PT STATES HER MOUTH SWELLS WITH PEANUTS AND BEANS BUTTER BEANS Allergy (Severe, Uncoded 07/01/13 17:15) Rash CHEESE Allergy (Severe, Uncoded 07/01/13 17:15) Rash POND BEANS Allergy (Severe, Uncoded 07/01/13 17:15) Rash Home Medications: Home Medications Medication Instructions Recorded Confirmed Last Taken Type Atorvastatin [Lipitor] 80 mg PO QHS 07/01/13 09/02/18 09/01/18 22:00 History 80mg Hydroxychloroquine [Plaquenil] 200 mg PO BID 07/01/13 09/02/18 09/01/18 22:00 History 200mg ALBUTEROL NEB's [Proventil 0.083% 2.5 mg IH TID PRN 04/22/17 09/02/18 08/01/18 10:00 History NEBS] 2.5mg Apixaban [Eliquis] 5 mg PO BID 04/22/17 09/02/18 09/01/18 22:00 History 5mg Gabapentin [Neurontin] 300 mg PO TID 04/22/17 09/02/18 09/01/18 10:00 History 300mg Hydroxyzine HCl [hydrOXYzine] 50 mg PO QHS 04/22/17 09/02/18 08/25/18 22:00 History 200mg predniSONE [Deltasone] 5 mg PO PRN PRN 04/22/17 09/02/18 09/01/18 10:00 History 5mg Levothyroxine [Synthroid] 100 mcg PO DAILY@0600 #30 tablet 09/08/18 Unknown Rx Lisinopril [Zestril TAB] 10 mg PO DAILY #30 tablet 09/08/18 Unknown Rx Ondansetron (Nf) [Zofran TAB] 8 mg PO Q8HR PRN #30 tablet 09/08/18 Unknown Rx Pantoprazole [Protonix TAB] 40 mg PO DAILY #30 tablet 09/08/18 Unknown Rx Promethazine [Phenergan SUPPOS] 12.5 mg [place] Q6H PRN #30 supp.rect 09/08/18 Unknown Rx Sodium Bicarbonate 75 meq IV DIRECT #5 vial 09/08/18 Unknown Rx levoFLOXacin [Levaquin TAB] 250 mg PO Q24HR #3 tablet 09/08/18 Unknown Rx traMADol [Ultram 50 MG tab] 50 mg PO DAILY PRN #20 tablet 09/08/18 Unknown Rx Nitrofurantoin [place]/M-Cryst 100 mg PO Q12HR #6 capsule 09/17/18 Unknown Rx [Macrobid CAP] Ondansetron [Zofran ODT TAB] 8 mg PO Q8HR #60 tab.rapdis 09/17/18 Unknown Rx Pantoprazole [Protonix TAB] 40 mg PO DAILY #30 tablet 09/17/18 Unknown Rx Active Medications: Generic Name Dose Route Start Last Admin Trade Name Freq PRN Reason Stop Dose Admin Albuterol 2.5 mg 09/01/18 21:07 Proventil IH TIDRT PRN Wheezing Apixaban 5 mg 09/01/18 22:00 09/17/18 10:05 Eliquis PO 5 mg BID ADELE Administration Protocol Atorvastatin Calcium 80 mg 09/01/18 22:00 09/16/18 22:47 Lipitor PO 80 mg QHS ADELE Administration Gabapentin 300 mg 09/02/18 08:00 09/17/18 08:15 Neurontin PO 300 mg TID ADELE Administration Hydroxychloroquine Sulfate 200 mg 09/01/18 22:00 09/17/18 10:05 Plaquenil PO 200 mg BID ADELE Administration Hydroxyzine HCl 50 mg 09/01/18 22:00 09/16/18 22:47 Atarax PO 50 mg QHS ADELE Administration Sodium Chloride 1,000 mls @ 125 mls/hr 09/12/18 16:00 09/16/18 13:41 Nacl 0.9% 1000 Ml IV 50 mls/hr DIRECT ADELE Administration Levothyroxine Sodium 100 mcg 09/02/18 06:00 09/17/18 05:09 Synthroid PO 100 mcg DAILY@0600 ADELE Administration Morphine Sulfate 2 mg 09/01/18 19:48 09/15/18 22:51 Morphine IV 2 mg Q6H PRN Administration Pain, Moderate (4-6) Nitrofurantoin Macrocrystals 100 mg 09/11/18 10:00 09/17/18 10:05 Macrobid PO 09/17/18 22:01 100 mg Q12HR ADELE Administration Ondansetron HCl 8 mg 09/10/18 20:00 09/17/18 05:09 Zofran IV 8 mg Q8H ADELE Administration Pantoprazole Sodium 40 mg 09/16/18 10:00 09/17/18 10:05 Protonix PO 40 mg DAILY ADELE Administration Sodium Chloride 10 ml 09/01/18 22:00 09/17/18 10:06 Sodium Chloride Flush Syringe 10 Ml IV 10 ml BID ADELE Administration Sodium Chloride 10 ml 09/01/18 14:36 09/16/18 13:43 Sodium Chloride Flush Syringe 10 Ml IV 10 ml PRN PRN Administration LINE FLUSH Tramadol HCl 50 mg 09/01/18 21:07 09/08/18 08:25 Ultram PO 50 mg Q6HR PRN Administration Pain
--- NOTE | 2018-09-17 12:36 | Gastroenterology Progress Note ---
Assessment and Plan 1.intractable N/V 2.H/o PUD (s/p partial gastrectomy) 3. Kidney stone (s/p stent, now out) -workup including head evaluation, EGD, US, HIDA, CT x 2 all negative except for mild delayed uptake in the gallbladder -patient tolerating regular diet at this time with N/V resolved -OK to d/c home per GI standpoint on PO antiemetics -If patient regresses, will have surgery evaluate for elective cholecystectomy -will sign off, please call if needed Subjective Date of service: 09/17/18 Principal diagnosis: intractable N/V Interval history: N/V resolved. Tolerating regular diet. Objective - Constitutional Vitals: Temp Pulse Resp BP Pulse Ox 98.0 F 72 20 145/60 97 09/17/18 07:52 09/17/18 07:52 09/17/18 10:00 09/17/18 07:52 09/17/18 10:00 General appearance: no acute distress - Respiratory Respiratory effort: normal - Cardiovascular Rhythm: regular - Gastrointestinal General gastrointestinal: Present: soft, non-tender, non-distended, normal bowel sounds - Labs CBC & Chem 7: 09/15/18 08:31 09/17/18 08:05 Labs: Laboratory Results - last 24 hr 09/17/18 08:05 Sodium 142 Potassium 3.9 Chloride 112.5 H Carbon Dioxide 19 L Anion Gap 14 BUN 6 L Creatinine 1.3 H Estimated GFR 49 BUN/Creatinine Ratio 5 Glucose 78 Calcium 9.1
== END 2018-09-17 14:00 | disposition home health service (06) | DRG 659 ==
LOC: UNDOADMIN 14:25 → 2B-ACE 14:25
PROVIDERS: ADMIT Family Medicine; ATTEND Family Medicine
PROC: 0T778DZ Dilation of Left Ureter with Intraluminal Device, Via Natural or Artificial Opening Endoscopic (ICD-10-PCS; principal; 2018-09-04)
PROC: 0TC78ZZ Extirpation of Matter from Left Ureter, Via Natural or Artificial Opening Endoscopic (ICD-10-PCS; 2018-09-04)
PROC: 0TCB8ZZ Extirpation of Matter from Bladder, Via Natural or Artificial Opening Endoscopic (ICD-10-PCS; 2018-09-04)
PROC: BT1F1ZZ Fluoroscopy of Left Kidney, Ureter and Bladder using Low Osmolar Contrast (ICD-10-PCS; 2018-09-04)
PROC: 0DB68ZX Excision of Stomach, Via Natural or Artificial Opening Endoscopic, Diagnostic (ICD-10-PCS; 2018-09-12)
PROC: 0DB78ZX Excision of Stomach, Pylorus, Via Natural or Artificial Opening Endoscopic, Diagnostic (ICD-10-PCS; 2018-09-12)
DX: N21.0 Calculus in bladder (principal); N17.0 Acute kidney failure with tubular necrosis; E87.2 Acidosis; E87.1 Hypo-osmolality and hyponatremia; N13.6 Pyonephrosis; I12.9 Hypertensive chronic kidney disease with stage 1 through stage 4 chronic kidney disease, or unspecified chronic kidney disease; E11.22 Type 2 diabetes mellitus with diabetic chronic kidney disease; I95.9 Hypotension, unspecified; E87.5 Hyperkalemia; E86.0 Dehydration; N18.3 Chronic kidney disease, stage 3 (moderate); E03.9 Hypothyroidism, unspecified; I87.2 Venous insufficiency (chronic) (peripheral); K21.9 Gastro-esophageal reflux disease without esophagitis; N28.1 Cyst of kidney, acquired; J45.909 Unspecified asthma, uncomplicated; K31.7 Polyp of stomach and duodenum; K31.89 Other diseases of stomach and duodenum; K44.9 Diaphragmatic hernia without obstruction or gangrene; E78.5 Hyperlipidemia, unspecified; G43.909 Migraine, unspecified, not intractable, without status migrainosus; E83.51 Hypocalcemia; K82.4 Cholesterolosis of gallbladder; B96.20 Unspecified Escherichia coli [E. coli] as the cause of diseases classified elsewhere; K82.8 Other specified diseases of gallbladder; Z85.3 Personal history of malignant neoplasm of breast; Z95.820 Peripheral vascular angioplasty status with implants and grafts; Z86.718 Personal history of other venous thrombosis and embolism; Z86.711 Personal history of pulmonary embolism; Z91.012 Allergy to eggs; Z88.0 Allergy status to penicillin; Z91.018 Allergy to other foods; Z91.048 Other nonmedicinal substance allergy status; Z91.09 Other allergy status, other than to drugs and biological substances; Z79.51 Long term (current) use of inhaled steroids; Z79.899 Other long term (current) drug therapy; Z79.01 Long term (current) use of anticoagulants; Z92.21 Personal history of antineoplastic chemotherapy; Z90.12 Acquired absence of left breast and nipple; Z79.84 Long term (current) use of oral hypoglycemic drugs; E87.6 Hypokalemia
CPT/HCPCS: 36415; 70450; 70553; 71045; 74160; 74176; 74420; 76700; 76770; 78226; 80048; 80053; 81001; 82550; 82570; 83690; 83735; 83880; 83930; 84100; 84300; 84484; 84550; 85025; 85610; 85730; 87076; 87086; 87186; 88305; 88342; 93306; G0378; A9270-GY; A9577; C1726; C1758; C1769; C2617; C9113; J1650; J1956; J2270; J2405; J2704; J3010; J3480; J7030; J7042; J7070; Q9967

== ENCOUNTER 2018-09-24 11:37 | Inpatient (IN) | payer MEDICARE ==
[2018-09-24] MEDS ORDERED: SODIUM CHLORIDE FLUSH SYRINGE 10 ML IV PRN ×2 (11:41→12:13)
[2018-09-24] MEDS ORDERED: MORPHINE IV PRN ×2 (11:41→12:13)
[2018-09-24] MEDS ORDERED: ZOFRAN IV PRN (11:41)
[2018-09-24] MEDS ORDERED: PEPCID IV SCH (11:46)
[2018-09-24] MEDS ORDERED: D5/0.45NS 1,000 ML IV SCH (12:00)
--- NOTE | 2018-09-24 13:05 | XRay Report ---
CHEST 1 VIEW INDICATION / CLINICAL INFORMATION: PREOP. COMPARISON: 09/01/2018 FINDINGS: SUPPORT DEVICES: Right central venous line remains in place unchanged from the prior study HEART / MEDIASTINUM: Heart size is at the upper limits of normal. LUNGS / PLEURA: No significant pulmonary or pleural abnormality. No pneumothorax. ADDITIONAL FINDINGS: No significant additional findings. IMPRESSION: No acute pulmonary or pleural abnormality. No change from 09/01/2018. Signer Name: Jose L Ngo MD FACR Signed: 09/24/2018 1:01 PM Workstation Name: [id number]
[2018-09-24] MEDS ORDERED: LOVENOX SUB-Q SCH ×2 (14:00→17:00)
[2018-09-24] MEDS: D5/0.45NS 1,000 ML IV SCH ×2 (14:30→21:30)
[2018-09-24 16:02] LABS: Basophils # (Auto) 0.1 K/mm3 (0.0-0.1); Basophils % (Auto) 1.3 % (0.0-1.8); Eosinophils # (Auto) 0.3 K/mm3 (0.0-0.4); Eosinophils % (Auto) 5.4 % (0.0-4.3); Hematocrit 31.4 % (30.3-42.9); Hemoglobin 10.2 gm/dl (10.1-14.3); Lymphocytes # (Auto) 1.1 K/mm3 (1.2-5.4); Lymphocytes % (Auto) 22.8 % (13.4-35.0); Mean Corpuscular HGB Conc 33 % (30-34); Mean Corpuscular Volume 86 fl (79-97); Monocytes # (Auto) 0.4 K/mm3 (0.0-0.8); Monocytes % (Auto) 8.9 % (0.0-7.3); Platelet Count 185 K/mm3 (140-440); Red Blood Count 3.65 M/mm3 (3.65-5.03); Red Cell Distribution Width 15.8 % (13.2-15.2)
[2018-09-24 16:11] LABS: INR 1.2 (0.87-1.13)
[2018-09-24 16:12] LABS: Partial Thromboplastin Time 29.1 Sec. (24.2-36.6)
[2018-09-24 16:26] LABS: Alanine Aminotransferase 11 units/L (7-56); Albumin 3.6 g/dL (3.9-5); BUN/Creatinine Ratio 14; Blood Urea Nitrogen 14 mg/dL (7-17); Calcium 10.3 mg/dL (8.4-10.2); Hemolysis Index 3
[2018-09-24] MEDS ORDERED: PROVENTIL IH PRN (20:11)
[2018-09-24] MEDS ORDERED: DELTASONE PO PRN (20:12)
[2018-09-24] MEDS ORDERED: PHENERGAN PR PRN (20:12)
--- NOTE | 2018-09-24 20:27 | History and Physical Report ---
History of Present Illness Date of examination: 09/24/18 Date of admission: 09/24/18 12:12 Chief complaint: Abdominal pain, intractable nausea and vomiting. 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 Patient had similar symptoms for which he was admitted on 09/01/[address] scan of the abdomen and pelvis CT scan of abdomen and pelvis showed left hydroureter with a 5.8 mm stone in UVPof the the left ureter. And 4 mm stone at the distal left ureter. Urology consult was obtained. Cystoscopy and RPU were done. Stone was removed. Ureteric stent placed. Which was removed. Forman is out almost to the urethra 4 days later. This was then removed. Had UTI from Escherichia coli sensitive to nitrofurantoin. Patient was placed on some medication. Had evidence of acute kidney injury that improved with IV hydration. Patient still having intractable nausea vomiting. GI consult obtained. EGD was done. Findings were unremarkable. HIDA scan was done 09/13/18. Mildly dysfunctional gallbladder identified weeks and a polyp identified. MRI of the brain was done after a repeat CT scan and MRI showed no ischemic changes. Vomiting resolved however patient still had nausea. GI recommended the patient can be discharge since she is now tolerating soft diet. However if there vomiting continues then cholecystectomy will be considered. This was explained to the patient and her daughter both of whom expressed understanding. However vomiting continued with the addition of any food since after discharge on 09/19/2018. Direct admission was ordered from our office. Surgical consult was obtained. The need for cholecystectomy from biliary dyskinesia was discussed with the patient and the daughter both home aware in agreement Past History Past Medical History: DVT, hypertension, other (breast cancer, anemia, renal stones, gastrctomy - Billroth 2, GI bleeding) Past Surgical History: mastectomy Social history: lives with family. denies: smoking, alcohol abuse, prescription drug abuse Family history: hypertension Medications and Allergies Allergies Allergy/AdvReac Type Severity Reaction Status Date / Time chocolate flavor Allergy Severe Rash Verified 07/01/13 17:15 corn [[place]] Allergy Severe Rash Verified 07/01/13 17:15 egg Allergy Severe Rash Verified 07/01/13 17:15 Penicillins Allergy Severe SWELLING,[place] Verified 07/01/13 17:15 VES shellfish derived Allergy Severe Rash Verified 07/01/13 17:15 wheat Allergy Severe Rash Verified 07/01/13 17:15 milk Allergy Rash Verified 09/04/18 17:55 peanut Allergy Rash Verified 09/04/18 17:54 BUTTER BEANS Allergy Severe Rash Uncoded 07/01/13 17:15 CHEESE Allergy Severe Rash Uncoded 07/01/13 17:15 POND BEANS Allergy Severe Rash Uncoded 07/01/13 17:15 Home Medications Medication Instructions Recorded Confirmed Last Taken Type Atorvastatin [Lipitor] 80 mg PO QHS 07/01/13 09/24/18 09/01/18 22:00 History 80mg Hydroxychloroquine [Plaquenil] 200 mg PO BID 07/01/13 09/24/18 09/01/18 22:00 History 200mg ALBUTEROL NEB's [Proventil 0.083% 2.5 mg IH TID PRN 04/22/17 09/24/18 08/01/18 10:00 History NEBS] 2.5mg Apixaban [Eliquis] 5 mg PO BID 04/22/17 09/24/18 09/01/18 22:00 History 5mg Gabapentin [Neurontin] 300 mg PO TID 04/22/17 09/24/18 09/01/18 10:00 History 300mg Hydroxyzine HCl [hydrOXYzine] 50 mg PO QHS 04/22/17 09/24/18 08/25/18 22:00 History 200mg predniSONE [Deltasone] 5 mg PO PRN PRN 04/22/17 09/24/18 09/01/18 10:00 History 5mg Levothyroxine [Synthroid] 100 mcg PO DAILY@0600 #30 tablet 09/08/18 09/24/18 Unknown Rx Lisinopril [Zestril TAB] 10 mg PO DAILY #30 tablet 09/08/18 09/24/18 Unknown Rx Ondansetron (Nf) [Zofran TAB] 8 mg PO Q8HR PRN #30 tablet 09/08/18 09/24/18 Unknown Rx Pantoprazole [Protonix TAB] 40 mg PO DAILY #30 tablet 09/08/18 09/24/18 Unknown Rx Promethazine [Phenergan SUPPOS] 12.5 mg ND Q6H PRN #30 supp.rect 09/08/18 09/24/18 Unknown Rx Sodium Bicarbonate 75 meq IV DIRECT #5 vial 09/08/18 09/24/18 Unknown Rx levoFLOXacin [Levaquin TAB] 250 mg PO Q24HR #3 tablet 09/08/18 09/24/18 Unknown Rx traMADol [Ultram 50 MG tab] 50 mg PO DAILY PRN #20 tablet 09/08/18 09/24/18 Unknown Rx Nitrofurantoin [place]/M-Cryst 100 mg PO Q12HR #6 capsule 09/17/18 09/24/18 Unknown Rx [Macrobid CAP] Ondansetron [Zofran ODT TAB] 8 mg PO Q8HR #60 tab.rapdis 09/17/18 09/24/18 Unknown Rx Pantoprazole [Protonix TAB] 40 mg PO DAILY #30 tablet 09/17/18 09/24/18 Unknown Rx Active Meds: Active Medications Albuterol (Proventil) 2.5 mg IH TID PRN PRN Reason: Wheezing Apixaban (Eliquis) 5 mg PO BID [place]; Protocol Famotidine (Pepcid) 20 mg IV BID [place] Gabapentin (Neurontin) 300 mg PO TID [place] Hydroxychloroquine Sulfate (Plaquenil) 200 mg PO BID [facility] Dextrose/Sodium Chloride (D5/0.45ns) 1,000 mls @ 100 mls/hr IV DIRECT [facility] Levothyroxine Sodium (Synthroid) 100 mcg PO DAILY@0600 [facility] Lisinopril (Zestril) 10 mg PO DAILY [facility] Miscellaneous Medication (Atorvastatin [Lipitor]) 80 mg PO QHS [facility] Miscellaneous Medication (Hydroxyzine Hcl [Hydroxyzine]) 50 mg PO QHS [facility] Morphine Sulfate (Morphine) 2 mg IV Q6H PRN PRN Reason: Pain, Moderate (4-6) Nitrofurantoin Macrocrystals (Macrobid) 100 mg PO Q12HR [facility] Stop: 09/27/18 23:59 Ondansetron HCl (Zofran) 8 mg IV Q6H PRN PRN Reason: Nausea And Vomiting Prednisone (Deltasone) 5 mg PO PRN PRN PRN Reason: Pain Promethazine HCl (Phenergan) 12.5 mg ND Q6H PRN PRN Reason: Nausea And Vomiting Sodium Chloride (Sodium Chloride Flush Syringe 10 Ml) 10 ml IV BID [place] Sodium Chloride (Sodium Chloride Flush Syringe 10 Ml) 10 ml IV PRN PRN PRN Reason: LINE FLUSH Review of systems Constitutional: Well Nourished and Well developed. Head: NC/ AT Eyes: Denies any visual impairments. No discharge from the eyes Nose: Denies any rhinorrhea or epistaxis Throats: Denies any post nasal drainage. Ears: Denies any hearing deficits Cardiovascular system: Denies any chest pain, shortness of breath, orthopnea, paroxysmal nocturnal dyspnea, or palpitation. Respiratory system: Denies any cough, difficulty breathing, wheezing, pleuritic chest pain, Gastrointestinal system: Has abdominal pain, nausea vomiting, no hematemesis or melena. Neurological system: Denies any headache, slurred speech, facial droop, lateralizing weakness Genitalia system: Denies any dysuria, urinary frequency or urgency, urethral discharge Skin: No rashes, hyperpigmented spots. Hematological: Denies any cervical tenderness hemorrhages or petechia. Immunological: Denies any multiple septic spots, Lymphatic: Denies any generalized lymphadenopathy. Endocrine: Denies any polyuria, polydipsia, polyphagia. No heat or cold intolerance. Musculoskeletal system: No joint pain or swelling. Psych: No visual, tactile, auditory or hallucination Exam - Physical Exam Narrative exam: Constitutional: Well-nourished well-developed. In no distress Head: Normocephalic atraumatic Eyes: Pupils are equal round and reactive to light Nose: No enlarged turbinates, no septal deviation. Mouth: Moist mucous membranes. Neck: Supple no thyromegaly. No bruit. No JVD Heart: Regular rate and rhythm, S1-S2 normal. No rubs murmurs or gallop Lungs: Clear to auscultation bilaterally. no rales or rhonchi Abdomen: Soft, nontender. Bowel sound are present. Extremities: edema of her lower extremities, no cyanosis, no clubbing. Neuro: Alert oriented Oriented x3. No focal sensory or motor deficit. Skin: No rashes or hyperpigmented spots Musculoskeletal system: No joint pain or swelling Hematological: No petechia or subcutanous hemorrhages. Immunological: No multiple septic spots on the skin Lymphatic: No generalized lymphadenopathy Psychiatry: Euthymic. Calm. - Constitutional Vitals: Temp Pulse Resp BP Pulse Ox 98.9 F 73 18 161/63 97 09/24/18 19:35 09/24/18 19:35 09/24/18 19:35 09/24/18 19:35 09/24/18 19:35 Results - Labs CBC & Chem 7: 09/24/18 15:27 09/24/18 15:27 Labs: Abnormal lab results 09/24/18 09/24/18 09/24/18 Range/Units 15:27 15:27 15:27 RDW 15.8 H (13.2-15.2) % [place] % (Auto) 8.9 H (0.0-7.3) % Eos % (Auto) 5.4 H (0.0-4.3) % Lymph # 1.1 L (1.2-5.4) K/mm3 INR 1.20 H (0.87-1.13) Calcium 10.3 H (8.4-10.2) mg/dL Albumin 3.6 L (3.9-5) g/dL Assessment and Plan - Biliary dyskinesia from HIDA scan done on 09/13/2018 Surgical consult - Intractable nausea vomiting Questionable general IV hydration, nothing by mouth, IV Pepcid, Zofran, - History of DVT and PE Currently on high-dose - History of breast cancer status post mastectomy DVT prophylaxis patient already on high-dose CODE STATUS patient is full code Time spent: 40 minutes
[2018-09-24] MEDS ORDERED: VISTARIL PO PRN (20:41)
[2018-09-24] MEDS: ZOFRAN IV PRN (21:52)
[2018-09-24] MEDS ORDERED: NON-FORMULARY (Atorvastatin [Lipitor] 80 MG) PO SCH (22:00)
[2018-09-24] MEDS ORDERED: NON-FORMULARY (Hydroxyzine Hcl [Hydroxyzine] 50 MG) PO SCH (22:00)
[2018-09-24] MEDS ORDERED: SODIUM CHLORIDE FLUSH SYRINGE 10 ML IV SCH (22:00)
[2018-09-24] MEDS: VISTARIL PO SCH (22:35)
[2018-09-24] MEDS: ELIQUIS PO SCH (22:35)
[2018-09-24] MEDS: ZESTRIL PO SCH (22:36)
[2018-09-24] MEDS: PEPCID IV SCH (22:36)
[2018-09-24] MEDS: PLAQUENIL PO SCH (22:36)
[2018-09-24] MEDS: SODIUM CHLORIDE FLUSH SYRINGE 10 ML IV SCH (22:37)
[2018-09-24] MEDS: MACROBID PO SCH (23:11)
[2018-09-25] MEDS: SYNTHROID PO SCH (05:27)
[2018-09-25] MEDS: ZOFRAN IV PRN ×2 (05:28→16:58)
[2018-09-25] MEDS: D5/0.45NS 1,000 ML IV SCH ×2 (05:56→22:04)
[2018-09-25 06:16] LABS: Red Blood Count 3.32 M/mm3 (3.65-5.03)
[2018-09-25 06:17] LABS: Basophils % (Auto) 0.4 % (0.0-1.8); Eosinophils # (Auto) 0.4 K/mm3 (0.0-0.4); Eosinophils % (Auto) 7.1 % (0.0-4.3); Hematocrit 28.2 % (30.3-42.9); Hemoglobin 9.4 gm/dl (10.1-14.3); Lymphocytes # (Auto) 0.8 K/mm3 (1.2-5.4); Lymphocytes % (Auto) 15.4 % (13.4-35.0); Mean Corpuscular HGB Conc 33 % (30-34); Mean Corpuscular Volume 85 fl (79-97); Monocytes # (Auto) 0.4 K/mm3 (0.0-0.8); Monocytes % (Auto) 6.9 % (0.0-7.3); Platelet Count 168 K/mm3 (140-440); Red Cell Distribution Width 15.7 % (13.2-15.2)
[2018-09-25 06:31] LABS: Alanine Aminotransferase 10 units/L (7-56); Albumin 3.1 g/dL (3.9-5); BUN/Creatinine Ratio 11; Blood Urea Nitrogen 10 mg/dL (7-17); Calcium 9.4 mg/dL (8.4-10.2); Hemolysis Index 4
[2018-09-25] MEDS ORDERED: KCL 20MEQ/100ML 20 MEQ/100 ML BAG IV SCH (08:00)
[2018-09-25] MEDS: KCL 10MEQ/100ML 10 MEQ/100 ML BAG IV SCH ×4 (08:45→12:33)
[2018-09-25] MEDS: NEURONTIN PO SCH ×3 (08:45→21:00)
[2018-09-25] MEDS: MACROBID PO SCH ×2 (09:19→22:05)
[2018-09-25] MEDS: PLAQUENIL PO SCH ×2 (09:20→22:05)
[2018-09-25] MEDS: PEPCID IV SCH ×2 (09:20→22:05)
[2018-09-25] MEDS: SODIUM CHLORIDE FLUSH SYRINGE 10 ML IV SCH ×2 (09:21→22:06)
[2018-09-25] MEDS: ZESTRIL PO SCH (09:21)
[2018-09-25] MEDS: ELIQUIS PO SCH ×2 (09:21→22:05)
--- NOTE | 2018-09-25 11:50 | Consultation ---
History of Present Illness Consult date: 09/25/18 Reason for consult: other (N/V) Requesting physician: BRITTANY MATTSON Chief complaint: N/V for many years - History of present illness History of present illness: 72yo F with multiple problems was admitted from Dr. Mattson's office for continued nausea and vomiting. Patient's history is significant for a partial gastrectomy (Billroth II) for peptic ulcer disease in 1984. She reports no immediate problems after that procedure. She believes that for at least the past 12 years she has had problems with nausea and vomiting. Does not believe it is related to medications. Has not found certain foods that she can tolerate. This happens with both liquids and solids. It occurs immediately upon intake. She describes an increased pressure sensation in the left upper quadrant immediately when she eats or drinks. It has been progressively worsening over the years. She identifies that it got much worse after radiation therapy in 2006. This was to the left breast. She does not recall any specific medicines that have been tried for the stomach. We are being asked to consult for possible cholecystectomy. Past History Past Medical History: DVT, hypertension, other (breast cancer, anemia, renal stones, gastrctomy - Billroth 2, GI bleeding) Past Surgical History: mastectomy, Other (back surgery x 2) Social history: lives with family. denies: smoking, alcohol abuse, prescription drug abuse Family history: hypertension Medications and Allergies Allergies Allergy/AdvReac Type Severity Reaction Status Date / Time chocolate flavor Allergy Severe Rash Verified 07/01/13 17:15 corn [[place]] Allergy Severe Rash Verified 07/01/13 17:15 egg Allergy Severe Rash Verified 07/01/13 17:15 Penicillins Allergy Severe SWELLING,HI Verified 07/01/13 17:15 VES shellfish derived Allergy Severe Rash Verified 07/01/13 17:15 wheat Allergy Severe Rash Verified 07/01/13 17:15 milk Allergy Rash Verified 09/04/18 17:55 peanut Allergy Rash Verified 09/04/18 17:54 BUTTER BEANS Allergy Severe Rash Uncoded 07/01/13 17:15 CHEESE Allergy Severe Rash Uncoded 07/01/13 17:15 POND BEANS Allergy Severe Rash Uncoded 07/01/13 17:15 Home Medications Medication Instructions Recorded Confirmed Last Taken Type Atorvastatin [Lipitor] 80 mg PO QHS 04/12/0609/24/18 09/01/18 22:00 History 80mg Hydroxychloroquine [Plaquenil] 200 mg PO BID 07/01/13 09/24/18 09/01/18 22:00 History 200mg ALBUTEROL NEB's [Proventil 0.083% 2.5 mg IH TID PRN 04/22/17 09/24/18 08/01/18 10:00 History NEBS] 2.5mg Apixaban [Eliquis] 5 mg PO BID 04/22/17 09/24/18 09/01/18 22:00 History 5mg Gabapentin [Neurontin] 300 mg PO TID 04/22/17 09/24/18 09/01/18 10:00 History 300mg Hydroxyzine HCl [hydrOXYzine] 50 mg PO QHS 04/22/17 09/24/18 08/25/18 22:00 Hi story 200mg predniSONE [Deltasone] 5 mg PO PRN PRN 04/22/17 09/24/18 09/01/18 10:00 History 5mg Levothyroxine [Synthroid] 100 mcg PO DAILY@0600 #30 tablet 09/08/18 09/24/18 Unknown Rx Lisinopril [Zestril TAB] 10 mg PO DAILY #30 tablet 09/08/18 09/24/18 Unknown Rx Ondansetron (Nf) [Zofran TAB] 8 mg PO Q8HR PRN #30 tablet 09/08/18 09/24/18 Unknown Rx Pantoprazole [Protonix TAB] 40 mg PO DAILY #30 tablet 09/08/18 09/24/18 Unknown Rx Promethazine [Phenergan SUPPOS] 12.5 mg DE Q6H PRN #30 supp.rect 09/08/18 09/24/18 Unknown Rx Sodium Bicarbonate 75 meq IV DIRECT #5 vial 09/08/18 09/24/18 Unknown Rx levoFLOXacin [Levaquin TAB] 250 mg PO Q24HR #3 tablet 09/08/18 09/24/18 Unknown Rx traMADol [Ultram 50 MG tab] 50 mg PO DAILY PRN #20 tablet 09/08/18 09/24/18 Unknown Rx Nitrofurantoin [place]/M-Cryst 100 mg PO Q12HR #6 capsule 09/17/18 09/24/18 Unknown Rx [Macrobid CAP] Ondansetron [Zofran ODT TAB] 8 mg PO Q8HR #60 tab.rapdis 09/17/18 09/24/18 Unknown Rx Pantoprazole [Protonix TAB] 40 mg PO DAILY #30 tablet 09/17/18 09/24/18 Unknown Rx Active Meds: Active Medications Albuterol (Proventil) 2.5 mg IH TID PRN PRN Reason: Wheezing Apixaban (Eliquis) 5 mg PO BID [facility]; Protocol Last Admin: 09/25/18 09:21 Dose: 5 mg Documented by: Atorvastatin Calcium (Lipitor) 80 mg PO QHS [facility] Last Admin: 09/24/18 22:35 Dose: 80 mg Documented by: Famotidine (Pepcid) 20 mg IV BID [facility] Last Admin: 09/25/18 09:20 Dose: 20 mg Documented by: Gabapentin (Neurontin) 300 mg PO TID [facility] Last Admin: 09/25/18 08:45 Dose: 300 mg Documented by: Hydroxychloroquine Sulfate (Plaquenil) 200 mg PO BID [facility] Last Admin: 09/25/18 09:20 Dose: 200 mg Documented by: Hydroxyzine Pamoate (Vistaril) 50 mg PO QHS [facility] Last Admin: 09/24/18 22:35 Dose: 50 mg Documented by: Dextrose/Sodium Chloride (D5/0.45ns) 1,000 mls @ 100 mls/hr IV DIRECT [facility] Last Admin: 09/25/18 05:56 Dose: 100 mls/hr Documented by: Potassium Chloride (Kcl 10meq/100ml) 10 meq in 100 mls @ 100 mls/hr IV Q1H [facility] Stop: 09/25/18 11:59 Last Admin: 09/25/18 11:10 Dose: 100 mls/hr Documented by: Levothyroxine Sodium (Synthroid) 100 mcg PO DAILY@0600 [facility] Last Admin: 09/25/18 05:27 Dose: 100 mcg Documented by: Lisinopril (Zestril) 10 mg PO DAILY [facility] Last Admin: 09/25/18 09:21 Dose: 10 mg Documented by: Morphine Sulfate (Morphine) 2 mg IV Q6H PRN PRN Reason: Pain, Moderate (4-6) Nitrofurantoin Macrocrystals (Macrobid) 100 mg PO Q12HR [facility] Stop: 09/27/18 23:59 Last Admin: 09/25/18 09:19 Dose: 100 mg Documented by: Ondansetron HCl (Zofran) 8 mg IV Q6H PRN PRN Reason: Nausea And Vomiting Last Admin: 09/25/18 05:28 Dose: 8 mg Documented by: Prednisone (Deltasone) 5 mg PO PRN PRN PRN Reason: Pain Promethazine HCl (Phenergan) 12.5 mg DE Q6H PRN PRN Reason: Nausea And Vomiting Sodium Chloride (Sodium Chloride Flush Syringe 10 Ml) 10 ml IV BID [facility] Last Admin: 09/25/18 09:21 Dose: 10 ml Documented by: Sodium Chloride (Sodium Chloride Flush Syringe 10 Ml) 10 ml IV PRN PRN PRN Reason: LINE FLUSH Review of Systems - Constitutional chronic pain, no fever, no chills - Cardiovascular no chest pain, no shortness of breath - Respiratory no cough - Gastrointestinal abdominal pain, nausea, vomiting, heartburn, early satiety - Muskuloskeletal no low back pain Exam Vital Signs Temp Pulse Resp BP Pulse Ox 97.7 F 63 18 155/63 99 09/24/18 12:42 09/24/18 12:42 09/24/18 12:42 09/24/18 12:42 09/24/18 12:42 - General physical appearance Positive: no distress, no pain, other (pleasant, elderly female. Does not appear malnourished) - Respiratory Positive: normal expansion, normal respiratory effort, clear to auscultation - Cardiovascular Rhythm: regular - Abdomen Abdomen: Present: soft, tender (in entire abdomen. More in lower abdomen than upper. ), surgical scars (well healed midline scar). Absent: distended, masses, rebound, guarding, rigid, wound Hernia: none - Integumentary no rash, no growths, no abnormal pigmentation - Neurologic Neurologic: alert and oriented to time, place and person - Psychiatric Psychiatric: appropriate mood/affect, intact judgment & insight, cooperative Results - Labs 09/25/18 05:50 09/25/18 05:50 Abnormal lab results 09/24/18 09/24/18 09/24/18 Range/Units 15:27 15:27 15:27 RBC (3.65-5.03) M/mm3 Hgb (10.1-14.3) gm/dl Hct (30.3-42.9) % RDW 15.8 H (13.2-15.2) % [place] % (Auto) 8.9 H (0.0-7.3) % Eos % (Auto) 5.4 H (0.0-4.3) % Lymph # 1.1 L (1.2-5.4) K/mm3 Seg Neutrophils % (40.0-70.0) % INR 1.20 H (0.87-1.13) Potassium (3.6-5.0) mmol/L Chloride (98-107) mmol/L Glucose (65-100) mg/dL Calcium 10.3 H (8.4-10.2) mg/dL Total Protein (6.3-8.2) g/dL Albumin 3.6 L (3.9-5) g/dL 09/25/18 09/25/18 Range/Units 05:50 05:50 RBC 3.32 L (3.65-5.03) M/mm3 Hgb 9.4 L (10.1-14.3) gm/dl Hct 28.2 L (30.3-42.9) % RDW 15.7 H (13.2-15.2) % [place] % (Auto) (0.0-7.3) % Eos % (Auto) 7.1 H (0.0-4.3) % Lymph # 0.8 L (1.2-5.4) K/mm3 Seg Neutrophils % 70.2 H (40.0-70.0) % INR (0.87-1.13) Potassium 2.8 L* D (3.6-5.0) mmol/L Chloride 107.5 H (98-107) mmol/L Glucose 116 H (65-100) mg/dL Calcium (8.4-10.2) mg/dL Total Protein 5.8 L (6.3-8.2) g/dL Albumin 3.1 L (3.9-5) g/dL Diabetes panel 09/24/18 09/25/18 Range/Units 15:27 05:50 Sodium 142 142 (137-145) mmol/L Potassium 3.6 2.8 L* D (3.6-5.0) mmol/L Chloride 106.1 107.5 H (98-107) mmol/L Carbon Dioxide 24 25 (22-30) mmol/L BUN 14 10 (7-17) mg/dL Creatinine 1.0 0.9 (0.7-1.2) mg/dL Glucose 84 116 H (65-100) mg/dL Calcium 10.3 H 9.4 (8.4-10.2) mg/dL AST 27 25 (5-40) units/L ALT 11 10 (7-56) units/L Alkaline Phosphatase 79 72 (35-129) units/L Total Protein 7.0 5.8 L (6.3-8.2) g/dL Albumin 3.6 L 3.1 L (3.9-5) g/dL Calcium panel 09/24/18 09/24/18 09/25/18 Range/Units 15:27 15:27 05:50 Calcium 10.3 H 9.4 (8.4-10.2) mg/dL Phosphorus 2.50 (2.5-4.5) mg/dL Albumin 3.6 L 3.1 L (3.9-5) g/dL Pituitary panel 09/24/18 09/25/18 Range/Units 15:27 05:50 Sodium 142 142 (137-145) mmol/L Potassium 3.6 2.8 L* D (3.6-5.0) mmol/L Chloride 106.1 107.5 H (98-107) mmol/L Carbon Dioxide 24 25 (22-30) mmol/L BUN 14 10 (7-17) mg/dL Creatinine 1.0 0.9 (0.7-1.2) mg/dL Glucose 84 116 H (65-100) mg/dL Calcium 10.3 H 9.4 (8.4-10.2) mg/dL Adrenal panel 09/24/18 09/25/18 Range/Units 15:27 05:50 Sodium 142 142 (137-145) mmol/L Potassium 3.6 2.8 L* D (3.6-5.0) mmol/L Chloride 106.1 107.5 H (98-107) mmol/L Carbon Dioxide 24 25 (22-30) mmol/L BUN 14 10 (7-17) mg/dL Creatinine 1.0 0.9 (0.7-1.2) mg/dL Glucose 84 116 H (65-100) mg/dL Calcium 10.3 H 9.4 (8.4-10.2) mg/dL Total Bilirubin 0.50 0.60 (0.1-1.2) mg/dL AST 27 25 (5-40) units/L ALT 11 10 (7-56) units/L Alkaline Phosphatase 79 72 (35-129) units/L Total Protein 7.0 5.8 L (6.3-8.2) g/dL Albumin 3.6 L 3.1 L (3.9-5) g/dL - Imaging Chest x-ray: report reviewed CT scan - abdomen: report reviewed, image reviewed CT scan - pelvis: report reviewed, image reviewed Additional studies: HIDA report reviewed Assessment and Plan - Patient Problems (1) Intractable nausea and vomiting Current Visit: No Status: Acute Qualifiers: Vomiting type: unspecified Qualified Code(s): R11.2 - Nausea with vomiting, unspecified Plan to address problem: Pt stable. Her history is more suggestive of gastric pathology. I'm worried she has some gastric emptying issue. I have not been able to find any specific studies looking at her gastric anatomy or function (aside from the recent EGD). I think she would benefit from a gastric emptying study which I have ordered. Granted, the historical details she gives are sometimes inconsistent. However, she is consistent that no matter what she eats or drinks, she immediately has symptoms upon taking them in. This would be unusual for gallbladder pathology. Patient last her daughter did bring in old medical records for us to review. Rec: 1) Gastric emptying study (ordered) 2) After study, try prokinetic meds such as reglan and erythromycin 3) If study normal and meds don't help, then will consider cholecystectomy. I am not confident that this would make much of a difference. If we do plan for surgery, we will have to hold her Braden was for at least 2-3 days. Longer is preferable as we may encounter extensive scar tissue from her previous surgery which would require extra dissection. Will follow along. Please call with questions. time=45min
--- NOTE | 2018-09-25 20:34 | Progress Note ---
Assessment and Plan Biliary dyskinesia from HIDA scan done on 09/13/2018 Surgical consult - Intractable nausea vomiting Questionable general IV hydration, nothing by mouth, IV Zofran and PPI's++++++++++++++ History of DVT and PE Currently on high-dose - History of breast cancer status post mastectomy DVT prophylaxis patient already on high-dose CODE STATUS patient is full code Subjective Date of service: 09/25/18 Interval history: Sx better Able to tolerate PO today Objective - Constitutional Vitals: Vital Signs - 12hr 09/25/18 09/25/18 09/25/18 09:21 13:00 15:10 Temperature 97.8 F Pulse Rate 68 85 Respiratory 20 18 Rate Blood Pressure 141/69 163/84 O2 Sat by Pulse 97 Oximetry 09/25/18 09/25/18 15:59 19:08 Temperature 99.2 F Pulse Rate 77 Respiratory 18 18 Rate Blood Pressure 165/70 O2 Sat by Pulse 97 Oximetry General appearance: Present: no acute distress, well-nourished - EENT Eyes: PERRL, EOM intact ENT: hearing intact, clear oral mucosa Ears: bilateral: normal - Neck Neck: supple, normal ROM - Respiratory Respiratory effort: normal Respiratory: bilateral: CTA - Breasts Breasts: normal - Cardiovascular Rhythm: regular Heart Sounds: Present: S1 & S2. Absent: gallop, rub Extremities: pulses intact, No edema, normal color, Full ROM - Gastrointestinal General gastrointestinal: Present: soft, non-tender, non-distended, normal bowel sounds - Genitourinary Female genitourinary: normal - Integumentary Integumentary: clear, warm, dry - Musculoskeletal Musculoskeletal: 1, strength equal bilaterally - Neurologic Neurologic: moves all extremities - Psychiatric Psychiatric: memory intact, appropriate mood/affect, intact judgment & insight - Labs CBC & Chem 7: 09/27/18 05:15 09/28/18 05:00 Labs: Abnormal lab results 09/25/18 09/25/18 Range/Units 05:50 05:50 RBC 3.32 L (3.65-5.03) M/mm3 Hgb 9.4 L (10.1-14.3) gm/dl Hct 28.2 L (30.3-42.9) % RDW 15.7 H (13.2-15.2) % Eos % (Auto) 7.1 H (0.0-4.3) % Lymph # 0.8 L (1.2-5.4) K/mm3 Seg Neutrophils % 70.2 H (40.0-70.0) % Potassium 2.8 L* D (3.6-5.0) mmol/L Chloride 107.5 H (98-107) mmol/L Glucose 116 H (65-100) mg/dL Total Protein 5.8 L (6.3-8.2) g/dL Albumin 3.1 L (3.9-5) g/dL
[2018-09-25] MEDS: VISTARIL PO SCH (22:04)
[2018-09-26] MEDS: SYNTHROID PO SCH (05:37)
[2018-09-26] MEDS: D5/0.45NS 1,000 ML IV SCH ×2 (06:11→23:22)
[2018-09-26 06:50] LABS: Hematocrit 29.3 % (30.3-42.9); Hemoglobin 9.8 gm/dl (10.1-14.3); Mean Corpuscular HGB Conc 33 % (30-34); Mean Corpuscular Volume 85 fl (79-97); Platelet Count 157 K/mm3 (140-440); Red Blood Count 3.45 M/mm3 (3.65-5.03); Red Cell Distribution Width 15.7 % (13.2-15.2)
[2018-09-26 07:18] LABS: Alanine Aminotransferase 10 units/L (7-56); Albumin 2.9 g/dL (3.9-5); BUN/Creatinine Ratio 6; Blood Urea Nitrogen 6 mg/dL (7-17); Calcium 8.9 mg/dL (8.4-10.2); Hemolysis Index 2
[2018-09-26] MEDS: ELIQUIS PO SCH ×2 (11:35→22:44)
[2018-09-26] MEDS: PLAQUENIL PO SCH ×2 (11:35→22:44)
[2018-09-26] MEDS: ZESTRIL PO SCH (11:35)
[2018-09-26] MEDS: MACROBID PO SCH ×2 (11:35→23:56)
[2018-09-26] MEDS: NEURONTIN PO SCH ×3 (11:35→19:57)
[2018-09-26 11:54] LABS: Basophils % (Manual) 0 % (0.0-1.8); Total Cells Counted 100
[2018-09-26 11:55] LABS: Hypochromasia 1+; Ovalocytes Few; Platelet Estimate Consistent w Auto; Poikilocytosis 1+
--- NOTE | 2018-09-26 13:20 | Nuclear Medicine Report ---
GASTRIC EMPTYING STUDY HISTORY: Chronic nausea and vomiting COMPARISON: None. TECHNIQUE: Anterior abdominal imaging was performed for 90 minutes following 0.96 mCi of technetium 9 9m sulfur colloid in oatmeal. RADIOPHARMACEUTICAL: 0.96 mCi Tc99m Sulfur Colloid FINDINGS: Half-life for gastric emptying measures 46 minutes. There is no evidence for reflux disease. IMPRESSION: Normal gastric emptying Signer Name: Maurisio Ash Jr, MD Signed: 09/26/2018 1:15 PM Workstation Name: [id number]
[2018-09-26] MEDS ORDERED: APRESOLINE IV PRN (13:49)
[2018-09-26] MEDS: ZOFRAN IV PRN (14:47)
[2018-09-26] MEDS: PEPCID IV SCH ×2 (14:47→22:44)
[2018-09-26] MEDS: SODIUM CHLORIDE FLUSH SYRINGE 10 ML IV SCH ×2 (14:48→22:45)
--- NOTE | 2018-09-26 15:17 | Progress Note ---
Assessment and Plan - Patient Problems (1) Intractable nausea and vomiting Current Visit: No Status: Acute Qualifiers: Vomiting type: unspecified Qualified Code(s): R11.2 - Nausea with vomiting, unspecified Plan to address problem: Pt stable. Her history is more suggestive of gastric pathology. Gastric Emptying study did not show any abnormalities, but she clearly states that immediately upon taking the contrast, she had N/V. This immediate reaction would be unusual for gallbladder pathology. I still think we should try medical therapy before surgery. Will order scheduled carafate and Zofran before every meal. Will try bland diet as she did tell me today that she is able to keep down plain toast and black tea. If this does not make a difference, then will consider removing the GB. Still not confident that it will make a difference. Pt understands. If we do plan for surgery, we will have to hold her Eliquis was for at least 2-3 days. Longer is preferable as we may encounter extensive scar tissue from her previous surgery which would require extra dissection. Patient last her daughter did bring in old medical records for us to review. Will follow along. Please call with questions. time=10min Subjective Date of service: 09/26/18 Patient Reports: Positive: no new complaints, still having pain (more in lower abdomen), nausea (immediately when she drank the contrast for the study today), vomiting Objective Vital Signs - 12hr 09/26/18 09/26/18 09/26/18 08:02 13:28 14:47 Temperature 97.9 F 98.0 F Pulse Rate 78 78 78 Respiratory 20 20 Rate Blood Pressure 152/72 180/85 180/85 O2 Sat by Pulse 97 96 Oximetry - General physical appearance no distress, no pain, other (sitting up in chair. Looks well) - Eyes normal occular movement - Respiratory normal expansion, normal respiratory effort - Psychiatric oriented to time, oriented to person, oriented to place, speech is normal, memory intact - Labs 09/26/18 06:25 09/26/18 06:25 Diabetes panel 09/26/18 Range/Units 06:25 Sodium 139 (137-145) mmol/L Potassium 3.0 L (3.6-5.0) mmol/L Chloride 105.6 (98-107) mmol/L Carbon Dioxide 24 (22-30) mmol/L BUN 6 L (7-17) mg/dL Creatinine 1.0 (0.7-1.2) mg/dL Glucose 269 H (65-100) mg/dL Calcium 8.9 (8.4-10.2) mg/dL AST 22 (5-40) units/L ALT 10 (7-56) units/L Alkaline Phosphatase 73 (35-129) units/L Total Protein 5.9 L (6.3-8.2) g/dL Albumin 2.9 L (3.9-5) g/dL Calcium panel 09/26/18 Range/Units 06:25 Calcium 8.9 (8.4-10.2) mg/dL Albumin 2.9 L (3.9-5) g/dL Pituitary panel 09/26/18 Range/Units 06:25 Sodium 139 (137-145) mmol/L Potassium 3.0 L (3.6-5.0) mmol/L Chloride 105.6 (98-107) mmol/L Carbon Dioxide 24 (22-30) mmol/L BUN 6 L (7-17) mg/dL Creatinine 1.0 (0.7-1.2) mg/dL Glucose 269 H (65-100) mg/dL Calcium 8.9 (8.4-10.2) mg/dL Adrenal panel 09/26/18 Range/Units 06:25 Sodium 139 (137-145) mmol/L Potassium 3.0 L (3.6-5.0) mmol/L Chloride 105.6 (98-107) mmol/L Carbon Dioxide 24 (22-30) mmol/L BUN 6 L (7-17) mg/dL Creatinine 1.0 (0.7-1.2) mg/dL Glucose 269 H (65-100) mg/dL Calcium 8.9 (8.4-10.2) mg/dL Total Bilirubin 0.50 (0.1-1.2) mg/dL AST 22 (5-40) units/L ALT 10 (7-56) units/L Alkaline Phosphatase 73 (35-129) units/L Total Protein 5.9 L (6.3-8.2) g/dL Albumin 2.9 L (3.9-5) g/dL - Imaging Additional Studies: Gastric Emptying Study
[2018-09-26] MEDS: ZOFRAN IV SCH (16:47)
[2018-09-26] MEDS: CARAFATE PO SCH ×2 (16:47→22:43)
[2018-09-26] MEDS: VISTARIL PO SCH (22:42)
--- NOTE | 2018-09-27 03:13 | Progress Note ---
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 History of breast cancer status post mastectomy DVT prophylaxis patient already on high-dose CODE STATUS patient is full code Subjective Date of service: 09/26/18 Principal diagnosis: Biliary Dyskinesia Interval history: Sx better Able to tolerate PO today Objective - Constitutional Vitals: Vital Signs - 12hr 09/26/18 20:05 Temperature 98.6 F Pulse Rate 79 Respiratory 18 Rate Blood Pressure 140/60 O2 Sat by Pulse 95 Oximetry General appearance: Present: no acute distress, well-nourished - EENT Eyes: PERRL, EOM intact ENT: hearing intact, clear oral mucosa Ears: bilateral: normal - Neck Neck: supple, normal ROM - Respiratory Respiratory effort: normal Respiratory: bilateral: CTA - Breasts Breasts: normal - Cardiovascular Heart rate: 78 Rhythm: regular Heart Sounds: Present: S1 & S2. Absent: gallop, rub Extremities: no ischemia, pulses intact, No edema, normal color, Full ROM - Gastrointestinal General gastrointestinal: Present: deferred, soft, non-tender, non-distended, normal bowel sounds - Genitourinary Female genitourinary: normal - Integumentary Integumentary: clear, warm, dry - Musculoskeletal Musculoskeletal: 1, strength equal bilaterally - Neurologic Neurologic: moves all extremities - Psychiatric Psychiatric: memory intact, appropriate mood/affect, intact judgment & insight - Allied health notes Allied health notes reviewed: nursing, case management - Labs CBC & Chem 7: 09/26/18 06:25 09/26/18 06:25 Labs: Abnormal lab results 09/26/18 09/26/18 Range/Units 06:25 06:25 RBC 3.45 L (3.65-5.03) M/mm3 Hgb 9.8 L (10.1-14.3) gm/dl Hct 29.3 L (30.3-42.9) % RDW 15.7 H (13.2-15.2) % Seg Neuts % (Manual) 82.0 H (40.0-70.0) % Lymphocytes % (Manual) 9.0 L (13.4-35.0) % Lymphocytes # (Manual) 0.5 L (1.2-5.4) K/mm3 Potassium 3.0 L (3.6-5.0) mmol/L BUN 6 L (7-17) mg/dL Glucose 269 H (65-100) mg/dL Total Protein 5.9 L (6.3-8.2) g/dL Albumin 2.9 L (3.9-5) g/dL
[2018-09-27] MEDS: SYNTHROID PO SCH (06:00)
[2018-09-27 06:07] LABS: Basophils % (Auto) 0.4 % (0.0-1.8); Eosinophils # (Auto) 0.5 K/mm3 (0.0-0.4); Eosinophils % (Auto) 11.1 % (0.0-4.3); Lymphocytes # (Auto) 0.9 K/mm3 (1.2-5.4); Lymphocytes % (Auto) 18.9 % (13.4-35.0); Mean Corpuscular HGB Conc 33 % (30-34); Mean Corpuscular Volume 85 fl (79-97); Monocytes # (Auto) 0.4 K/mm3 (0.0-0.8); Platelet Count 161 K/mm3 (140-440); Red Blood Count 3.55 M/mm3 (3.65-5.03); Red Cell Distribution Width 16.3 % (13.2-15.2)
[2018-09-27 06:28] LABS: Albumin 3.1 g/dL (3.9-5); Calcium 9.6 mg/dL (8.4-10.2)
[2018-09-27] MEDS: D5/0.45NS 1,000 ML IV SCH (10:08)
[2018-09-27] MEDS: MACROBID PO SCH ×2 (10:09→22:10)
[2018-09-27] MEDS: SODIUM CHLORIDE FLUSH SYRINGE 10 ML IV SCH ×2 (10:09→22:10)
[2018-09-27] MEDS: PEPCID IV SCH ×2 (10:09→22:11)
[2018-09-27] MEDS: ELIQUIS PO SCH ×2 (10:10→22:11)
[2018-09-27] MEDS: ZOFRAN IV SCH ×3 (10:10→16:30)
[2018-09-27] MEDS: CARAFATE PO SCH ×4 (10:10→22:11)
[2018-09-27] MEDS: PLAQUENIL PO SCH ×2 (10:10→22:11)
[2018-09-27] MEDS: NEURONTIN PO SCH ×3 (10:10→20:20)
[2018-09-27] MEDS: ZESTRIL PO SCH (10:11)
--- NOTE | 2018-09-27 13:37 | Progress Note ---
Assessment and Plan (1) Intractable nausea and vomiting Current Visit: No Status: Acute Qualifiers: Vomiting type: unspecified Qualified Code(s): R11.2 - Nausea with vomiting, unspecified Plan to address problem: Pt improving. Her history is more suggestive of gastric pathology. Gastric Emptying study did not show any abnormalities, but she clearly states that immediately upon taking the contrast, she had N/V. This immediate reaction would be unusual for gallbladder pathology. Continue conservative management with scheduled carafate and Zofran before every meal. Patient is currently tolerating a soft diet. Replace K and recheck BMP in am. If this does not make a difference, then will consider removing the GB. Still not confident that it will make a difference. Pt understands. If we do plan for surgery, we will have to hold her Eliquis was for at least 2-3 days. Longer is preferable as we may encounter extensive scar tissue from her previous surgery which would require extra dissection. Will follow up tomorrow. Please call with questions. Subjective Date of service: 09/27/18 Narrative: Pt seen and examined. Minimal nausea, no vomiting. Tolerating soft diet. No f/c. No abdominal pain Objective Vital Signs - 12hr 09/27/18 09/27/18 09/27/18 03:22 07:28 10:11 Temperature 98.3 F 98.0 F Pulse Rate 78 84 78 Respiratory 21 20 Rate Blood Pressure 165/66 166/75 165/66 O2 Sat by Pulse 95 96 Oximetry - General physical appearance Narrative Exam: Gen: AAOx3. NAD CV: s1, S2+ resp; even and unlabored Abd: soft, NT, ND Ext: no c/c/e - Labs 09/27/18 05:15 09/27/18 05:15 Diabetes panel 09/27/18 Range/Units 05:15 Sodium 142 (137-145) mmol/L Potassium 2.8 L* (3.6-5.0) mmol/L Chloride 107.3 H (98-107) mmol/L Carbon Dioxide 27 (22-30) mmol/L BUN 4 L (7-17) mg/dL Creatinine 1.1 (0.7-1.2) mg/dL Glucose 112 H (65-100) mg/dL Calcium 9.6 (8.4-10.2) mg/dL AST 25 (5-40) units/L ALT 10 (7-56) units/L Alkaline Phosphatase 77 (35-129) units/L Total Protein 6.3 (6.3-8.2) g/dL Albumin 3.1 L (3.9-5) g/dL Calcium panel 09/27/18 Range/Units 05:15 Calcium 9.6 (8.4-10.2) mg/dL Albumin 3.1 L (3.9-5) g/dL Pituitary panel 09/27/18 Range/Units 05:15 Sodium 142 (137-145) mmol/L Potassium 2.8 L* (3.6-5.0) mmol/L Chloride 107.3 H (98-107) mmol/L Carbon Dioxide 27 (22-30) mmol/L BUN 4 L (7-17) mg/dL Creatinine 1.1 (0.7-1.2) mg/dL Glucose 112 H (65-100) mg/dL Calcium 9.6 (8.4-10.2) mg/dL Adrenal panel 09/27/18 Range/Units 05:15 Sodium 142 (137-145) mmol/L Potassium 2.8 L* (3.6-5.0) mmol/L Chloride 107.3 H (98-107) mmol/L Carbon Dioxide 27 (22-30) mmol/L BUN 4 L (7-17) mg/dL Creatinine 1.1 (0.7-1.2) mg/dL Glucose 112 H (65-100) mg/dL Calcium 9.6 (8.4-10.2) mg/dL Total Bilirubin 0.50 (0.1-1.2) mg/dL AST 25 (5-40) units/L ALT 10 (7-56) units/L Alkaline Phosphatase 77 (35-129) units/L Total Protein 6.3 (6.3-8.2) g/dL Albumin 3.1 L (3.9-5) g/dL
[2018-09-27] MEDS ORDERED: K-DUR PO ONE ×3 (14:00→16:00)
--- NOTE | 2018-09-27 15:00 | Progress Note ---
Assessment and Plan Biliary dyskinesia from HIDA scan done on 09/13/2018 Surgical consult appreciated Conservative treatment for now IV Zofran and PPI,s Intractable nausea vomiting--Improved IV hydration, [place] diet IV Zofran, and Carafate History of DVT and PE History of breast cancer status post mastectomy DVT prophylaxis patient already on high-dose CODE STATUS patient is full code Subjective Date of service: 09/27/18 Principal diagnosis: Biliary Dyskinesia Interval history: Sx better Able to tolerate PO today Objective - Constitutional Vitals: Vital Signs - 12hr 09/27/18 09/27/18 09/27/18 03:22 07:28 10:11 Temperature 98.3 F 98.0 F Pulse Rate 78 84 78 Respiratory 21 20 Rate Blood Pressure 165/66 166/75 165/66 O2 Sat by Pulse 95 96 Oximetry 09/27/18 13:20 Temperature 98.0 F Pulse Rate 67 Respiratory 20 Rate Blood Pressure 149/70 O2 Sat by Pulse 61 L Oximetry General appearance: Present: no acute distress, well-nourished - EENT Eyes: PERRL, EOM intact ENT: hearing intact, clear oral mucosa Ears: bilateral: normal - Neck Neck: supple, normal ROM - Respiratory Respiratory effort: normal Respiratory: bilateral: CTA - Breasts Breasts: normal - Cardiovascular Rhythm: regular Heart Sounds: Present: S1 & S2. Absent: gallop, rub Extremities: pulses intact, No edema, normal color, Full ROM - Gastrointestinal General gastrointestinal: Present: soft, non-tender, non-distended, normal bowel sounds - Genitourinary Female genitourinary: normal - Integumentary Integumentary: clear, warm, dry - Musculoskeletal Musculoskeletal: 1, strength equal bilaterally - Neurologic Neurologic: moves all extremities - Psychiatric Psychiatric: memory intact, appropriate mood/affect, intact judgment & insight - Labs CBC & Chem 7: 09/27/18 05:15 09/28/18 05:00 Labs: Abnormal lab results 09/27/18 09/27/18 Range/Units 05:15 05:15 RBC 3.55 L (3.65-5.03) M/mm3 Hgb 10.0 L (10.1-14.3) gm/dl Hct 30.0 L (30.3-42.9) % RDW 16.3 H (13.2-15.2) % [place] % (Auto) 9.0 H (0.0-7.3) % Eos % (Auto) 11.1 H (0.0-4.3) % Lymph # 0.9 L (1.2-5.4) K/mm3 Eos # 0.5 H (0.0-0.4) K/mm3 Potassium 2.8 L* (3.6-5.0) mmol/L Chloride 107.3 H (98-107) mmol/L BUN 4 L (7-17) mg/dL Glucose 112 H (65-100) mg/dL Albumin 3.1 L (3.9-5) g/dL
[2018-09-27] MEDS: KCL 10MEQ/100ML 10 MEQ/100 ML BAG IV SCH ×4 (16:30→22:09)
[2018-09-27] MEDS: VISTARIL PO SCH (22:10)
[2018-09-28] MEDS: SYNTHROID PO SCH (06:13)
[2018-09-28 06:23] LABS: Albumin 3.1 g/dL (3.9-5); Calcium 9.5 mg/dL (8.4-10.2)
[2018-09-28] MEDS: D5/0.45NS 1,000 ML IV SCH (08:57)
[2018-09-28] MEDS: ZOFRAN IV SCH ×3 (08:58→16:13)
[2018-09-28] MEDS: SODIUM CHLORIDE FLUSH SYRINGE 10 ML IV SCH ×2 (08:58→10:00)
[2018-09-28] MEDS: CARAFATE PO SCH ×3 (08:58→16:13)
[2018-09-28] MEDS: PEPCID IV SCH ×2 (08:58→10:00)
[2018-09-28] MEDS: ZESTRIL PO SCH (08:59)
[2018-09-28] MEDS: PLAQUENIL PO SCH (08:59)
[2018-09-28] MEDS: ELIQUIS PO SCH (08:59)
[2018-09-28] MEDS: NEURONTIN PO SCH ×2 (08:59→16:13)
--- NOTE | 2018-09-28 14:00 | Progress Note ---
Assessment and Plan (1) Intractable nausea and vomiting Current Visit: No Status: Acute Qualifiers: Vomiting type: unspecified Qualified Code(s): R11.2 - Nausea with vomiting, unspecified Plan to address problem: Pt improving. Her history is more suggestive of gastric pathology. Gastric Emptying study did not show any abnormalities, but she clearly states that immediately upon taking the contrast, she had N/V. This immediate reaction would be unusual for gallbladder pathology. OK to dc home from surgery standpoint. Continue schedulef PO carafate and zofran before each meal as outpatient. Follow up with GI or Dr. Lewis in office in 2-3 weeks for follow up. Will s/o. Please call with questions. Subjective Date of service: 09/28/18 Narrative: Pt seen and examined. Feeling much better. No nausea or vomiting these last 2 days. Has tolerated a soft diet. Having multiple BMs Objective Vital Signs - 12hr 09/28/18 09/28/18 09/28/18 03:23 08:00 08:09 Temperature 98.6 F 98.4 F Pulse Rate 86 71 70 Respiratory 20 18 Rate Blood Pressure 141/66 149/63 O2 Sat by Pulse 98 97 Oximetry 09/28/18 08:59 Temperature Pulse Rate 70 Respiratory Rate Blood Pressure 149/63 O2 Sat by Pulse Oximetry - General physical appearance Narrative Exam: Gen: AAOx3. NAD CV: S1, S2+ resp: even and unlabored Abd: soft, ND, mild LLQ TTP. no r/r/g Ext: no c/c/e - Labs 09/27/18 05:15 09/28/18 05:00 Diabetes panel 09/28/18 Range/Units 05:00 Sodium 144 (137-145) mmol/L Potassium 3.9 D (3.6-5.0) mmol/L Chloride 111.5 H (98-107) mmol/L Carbon Dioxide 23 (22-30) mmol/L BUN 5 L (7-17) mg/dL Creatinine 1.2 (0.7-1.2) mg/dL Glucose 98 (65-100) mg/dL Calcium 9.5 (8.4-10.2) mg/dL AST 25 (5-40) units/L ALT 10 (7-56) units/L Alkaline Phosphatase 73 (35-129) units/L Total Protein 6.0 L (6.3-8.2) g/dL Albumin 3.1 L (3.9-5) g/dL Calcium panel 09/28/18 Range/Units 05:00 Calcium 9.5 (8.4-10.2) mg/dL Albumin 3.1 L (3.9-5) g/dL Pituitary panel 09/28/18 Range/Units 05:00 Sodium 144 (137-145) mmol/L Potassium 3.9 D (3.6-5.0) mmol/L Chloride 111.5 H (98-107) mmol/L Carbon Dioxide 23 (22-30) mmol/L BUN 5 L (7-17) mg/dL Creatinine 1.2 (0.7-1.2) mg/dL Glucose 98 (65-100) mg/dL Calcium 9.5 (8.4-10.2) mg/dL Adrenal panel 09/28/18 Range/Units 05:00 Sodium 144 (137-145) mmol/L Potassium 3.9 D (3.6-5.0) mmol/L Chloride 111.5 H (98-107) mmol/L Carbon Dioxide 23 (22-30) mmol/L BUN 5 L (7-17) mg/dL Creatinine 1.2 (0.7-1.2) mg/dL Glucose 98 (65-100) mg/dL Calcium 9.5 (8.4-10.2) mg/dL Total Bilirubin 0.40 (0.1-1.2) mg/dL AST 25 (5-40) units/L ALT 10 (7-56) units/L Alkaline Phosphatase 73 (35-129) units/L Total Protein 6.0 L (6.3-8.2) g/dL Albumin 3.1 L (3.9-5) g/dL
[2018-09-28 14:34] VITALS: BP 124/52
--- NOTE | 2018-09-28 17:57 | Progress Note ---
Assessment and Plan - Patient Problems (1) Abdominal pain Current Visit: No Status: Acute Plan to address problem: Pt improving. Her history is more suggestive of gastric pathology. Gastric Emptying study did not show any abnormalities, but she clearly states that immediately upon taking the contrast, she had N/V. This immediate reaction would be unusual for gallbladder pathology. Continue schedulef PO carafate and zofran before each meal as outpatient. Follow up with GI or Dr. Lewis in office in 2-3 weeks for follow up (2) HTN (hypertension) Current Visit: No Status: Chronic Qualifiers: Hypertension type: essential hypertension Qualified Code(s): I10 - Essential (primary) hypertension Plan to address problem: Cont antihypertensives (3) Hyperlipidemia Current Visit: No Status: Chronic Qualifiers: Hyperlipidemia type: mixed hyperlipidemia Qualified Code(s): E78.2 - Mixed hyperlipidemia Plan to address problem: Cont statins (4) Anticoagulant effect Current Visit: Yes Status: Chronic Plan to address problem: Therapeutic On Eliquis for DVT /PE (5) Hypothyroidism (acquired) Current Visit: Yes Status: Chronic Plan to address problem: Cont synthyroid (6) Lupus (systemic lupus erythematosus) Current Visit: Yes Status: Chronic Qualifiers: Systemic lupus erythematosus organ involvement: unspecified Plan to address problem: Cont plaquenil (7) Peripheral neuropathy Current Visit: Yes Status: Chronic Qualifiers: Peripheral neuropathy type: polyneuropathy, unspecified Qualified Code(s): G62.9 - Polyneuropathy, unspecified Plan to address problem: Cont Gabapentin Subjective Date of service: 09/28/18 Principal diagnosis: Biliary Dyskinesia Interval history: Sx better Able to tolerate PO today Objective - Constitutional Vitals: Vital Signs - 12hr 09/28/18 09/28/18 09/28/18 08:00 08:09 08:59 Temperature 98.4 F Pulse Rate 71 70 70 Respiratory 18 Rate Blood Pressure 149/63 149/63 O2 Sat by Pulse 97 Oximetry 09/28/18 14:19 Temperature 98.8 F Pulse Rate 81 Respiratory 18 Rate Blood Pressure 124/52 O2 Sat by Pulse 97 Oximetry General appearance: Present: no acute distress, well-nourished - EENT Eyes: PERRL, EOM intact ENT: hearing intact, clear oral mucosa Ears: bilateral: normal - Neck Neck: supple, normal ROM - Respiratory Respiratory effort: normal Respiratory: bilateral: CTA - Breasts Breasts: normal - Cardiovascular Heart rate: 78 Rhythm: regular Heart Sounds: Present: S1 & S2. Absent: gallop, rub Extremities: no ischemia, pulses intact, No edema, normal color, Full ROM - Gastrointestinal General gastrointestinal: Present: soft, non-tender, non-distended, normal bowel sounds - Genitourinary Female genitourinary: normal - Integumentary Integumentary: clear, warm, dry - Musculoskeletal Musculoskeletal: 1, strength equal bilaterally - Neurologic Neurologic: moves all extremities - Psychiatric Psychiatric: memory intact, appropriate mood/affect, intact judgment & insight - Labs CBC & Chem 7: 09/27/18 05:15 09/28/18 05:00 Labs: Abnormal lab results 09/28/18 Range/Units 05:00 Chloride 111.5 H (98-107) mmol/L BUN 5 L (7-17) mg/dL Total Protein 6.0 L (6.3-8.2) g/dL Albumin 3.1 L (3.9-5) g/dL
--- NOTE | 2018-09-28 18:09 | Discharge Summary ---
Providers - Providers Date of Admission: 09/24/18 12:12 Date of discharge: 09/28/18 Attending physician: BRITTANY MATTSON 09/24/18 11:41 Consult to Physician [CONS] Urgent Comment: called answ. serv. /deisi Consulting Provider: ROEL SANDERS Physician Instructions: Reason For Exam: BILIARY DYSKINESIA 09/24/18 17:41 PICC Line Insertion [Consult to PICC Line RN] [CONS] Urgent Reason For Exam: inability to establish IV access Type Line:: Midline Primary care physician: BRITTANY MATTSON Hospitalization Hospital course: (1) Abdominal pain Current Visit: No Status: Acute Plan to address problem: Pt improving. Her history is more suggestive of gastric pathology. Gastric Emptying study did not show any abnormalities, but she clearly states that immediately upon taking the contrast, she had N/V. This immediate reaction would be unusual for gallbladder pathology. Continue schedulef PO carafate and zofran before each meal as outpatient. Follow up with GI or Dr. Lewis in office in 2-3 weeks for follow up Biliary dyskinesia unlikely Cholecystectomy as out patient if RUQ symptoms are recurrent (2) HTN (hypertension) Current Visit: No Status: Chronic Qualifiers: Hypertension type: essential hypertension Qualified Code(s): I10 - Essential (primary) hypertension Plan to address problem: Cont antihypertensives (3) Hyperlipidemia Current Visit: No Status: Chronic Qualifiers: Hyperlipidemia type: mixed hyperlipidemia Qualified Code(s): E78.2 - Mixed hyperlipidemia Plan to address problem: Cont statins (4) Anticoagulant effect Current Visit: Yes Status: Chronic Plan to address problem: Therapeutic On Eliquis for DVT /PE (5) Hypothyroidism (acquired) Current Visit: Yes Status: Chronic Plan to address problem: Cont synthyroid (6) Lupus (systemic lupus erythematosus) Current Visit: Yes Status: Chronic Qualifiers: Systemic lupus erythematosus organ involvement: unspecified Plan to address problem: Cont plaquenil (7) Peripheral neuropathy Current Visit: Yes Status: Chronic Qualifiers: Peripheral neuropathy type: polyneuropathy, unspecified Qualified Code(s): G62.9 - Polyneuropathy, unspecified Plan to address problem: Cont Gabapentin Disposition: DC- TO HOME OR SELFCARE - Discharge Diagnoses (1) Abdominal pain Status: Acute (2) HTN (hypertension) Status: Chronic Qualifiers: Hypertension type: essential hypertension Qualified Code(s): I10 - Essential (primary) hypertension (3) Hyperlipidemia Status: Chronic Qualifiers: Hyperlipidemia type: mixed hyperlipidemia Qualified Code(s): E78.2 - Mixed hyperlipidemia (4) Anticoagulant effect Status: Chronic (5) Hypothyroidism (acquired) Status: Chronic (6) Lupus (systemic lupus erythematosus) Status: Chronic Qualifiers: Systemic lupus erythematosus organ involvement: unspecified (7) Peripheral neuropathy Status: Chronic Qualifiers: Peripheral neuropathy type: polyneuropathy, unspecified Qualified Code(s): G62.9 - Polyneuropathy, unspecified Core Measure Documentation - Palliative Care Palliative Care/ Comfort Measures: Not Applicable - Core Measures Any of the following diagnoses?: none Exam - Constitutional Vitals: Temp Pulse Resp BP Pulse Ox 98.8 F 81 18 124/52 97 09/28/18 14:19 09/28/18 14:19 09/28/18 14:19 09/28/18 14:09/28/18 14:19 General appearance: Present: no acute distress, well-nourished - EENT Eyes: Present: PERRL ENT: hearing intact, clear oral mucosa - Neck Neck: Present: supple, normal ROM - Respiratory Respiratory effort: normal Respiratory: bilateral: CTA - Cardiovascular Rhythm: regular (78) Heart Sounds: Present: S1 & S2. Absent: rub, click - Extremities Extremities: no ischemia, pulses intact, pulses symmetrical, No edema Peripheral Pulses: within normal limits - Abdominal General gastrointestinal: Present: soft, non-tender, non-distended, normal bowel sounds Female genitourinary: Present: normal - Integumentary Integumentary: Present: clear, warm, dry - Musculoskeletal Musculoskeletal: gait normal, strength equal bilaterally - Psychiatric Psychiatric: appropriate mood/affect, intact judgment & insight - Neurologic Neurologic: CNII-XII intact, moves all extremities - Allied Health Allied health notes reviewed: nursing, case management Plan Activity: no restrictions Diet: low fat, low cholesterol, low salt Follow up with: BRITTANY MATTSON MD [Primary Care Provider] - 7 Days
[2018-09-28] MEDS ORDERED: FLUSH HEPARIN IV ONE (18:33)
[2018-10-03] MEDS ORDERED: CATAPRES-TTS PATCH TD SCH (10:00)
== END 2018-09-28 19:10 | disposition home health service (06) | DRG 392 ==
LOC: 2B-ACE 11:37 → UNDOADMIN 11:37 → 2B-ACE 12:12
PROVIDERS: ADMIT Family Medicine; ATTEND Family Medicine
DX: R10.9 Unspecified abdominal pain (principal); E78.2 Mixed hyperlipidemia; E03.9 Hypothyroidism, unspecified; M32.9 Systemic lupus erythematosus, unspecified; G62.9 Polyneuropathy, unspecified; Z95.820 Peripheral vascular angioplasty status with implants and grafts; Z86.718 Personal history of other venous thrombosis and embolism; Z86.711 Personal history of pulmonary embolism; Z79.01 Long term (current) use of anticoagulants; Z90.49 Acquired absence of other specified parts of digestive tract; Z85.3 Personal history of malignant neoplasm of breast; Z90.10 Acquired absence of unspecified breast and nipple; Z82.49 Family history of ischemic heart disease and other diseases of the circulatory system; Z91.012 Allergy to eggs; Z91.010 Allergy to peanuts; Z88.0 Allergy status to penicillin; Z91.013 Allergy to seafood; Z91.018 Allergy to other foods; Z79.51 Long term (current) use of inhaled steroids; Z79.899 Other long term (current) drug therapy
CPT/HCPCS: 36415; 71045; 78264; 80053; 83735; 84100; 85007; 85025; 85610; 85730; 93005; 93010; G0378; A9270-GY; A9541; J0360; J1642; J1650; J2270; J2405; J3246; J3480; Q0177

== ENCOUNTER 2019-02-02 20:37 | Emergency (ER) | payer MEDICARE ==
--- NOTE | 2019-02-02 20:46 | Emergency Department Report ---
Blank Doc - Documentation Documentation: 73-year-old female that presents with bilateral leg redness, pain, and blisters. HX of PVD. This initial assessment/diagnostic orders/clinical plan/treatment(s) is/are subject to change based on patient's health status, clinical progression and re- assessment by fellow clinical providers in the ED. Further treatment and workup at subsequent clinical providers discretion. Patient/guardians urged not to elope from the ED as their condition may be serious if not clinically assessed and managed. Initial orders include: 1- Patient sent to MAIN ED for further evaluation and treatment 2- labs 3- UA
[2019-02-02 22:14] LABS: Basophils % (Auto) 0.4 % (0.0-1.8); Eosinophils # (Auto) 0.3 K/mm3 (0.0-0.4); Eosinophils % (Auto) 5.5 % (0.0-4.3); Hematocrit 32.6 % (30.3-42.9); Hemoglobin 10.6 gm/dl (10.1-14.3); Lymphocytes # (Auto) 1.3 K/mm3 (1.2-5.4); Lymphocytes % (Auto) 24.7 % (13.4-35.0); Mean Corpuscular HGB Conc 33 % (30-34); Mean Corpuscular Volume 84 fl (79-97); Monocytes # (Auto) 0.4 K/mm3 (0.0-0.8); Monocytes % (Auto) 6.7 % (0.0-7.3); Platelet Count 135 K/mm3 (140-440); Red Blood Count 3.87 M/mm3 (3.65-5.03)
[2019-02-02 22:41] LABS: Albumin 3.6 g/dL (3.9-5); Red Cell Distribution Width 20.3 % (13.2-15.2)
[2019-02-03 01:10] VITALS: BP 154/63
== END 2019-02-03 02:20 | disposition left against medical advice (07) ==
LOC: ED 20:37
DX: M79.661 Pain in right lower leg (principal); M79.662 Pain in left lower leg; Z53.21 Procedure and treatment not carried out due to patient leaving prior to being seen by health care provider
CPT/HCPCS: 36415; 80053; 85025

== ENCOUNTER 2019-02-03 11:24 | Outpatient (CLI) | payer MEDICARE | END 2019-02-03 11:25 | disposition home or self-care (01) | LOC: WOUND 11:24 | PROVIDERS: ATTEND Surgery | DX: I87.313 Chronic venous hypertension (idiopathic) with ulcer of bilateral lower extremity (principal); L97.812 Non-pressure chronic ulcer of other part of right lower leg with fat layer exposed; L97.822 Non-pressure chronic ulcer of other part of left lower leg with fat layer exposed; I10 Essential (primary) hypertension; M32.9 Systemic lupus erythematosus, unspecified; K27.9 Peptic ulcer, site unspecified, unspecified as acute or chronic, without hemorrhage or perforation; Z85.3 Personal history of malignant neoplasm of breast | CPT/HCPCS: 97597; 97598; G0463; 99215 ==

== ENCOUNTER 2019-02-10 08:35 | Outpatient (CLI) | payer MEDICARE ==
[2019-02-10] MEDS ORDERED: LIDOCAINE (4%) 40 MG/ML TOPICAL SOLN 50 ML BOTTLE TP NR (09:30)
== END 2019-02-10 08:36 | disposition home or self-care (01) ==
LOC: WOUND 08:35
PROVIDERS: ATTEND Surgery
DX: I87.313 Chronic venous hypertension (idiopathic) with ulcer of bilateral lower extremity (principal); L97.812 Non-pressure chronic ulcer of other part of right lower leg with fat layer exposed; L97.822 Non-pressure chronic ulcer of other part of left lower leg with fat layer exposed; I10 Essential (primary) hypertension; M32.9 Systemic lupus erythematosus, unspecified; K27.9 Peptic ulcer, site unspecified, unspecified as acute or chronic, without hemorrhage or perforation; Z85.3 Personal history of malignant neoplasm of breast

== ENCOUNTER 2019-02-11 15:23 | Inpatient (IN) | payer MEDICARE ==
[2019-02-11 17:10] LABS: Basophils % (Auto) 0.2 % (0.0-1.8); Eosinophils # (Auto) 0.3 K/mm3 (0.0-0.4); Hematocrit 36.8 % (30.3-42.9); Hemoglobin 12.1 gm/dl (10.1-14.3); Lymphocytes # (Auto) 1.3 K/mm3 (1.2-5.4); Lymphocytes % (Auto) 26.1 % (13.4-35.0); Mean Corpuscular HGB Conc 33 % (30-34); Mean Corpuscular Volume 85 fl (79-97); Monocytes # (Auto) 0.7 K/mm3 (0.0-0.8); Platelet Count 146 K/mm3 (140-440); Red Blood Count 4.31 M/mm3 (3.65-5.03); Red Cell Distribution Width 19.2 % (13.2-15.2)
[2019-02-11 17:22] LABS: Albumin 3.7 g/dL (3.9-5); Calcium 10.9 mg/dL (8.4-10.2)
--- NOTE | 2019-02-11 17:34 | History and Physical Report ---
History of Present Illness Date of examination: 02/11/19 Date of admission: 02/11/19 16:14 Chief complaint: Abdominal pain, intractable nausea and vomting for 2 days History of present illness: Patient is a 73 y/o female who has a history of breast cancer s/p mastectomy, DVT, venous statis ulcer both legs presented to my office in company of her daughter complaining indtractible nause and vomiting with upper abdominal pain. No diarrhea, or fever. Denies any chest pain, shortness of breath or palpitaion. Patient had similar symprom about 3 months ago for which an extensive w/u was done including EGD, HIDA scan and biliary dyskinasia with cholecyctectomy was offered. However pt's symptoms were getting better and she decide to go home but to return if symptoms get worse. Past History Past Medical History: other (breast cancer , DVT) Past Surgical History: Other (right mastectomy) Social history: lives with family. denies: smoking, alcohol abuse, prescription drug abuse Family history: no significant family history Medications and Allergies Allergies Allergy/AdvReac Type Severity Reaction Status Date / Time chocolate flavor Allergy Severe Rash Verified 07/01/13 17:15 corn [[place]] Allergy Severe Rash Verified 07/01/13 17:15 egg Allergy Severe Rash Verified 07/01/13 17:15 Penicillins Allergy Severe SWELLING,[place] Verified 07/01/13 17:15 VES shellfish derived Allergy Severe Rash Verified 07/01/13 17:15 wheat Allergy Severe Rash Verified 07/01/13 17:15 milk Allergy Rash Verified 09/04/18 17:55 peanut Allergy Rash Verified 09/04/18 17:54 BUTTER BEANS Allergy Severe Rash Uncoded 07/01/13 17:15 CHEESE Allergy Severe Rash Uncoded 07/01/13 17:15 POND BEANS Allergy Severe Rash Uncoded 07/01/13 17:15 Home Medications Medication Instructions Recorded Confirmed Last Taken Type Atorvastatin [Lipitor] 80 mg PO QHS 07/01/13 09/24/18 09/01/18 22:00 History 80 mg Hydroxychloroquine [Plaquenil] 200 mg PO BID 07/01/13 09/24/18 09/01/18 22:00 History 200 mg ALBUTEROL NEB's [Proventil 0.083% 2.5 mg IH TID PRN 01/09/24/18 08/01/18 10:00 History NEBS] 2.5mg Apixaban [Eliquis] 5 mg PO BID 04/22/17 09/24/18 09/01/18 22:00 History 5 mg Gabapentin 300 mg PO TID 04/22/17 09/24/18 09/01/18 10:00 History 300 mg Levothyroxine [Synthroid] 100 mcg PO DAILY@0600 #30 tablet 09/08/18 09/24/18 U nknown Rx Lisinopril [Zestril TAB] 10 mg PO DAILY #30 tablet 09/08/18 09/24/18 Unknown Rx Pantoprazole [Protonix TAB] 40 mg PO DAILY #30 tablet 09/08/18 09/24/18 Unknown Rx Promethazine [Phenergan SUPPOS] 12.5 mg [place] Q6H PRN #30 supp.rect 09/08/18 09/24/18 Unknown Rx Sodium Bicarbonate 75 meq IV DIRECT #5 vial 09/08/18 09/24/18 Unknown Rx Ondansetron [Zofran ODT TAB] 8 mg PO Q8HR #60 tab.rapdis 09/17/18 09/24/18 Unknown Rx Hydroxyzine HCl [hydrOXYzine] 50 mg PO QHS #30 tablet 09/28/18 Unknown Rx Ondansetron (Nf) [Zofran TAB] 8 mg PO Q8HR PRN #30 tablet 09/28/18 Unknown Rx Pantoprazole [Protonix TAB] 40 mg PO DAILY #30 tablet 09/28/18 Unknown Rx Sucralfate [Carafate] 1 gm PO ACHS #120 tablet 09/28/18 Unknown Rx predniSONE [Deltasone] 5 mg PO PRN PRN #30 tablet 09/28/18 Unknown Rx traMADoL [Ultram 50 MG tab] 50 mg PO DAILY PRN #20 tablet 09/28/18 Unknown Rx Active Meds: Active Medications Enoxaparin Sodium (Enoxaparin) 40 mg SUB-Q QDAY [place] Morphine Sulfate (Morphine) 2 mg IV Q4H PRN PRN Reason: Pain, Moderate (4-6) Ondansetron HCl (Zofran) 8 mg IV Q8H PRN PRN Reason: Nausea And Vomiting Pantoprazole Sodium (Protonix) 40 mg IV Q12HR [place] Sodium Chloride (Sodium Chloride Flush Syringe 10 Ml) 10 ml IV BID [place] Sodium Chloride (Sodium Chloride Flush Syringe 10 Ml) 10 ml IV PRN PRN PRN Reason: LINE FLUSH Review of Systems Constitutional: no weight loss, no weight gain Ears, nose, mouth and throat: no ear pain, no ear discharge, no tinnitis, no decreased hearing Cardiovascular: no chest pain, no orthopnea, no palpitations, no rapid/irregular heart beat Respiratory: no cough, no cough with sputum, no excessive sputum, no hemoptysis Gastrointestinal: abdominal pain, nausea, vomiting, no diarrhea, no constipation, no BRBPR, no melena Genitourinary Female: no urinary frequency, no urgency Menstruation: postmenopausal Neurological: no head injury, no transient paralysis, no paralysis, no weakness Psychiatric: no anxiety, no memory loss Endocrine: no cold intolerance, no heat intolerance, no polyphagia Hematologic/Lymphatic: no easy bruising, no easy bleeding Allergic/Immunologic: no urticaria, no allergic rhinitis Exam - Constitutional General appearance: Present: no acute distress, well-nourished - EENT Eyes: Present: PERRL ENT: hearing intact, clear oral mucosa - Neck Neck: Present: supple, normal ROM - Respiratory Respiratory effort: normal Respiratory: bilateral: CTA - Cardiovascular Heart Sounds: Present: S1 & S2. Absent: rub, click - Extremities Extremities: pulses symmetrical, No edema Peripheral Pulses: within normal limits - Abdominal General gastrointestinal: Present: soft, non-tender, non-distended, normal bowel sounds Female genitourinary: Present: normal - Integumentary Integumentary: Present: warm, dry, erythema - Musculoskeletal Musculoskeletal: gait normal, strength equal bilaterally - Psychiatric Psychiatric: appropriate mood/affect, intact judgment & insight - Neurologic Neurologic: CNII-XII intact, moves all extremities Results - Labs CBC & Chem 7: 02/11/19 16:32 02/11/19 16:32 Labs: Abnormal lab results 02/11/19 Range/Units 16:32 RDW 19.2 H (13.2-15.2) % [place] % (Auto) 14.0 H (0.0-7.3) % Eos % (Auto) 6.0 H (0.0-4.3) % Assessment and Plan - Intractible nausea and vomiting likely from biliary dyskinasia NPO IVF HIDA scan iv Zofran, Protonix Surgical consult - Dehydration iv hydration - LARRY from ATN iv hydration - Abdominal pain likely from biliary dyskinasia NPO iv morphin - Nick stasis dermatitis local wound care Wound CX iv Levaquin - H/o DVT Continue with Eliquis- home med ]
[2019-02-11 17:38] LABS: INR 1.14 (0.87-1.13)
[2019-02-11 17:39] LABS: Partial Thromboplastin Time 21.6 Sec. (24.2-36.6)
[2019-02-11] MEDS: ENOXAPARIN 40 MG/0.4 ML INJ SUB-Q SCH (18:37)
[2019-02-12] MEDS: PANTOPRAZOLE 40 MG INJ IV SCH ×3 (02:58→22:19)
[2019-02-12 06:09] LABS: Basophils % (Auto) 0.3 % (0.0-1.8); Eosinophils # (Auto) 0.2 K/mm3 (0.0-0.4); Eosinophils % (Auto) 4.8 % (0.0-4.3); Hematocrit 31.2 % (30.3-42.9); Hemoglobin 10.1 gm/dl (10.1-14.3); Lymphocytes # (Auto) 0.6 K/mm3 (1.2-5.4); Lymphocytes % (Auto) 13.7 % (13.4-35.0); Mean Corpuscular HGB Conc 32 % (30-34); Mean Corpuscular Volume 84 fl (79-97); Monocytes # (Auto) 0.5 K/mm3 (0.0-0.8); Monocytes % (Auto) 10.2 % (0.0-7.3); Platelet Count 129 K/mm3 (140-440); Red Cell Distribution Width 19.1 % (13.2-15.2)
[2019-02-12 06:37] LABS: Albumin 3.3 g/dL (3.9-5)
[2019-02-12] MEDS: ENOXAPARIN 40 MG/0.4 ML INJ SUB-Q SCH (10:15)
--- NOTE | 2019-02-12 11:47 | Consultation ---
History of Present Illness Consult date: 02/12/19 Reason for consult: abdominal pain Chief complaint: abd pain, n/v - History of present illness History of present illness: 72yo F with multiple medical problems who was admitted from Dr. Mcfarlane's office for abdominal pain, nausea and vomiting. Patient's history is significant for a partial gastrectomy (Billroth II) for peptic ulcer disease in 1984. She believes that for at least the past 12 years she has had problems with nausea and vomiting. The patient states that after being discharged from the hospital in September, she was feeling well and tolerating a diet. 3-4 days ago, she started having LUQ and LLQ abdominal pain, sharp, constant, This was associated with n/v (NB/NB). No BM for 1 week but she is passing flatus. Increased frequency of urination. She states she has not been able to take her medications and was not tolerating liquids. She states the pain is similar to her kidney store flare ups. She is seen by Dr. Alvarez for kidney stones and has had multiple lithotripsies. During the September hospitalization at [facility], patient was worked up extensively for her c/o L sided abdominal pain, n/v. This included an EGD, u/s, CT scan, and HIDA scan with EF. The studies were essentially unremarkable. No f/c, cp, sob. Pt also reports pain to the back of both legs due to wounds which are being managed by Dr. Veras at the outpatient wound care center. Past History Past Medical History: hyperlipidemia, hypothyroidism, other (breast cancer , DVT, chronic LE wounds, chronic abdominal pain, kidney stones, neuropathy) Past Surgical History: Other (right mastectomy, partial gastrectomy with B2, multiple LE wound debridements) Social history: lives with family. denies: smoking, alcohol abuse, prescription drug abuse Family history: no significant family history Medications and Allergies Allergies Allergy/AdvReac Type Severity Reaction Status Date / Time chocolate flavor Allergy Severe Rash Verified 07/01/13 17:15 corn [[place]] Allergy Severe Rash Verified 07/01/13 17:15 egg Allergy Severe Rash Verified 07/01/13 17:15 Penicillins Allergy Severe SWELLING,[place] Verified 07/01/13 17:15 VES shellfish derived Allergy Severe Rash Verified 07/01/13 17:15 wheat Allergy Severe Rash Verified 07/01/13 17:15 milk Allergy Rash Verified 09/04/18 17:55 peanut Allergy Rash Verified 09/04/18 17:54 BUTTER [place]ANS Allergy Severe Rash Uncoded 07/01/13 17:15 CHEESE Allergy Severe Rash Uncoded 07/01/13 17:15 POND BEANS Allergy Severe Rash Uncoded 07/01/13 17:15 Home Medications Medication Instructions Recorded Confirmed Last Taken Type Atorvastatin [Lipitor] 80 mg PO QHS 07/01/13 02/12/19 09/01/18 22:00 History 80 mg Hydroxychloroquine [Plaquenil] 200 mg PO BID 07/01/13 02/12/19 09/01/18 22:00 History 200 mg ALBUTEROL NEB's [Proventil 0.083% 2.5 mg IH TID PRN 04/22/17 02/12/19 08/01/18 10:00 History NEBS] 2.5mg Apixaban [Eliquis] 5 mg PO BID 04/22/17 02/12/19 09/01/18 22:00 History 5 mg Gabapentin 300 mg PO TID 04/22/17 02/12/19 09/01/18 10:00 History 300 mg Levothyroxine [Synthroid] 100 mcg PO DAILY@0600 #30 tablet 09/08/18 02/12/19 Unknown Rx Lisinopril [Zestril TAB] 10 mg PO DAILY #30 tablet 09/08/18 02/12/19 Unknown Rx Pantoprazole [Protonix TAB] 40 mg PO DAILY #30 tablet 09/08/18 02/12/19 Unknown Rx Promethazine [Phenergan SUPPOS] 12.5 mg [place] Q6H PRN #30 supp.rect 09/08/18 02/12/19 Unknown Rx Sodium Bicarbonate 75 meq IV DIRECT #5 vial 09/08/18 02/12/19 Unknown Rx Ondansetron [Zofran ODT TAB] 8 mg PO Q8HR #60 tab.rapdis 09/17/18 02/12/19 Unknown Rx Hydroxyzine HCl [hydrOXYzine] 50 mg PO QHS #30 tablet 09/28/18 02/12/19 Unknown Rx Ondansetron (Nf) [Zofran TAB] 8 mg PO Q8HR PRN #30 tablet 09/28/18 02/12/19 Unknown Rx Pantoprazole [Protonix TAB] 40 mg PO DAILY #30 tablet 09/28/18 02/12/19 Unknown Rx Sucralfate [Carafate] 1 gm PO ACHS #120 tablet 09/28/18 02/12/19 Unknown Rx predniSONE [Deltasone] 5 mg PO PRN PRN #30 tablet 09/28/18 02/12/19 02/10/19 Rx Active Meds: Active Medications Enoxaparin Sodium (Enoxaparin) 40 mg SUB-Q QDAY [facility] Last Admin: 02/12/19 10:15 Dose: 40 mg Documented by: Morphine Sulfate (Morphine) 2 mg IV Q4H PRN PRN Reason: Pain, Moderate (4-6) Ondansetron HCl (Zofran) 8 mg IV Q8H PRN PRN Reason: Nausea And Vomiting Pantoprazole Sodium (Protonix) 40 mg IV Q12HR [facility] Last Admin: 02/12/19 10:15 Dose: 40 mg Documented by: Sodium Chloride (Sodium Chloride Flush Syringe 10 Ml) 10 ml IV BID [facility] Last Admin: 02/12/19 10:17 Dose: 10 ml Documented by: Sodium Chloride (Sodium Chloride Flush Syringe 10 Ml) 10 ml IV PRN PRN PRN Reason: LINE FLUSH Review of Systems All systems: negative (10 PT ROS performed and negative except for that listed in HPI) Exam Vital Signs Temp Pulse Resp BP Pulse Ox 97.9 F 83 18 127/56 98 02/11/19 17:50 02/11/19 17:50 02/11/19 17:50 02/11/19 17:50 02/11/19 17:50 Narrative exam: Gen: AAOx3. NAD ENT: no scleral icterus or conjunctival pallor CV: s1, S2+ resp: even and unlabored Abd: soft, ND, + LUQ, epigastric and LLQ TTP. no r/r/g Ext: no c/c/e Results - Labs 02/12/19 05:20 02/12/19 05:20 Abnormal lab results 02/11/19 02/11/19 02/11/19 Range/Units 16:32 16:32 16:32 MCH (28-32) pg RDW 19.2 H (13.2-15.2) % Plt Count (140-440) K/mm3 [place] % (Auto) 14.0 H (0.0-7.3) % Eos % (Auto) 6.0 H (0.0-4.3) % Lymph # (1.2-5.4) K/mm3 Seg Neutrophils % (40.0-70.0) % INR 1.14 H (0.87-1.13) APTT 21.6 L (24.2-36.6) Sec. Carbon Dioxide 19 L (22-30) mmol/L BUN 31 H (7-17) mg/dL Creatinine 1.5 H (0.7-1.2) mg/dL Calcium 10.9 H (8.4-10.2) mg/dL Iron (37-170) ug/dL Albumin 3.7 L (3.9-5) g/dL TSH (0.270-4.200) mlU/mL 02/11/19 02/11/19 02/12/19 Range/Units 16:32 16:32 05:20 MCH 27 L (28-32) pg RDW 19.1 H (13.2-15.2) % Plt Count 129 L (140-440) K/mm3 [place] % (Auto) 10.2 H (0.0-7.3) % Eos % (Auto) 4.8 H (0.0-4.3) % Lymph # 0.6 L (1.2-5.4) K/mm3 Seg Neutrophils % 71.0 H (40.0-70.0) % INR (0.87-1.13) APTT (24.2-36.6) Sec. Carbon Dioxide (22-30) mmol/L BUN (7-17) mg/dL Creatinine (0.7-1.2) mg/dL Calcium (8.4-10.2) mg/dL Iron 29 L (37-170) ug/dL Albumin (3.9-5) g/dL TSH 6.100 H (0.270-4.200) mlU/mL 02/12/19 Range/Units 05:20 MCH (28-32) pg RDW (13.2-15.2) % Plt Count (140-440) K/mm3 [place] % (Auto) (0.0-7.3) % Eos % (Auto) (0.0-4.3) % Lymph # (1.2-5.4) K/mm3 Seg Neutrophils % (40.0-70.0) % INR (0.87-1.13) APTT (24.2-36.6) Sec. Carbon Dioxide 21 L (22-30) mmol/L BUN 22 H (7-17) mg/dL Creatinine (0.7-1.2) mg/dL Calcium (8.4-10.2) mg/dL Iron (37-170) ug/dL Albumin 3.3 L (3.9-5) g/dL TSH (0.270-4.200) mlU/mL Diabetes panel 02/11/19 02/12/19 Range/Units 16:32 05:20 Sodium 138 138 (137-145) mmol/L Potassium 4.1 4.0 (3.6-5.0) mmol/L Chloride 101.0 104.2 (98-107) mmol/L Carbon Dioxide 19 L 21 L (22-30) mmol/L BUN 31 H 22 H (7-17) mg/dL Creatinine 1.5 H 1.2 (0.7-1.2) mg/dL Glucose 90 84 (65-100) mg/dL Calcium 10.9 H 10.0 (8.4-10.2) mg/dL AST 20 17 (5-40) units/L ALT 11 9 (7-56) units/L Alkaline Phosphatase 78 63 (35-129) units/L Total Protein 8.1 6.6 (6.3-8.2) g/dL Albumin 3.7 L 3.3 L (3.9-5) g/dL Thyroid panel 02/11/19 Range/Units 16:32 TSH 6.100 H (0.270-4.200) mlU/mL Calcium panel 02/11/19 02/11/19 02/12/19 Range/Units 16:32 16:32 05:20 Calcium 10.9 H 10.0 (8.4-10.2) mg/dL Phosphorus 3.00 (2.5-4.5) mg/dL Albumin 3.7 L 3.3 L (3.9-5) g/dL Pituitary panel 02/11/19 02/11/19 02/12/19 Range/Units 16:32 16:32 05:20 Sodium 138 138 (137-145) mmol/L Potassium 4.1 4.0 (3.6-5.0) mmol/L Chloride 101.0 104.2 (98-107) mmol/L Carbon Dioxide 19 L 21 L (22-30) mmol/L BUN 31 H 22 H (7-17) mg/dL Creatinine 1.5 H 1.2 (0.7-1.2) mg/dL Glucose 90 84 (65-100) mg/dL Calcium 10.9 H 10.0 (8.4-10.2) mg/dL TSH 6.100 H (0.270-4.200) mlU/mL Adrenal panel 02/11/19 02/12/19 Range/Units 16:32 05:20 Sodium 138 138 (137-145) mmol/L Potassium 4.1 4.0 (3.6-5.0) mmol/L Chloride 101.0 104.2 (98-107) mmol/L Carbon Dioxide 19 L 21 L (22-30) mmol/L BUN 31 H 22 H (7-17) mg/dL Creatinine 1.5 H 1.2 (0.7-1.2) mg/dL Glucose 90 84 (65-100) mg/dL Calcium 10.9 H 10.0 (8.4-10.2) mg/dL Total Bilirubin 0.50 0.40 (0.1-1.2) mg/dL AST 20 17 (5-40) units/L ALT 11 9 (7-56) units/L Alkaline Phosphatase 78 63 (35-129) units/L Total Protein 8.1 6.6 (6.3-8.2) g/dL Albumin 3.7 L 3.3 L (3.9-5) g/dL - Imaging Additional studies: HIDA scan - normal study Assessment and Plan 73 yo F with L sided abdominal pain, n/v CT A/p, Abd U/s, HIDA scan, and Gastric emptying study from September 2018 rev iewed HIDA scan 02/12/19 - normal Plan: Patient's symptoms are atypical of gallbladder pathology. Her HIDA scan today is normal and HIDA performed several months ago with EF showed a normal ejection fraction. 1. Start clear liquid diet 2. zofran IV prn, reglan q8h prior to every meal and promethazine supp prn 3. IVF 4. bowel regimen 5. will obtain KUB to evaluate bowel pattern 6. Patient may benefit from CT scan to r/o kidney stones or obstruction 7. will follow up in am I had a long discussion with patient regarding the results of HIDA scan today and prior imaging. I explained that based on her history, imaging, and labs, I do not feel her symptoms are explained by the gallbladder and that if we proceed with cholecystectomy, there is no guarantee that her symptoms with improve. She understands and agrees. Thank you, please call with questions.
--- NOTE | 2019-02-12 13:07 | Nuclear Medicine Report ---
Nuclear medicine HIDA scan INDICATION: BILIARY DYSKINESIA. TECHNIQUE: 5 mCi of technetium 99m labeled Choletec is administered. COMPARISON: HIDA scan dated 09/13/2018 FINDINGS: There is prompt uptake of tracer by the liver. There is excretion into the biliary system with visual ization of the gallbladder at 25 minutes. There is transit of tracer into the bowel at 40 minutes. Th ere is normal washout of tracer from the liver. IMPRESSION: 1. Normal HIDA scan. Signer Name: Steven Hale MD Signed: 02/12/2019 1:02 PM Workstation Name: [id number]
[2019-02-12] MEDS ORDERED: PROMETHAZINE 25 MG RECT SUPP PR PRN (14:27)
--- NOTE | 2019-02-12 14:30 | Progress Note ---
Assessment and Plan - Intractible nausea and vomiting likely from biliary dyskinasia NPO IVF HIDA scan iv Zofran, Protonix Surgical consult - Dehydration iv hydration - LARRY duo to ATN iv hydration - Metabolic acidosis From dehydration Continue IV hydration - Abnormal TSH Obtain T4 - Abdominal pain likely from biliary dyskinasia NPO iv morphin - Nick stasis dermatitis local wound care Wound CX iv Levaquin - H/o DVT Continue with Eliquis- home med ] Subjective Date of service: 02/12/19 Principal diagnosis: Abdominal pain with nausea ndintrctible vomiting Interval history: Still Nauseated but no vomiting. Objective - Exam Narrative Exam: Constitutional: Well-nourished well-developed. In no distress Head: Normocephalic atraumatic Eyes: Pupils are equal round and reactive to light, conjunctiva pallor Nose: No enlarged turbinates, no septal deviation. Mouth: Moist mucous membranes. Neck: Supple no thyromegaly. No bruit. No JVD Heart: Regular rate and rhythm, S1-S2 normal. No rubs murmurs or gallop Lungs: Clear to auscultation bilaterally. no rales or rhonchi Abdomen: Soft, epigastric tenderness. Bowel sound are present. Extremities: edema, wound dressing bilaterally. no cyanosis, no clubbing. Neuro: Alert oriented Oriented x3. No focal sensory or motor deficit. Skin: No rashes or hyperpigmented spots Musculoskeletal system: No joint pain or swelling Hematological: No petechia or subcutanous hemorrhages. Immunological: No multiple septic spots on the skin Lymphatic: No generalized lymphadenopathy Psychiatry: Euthymic. Calm. - Constitutional Vitals: Vital Signs - 12hr 02/12/19 02/12/19 06:42 10:41 Temperature 98.0 F 98.1 F Pulse Rate 94 H 98 H Respiratory 18 22 Rate Blood Pressure 150/76 151/79 O2 Sat by Pulse 99 96 Oximetry - Labs CBC & Chem 7: 02/12/19 05:20 02/12/19 05:20 Labs: Abnormal lab results 02/11/19 02/11/19 02/11/19 Range/Units 16:32 16:32 16:32 MCH (28-32) pg RDW 19.2 H (13.2-15.2) % Plt Count (140-440) K/mm3 [place] % (Auto) 14.0 H (0.0-7.3) % Eos % (Auto) 6.0 H (0.0-4.3) % Lymph # (1.2-5.4) K/mm3 Seg Neutrophils % (40.0-70.0) % INR 1.14 H (0.87-1.13) APTT 21.6 L (24.2-36.6) Sec. Carbon Dioxide 19 L (22-30) mmol/L BUN 31 H (7-17) mg/dL Creatinine 1.5 H (0.7-1.2) mg/dL Calcium 10.9 H (8.4-10.2) mg/dL Iron (37-170) ug/dL Albumin 3.7 L (3.9-5) g/dL TSH (0.270-4.200) mlU/mL 02/11/19 02/11/19 02/12/19 Range/Units 16:32 16:32 05:20 MCH 27 L (28-32) pg RDW 19.1 H (13.2-15.2) % Plt Count 129 L (140-440) K/mm3 [place] % (Auto) 10.2 H (0.0-7.3) % Eos % (Auto) 4.8 H (0.0-4.3) % Lymph # 0.6 L (1.2-5.4) K/mm3 Seg Neutrophils % 71.0 H (40.0-70.0) % INR (0.87-1.13) APTT (24.2-36.6) Sec. Carbon Dioxide (22-30) mmol/L BUN (7-17) mg/dL Creatinine (0.7-1.2) mg/dL Calcium (8.4-10.2) mg/dL Iron 29 L (37-170) ug/dL Albumin (3.9-5) g/dL TSH 6.100 H (0.270-4.200) mlU/mL 02/12/19 Range/Units 05:20 MCH (28-32) pg RDW (13.2-15.2) % Plt Count (140-440) K/mm3 [place] % (Auto) (0.0-7.3) % Eos % (Auto) (0.0-4.3) % Lymph # (1.2-5.4) K/mm3 Seg Neutrophils % (40.0-70.0) % INR (0.87-1.13) APTT (24.2-36.6) Sec. Carbon Dioxide 21 L (22-30) mmol/L BUN 22 H (7-17) mg/dL Creatinine (0.7-1.2) mg/dL Calcium (8.4-10.2) mg/dL Iron (37-170) ug/dL Albumin 3.3 L (3.9-5) g/dL TSH (0.270-4.200) mlU/mL
--- NOTE | 2019-02-12 15:43 | XRay Report ---
ABDOMEN 1 VIEW(S) INDICATION / CLINICAL INFORMATION: abdominal pain. COMPARISON: 10/07/2018. FINDINGS: TUBES / LINES: Bilateral iliac vascular stents appear stable.. BOWEL GAS PATTERN: No gas distended loops of intestines to suggest presence of obstruction. FREE AIR / EXTRALUMINAL GAS: None seen. ADDITIONAL FINDINGS: Stable 1 cm calculus overlying the inferior pole of the right kidney and 8 mm ca lculus overlying the inferior pole of the left kidney. IMPRESSION: Nonobstructive bowel gas pattern. Stable 1 cm calculus overlying the inferior pole of the right kidney and 8 mm calculus overlying the inferior pole of the left kidney. Signer Name: Eddie Gallegos MD Signed: 02/12/2019 3:38 PM Workstation Name: [id number]
[2019-02-12] MEDS: D5W/0.45% NACL 1,000 ML IV SCH (16:36)
--- NOTE | 2019-02-12 17:58 | Cat Scan Report ---
CT scan of the abdomen and pelvis with contrast INDICATION: abdominal pain, nausea, vomiting. TECHNIQUE: All CT scans at this location are performed using the following dose modulation technique: Automated exposure control. Helical slices were obtained through the abdomen and pelvis following the administr ation of 60 cc of Omnipaque 300 COMPARISON: CT scan dated 09/14/2018 FINDINGS: Abdomen: No acute abnormality is seen bases. Liver, spleen, pancreas, adrenal glands, and kidneys jeremiah ear unchanged. There are bilateral renal cysts. There is bilateral nephrolithiasis. There is no hydro nephrosis. There appear to be tiny gallstones in the lumen of the gallbladder. There is no obstruction, inflammation, or free air. Changes of prior gastric surgery are noted. There is atherosclerotic calcification in the aorta and iliac arteries. Pelvis: The appendix is unremarkable. There are bilateral iliac vein stents unchanged. There is no ob struction or inflammation. There are no abnormal fluid collections. On review of bone windows, no acute osseous abnormalities are seen. Postoperative changes are noted a t L5-S1. IMPRESSION: 1. There is no significant interval change. There is no obstruction, inflammation, or free air. There are no abnormal fluid collections. There is bilateral nephrolithiasis. There is no hydronephrosis. There appear to be tiny gallstones in the gallbladder. There is a small hiatal hernia. Signer Name: Steven Hale MD Signed: 02/12/2019 5:54 PM Workstation Name: [id number]
[2019-02-12] MEDS ORDERED: DOCUSATE SODIUM 100 MG/10 ML ORAL LIQD PO SCH (22:00)
[2019-02-12] MEDS: MORPHINE 2 MG/1 ML INJ IV PRN (22:19)
[2019-02-12] MEDS: ONDANSETRON 4 MG/2 ML INJ IV PRN (22:27)
[2019-02-13] MEDS: D5W/0.45% NACL 1,000 ML IV SCH ×2 (06:21→18:27)
[2019-02-13 08:07] LABS: Alanine Aminotransferase 8 units/L (7-56); BUN/Creatinine Ratio 13; Blood Urea Nitrogen 13 mg/dL (7-17); Calcium 9.5 mg/dL (8.4-10.2); Hemolysis Index 39
--- NOTE | 2019-02-13 09:39 | Progress Note ---
Assessment and Plan - Intractible nausea and vomiting Clear liquids HIDA scan normal iv Zofran, Protonix Surgical consulted. input appreciated - Dehydration iv hydration - LARRY from ATN iv hydration - Abdominal pain likely from biliary dyskinasia NPO iv morphin - Nick stasis dermatitis local wound care Wound CX iv Levaquin - H/o DVT Continue with Eliquis- home med Code status: pt is full code Disposition: Home whne N/V resolves and pt tolerating food ] Subjective Date of service: 02/13/19 Principal diagnosis: Abdominal pain with nausea ndintrctible vomiting Interval history: Still Nauseated but no vomiting. Pain in the upper abdomen and moved to the LLQ. no fever Objective - Exam Narrative Exam: Constitutional: Well-nourished well-developed. In no distress Head: Normocephalic atraumatic Eyes: Pupils are equal round and reactive to light, conjunctiva pallor Nose: No enlarged turbinates, no septal deviation. Mouth: Moist mucous membranes. Neck: Supple no thyromegaly. No bruit. No JVD Heart: Regular rate and rhythm, S1-S2 normal. No rubs murmurs or gallop Lungs: Clear to auscultation bilaterally. no rales or rhonchi Abdomen: Soft, epigastric tenderness. Bowel sound are present. Extremities: edema, wound dressing bilaterally. no cyanosis, no clubbing. Neuro: Alert oriented Oriented x3. No focal sensory or motor deficit. Skin: No rashes or hyperpigmented spots Musculoskeletal system: No joint pain or swelling Hematological: No petechia or subcutanous hemorrhages. Immunological: No multiple septic spots on the skin Lymphatic: No generalized lymphadenopathy Psychiatry: Euthymic. Calm. - Constitutional Vitals: Vital Signs - 12hr 02/13/19 02/13/19 00:12 05:36 Temperature 98.5 F 98.6 F Pulse Rate 101 H 93 H Respiratory 18 20 Rate Blood Pressure 139/63 124/70 O2 Sat by Pulse 93 95 Oximetry - Labs CBC & Chem 7: 02/12/19 05:20 02/13/19 06:51 Labs: Abnormal lab results 02/13/19 Range/Units 06:51 Sodium 136 L (137-145) mmol/L Carbon Dioxide 21 L (22-30) mmol/L Glucose 102 H (65-100) mg/dL Albumin 3.0 L (3.9-5) g/dL
[2019-02-13] MEDS: PANTOPRAZOLE 40 MG TAB PO SCH ×2 (10:43→22:19)
[2019-02-13] MEDS: ENOXAPARIN 40 MG/0.4 ML INJ SUB-Q SCH (10:43)
[2019-02-13] MEDS ORDERED: PROMETHAZINE 25 MG TAB PO PRN (17:11)
--- NOTE | 2019-02-13 17:11 | Progress Note ---
Assessment and Plan 73 yo F with L sided abdominal pain, n/v CT A/p, Abd U/s, HIDA scan, and Gastric emptying study from September 2018 reviewed HIDA scan 02/12/19 - normal CT scan A/P 02/12/19 - b/l nephrolithiasis without hydronephrosis, ?tiny stones in gallbladder. Bilateral renal cysts Plan: 1 Continue clear liquid diet as tolerated 2. zofran IV prn, reglan q8h prior to every meal, may add phenergan prn 3. IVF 4. dc bowel regimen - patient states she does not tolerate the oral meds or suppository 5. Recommend consult to GI and Urology 6. If patient continues to have n/v and cannot tolerate liquids, recommend TPN Patient's symptoms unlikely related to gallbladder. Pt having vomiting with suppository insertion, certain oral medications, and her pain is L sided. Based on the clinical and imaging findings, I do not feel cholecystectomy will relieve her symptoms. The patient understands. Thank you, please call with questions. Subjective Date of service: 02/13/19 Narrative: Patient seen and examined. She states that she is having left lower quadrant abdominal pain him a bilateral leg pain, intermittent nausea and vomiting. The patient has tolerated some of her oral intake. The patient states that she vomited after drinking some broth, taking oral Colace, and has vomiting with suppository use. She was able to tolerate some tea and took her medications slowly. No fevers, chills, chest pain, shortness of breath. She has not had a bowel movement. She states she is unable to get out of bed due to her leg wounds and therefore does not want a bowel regimen or laxatives to help her go. Objective Vital Signs - 12hr 02/13/19 02/13/19 05:36 12:07 Temperature 98.6 F 97.6 F Pulse Rate 93 H 86 Respiratory 20 20 Rate Blood Pressure 124/70 126/61 O2 Sat by Pulse 95 97 Oximetry - General physical appearance Narrative Exam: Gen: Awake, alert, oriented 3. NO Apparent distress CV: S1, S2 present Resp: no audible wheezes Abdomen: Soft, nondistended, tender in the left mid abdomen, LLQ, and suprapubic area. No rebound, rigidity, or guarding Extremity: Bilateral lower extremity dressings with serous drainage. - Labs 02/12/19 05:20 02/13/19 06:51 Diabetes panel 02/13/19 Range/Units 06:51 Sodium 136 L (137-145) mmol/L Potassium 4.2 (3.6-5.0) mmol/L Chloride 101.8 (98-107) mmol/L Carbon Dioxide 21 L (22-30) mmol/L BUN 13 (7-17) mg/dL Creatinine 1.0 (0.7-1.2) mg/dL Glucose 102 H (65-100) mg/dL Calcium 9.5 (8.4-10.2) mg/dL AST 19 (5-40) units/L ALT 8 (7-56) units/L Alkaline Phosphatase 62 (35-129) units/L Total Protein 6.3 (6.3-8.2) g/dL Albumin 3.0 L (3.9-5) g/dL Calcium panel 02/13/19 Range/Units 06:51 Calcium 9.5 (8.4-10.2) mg/dL Albumin 3.0 L (3.9-5) g/dL Pituitary panel 02/13/19 Range/Units 06:51 Sodium 136 L (137-145) mmol/L Potassium 4.2 (3.6-5.0) mmol/L Chloride 101.8 (98-107) mmol/L Carbon Dioxide 21 L (22-30) mmol/L BUN 13 (7-17) mg/dL Creatinine 1.0 (0.7-1.2) mg/dL Glucose 102 H (65-100) mg/dL Calcium 9.5 (8.4-10.2) mg/dL Adrenal panel 02/13/19 Range/Units 06:51 Sodium 136 L (137-145) mmol/L Potassium 4.2 (3.6-5.0) mmol/L Chloride 101.8 (98-107) mmol/L Carbon Dioxide 21 L (22-30) mmol/L BUN 13 (7-17) mg/dL Creatinine 1.0 (0.7-1.2) mg/dL Glucose 102 H (65-100) mg/dL Calcium 9.5 (8.4-10.2) mg/dL Total Bilirubin 0.30 (0.1-1.2) mg/dL AST 19 (5-40) units/L ALT 8 (7-56) units/L Alkaline Phosphatase 62 (35-129) units/L Total Protein 6.3 (6.3-8.2) g/dL Albumin 3.0 L (3.9-5) g/dL - Imaging Abdominal x-ray: report reviewed, image reviewed CT scan - abdomen: report reviewed, image reviewed CT scan - pelvis: report reviewed, image reviewed
[2019-02-13] MEDS: MORPHINE 2 MG/1 ML INJ IV PRN (18:27)
[2019-02-14 05:56] LABS: Alanine Aminotransferase 7 units/L (7-56); Albumin 2.8 g/dL (3.9-5); BUN/Creatinine Ratio 7; Blood Urea Nitrogen 7 mg/dL (7-17); Calcium 9.5 mg/dL (8.4-10.2); Hemolysis Index 2
[2019-02-14] MEDS: D5W/0.45% NACL 1,000 ML IV SCH ×2 (08:35→21:04)
[2019-02-14] MEDS: METOCLOPRAMIDE 10 MG/2 ML INJ IV PRN ×2 (08:36→20:58)
[2019-02-14] MEDS: ENOXAPARIN 40 MG/0.4 ML INJ SUB-Q SCH (09:34)
[2019-02-14] MEDS: PANTOPRAZOLE 40 MG TAB PO SCH ×2 (09:34→21:01)
--- NOTE | 2019-02-14 10:26 | Consultation ---
REFERRING PHYSICIAN: Dr. Peg Mcfarlane. INDICATIONS: 1. Nausea, vomiting. 2. Abdominal pain. HISTORY OF PRESENT ILLNESS: The patient is a 73-year-old female who presents for GI evaluation. The patient has a history of breast cancer, status post mastectomy, DVT and venous stasis. The patient reports intractable nausea and vomiting. The patient has had extensive workup over the last 3 months including EGD, HIDA scan with possibility of dyskinesia was noted, but the patient deferred surgery. The patient reports symptoms have recurred and subsequently was admitted for GI evaluation. PAST MEDICAL HISTORY: 1. Breast cancer. 2. DVT. PAST SURGICAL HISTORY: Right mastectomy. MEDICATIONS: Reviewed and updated in chart. ALLERGIES: Include PENICILLIN. SOCIAL HISTORY: Denies alcohol, tobacco or drug abuse. FAMILY HISTORY: Negative for colon cancer, IBD or liver disease. REVIEW OF SYSTEMS: GENERAL: Reports mild weakness. HEENT: No visual complaints or tinnitus. PULMONARY: No shortness of breath. No cough. No chest pain. GASTROINTESTINAL: Reports nausea, vomiting. All points of 13-point review of systems are otherwise negative. PHYSICAL EXAMINATION: VITAL SIGNS: Temperature of 98.5, pulse 85, respirations 18, blood pressure 140/71. GENERAL: Fairly nourished female, in no acute distress. HEENT: Pupils equal, round, reactive. PULMONARY: Clear to auscultation bilaterally. CARDIOVASCULAR: Regular rate and rhythm. Normal S1, S2. ABDOMEN: Positive bowel sounds, soft. SKIN: No obvious rashes. LABORATORY DATA: Pertinent for white count of 4.6, hemoglobin and hematocrit of 10.1 and 31.2, platelet count of 129. Chem-7 within normal limits. RADIOLOGY: Pertinent for normal HIDA scan. The CT scan, which was done on 02/12/2019, which showed no acute change with tiny gallstones in the gallbladder. ASSESSMENT AND PLAN: A 73-year-old female with past medical history noted above, now recurrent nausea, vomiting with EGD and HIDA scan, other evaluations noted. The patient is actually feeling better today. She is tolerating clear liquid diet without problems. Given that feel no need for further intervention at this time. PLAN: 1. Advance diet to soft. 2. If tolerates soft diet, okay to discharge from GI standpoint. 3. No plans for EGD or further intervention at this time. 4. Await further Surgery input. 5. We will follow further recommendation based on progress. JOB# [id number] CAB/NTS
--- NOTE | 2019-02-14 12:58 | Progress Note ---
Assessment and Plan 73 yo F with L sided abdominal pain, n/v CT A/p, Abd U/s, HIDA scan, and Gastric emptying study from September 2018 reviewed HIDA scan 02/12/19 - normal CT scan A/P 02/12/19 - b/l nephrolithiasis without hydronephrosis, ?tiny stones in gallbladder. Bilateral renal cysts Plan: 1 Adv to GI soft diet 2. zofran IV prn, reglan q8h prior to every meal, may add phenergan prn. Pt should be discharged on oral antiemetics - zofran ODT q6h prn and phenergan q8H prn 3. IVF 4. GI recs appreciated 5. If patient continues to have n/v and cannot tolerate liquids, recommend TPN Patient's symptoms unlikely related to gallbladder. OK to dc if tolerates advancement in diet. Thank you, please call with questions. Subjective Date of service: 02/14/19 Narrative: Pt seen and examined. States she is feeling better. Had one episode of vomiting with broth last night. No f/c. Tolerated all oral meds and breakfast today. States abdominal pain is resolved. Objective Vital Signs - 12hr 02/14/19 02/14/19 05:57 11:27 Temperature 98.5 F 97.3 F L Pulse Rate 85 87 Respiratory 18 18 Rate Blood Pressure 140/71 122/63 O2 Sat by Pulse 98 98 Oximetry - General physical appearance Narrative Exam: Gen: AAOx3. NAD CV: s1, S2+ Resp: even and unlabored Abd: soft, NT, ND Ext: no c/c/e - Labs 02/12/19 05:20 02/14/19 05:12 Diabetes panel 02/14/19 Range/Units 05:12 Sodium 137 (137-145) mmol/L Potassium 3.6 (3.6-5.0) mmol/L Chloride 102.7 (98-107) mmol/L Carbon Dioxide 22 (22-30) mmol/L BUN 7 (7-17) mg/dL Creatinine 1.0 (0.7-1.2) mg/dL Glucose 121 H (65-100) mg/dL Calcium 9.5 (8.4-10.2) mg/dL AST 16 (5-40) units/L ALT 7 (7-56) units/L Alkaline Phosphatase 63 (35-129) units/L Total Protein 6.3 (6.3-8.2) g/dL Albumin 2.8 L (3.9-5) g/dL Calcium panel 02/14/19 Range/Units 05:12 Calcium 9.5 (8.4-10.2) mg/dL Albumin 2.8 L (3.9-5) g/dL Pituitary panel 02/14/19 Range/Units 05:12 Sodium 137 (137-145) mmol/L Potassium 3.6 (3.6-5.0) mmol/L Chloride 102.7 (98-107) mmol/L Carbon Dioxide 22 (22-30) mmol/L BUN 7 (7-17) mg/dL Creatinine 1.0 (0.7-1.2) mg/dL Glucose 121 H (65-100) mg/dL Calcium 9.5 (8.4-10.2) mg/dL Adrenal panel 02/14/19 Range/Units 05:12 Sodium 137 (137-145) mmol/L Potassium 3.6 (3.6-5.0) mmol/L Chloride 102.7 (98-107) mmol/L Carbon Dioxide 22 (22-30) mmol/L BUN 7 (7-17) mg/dL Creatinine 1.0 (0.7-1.2) mg/dL Glucose 121 H (65-100) mg/dL Calcium 9.5 (8.4-10.2) mg/dL Total Bilirubin 0.30 (0.1-1.2) mg/dL AST 16 (5-40) units/L ALT 7 (7-56) units/L Alkaline Phosphatase 63 (35-129) units/L Total Protein 6.3 (6.3-8.2) g/dL Albumin 2.8 L (3.9-5) g/dL
[2019-02-14] MEDS: MORPHINE 2 MG/1 ML INJ IV PRN (20:59)
--- NOTE | 2019-02-14 21:10 | Progress Note ---
Assessment and Plan - Intractible nausea and vomiting HIDA scan normal iv Zofran, Protonix not tolerating any food yet Surgical consulted. input appreciated - Dehydration - resolved iv hydration - LARRY from [facility] - resolved iv hydration - Abdominal pain Now in the lower abdomen Diet advanced. iv morphin - Bilateral stasis dermatitis local wound care Wound CX iv Levaquin - H/o DVT Continue with Eliquis - home med Code status: pt is full code Disposition: Home when N/V resolves and pt tolerating food ] Subjective Date of service: 02/14/19 Principal diagnosis: Abdominal pain with nausea ndintrctible vomiting Interval history: Still Nauseated but no vomiting. Pain in the upper abdomen and moved to the LLQ. no fever Objective - Exam Narrative Exam: Constitutional: Well-nourished well-developed. In no distress Head: Normocephalic atraumatic Eyes: Pupils are equal round and reactive to light, conjunctiva pallor Nose: No enlarged turbinates, no septal deviation. Mouth: Moist mucous membranes. Neck: Supple no thyromegaly. No bruit. No JVD Heart: Regular rate and rhythm, S1-S2 normal. No rubs murmurs or gallop Lungs: Clear to auscultation bilaterally. no rales or rhonchi Abdomen: Soft, epigastric tenderness. Bowel sound are present. Extremities: edema, wound dressing bilaterally. no cyanosis, no clubbing. Neuro: Alert oriented Oriented x3. No focal sensory or motor deficit. Skin: No rashes or hyperpigmented spots Musculoskeletal system: No joint pain or swelling Hematological: No petechia or subcutanous hemorrhages. Immunological: No multiple septic spots on the skin Lymphatic: No generalized lymphadenopathy Psychiatry: Euthymic. Calm. - Constitutional Vitals: Vital Signs - 12hr 02/14/19 02/14/19 02/14/19 11:27 17:38 20:43 Temperature 97.3 F L 97.8 F Pulse Rate 87 89 Pulse Rate [ 64 Apical] Respiratory 18 20 Rate Respiratory Rate [Abdomen] Blood Pressure 122/63 148/69 O2 Sat by Pulse 98 98 Oximetry 02/14/19 02/14/19 20:53 20:59 Temperature Pulse Rate Pulse Rate [ Apical] Respiratory 18 Rate Respiratory 18 Rate [Abdomen] Blood Pressure O2 Sat by Pulse Oximetry - Labs CBC & Chem 7: 02/12/19 05:20 02/14/19 05:12 Labs: Abnormal lab results 02/14/19 Range/Units 05:12 Glucose 121 H (65-100) mg/dL Albumin 2.8 L (3.9-5) g/dL
[2019-02-15 05:51] LABS: Basophils % (Auto) 1.1 % (0.0-1.8); Eosinophils # (Auto) 0.3 K/mm3 (0.0-0.4); Eosinophils % (Auto) 6.5 % (0.0-4.3); Hematocrit 32.4 % (30.3-42.9); Hemoglobin 10.4 gm/dl (10.1-14.3); Lymphocytes # (Auto) 1.2 K/mm3 (1.2-5.4); Lymphocytes % (Auto) 25.2 % (13.4-35.0); Mean Corpuscular HGB Conc 32 % (30-34); Mean Corpuscular Volume 85 fl (79-97); Monocytes # (Auto) 0.4 K/mm3 (0.0-0.8); Monocytes % (Auto) 9.6 % (0.0-7.3); Platelet Count 156 K/mm3 (140-440); Red Blood Count 3.84 M/mm3 (3.65-5.03); Red Cell Distribution Width 18.6 % (13.2-15.2)
[2019-02-15 06:18] LABS: Alanine Aminotransferase 8 units/L (7-56); Albumin 2.9 g/dL (3.9-5); BUN/Creatinine Ratio 8; Blood Urea Nitrogen 8 mg/dL (7-17); Calcium 9.3 mg/dL (8.4-10.2); Hemolysis Index 2
[2019-02-15] MEDS: PANTOPRAZOLE 40 MG TAB PO SCH ×2 (09:01→21:20)
[2019-02-15] MEDS: ENOXAPARIN 40 MG/0.4 ML INJ SUB-Q SCH (09:01)
[2019-02-15] MEDS: D5W/0.45% NACL 1,000 ML IV SCH ×2 (09:15→21:19)
[2019-02-15] MEDS: ONDANSETRON 4 MG/2 ML INJ IV PRN (09:15)
--- NOTE | 2019-02-15 09:30 | Gastroenterology Progress Note ---
Assessment and Plan GI: pt reports some nausea, vomiting overnight, this morning better - pt recent full eval for n/v benign - continue current meds and diet - will follow w/ further rec based on progress Subjective Date of service: 02/15/19 Principal diagnosis: Abdominal pain with nausea ndintrctible vomiting Interval history: - reports nausea overnight, tolerating toast this am Objective - Constitutional Vitals: Temp Pulse Resp BP Pulse Ox 97.8 F 80 16 127/67 98 02/15/19 04:49 02/15/19 04:49 02/15/19 04:49 02/15/19 04:49 02/15/19 04:49 General appearance: no acute distress - EENT Eyes: PERRL - Respiratory Respiratory: bilateral: CTA - Cardiovascular Rhythm: regular Heart Sounds: Present: S1 & S2 - Gastrointestinal General gastrointestinal: Present: soft, non-tender - Labs CBC & Chem 7: 02/15/19 05:13 02/15/19 05:13 Labs: Laboratory Results - last 24 hr 02/15/19 02/15/19 05:13 05:13 WBC 4.6 RBC 3.84 Hgb 10.4 Hct 32.4 MCV 85 MCH 27 L MCHC 32 RDW 18.6 H Plt Count 156 Lymph % (Auto) 25.2 [place] % (Auto) 9.6 H Eos % (Auto) 6.5 H Baso % (Auto) 1.1 Lymph # 1.2 [place] # 0.4 Eos # 0.3 Baso # 0.0 Seg Neutrophils % 57.6 Seg Neutrophils # 2.6 Sodium 138 Potassium 3.7 Chloride 104.2 Carbon Dioxide 21 L Anion Gap 17 BUN 8 Creatinine 1.0 Estimated GFR > 60 BUN/Creatinine Ratio 8 Glucose 100 Calcium 9.3 Total Bilirubin 0.20 AST 17 ALT 8 Alkaline Phosphatase 66 Total Protein 6.1 L Albumin 2.9 L Albumin/Globulin Ratio 0.9
[2019-02-15] MEDS: METOCLOPRAMIDE 10 MG/2 ML INJ IV PRN ×2 (14:29→21:20)
[2019-02-15] MEDS: MORPHINE 2 MG/1 ML INJ IV PRN ×2 (16:15→21:20)
--- NOTE | 2019-02-15 21:46 | Progress Note ---
Assessment and Plan - Intractible nausea and vomiting HIDA scan normal iv Zofran, Protonix not tolerating any food yet GI input noted - Abdominal pain Now in the lower abdomen Diet advanced. iv morphin - Bilateral stasis dermatitis local wound care Wound CX iv Levaquin - Nick renal calculi without any obstruction Not likely cause of abdominal pain Will continue to monitor - H/o DVT Continue with Eliquis - home med Code status: pt is full code Disposition: Home when N/V resolves and pt tolerating food ] Subjective Date of service: 02/15/19 Principal diagnosis: Abdominal pain with nausea ndintrctible vomiting Interval history: Still Nauseated. vomited once last night and this morning afrter eating a toasted bread. Has not eaten anything since then for fear of vomiting. Has pain in the lower abdomen. No fever Objective - Exam Narrative Exam: Constitutional: Well-nourished well-developed. In no distress Head: Normocephalic atraumatic Eyes: Pupils are equal round and reactive to light, conjunctiva pallor Nose: No enlarged turbinates, no septal deviation. Mouth: Moist mucous membranes. Neck: Supple no thyromegaly. No bruit. No JVD Heart: Regular rate and rhythm, S1-S2 normal. No rubs murmurs or gallop Lungs: Clear to auscultation bilaterally. no rales or rhonchi Abdomen: Soft, epigastric tenderness. Bowel sound are present. Extremities: edema, wound dressing bilaterally. no cyanosis, no clubbing. Neuro: Alert oriented Oriented x3. No focal sensory or motor deficit. Skin: No rashes or hyperpigmented spots Musculoskeletal system: No joint pain or swelling Hematological: No petechia or subcutanous hemorrhages. Immunological: No multiple septic spots on the skin Lymphatic: No generalized lymphadenopathy Psychiatry: Euthymic. Calm. - Constitutional Vitals: Vital Signs - 12hr 02/15/19 02/15/19 02/15/19 12:12 16:09 16:12 Temperature 97.9 F 98.6 F Pulse Rate 79 87 Respiratory 20 16 Rate Blood Pressure 136/62 Blood Pressure 138/70 [Left] O2 Sat by Pulse 97 99 Oximetry 02/15/19 02/15/19 17:48 21:20 Temperature 98.6 F Pulse Rate 99 H Respiratory 20 18 Rate Blood Pressure 136/62 Blood Pressure [Left] O2 Sat by Pulse 98 Oximetry - Labs CBC & Chem 7: 02/15/19 05:13 02/15/19 05:13 Labs: Abnormal lab results 02/15/19 02/15/19 Range/Units 05:13 05:13 MCH 27 L (28-32) pg RDW 18.6 H (13.2-15.2) % [place] % (Auto) 9.6 H (0.0-7.3) % Eos % (Auto) 6.5 H (0.0-4.3) % Carbon Dioxide 21 L (22-30) mmol/L Total Protein 6.1 L (6.3-8.2) g/dL Albumin 2.9 L (3.9-5) g/dL
[2019-02-16 05:54] LABS: Basophils % (Auto) 0.8 % (0.0-1.8); Eosinophils # (Auto) 0.3 K/mm3 (0.0-0.4); Eosinophils % (Auto) 8.7 % (0.0-4.3); Hematocrit 32.3 % (30.3-42.9); Hemoglobin 10.5 gm/dl (10.1-14.3); Lymphocytes # (Auto) 0.8 K/mm3 (1.2-5.4); Lymphocytes % (Auto) 22.2 % (13.4-35.0); Mean Corpuscular HGB Conc 32 % (30-34); Mean Corpuscular Volume 84 fl (79-97); Monocytes # (Auto) 0.4 K/mm3 (0.0-0.8); Monocytes % (Auto) 10.2 % (0.0-7.3); Platelet Count 157 K/mm3 (140-440); Red Blood Count 3.86 M/mm3 (3.65-5.03); Red Cell Distribution Width 18.7 % (13.2-15.2)
[2019-02-16 06:23] LABS: Alanine Aminotransferase 9 units/L (7-56); Albumin 2.8 g/dL (3.9-5); BUN/Creatinine Ratio 7; Blood Urea Nitrogen 7 mg/dL (7-17); Calcium 9.8 mg/dL (8.4-10.2); Hemolysis Index 28
--- NOTE | 2019-02-16 08:32 | Progress Note ---
Assessment and Plan - Intractible nausea and vomiting HIDA scan normal iv Zofran, Protonix not tolerating any food yet GI input noted - Abdominal pain Now in the lower abdomen Diet advanced. iv morphin - Bilateral stasis dermatitis local wound care Wound CX iv Levaquin - Nick renal calculi without any obstruction Not likely cause of abdominal pain Will continue to monitor - H/o DVT Continue with Eliquis - home med Code status: Pt is full code Disposition: Home when N/V resolves and pt tolerating food ] Subjective Date of service: 02/16/19 Principal diagnosis: Abdominal pain with nausea ndintrctible vomiting Interval history: Still Nauseated. Vomited once last night. Has not eaten anything since then for fear of vomiting. Has pain in the lower abdomen. No fever Objective - Exam Narrative Exam: Constitutional: Well-nourished well-developed. In no distress Head: Normocephalic atraumatic Eyes: Pupils are equal round and reactive to light, conjunctiva pallor Nose: No enlarged turbinates, no septal deviation. Mouth: Moist mucous membranes. Neck: Supple no thyromegaly. No bruit. No JVD Heart: Regular rate and rhythm, S1-S2 normal. No rubs murmurs or gallop Lungs: Clear to auscultation bilaterally. no rales or rhonchi Abdomen: Soft, epigastric tenderness. Bowel sound are present. Extremities: edema, wound dressing bilaterally. no cyanosis, no clubbing. Neuro: Alert oriented Oriented x3. No focal sensory or motor deficit. Skin: No rashes or hyperpigmented spots Musculoskeletal system: No joint pain or swelling Hematological: No petechia or subcutanous hemorrhages. Immunological: No multiple septic spots on the skin Lymphatic: No generalized lymphadenopathy Psychiatry: Euthymic. Calm. - Constitutional Vitals: Vital Signs - 12hr 02/15/19 02/15/19 02/15/19 21:20 21:50 23:41 Temperature 98.3 F Pulse Rate 85 Respiratory 18 18 20 Rate Blood Pressure 121/65 O2 Sat by Pulse 98 Oximetry 02/16/19 05:58 Temperature 98.0 F Pulse Rate 75 Respiratory 18 Rate Blood Pressure 114/58 O2 Sat by Pulse 98 Oximetry - Labs CBC & Chem 7: 02/16/19 05:27 02/16/19 05:27 Labs: Abnormal lab results 02/16/19 02/16/19 Range/Units 05:27 05:27 WBC 3.8 L (4.5-11.0) K/mm3 MCH 27 L (28-32) pg RDW 18.7 H (13.2-15.2) % [place] % (Auto) 10.2 H (0.0-7.3) % Eos % (Auto) 8.7 H (0.0-4.3) % Lymph # 0.8 L (1.2-5.4) K/mm3 Carbon Dioxide 18 L (22-30) mmol/L Glucose 107 H (65-100) mg/dL Albumin 2.8 L (3.9-5) g/dL
[2019-02-16] MEDS: D5W/0.45% NACL 1,000 ML IV SCH (10:01)
[2019-02-16] MEDS: PANTOPRAZOLE 40 MG TAB PO SCH ×2 (10:02→22:56)
[2019-02-16] MEDS: ENOXAPARIN 40 MG/0.4 ML INJ SUB-Q SCH (10:02)
--- NOTE | 2019-02-16 10:50 | Gastroenterology Progress Note ---
Assessment and Plan 1.N/V -afebrile -WBC, H/H and LFTs WNL -abd CT on admission w/o acute findings (b/l nephrolithiasis without hydronephrosis, ?tiny stones in gallbladder. Bilateral renal cysts) -previous extensive workup with CT, U/S, HIDA, and GES in September 2018 -HIDA scan 02/12/19 - normal -s/p EGD 08/2018 that showed normal post surgical anatomy with Billroth II w/ healthy anastamosis, hiatal hernia, and gastric poly (bx results negative; no H pylori) -etiology-likely multifactorial (constipation vs GB vs other) -clinically, patient reports N/V now improved. Denies abd pain. Tolerating liquids. -surgery following with no plans for cholecystectomy at this time -no plan for repeat scope at this time -advance diet as tolerated -continue PPI and antiemetics -start on daily bowel regimen with Miralax -continue supportive care -no further GI recommendations at this time; okay to d/c if tolerates advancement in diet -will sign off, please call if needed Subjective Date of service: 02/16/19 Principal diagnosis: N/V Interval history: No acute distress. N/V improved. Tolerating liquids. Denies abd pain. Objective - Constitutional Vitals: Temp Pulse Resp BP Pulse Ox 98.0 F 75 18 114/58 98 02/16/19 05:58 02/16/19 05:58 02/16/19 05:58 02/16/19 05:58 02/16/19 05:58 General appearance: no acute distress - EENT Eyes: PERRL, EOM intact ENT: hearing intact - Respiratory Respiratory effort: normal - Cardiovascular Rhythm: regular - Gastrointestinal General gastrointestinal: Present: soft, non-tender, non-distended, normal bowel sounds - Integumentary Integumentary: Present: warm, dry - Neurologic Neurological: alert and oriented x3 - Labs CBC & Chem 7: 02/16/19 05:27 02/16/19 05:27 Labs: Laboratory Results - last 24 hr 02/16/19 02/16/19 05:27 05:27 WBC 3.8 L RBC 3.86 Hgb 10.5 Hct 32.3 MCV 84 MCH 27 L MCHC 32 RDW 18.7 H Plt Count 157 Lymph % (Auto) 22.2 [place] % (Auto) 10.2 H Eos % (Auto) 8.7 H Baso % (Auto) 0.8 Lymph # 0.8 L [place] # 0.4 Eos # 0.3 Baso # 0.0 Seg Neutrophils % 58.1 Seg Neutrophils # 2.2 Sodium 138 Potassium 3.9 Chloride 105.3 Carbon Dioxide 18 L Anion Gap 19 BUN 7 Creatinine 1.0 Estimated GFR > 60 BUN/Creatinine Ratio 7 Glucose 107 H Calcium 9.8 Total Bilirubin 0.20 AST 18 ALT 9 Alkaline Phosphatase 69 Total Protein 6.4 Albumin 2.8 L Albumin/Globulin Ratio 0.8
[2019-02-16] MEDS: POLYETHYLENE GLYCOL 3350 17 GM POWDER PO SCH ×2 (12:24→12:27)
--- NOTE | 2019-02-16 16:21 | Event Note ---
Date: 02/16/19 Patient failed advancement in diet this afternoon with recurrent N/v. will order UGI series for further evaluation.
[2019-02-17] MEDS: D5W/0.45% NACL 1,000 ML IV SCH ×2 (00:37→15:55)
[2019-02-17 05:55] LABS: Basophils # (Auto) 0.1 K/mm3 (0.0-0.1); Basophils % (Auto) 1.3 % (0.0-1.8); Eosinophils # (Auto) 0.3 K/mm3 (0.0-0.4); Eosinophils % (Auto) 7.5 % (0.0-4.3); Hemoglobin 10.3 gm/dl (10.1-14.3); Mean Corpuscular HGB Conc 32 % (30-34); Mean Corpuscular Volume 84 fl (79-97); Monocytes # (Auto) 0.4 K/mm3 (0.0-0.8); Monocytes % (Auto) 8.6 % (0.0-7.3); Platelet Count 164 K/mm3 (140-440); Red Blood Count 3.82 M/mm3 (3.65-5.03); Red Cell Distribution Width 18.7 % (13.2-15.2)
[2019-02-17 06:40] LABS: Alanine Aminotransferase 9 units/L (7-56); Albumin 2.6 g/dL (3.9-5); BUN/Creatinine Ratio 8; Blood Urea Nitrogen 8 mg/dL (7-17); Calcium 9.7 mg/dL (8.4-10.2); Hemolysis Index 4
--- NOTE | 2019-02-17 09:48 | Progress Note ---
Assessment and Plan - Intractible nausea and vomiting for EGD today Continjuw with iv Zofran, Protonix not tolerating any food yet GI input noted - Abdominal pain Now in the lower abdomen Diet advanced. iv morphin - Malnutrition - moderate Diatery consult - Bilateral stasis dermatitis local wound care Wound CX iv Levaquin - Nick renal calculi without any obstruction Not likely cause of abdominal pain Will continue to monitor - H/o DVT Continue with Eliquis - home med Code status: Pt is full code Disposition: Home when N/V resolves and pt tolerating food ] Subjective Date of service: 02/17/19 Principal diagnosis: Abdominal pain with nausea ndintrctible vomiting Interval history: Still Nauseated. Vomited once last night. Has not eaten anything since then for fear of vomiting. Has pain in the lower abdomen. No fever Objective - Exam Narrative Exam: Constitutional: Well-nourished well-developed. In no distress Head: Normocephalic atraumatic Eyes: Pupils are equal round and reactive to light, conjunctiva pallor Nose: No enlarged turbinates, no septal deviation. Mouth: Moist mucous membranes. Neck: Supple no thyromegaly. No bruit. No JVD Heart: Regular rate and rhythm, S1-S2 normal. No rubs murmurs or gallop Lungs: Clear to auscultation bilaterally. no rales or rhonchi Abdomen: Soft, epigastric tenderness. Bowel sound are present. Extremities: edema, wound dressing bilaterally. no cyanosis, no clubbing. Neuro: Alert oriented Oriented x3. No focal sensory or motor deficit. Skin: No rashes or hyperpigmented spots Musculoskeletal system: No joint pain or swelling Hematological: No petechia or subcutanous hemorrhages. Immunological: No multiple septic spots on the skin Lymphatic: No generalized lymphadenopathy Psychiatry: Euthymic. Calm. - Constitutional Vitals: Vital Signs - 12hr 02/16/19 02/17/19 23:12 06:07 Temperature 98.3 F 98.2 F Pulse Rate 91 H 73 Respiratory 20 18 Rate Blood Pressure 133/72 137/64 O2 Sat by Pulse 98 98 Oximetry - Labs CBC & Chem 7: 02/17/19 05:32 02/17/19 05:32 Labs: Abnormal lab results 02/17/19 02/17/19 Range/Units 05:32 05:32 WBC 4.1 L (4.5-11.0) K/mm3 MCH 27 L (28-32) pg RDW 18.7 H (13.2-15.2) % [place] % (Auto) 8.6 H (0.0-7.3) % Eos % (Auto) 7.5 H (0.0-4.3) % Lymph # 1.0 L (1.2-5.4) K/mm3 Carbon Dioxide 19 L (22-30) mmol/L Glucose 122 H (65-100) mg/dL Total Protein 6.1 L (6.3-8.2) g/dL Albumin 2.6 L (3.9-5) g/dL
--- NOTE | 2019-02-17 10:20 | Gastroenterology Progress Note ---
Assessment and Plan 1.N/V -afebrile -WBC, H/H and LFTs WNL -abd CT on admission w/o acute findings (b/l nephrolithiasis without hydronephrosis, ?tiny stones in gallbladder. Bilateral renal cysts) -previous extensive workup with CT, U/S, HIDA, and GES in September 2018 -HIDA scan 02/12/19 - normal -s/p EGD 08/2018 that showed normal post surgical anatomy with Billroth II w/ healthy anastamosis, hiatal hernia, and gastric poly (bx results negative; no H pylori) -etiology-likely multifactorial -clinically, patient is stable but with recurrent N/V yesterday. Denies abd pain. -surgery following for possible cholecystectomy, however pt deferred given no definitive evidence would help with symptoms -UGI series pending for today for further recommendations -no plan for repeat scope at this time -diet as tolerated -continue PPI and antiemetics -continue daily bowel regimen with Miralax -continue supportive care -further recommendations to follow Subjective Date of service: 02/17/19 Principal diagnosis: N/V Interval history: No acute distress. Recurrent N/V yesterday, but no episodes of vomiting this am. Denies abd pain. BM x 1 yesterday. Objective - Constitutional Vitals: Temp Pulse Resp BP Pulse Ox 98.2 F 73 18 137/64 98 02/17/19 06:07 02/17/19 06:07 02/17/19 06:07 02/17/19 06:07 02/17/19 06:07 General appearance: no acute distress - Respiratory Respiratory effort: normal - Cardiovascular Rhythm: regular - Gastrointestinal General gastrointestinal: Present: soft, non-tender, non-distended, normal bowel sounds - Neurologic Neurological: alert and oriented x3 - Labs CBC & Chem 7: 02/17/19 05:32 02/17/19 05:32 Labs: Laboratory Results - last 24 hr 02/17/19 02/17/19 05:32 05:32 WBC 4.1 L RBC 3.82 Hgb 10.3 Hct 32.0 MCV 84 MCH 27 L MCHC 32 RDW 18.7 H Plt Count 164 Lymph % (Auto) 24.0 [place] % (Auto) 8.6 H Eos % (Auto) 7.5 H Baso % (Auto) 1.3 Lymph # 1.0 L [place] # 0.4 Eos # 0.3 Baso # 0.1 Seg Neutrophils % 58.6 Seg Neutrophils # 2.4 Sodium 140 Potassium 3.6 Chloride 106.9 Carbon Dioxide 19 L Anion Gap 18 BUN 8 Creatinine 1.0 Estimated GFR > 60 BUN/Creatinine Ratio 8 Glucose 122 H Calcium 9.7 Total Bilirubin 0.20 AST 17 ALT 9 Alkaline Phosphatase 69 Total Protein 6.1 L Albumin 2.6 L Albumin/Globulin Ratio 0.7
--- NOTE | 2019-02-17 11:22 | Fluoroscopy Report ---
UPPER GI HISTORY: intractable N/V. TECHNIQUE: Single and double contrast barium technique utilized to evaluate the esophagus, stomach, and duodenal C-loop. FINDINGS: To begin the exam, swallowing was evaluated in the lateral position under direct fluorosco py. Swallowing was normal. Decreased motility was suspected in the esophagus and stomach throughout this examination. The esopha davey is normal caliber and mucosal pattern throughout. No stenosis or mass lesion. Distal gastrectomy changes are suspected, correlate with surgical history. The remaining proximal stomach is unremarkabl e. No obvious mass lesion or ulceration. Anastomosis to the proximal small bowel loops appears widely patent and unremarkable. Visualized proximal small bowel loops are normal caliber and mucosal patter n. IMPRESSION: Decreased motility was suspected throughout this examination. Distal gastrectomy changes are identified. Anastomosis site with small bowel loops appears intact and unremarkable. No mass les ion or obstruction is appreciated. Fluoroscopic time: 3.1 minutes Number of fluoroscopic images: 15 Signer Name: Maurisio Ash Jr, MD Signed: 02/17/2019 11:17 AM Workstation Name: [id number]
[2019-02-17] MEDS: ENOXAPARIN 40 MG/0.4 ML INJ SUB-Q SCH (11:41)
[2019-02-17] MEDS: PANTOPRAZOLE 40 MG TAB PO SCH ×2 (11:41→23:28)
[2019-02-17] MEDS: POLYETHYLENE GLYCOL 3350 17 GM POWDER PO SCH (11:42)
[2019-02-17] MEDS: MORPHINE 2 MG/1 ML INJ IV PRN (23:28)
[2019-02-18] MEDS: D5W/0.45% NACL 1,000 ML IV SCH ×2 (06:33→19:11)
--- NOTE | 2019-02-18 10:19 | Gastroenterology Progress Note ---
Assessment and Plan 1.N/V -afebrile -WBC, H/H and LFTs WNL -abd CT on admission w/o acute findings (b/l nephrolithiasis without hydronephrosis, ?tiny stones in gallbladder. Bilateral renal cysts) -previous extensive workup with CT, U/S, HIDA, and GES in September 2018 -HIDA scan 02/12/19 - normal -s/p EGD 08/2018 that showed normal post surgical anatomy with Billroth II w/ healthy anastamosis, hiatal hernia, and gastric poly (bx results negative; no H pylori) -etiology-likely multifactorial -clinically, patient is stable. Tolerating small amount of PO this am. Denies abd pain. -UGI series yesterday showed decreased motility and post surgical changes but no mass or obstruction -surgery following for possible cholecystectomy, however pt deferred given no definitive evidence would help with symptoms -no plan for repeat scope at this time -diet as tolerated -continue PPI, reglan,and antiemetics -continue daily bowel regimen with Miralax -continue supportive care -encourage OOB -no further GI recommendations at this time, patient to f/u in clinic upon discharge for further management -will sign off, please call if needed Subjective Date of service: 02/18/19 Principal diagnosis: Abdominal pain with nausea ndintrctible vomiting Interval history: No acute distress. Tolerating small amount of PO this am. Denies abd pain. Objective - Constitutional Vitals: Temp Pulse Resp BP Pulse Ox 98.5 F 79 20 162/80 96 02/18/19 05:16 02/18/19 05:16 02/18/19 05:16 02/18/19 05:16 02/18/19 05:16 General appearance: no acute distress - Respiratory Respiratory effort: normal - Cardiovascular Rhythm: regular - Gastrointestinal General gastrointestinal: Present: soft, non-tender, non-distended, normal bowel sounds - Neurologic Neurological: alert and oriented x3 - Labs CBC & Chem 7: 02/17/19 05:32 02/17/19 05:32
[2019-02-18] MEDS: PANTOPRAZOLE 40 MG TAB PO SCH ×2 (10:58→21:45)
[2019-02-18] MEDS: ENOXAPARIN 40 MG/0.4 ML INJ SUB-Q SCH (10:58)
[2019-02-18] MEDS: ONDANSETRON 4 MG/2 ML INJ IV PRN (11:01)
[2019-02-18] MEDS: MORPHINE 2 MG/1 ML INJ IV PRN ×2 (11:02→19:05)
[2019-02-18] MEDS: POLYETHYLENE GLYCOL 3350 17 GM POWDER PO SCH (14:44)
--- NOTE | 2019-02-18 15:59 | Progress Note ---
Assessment and Plan - Intractible nausea and vomiting for EGD today Continue with iv Zofran, Protonix not tolerating any food yet GI input noted - Abdominal pain resolving - Malnutrition - moderate Diatery consult - Bilateral stasis dermatitis local wound care Wound CX iv Levaquin - Nick renal calculi without any obstruction Not likely cause of abdominal pain Will continue to monitor - H/o DVT Continue with Eliquis - home med Code status: Pt is full code Disposition: Home when N/V resolves and pt tolerating food ] Subjective Date of service: 02/18/19 Principal diagnosis: Abdominal pain with nausea ndintrctible vomiting Interval history: Still Nauseated. Vomited once last night. Has vomited yesterday and today.Has pain in the lower abdomen. No fever Objective - Exam Narrative Exam: Constitutional: Well-nourished well-developed.In no distress Head: Normocephalic atraumatic Eyes: Pupils are equal round and reactive to light, conjunctiva pallor Nose: No enlarged turbinates, no septal deviation. Mouth: Moist mucous membranes. Neck: Supple no thyromegaly. No bruit. No JVD Heart: Regular rate and rhythm, S1-S2 normal. No rubs murmurs or gallop Lungs: Clear to auscultation bilaterally. no rales or rhonchi Abdomen: Soft, epigastric tenderness. Bowel sound are present. Extremities: edema, wound dressing bilaterally. no cyanosis, no clubbing. Neuro: Alert oriented Oriented x3. No focal sensory or motor deficit. Skin: No rashes or hyperpigmented spots Musculoskeletal system: No joint pain or swelling Hematological: No petechia or subcutanous hemorrhages. Immunological: No multiple septic spots on the skin Lymphatic: No generalized lymphadenopathy Psychiatry: Euthymic. Calm. - Constitutional Vitals: Vital Signs - 12hr 02/18/19 02/18/19 05:16 11:58 Temperature 98.5 F 98.4 F Pulse Rate 79 74 Respiratory 20 18 Rate Blood Pressure 162/80 147/70 O2 Sat by Pulse 96 100 Oximetry - Labs CBC & Chem 7: 02/17/19 05:32 02/17/19 05:32
[2019-02-19] MEDS: D5W/0.45% NACL 1,000 ML IV SCH (07:57)
[2019-02-19] MEDS: PANTOPRAZOLE 40 MG TAB PO SCH ×2 (10:36→21:58)
[2019-02-19] MEDS: ENOXAPARIN 40 MG/0.4 ML INJ SUB-Q SCH (10:36)
[2019-02-19] MEDS: POLYETHYLENE GLYCOL 3350 17 GM POWDER PO SCH (10:37)
--- NOTE | 2019-02-19 19:43 | Progress Note ---
Assessment and Plan - Intractible nausea and vomiting for EGD showed delayed gastic molitiy Continue with iv Zofran, Protonix not tolerating any food yet GI input noted - Abdominal pain resolving - Malnutrition - moderate Diatery consult - Bilateral stasis dermatitis local wound care Wound CX iv Levaquin - Nick renal calculi without any obstruction Not likely cause of abdominal pain Will continue to monitor - H/o DVT Continue with Eliquis - home med Code status: Pt is full code Disposition: Home when N/V resolves and pt tolerating food ] Subjective Date of service: 02/19/19 Principal diagnosis: Abdominal pain with nausea ndintrctible vomiting Interval history: Still Nauseated. Vomited once last night.Has vomited yesterday and today.Has pain in the lower abdomen. No fever Objective - Exam Narrative Exam: Constitutional: Well-nourished well-developed.In no distress Head: Normocephalic atraumatic Eyes: Pupils are equal round and reactive to light, conjunctiva pallor Nose: No enlarged turbinates, no septal deviation. Mouth: Moist mucous membranes. Neck: Supple no thyromegaly. No bruit. No JVD Heart: Regular rate and rhythm, S1-S2 normal. No rubs murmurs or gallop Lungs: Clear to auscultation bilaterally. no rales or rhonchi Abdomen: Soft, epigastric tenderness. Bowel sound are present. Extremities: edema, wound dressing bilaterally. no cyanosis, no clubbing. Neuro: Alert oriented Oriented x3. No focal sensory or motor deficit. Skin: No rashes or hyperpigmented spots Musculoskeletal system: No joint pain or swelling Hematological: No petechia or subcutanous hemorrhages. Immunological: No multiple septic spots on the skin Lymphatic: No generalized lymphadenopathy Psychiatry: Euthymic. Calm. - Constitutional Vitals: Vital Signs - 12hr 02/19/19 02/19/19 12:22 16:33 Temperature 98.1 F 98.0 F Pulse Rate 67 71 Respiratory 16 18 Rate Blood Pressure 138/68 149/68 O2 Sat by Pulse 97 98 Oximetry - Labs CBC & Chem 7: 02/17/19 05:32 02/17/19 05:32
[2019-02-20] MEDS ORDERED: oxyCODONE /ACETAMINOPHEN 5-325MG TAB PO PRN (02:17)
[2019-02-20 04:57] LABS: Basophils % (Auto) 0.9 % (0.0-1.8); Eosinophils # (Auto) 0.3 K/mm3 (0.0-0.4); Eosinophils % (Auto) 6.6 % (0.0-4.3); Hematocrit 30.4 % (30.3-42.9); Hemoglobin 9.9 gm/dl (10.1-14.3); Lymphocytes # (Auto) 0.9 K/mm3 (1.2-5.4); Lymphocytes % (Auto) 20.2 % (13.4-35.0); Mean Corpuscular HGB Conc 32 % (30-34); Mean Corpuscular Volume 83 fl (79-97); Monocytes # (Auto) 0.3 K/mm3 (0.0-0.8); Monocytes % (Auto) 7.1 % (0.0-7.3); Platelet Count 175 K/mm3 (140-440); Red Blood Count 3.67 M/mm3 (3.65-5.03); Red Cell Distribution Width 18.1 % (13.2-15.2)
[2019-02-20 05:13] LABS: Albumin 2.9 g/dL (3.9-5); Calcium 9.6 mg/dL (8.4-10.2)
[2019-02-20] MEDS: POLYETHYLENE GLYCOL 3350 17 GM POWDER PO SCH (10:31)
[2019-02-20] MEDS: PANTOPRAZOLE 40 MG TAB PO SCH ×2 (10:31→21:49)
[2019-02-20] MEDS: ENOXAPARIN 40 MG/0.4 ML INJ SUB-Q SCH (10:31)
--- NOTE | 2019-02-20 23:58 | Progress Note ---
Assessment and Plan - Intractible nausea and vomiting Upper GI series showed delayed gastic molitiy Continue with iv Zofran, Protonix not tolerating any food yet GI input noted - Hypokalemai Supplements - Malnutrition - moderate Diatery consult - Bilateral stasis dermatitis local wound care Wound CX iv Levaquin - Nick renal calculi without any obstruction Not likely cause of abdominal pain Will continue to monitor - H/o DVT Continue with Eliquis - home med Code status: Pt is full code Disposition: Home when N/V resolves and pt tolerating food ] Subjective Date of service: 02/20/19 Principal diagnosis: Abdominal pain with nausea ndintrctible vomiting Interval history: Still Nauseated. Vomited once today. No fever Objective - Exam Narrative Exam: Constitutional: Well-nourished well-developed.In no distress Head: Normocephalic atraumatic Eyes: Pupils are equal round and reactive to light, conjunctiva pallor Nose: No enlarged turbinates, no septal deviation. Mouth: Moist mucous membranes. Neck: Supple no thyromegaly. No bruit. No JVD Heart: Regular rate and rhythm, S1-S2 normal. No rubs murmurs or gallop Lungs: Clear to auscultation bilaterally. no rales or rhonchi Abdomen: Soft, epigastric tenderness. Bowel sound are present. Extremities: edema, wound dressing bilaterally. no cyanosis, no clubbing. Neuro: Alert oriented Oriented x3. No focal sensory or motor deficit. Skin: No rashes or hyperpigmented spots Musculoskeletal system: No joint pain or swelling Hematological: No petechia or subcutanous hemorrhages. Immunological: No multiple septic spots on the skin Lymphatic: No generalized lymphadenopathy Psychiatry: Euthymic. Calm. - Constitutional Vitals: Vital Signs - 12hr 02/20/19 02/20/19 02/20/19 12:00 16:51 21:39 Temperature 98.2 F 98.2 F Pulse Rate 75 77 Respiratory 20 20 20 Rate Blood Pressure 136/68 119/61 O2 Sat by Pulse 98 96 Oximetry - Labs CBC & Chem 7: 02/20/19 04:35 02/20/19 04:35 Labs: Abnormal lab results 02/20/19 02/20/19 Range/Units 04:35 04:35 Hgb 9.9 L (10.1-14.3) gm/dl MCH 27 L (28-32) pg RDW 18.1 H (13.2-15.2) % Eos % (Auto) 6.6 H (0.0-4.3) % Lymph # 0.9 L (1.2-5.4) K/mm3 Potassium 3.4 L (3.6-5.0) mmol/L Total Protein 5.9 L (6.3-8.2) g/dL Albumin 2.9 L (3.9-5) g/dL
[2019-02-21] MEDS: POTASSIUM CHLORIDE 20 MEQ 20 MEQ/100 ML BAG IV ONE ×2 (01:32→02:16)
[2019-02-21] MEDS: D5W/0.45% NACL 1,000 ML IV SCH (01:35)
[2019-02-21] MEDS: POTASSIUM CHLORIDE 10 MEQ 10 MEQ/100 ML BAG IV SCH ×2 (02:24→04:29)
[2019-02-21] MEDS ORDERED: hydrALAZINE 20 MG/1 ML INJ IV PRN (06:12)
[2019-02-21] MEDS: POLYETHYLENE GLYCOL 3350 17 GM POWDER PO SCH (10:23)
[2019-02-21] MEDS: ENOXAPARIN 40 MG/0.4 ML INJ SUB-Q SCH (10:23)
[2019-02-21] MEDS: PANTOPRAZOLE 40 MG TAB PO SCH (10:23)
--- NOTE | 2019-02-21 14:14 | Discharge Summary ---
Providers - Providers Date of Admission: 02/11/19 16:14 Date of discharge: 02/21/19 Attending physician: BRITTANY MATTSON 02/11/19 15:28 Consult to Physician [CONS] Urgent Comment: Consulting Provider: DONAL HSIEH Physician Instructions: Reason For Exam: BILIARY DYSKINESIA, ABD PAIN, INTRACTABLE N&V 02/12/19 04:37 Consult to Wound/ET Nurse [CONS] Routine Reason For Exam: wound eval 02/13/19 16:48 Consult to Physician [CONS] Routine Comment: Consulting Provider: MARYLOU MARQUEZ Physician Instructions: Reason For Exam: intractible nausea and vomiting 02/15/19 12:09 Physical Therapy Evaluation and Treat [CONS] Routine Comment: Reason For Exam: weakness Primary care physician: BRITTANY MATTSON Hospitalization Reason for admission: intractible Nausea and vomiting, Abdominal pain from possible renal calculi Pertinent studies: CT abdomen and pelvis CXR UJUpper GI series with air contrast Procedures: none Hospital course: Patient is a 73 y/o female who has a history of breast cancer s/p mastectomy, DVT, venous statis ulcer both legs presented to my office in company of her daughter complaining indtractible nause and vomiting with upper abdominal pain. No diarrhea, or fever. Denies any chest pain, shortness of breath or palpitaion. Patient had similar symprom about 3 months ago for which an extensive w/u was done including EGD, HIDA scan and biliary dyskinasia with cholecyctectomy was offered. However pt's symptoms were getting better and she decide to go home but to return if symptoms get worse. CT abdomen and pelcis showed bilateral nephrolithiasis. There is no hydronephrosis. There appear to be tiny gallstones in the gallbladder. There is a small hiatal hernia. Was commnece on iV hydration, NPO and protonix Upper gi seria with air contrast showedDecreased motility was suspected throughout this examination. Distal gastrectomy changes are identified. Anastomosis site with small bowel loops appears intact and unremarkable. No mass lesion or obstruction is appreciated. nausea dn vomniting imporvd and pt is being diachrged to f/u iwht PCP and GI on out pt in 5 days and 7 days respectively Disposition: - TO HOME OR SELFCARE Time spent for discharge: 37 min - Discharge Diagnoses (1) LARRY (acute kidney injury) Status: Acute (2) Abdominal pain Status: Acute (3) Acute kidney failure with tubular necrosis Status: Acute (4) Nausea and vomiting Status: Acute (5) Abdominal distension Status: Acute (6) Anemia Status: Acute Qualifiers: Iron deficiency anemia type: chronic blood loss Core Measure Documentation - Palliative Care Palliative Care/ Comfort Measures: Not Applicable - Core Measures Any of the following diagnoses?: none Exam - Physical Exam Narrative exam: Constitutional: Well-nourished well-developed.In no distress Head: Normocephalic atraumatic Eyes: Pupils are equal round and reactive to light, conjunctiva pallor Nose: No enlarged turbinates, no septal deviation. Mouth: Moist mucous membranes. Neck: Supple no thyromegaly. No bruit. No JVD Heart: Regular rate and rhythm, S1-S2 normal. No rubs murmurs or gallop Lungs: Clear to auscultation bilaterally. no rales or rhonchi Abdomen: Soft, epigastric tenderness. Bowel sound are present. Extremities: edema, wound dressing bilaterally. no cyanosis, no clubbing. Neuro: Alert oriented Oriented x3. No focal sensory or motor deficit. Skin: No rashes or hyperpigmented spots Musculoskeletal system: No joint pain or swelling Hematological: No petechia or subcutanous hemorrhages. Immunological: No multiple septic spots on the skin Lymphatic: No generalized lymphadenopathy Psychiatry: Euthymic. Calm. - Constitutional Vitals: Temp Pulse Resp BP Pulse Ox 99.2 F 91 H 20 176/103 96 02/21/19 05:18 02/21/19 06:25 02/21/19 05:18 02/21/19 06:25 02/20/19 21:39 Plan Activity: fall precautions Weight Bearing Status: Non-Weight Bearing Diet: regular Follow up with: BRITTANY MATTSON MD [Primary Care Provider] - 7 Days Prescriptions: Sucralfate [Carafate] 1 gm PO ACHS #120 tablet Hydroxyzine HCl [hydrOXYzine] 50 mg PO QHS #30 tablet oxyCODONE /ACETAMINOPHEN [Percocet 5/325 mg] 1 tab PO Q6H PRN #8 tablet PRN Reason: Pain, Moderate (4-6) Promethazine [Phenergan] 25 mg PO Q6H PRN #30 tablet PRN Reason: Nausea And Vomiting Promethazine [Phenergan SUPPOS] 12.5 mg FL Q6H PRN #30 supp.rect PRN Reason: Nausea And Vomiting Pantoprazole [Protonix TAB] 40 mg PO DAILY #30 tablet Pantoprazole [Protonix TAB] 40 mg PO DAILY #30 tablet Sodium Bicarbonate 75 meq IV DIRECT #5 vial Lisinopril [Zestril TAB] 10 mg PO DAILY #30 tablet Ondansetron [Zofran ODT TAB] 8 mg PO Q8HR #60 tab.rapdis Ondansetron (Nf) [Zofran TAB] 8 mg PO Q8HR PRN #30 tablet PRN Reason: Vomiting
[2019-02-21 15:34] VITALS: BP 131/66
== END 2019-02-21 18:00 | disposition home health service (06) | DRG 444 ==
LOC: UNDOADMIN 15:23 → 3A 15:23
PROVIDERS: ADMIT Family Medicine; ATTEND Family Medicine
DX: K80.20 Calculus of gallbladder without cholecystitis without obstruction (principal); N17.0 Acute kidney failure with tubular necrosis; E44.0 Moderate protein-calorie malnutrition; E86.0 Dehydration; N20.0 Calculus of kidney; K44.9 Diaphragmatic hernia without obstruction or gangrene; D50.0 Iron deficiency anemia secondary to blood loss (chronic); E87.6 Hypokalemia; K82.8 Other specified diseases of gallbladder; I87.2 Venous insufficiency (chronic) (peripheral); E03.9 Hypothyroidism, unspecified; Z87.442 Personal history of urinary calculi; Z68.30 Body mass index [BMI] 30.0-30.9, adult; Z85.3 Personal history of malignant neoplasm of breast; Z86.718 Personal history of other venous thrombosis and embolism; Z90.11 Acquired absence of right breast and nipple; Z91.012 Allergy to eggs; Z91.011 Allergy to milk products; Z91.010 Allergy to peanuts; Z88.0 Allergy status to penicillin; Z91.013 Allergy to seafood; Z79.899 Other long term (current) drug therapy; Z90.49 Acquired absence of other specified parts of digestive tract
CPT/HCPCS: 36415; 74018; 74177; 74247; 78226; 80053; 83540; 83690; 83735; 84100; 84436; 84443; 85025; 85610; 85730; G0378; A9537; C9113; J0360; J1650; J2270; J2405; J2765; J3480; Q9967

== ENCOUNTER 2019-02-24 09:30 | Outpatient (CLI) | payer MEDICARE ==
[2019-02-24] MEDS ORDERED: LIDOCAINE (4%) 40 MG/ML TOPICAL SOLN 50 ML BOTTLE TP ONE (10:00)
== END 2019-02-24 09:31 | disposition home or self-care (01) ==
LOC: WOUND 09:30
PROVIDERS: ATTEND Surgery
DX: I87.313 Chronic venous hypertension (idiopathic) with ulcer of bilateral lower extremity (principal); L97.812 Non-pressure chronic ulcer of other part of right lower leg with fat layer exposed; L97.822 Non-pressure chronic ulcer of other part of left lower leg with fat layer exposed; I10 Essential (primary) hypertension; M32.9 Systemic lupus erythematosus, unspecified; K27.9 Peptic ulcer, site unspecified, unspecified as acute or chronic, without hemorrhage or perforation; Z85.3 Personal history of malignant neoplasm of breast
CPT/HCPCS: 99215; G0463

== ENCOUNTER 2019-03-04 09:06 | Outpatient (CLI) | payer MEDICARE ==
[2019-03-04] MEDS ORDERED: VITAMIN A & D OINT 56.7 GM TP SCH (10:00)
== END 2019-03-04 09:07 | disposition home or self-care (01) ==
LOC: WOUND 09:06
PROVIDERS: ATTEND Surgery
DX: I87.313 Chronic venous hypertension (idiopathic) with ulcer of bilateral lower extremity (principal); L97.818 Non-pressure chronic ulcer of other part of right lower leg with other specified severity; L97.828 Non-pressure chronic ulcer of other part of left lower leg with other specified severity; K27.9 Peptic ulcer, site unspecified, unspecified as acute or chronic, without hemorrhage or perforation; M32.9 Systemic lupus erythematosus, unspecified; Z85.3 Personal history of malignant neoplasm of breast
CPT/HCPCS: 99213; A6250; G0463